=== PATIENT | female | born 1985 | race Caucasian/White ===

== ENCOUNTER 2017-02-11 13:43 | Inpatient (IN) | payer OTHER ==
[2017-02-11] MEDS ORDERED: SODIUM CHLORIDE 0.9% 1,000 ML IV STA (14:25)
[2017-02-11] MEDS ORDERED: ONDANSETRON 4 MG/2 ML VIAL IVP STA (14:25)
[2017-02-11] MEDS ORDERED: HYDROmorphone 1 MG/ML 1 ML SYRINGE IVP STA (14:25)
[2017-02-11] MEDS ORDERED: HYDROmorphone 1 MG/ML 1 ML SYRINGE IVP PRN (14:25)
[2017-02-11] MEDS ORDERED: PANTOPRAZOLE 40 MG/10 ML VIAL IVP STA (14:27)
--- NOTE | 2017-02-11 14:28 | ED ---
General Adult HPI - General Chief complaint: Nausea/Vomiting/Diarrhea Stated complaint: Sent by [facility] De[facility]/scope tomorrow Time Seen by Provider: 02/11/17 14:17 Source: patient, RN notes reviewed, old records reviewed Mode of arrival: ambulatory Limitations: no limitations - History of Present Illness Initial comments: This is a 31-year-old female here for evaluation of abdominal pain nausea vomiting. Patient has medical history of bipolar, no new medications. He states that she's having nausea vomiting and upper abdominal pain. She does have her gallbladder removed about 14 years ago. Unsure of doctor at the time. No fevers. No diarrhea no travel history no sick contacts. Patient was seen in Dr. Howard's office earlier today and sent to emergency room for further evaluation - Related Data Home Medications Medication Instructions Recorded Confirmed ALPRAZolam [Xanax] 1 mg PO Q8HR PRN 02/11/17 02/11/17 Mirtazapine [Remeron] 15 mg PO HS 02/11/17 02/11/17 lamoTRIgine [LaMICtal] 100 mg PO DAILY 02/11/17 02/11/17 Allergies Allergy/AdvReac Type Severity Reaction Status Date / Time ketorolac [From Toradol] Allergy Rash/Hives Verified 02/11/17 15:01 latex Allergy Rash/Hives Verified 02/11/17 15:01 morphine Allergy Rash/Hives Verified 02/11/17 15:01 Review of Systems ROS Statement: Those systems with pertinent positive or pertinent negative responses have been documented in the HPI. ROS Other: All systems not noted in ROS Statement are negative. Past Medical History Past Medical History: No Reported History History of Any Multi-Drug Resistant Organisms: None Reported Past Surgical History: Cholecystectomy Past Psychological History: Bipolar Smoking Status: Current every day smoker Past Alcohol Use History: None Reported Past Drug Use History: None Reported General Exam Limitations: no limitations General appearance: alert, in no apparent distress, anxious Head exam: Present: atraumatic, normocephalic, normal inspection Eye exam: Present: normal appearance, PERRL, EOMI. Absent: scleral icterus, conjunctival injection, periorbital swelling ENT exam: Present: normal exam, mucous membranes moist Neck exam: Present: normal inspection. Absent: tenderness, meningismus, lymphadenopathy Respiratory exam: Present: normal lung sounds bilaterally. Absent: respiratory distress, wheezes, rales, rhonchi, stridor Cardiovascular Exam: Present: regular rate, normal rhythm, normal heart sounds. Absent: systolic murmur, diastolic murmur, rubs, gallop, clicks GI/Abdominal exam: Present: soft, normal bowel sounds. Absent: distended, tenderness, guarding, rebound, rigid Extremities exam: Present: normal inspection, full ROM, normal capillary refill. Absent: tenderness, pedal edema, joint swelling, calf tenderness Back exam: Present: normal inspection Neurological exam: Present: alert, oriented X3, CN II-XII intact Psychiatric exam: Present: normal affect, normal mood Skin exam: Present: warm, dry, intact, normal color. Absent: rash Course Vital Signs 02/11/17 13:45 Temperature 97.5 F L Pulse Rate 95 Respiratory 18 Rate Blood Pressure 135/81 O2 Sat by Pulse 99 Oximetry - Reevaluation(s) Reevaluation #1: 02/11/17 14:[address] Mason regarding patient, patient sent to ER for evaluation, colonoscopy tomorrow Medical Decision Making - Medical Decision Making 31 female ER for evaluation of intractable nausea vomiting about pain. Patient be admitted for upper GI by Dr. Howard, patient be kept nothing by mouth - Lab Data Result diagrams: 02/11/17 14:40 02/11/17 14:40 Lab Results 02/11/17 02/11/17 02/11/17 Range/Units 14:40 14:40 14:40 WBC 13.7 H (3.8-10.6) k/uL RBC 4.88 (3.80-5.40) m/uL Hgb 14.8 (11.4-16.0) gm/dL Hct 41.9 (34.0-46.0) % MCV 85.9 (80.0-100.0) fL MCH 30.3 (25.0-35.0) pg MCHC 35.3 (31.0-37.0) g/dL RDW 13.9 (11.5-15.5) % Plt Count 289 (150-450) k/uL Neutrophils % 86 % Lymphocytes % 8 % Monocytes % 4 % Eosinophils % 1 % Basophils % 0 % Neutrophils # 11.8 H (1.3-7.7) k/uL Lymphocytes # 1.1 (1.0-4.8) k/uL Monocytes # 0.6 (0-1.0) k/uL Eosinophils # 0.1 (0-0.7) k/uL Basophils # 0.0 (0-0.2) k/uL PT 10.9 (9.0-12.0) sec INR 1.1 (<1.1) APTT 22.7 (22.0-30.0) sec Sodium 132 L (137-145) mmol/L Potassium 3.4 L (3.5-5.1) mmol/L Chloride 91 L (98-107) mmol/L Carbon Dioxide 24 (22-30) mmol/L Anion Gap 17 mmol/L BUN 11 (7-17) mg/dL Creatinine 0.73 (0.52-1.04) mg/dL Est GFR (MDRD) Af Amer >60 (>60 ml/min/1.73 sqM) Est GFR (MDRD) Non-Af >60 (>60 ml/min/1.73 sqM) Glucose 102 H (74-99) mg/dL Plasma Lactic Acid Alfredo (0.7-2.0) mmol/L Calcium 9.9 (8.4-10.2) mg/dL Phosphorus 2.5 (2.5-4.5) mg/dL Magnesium 1.9 (1.6-2.3) mg/dL Total Bilirubin 1.4 H (0.2-1.3) mg/dL AST 18 (14-36) U/L ALT 67 H (9-52) U/L Alkaline Phosphatase 58 (38-126) U/L Total Protein 8.1 (6.3-8.2) g/dL Albumin 4.8 (3.5-5.0) g/dL 02/11/17 Range/Units 14:40 WBC (3.8-10.6) k/uL RBC (3.80-5.40) m/uL Hgb (11.4-16.0) gm/dL Hct (34.0-46.0) % MCV (80.0-100.0) fL MCH (25.0-35.0) pg MCHC (31.0-37.0) g/dL RDW (11.5-15.5) % Plt Count (150-450) k/uL Neutrophils % % Lymphocytes % % Monocytes % % Eosinophils % % Basophils % % Neutrophils # (1.3-7.7) k/uL Lymphocytes # (1.0-4.8) k/uL Monocytes # (0-1.0) k/uL Eosinophils # (0-0.7) k/uL Basophils # (0-0.2) k/uL PT (9.0-12.0) sec INR (<1.1) APTT (22.0-30.0) sec Sodium (137-145) mmol/L Potassium (3.5-5.1) mmol/L Chloride (98-107) mmol/L Carbon Dioxide (22-30) mmol/L Anion Gap mmol/L BUN (7-17) mg/dL Creatinine (0.52-1.04) mg/dL Est GFR (MDRD) Af Amer (>60 ml/min/1.73 sqM) Est GFR (MDRD) Non-Af (>60 ml/min/1.73 sqM) Glucose (74-99) mg/dL Plasma Lactic Acid Alfredo 1.4 (0.7-2.0) mmol/L Calcium (8.4-10.2) mg/dL Phosphorus (2.5-4.5) mg/dL Magnesium (1.6-2.3) mg/dL Total Bilirubin (0.2-1.3) mg/dL AST (14-36) U/L ALT (9-52) U/L Alkaline Phosphatase (38-126) U/L Total Protein (6.3-8.2) g/dL Albumin (3.5-5.0) g/dL Disposition Clinical Impression: Dehydration, Nausea and vomiting Disposition: ADMITTED IP TO THIS [facility] Condition: Good
[2017-02-11 14:56] LABS: Basophils % (A) 0 %; CH 30.7; CHCM 35.9; Eosinophils # (A) 0.1 k/uL (0-0.7); Eosinophils % (A) 1 %; HCT 41.9 % (34.0-46.0); HDW 2.98; HGB 14.8 gm/dL (11.4-16.0); Luc # (Auto) 0.12; Luc % (Auto) 1; Lymphocytes # (A) 1.1 k/uL (1.0-4.8); Lymphocytes % (A) 8 %; MCH 30.3 pg (25.0-35.0); MCHC 35.3 g/dL (31.0-37.0); MCV 85.9 fL (80.0-100.0); Mean Platelet Volume 7.2; Monocytes # (A) 0.6 k/uL (0-1.0); Monocytes % (A) 4 %; Neutrophils # (A) 11.8 k/uL (1.3-7.7); Neutrophils % (A) 86 %; RBC 4.88 m/uL (3.80-5.40); RDW 13.9 % (11.5-15.5); WBC 13.7 k/uL (3.8-10.6); WBC (Perox) 13.77
[2017-02-11 15:04] LABS: INR 1.1 (<1.1); Partial Thromboplastin Time 22.7 sec (22.0-30.0); Prothrombin Time 10.9 sec (9.0-12.0)
[2017-02-11 15:10] LABS: ALT 67 U/L (9-52); AST 18 U/L (14-36); Alkaline Phosphatase 58 U/L (38-126); Anion Gap 17 mmol/L; Blood Urea Nitrogen 11 mg/dL (7-17); Calcium 9.9 mg/dL (8.4-10.2); Carbon Dioxide 24 mmol/L (22-30); Chloride 91 mmol/L (98-107); Glucose 102 mg/dL (74-99); Magnesium 1.9 mg/dL (1.6-2.3); Non-African American GFR(MDRD) >60 (>60 ml/min/1.73 sqM); Phosphorous 2.5 mg/dL (2.5-4.5); Potassium 3.4 mmol/L (3.5-5.1); Sodium 132 mmol/L (137-145); Total Bilirubin 1.4 mg/dL (0.2-1.3); Total Protein 8.1 g/dL (6.3-8.2)
[2017-02-11 15:49] LABS: Amorphous Sediment,Urine Rare /hpf; Appearance,Urine Turbid (Clear); Bacteria,Urine Rare /hpf; Bilirubin,Urine Negative (Negative); Glucose,Urine (UA) Negative (Negative); Ketones,Urine 4+ (Negative); Leukocyte Esterase,Urine Negative (Negative); Mucus,Urine Rare /hpf; Nitrite,Urine Negative (Negative); PH, Urine 8.5 (5.0-8.0); Particle Count 29543; Protein,Urine 1+ (Negative); RBC,Urine 7 /hpf (0-5); Specific Gravity,Urine 1.017 (1.001-1.035); Squamous Epithelial Cell,Urine 4 /hpf (0-4); UA Billing (MACRO vs. MICRO) MICRO; WBC,Urine 11 /hpf (0-5)
[2017-02-11] MEDS: HYDROmorphone 1 MG/ML 1 ML SYRINGE IVP PRN ×2 (18:33→21:41)
[2017-02-11] MEDS: SODIUM CHLORIDE 0.9% 1,000 ML IV STA (18:34)
[2017-02-11] MEDS: ONDANSETRON 4 MG/2 ML VIAL IVP PRN (20:55)
[2017-02-12] MEDS: HYDROmorphone 1 MG/ML 1 ML SYRINGE IVP PRN ×8 (01:04→22:55)
[2017-02-12] MEDS: SODIUM CHLORIDE 0.9% 1,000 ML IV STA (02:59)
[2017-02-12] MEDS: ONDANSETRON 4 MG/2 ML VIAL IVP PRN ×3 (04:20→17:25)
[2017-02-12] MEDS ORDERED: SODIUM CHLORIDE 0.9% 1,000 ML IV SCH (08:15)
[2017-02-12 09:14] LABS: Basophils % (A) 0 %; CH 30.3; CHCM 34.7; Eosinophils # (A) 0.1 k/uL (0-0.7); Eosinophils % (A) 1 %; HCT 35.6 % (34.0-46.0); HDW 3.02; HGB 12.1 gm/dL (11.4-16.0); Luc % (Auto) 1; Lymphocytes # (A) 0.9 k/uL (1.0-4.8); Lymphocytes % (A) 8 %; MCH 29.8 pg (25.0-35.0); MCV 87.5 fL (80.0-100.0); Mean Platelet Volume 7.3; Monocytes # (A) 0.6 k/uL (0-1.0); Monocytes % (A) 5 %; Neutrophils % (A) 85 %; RBC 4.07 m/uL (3.80-5.40); WBC 10.7 k/uL (3.8-10.6); WBC (Perox) 10.67
[2017-02-12 09:19] LABS: ALT 47 U/L (9-52); AST 11 U/L (14-36); Alkaline Phosphatase 39 U/L (38-126); Anion Gap 8 mmol/L; Blood Urea Nitrogen 9 mg/dL (7-17); Calcium 8.3 mg/dL (8.4-10.2); Carbon Dioxide 27 mmol/L (22-30); Chloride 100 mmol/L (98-107); Glucose 99 mg/dL (74-99); Magnesium 1.9 mg/dL (1.6-2.3); Non-African American GFR(MDRD) >60 (>60 ml/min/1.73 sqM); Potassium 3.5 mmol/L (3.5-5.1); Sodium 135 mmol/L (137-145); Total Bilirubin 0.7 mg/dL (0.2-1.3); Total Protein 5.8 g/dL (6.3-8.2)
[2017-02-12] MEDS: PANTOPRAZOLE 40 MG/10 ML VIAL IVP SCH (09:20)
--- NOTE | 2017-02-12 09:56 | P.GSHP ---
History of Present Illness H&P Date: 02/12/17 Chief Complaint: Abdominal pain Patient is a 31-year-old white female with medical history significant for C. diff with last positive culture in January admitted through the emergency department with complains of right upper quadrant abdominal pain associated with nausea and vomiting and inability to keep fluids down. Patient states that symptoms have been ongoing since December with no relieving or exacerbating factors. Apparently patient presented to [facility] emergency department on Friday with above complaints and was discharged home with instructions to follow-up with Dr. Howard in the outpatient setting. Yesterday, patient was evaluated by Dr. Howard in the outpatient setting and instructed to proceed to the emergency department for further evaluation. On admission patient presented with a picture of dehydration with leukocytosis and hyperbiliuremia. Patient was admitted for rehydration and pain management. Patient is scheduled to undergo EGD this morning. Upon examination, patient reports intermittent nausea last episode of vomiting at 6:30 this morning. Patient reports intermittent chills with low-grade fever. Denies shortness of breath or chest pain. Patient states she had a soft bowel movement yesterday morning. No history of diarrhea constipation. No history of melena, hematemesis, or hematochezia. T-max the last 24 hours 99.1 at 8 PM last night. Patient is urinating without difficulty. Denies urgency, hematuria, or dysuria. Past Medical History Past Medical History: Asthma, Pneumonia Additional Past Medical History / Comment(s): kidney stones, gallbladder removal 14 years ago, bipolar disorder History of Any Multi-Drug Resistant Organisms: C-DIFF Date of last positivie culture/infection: first week in january MDRO Source:: Bactrim Past Surgical History: Cholecystectomy Past Anesthesia/Blood Transfusion Reactions: No Reported Reaction Past Psychological History: Bipolar Smoking Status: Current every day smoker Past Alcohol Use History: None Reported Past Drug Use History: None Reported - Past Family History Father Additional Family Medical History / Comment(s): colon cancer Medications and Allergies Home Medications Medication Instructions Recorded Confirmed Type ALPRAZolam [Xanax] 1 mg PO Q8HR PRN 02/11/17 02/11/17 History Mirtazapine [Remeron] 15 mg PO HS 02/11/17 02/11/17 History lamoTRIgine [LaMICtal] 100 mg PO DAILY 02/11/17 02/11/17 History Allergies Allergy/AdvReac Type Severity Reaction Status Date / Time ketorolac [From Toradol] Allergy Rash/Hives Verified 02/11/17 15:01 latex Allergy Rash/Hives Verified 02/11/17 15:01 morphine Allergy Rash/Hives Verified 02/11/17 15:01 Surgical - Exam Vital Signs Temp Pulse Resp BP Pulse Ox 97.5 F L 95 18 135/81 99 02/11/17 13:45 02/11/17 13:45 02/11/17 13:45 02/11/17 13:45 02/11/17 13:45 GENERAL: Pt awake and alert, well-nourished, and in no acute distress. HEAD: Atraumatic, normocephalic. EYES: Pupils equal and round. Sclera anicteric, conjunctiva are normal. ENT: Moist mucous membranes. LUNGS: Breath sounds clear to auscultation bilaterally. No wheezes, rales, or rhonchi. HEART: Heart S1, S2, no S3 or S4. Regular rate and rhythm. No murmurs, rubs or gallops. ABDOMEN: Soft, obese, moderate right upper quadrant tenderness, nondistended, normoactive bowel sounds. No guarding, no rebound. No masses or organomegaly appreciated. EXTREMITIES: Palpable peripheral pulses. NEUROLOGICAL: Pt oriented x 3. No focal deficits. Strength and sensation grossly intact. PSYCH: Normal mood, normal affect. SKIN: Warm, dry, intact. Results - Labs 02/12/17 08:39 02/12/17 08:39 Abnormal Lab Results - Last 24 Hours (Table) 02/12/17 02/12/17 Range/Units 08:39 08:39 WBC 10.7 H (3.8-10.6) k/uL Neutrophils # 9.0 H (1.3-7.7) k/uL Lymphocytes # 0.9 L (1.0-4.8) k/uL Sodium 135 L (137-145) mmol/L Calcium 8.3 L (8.4-10.2) mg/dL AST 11 L (14-36) U/L Total Protein 5.8 L (6.3-8.2) g/dL Albumin 3.2 L (3.5-5.0) g/dL Microbiology - Last 24 Hours (Table) 02/11/17 15:55 Urine Culture - Preliminary Urine,Voided Diabetes panel 02/12/17 Range/Units 08:39 Sodium 135 L (137-145) mmol/L Potassium 3.5 (3.5-5.1) mmol/L Chloride 100 (98-107) mmol/L Carbon Dioxide 27 (22-30) mmol/L BUN 9 (7-17) mg/dL Creatinine 0.66 (0.52-1.04) mg/dL Glucose 99 (74-99) mg/dL Calcium 8.3 L (8.4-10.2) mg/dL AST 11 L (14-36) U/L ALT 47 (9-52) U/L Alkaline Phosphatase 39 (38-126) U/L Total Protein 5.8 L (6.3-8.2) g/dL Albumin 3.2 L (3.5-5.0) g/dL Calcium panel 02/12/17 Range/Units 08:39 Calcium 8.3 L (8.4-10.2) mg/dL Albumin 3.2 L (3.5-5.0) g/dL Pituitary panel 02/12/17 Range/Units 08:39 Sodium 135 L (137-145) mmol/L Potassium 3.5 (3.5-5.1) mmol/L Chloride 100 (98-107) mmol/L Carbon Dioxide 27 (22-30) mmol/L BUN 9 (7-17) mg/dL Creatinine 0.66 (0.52-1.04) mg/dL Glucose 99 (74-99) mg/dL Calcium 8.3 L (8.4-10.2) mg/dL Adrenal panel 02/12/17 Range/Units 08:39 Sodium 135 L (137-145) mmol/L Potassium 3.5 (3.5-5.1) mmol/L Chloride 100 (98-107) mmol/L Carbon Dioxide 27 (22-30) mmol/L BUN 9 (7-17) mg/dL Creatinine 0.66 (0.52-1.04) mg/dL Glucose 99 (74-99) mg/dL Calcium 8.3 L (8.4-10.2) mg/dL Total Bilirubin 0.7 (0.2-1.3) mg/dL AST 11 L (14-36) U/L ALT 47 (9-52) U/L Alkaline Phosphatase 39 (38-126) U/L Total Protein 5.8 L (6.3-8.2) g/dL Albumin 3.2 L (3.5-5.0) g/dL Assessment and Plan Plan: Impression: 1. Abdominal pain, present on admission, associated with nausea and vomiting. 2. Dehydration, present on admission, improved. 3. History of C. difficile last positive culture in January. 4. History of cholecystectomy. 5. Nicotine dependence. Plan: 1. Patient will undergo EGD. Check stool for C. diff. Continue PPI. Continue IV hydration. Continue supportive treatment and pain management. Consult Dr. Tamez for medical management. The above impression and plan have been discussed and directed by Dr. Howard. Jim GASPAR acting as scribe for Dr. Howard.
[2017-02-12] MEDS ORDERED: Magnesium Replacement Protocol 1 EACH MISC MISCELLANE PRN (09:57)
[2017-02-12] MEDS ORDERED: Potassium Replacement Protocol 1 EACH MISC MISCELLANE PRN (09:58)
[2017-02-12] MEDS ORDERED: [UNRECOGNIZED DRUG - REMARK] IV SCH ×3 (10:00)
[2017-02-12] MEDS: MAGNESIUM SULFATE-D5W PMX 1 GM in DEXTROSE/WATER 1 100ML.BAG IVPB SCH ×2 (11:01→12:17)
[2017-02-12] MEDS: POTASSIUM CHLORIDE 10 MEQ, LIDOCAINE 2% INJ 10 MG in SODIUM CHLORIDE 0.9% 100 ML IV SCH ×2 (11:01→12:17)
[2017-02-12] MEDS ORDERED: SODIUM CHLORIDE 0.9% 1,000 ML with MVI, ADULT NO.4 WITH VIT K 10 ML, THIAMINE 100 MG, F... IV ONE ×4 (12:00)
[2017-02-12] MEDS ORDERED: PROPOFOL 10 MG/ML 20 ML VIAL IV ONE (14:19)
[2017-02-12] MEDS ORDERED: GLYCOPYRROLATE 0.2 MG/ML 2 ML VIAL ONE (14:19)
[2017-02-12] MEDS ORDERED: fentaNYL (PF) 50 MCG/ML 2 ML AMP ONE (14:19)
[2017-02-12] MEDS ORDERED: LIDOCAINE 1% INJ 10MG/ML (20 ML MDV) ONE (14:19)
[2017-02-12] MEDS ORDERED: IV FLUID CONTINUATION 1,000 ML IV ONE (14:19)
--- NOTE | 2017-02-12 14:57 | P.OP ---
Date of Procedure: 02/12/17 Preoperative Diagnosis: Nausea, vomiting, epigastric pain Postoperative Diagnosis: Mild antral gastritis No evidence of hiatal hernia Procedure(s) Performed: EGD Anesthesia: MAC Surgeon: Alejandro Howard Pathology: other (Antrum, esophagus) Condition: stable Disposition: PACU Description of Procedure: The patient's placed on the endoscopy table in the lateral position. She received IV sedation. The gastroscope some placed oropharynx and passed into the esophagus and into the stomach. Scope was then placed through the pylorus. The first and second portion of the duodenum appeared normal. The scope was then brought back the antrum and this appeared mildly inflamed. A biopsies performed. The scope was then retroflexed and the remainder of the stomach appeared normal. There was no hiatal hernia. The GE junction was at 39 cm. The distal esophagus appeared mildly inflamed a biopsies performed. The proximal esophagus appeared normal. Scope was withdrawn for patient.
[2017-02-12] MEDS ORDERED: PEG 3350-NA SULF,BICARB,CL/KCL 4,000 ML BOTTLE PO ONE (15:01)
--- NOTE | 2017-02-12 22:09 | CONS ---
DATE OF CONSULTATION: CHIEF COMPLAINT: A 31-year-old white female who presents with acute abdominal pain, nausea, vomiting for medical management consultation. She was recently admitted to [facility] multiple times for atypical chest pain, for nausea and vomiting. She has right upper quadrant abdominal pain with nausea, vomiting, progressively worse over the past month; actually she became dehydrated, with leukocytosis, hyperbilirubinemia, and was admitted for rehydration and pain management. She is scheduled for an EGD today. She has a history of asthma, pneumonia, gallbladder removal 14 years ago, renal stones, bipolar disorder, history of C difficile. She has had cholecystectomy. She also has a history of bipolar. Current everyday smoker. No alcohol or illicit drugs. HOME MEDICATIONS: 1. Xanax 1 mg q.8 hours p.r.n. 2. Remeron 15 at bedtime. 3. Lamictal 100 daily. ALLERGIES: 1. TORADOL. 2. LATEX. 3. MORPHINE. PHYSICAL EXAMINATION: Temperature 97.5, respiratory rate 18 to 20, blood pressure 130s over 50s. Oxygen saturation 99% on room air. CARDIOVASCULAR: S1, S2. LUNGS: Transmitted upper airway sounds. HEMATOLOGIC: Negative Homans. PSYCHIATRIC: Fair mood and affect. NEUROLOGIC: Alert and oriented x3. OPHTHALMOLOGIC: Pupils equal, round and reactive to light and accommodation. NEUROLOGIC: Alert and oriented x3. VASCULAR: Normal dorsalis pedis, posterior tibial and radial pulses. SKIN: Warm, dry, intact. GI: ( ) BMI is over 40. White count 10.7. Sodium 135, potassium 3.5. ASSESSMENT: 1. Acute abdominal pain with nausea, vomiting, dehydration. 2. History of Clostridium difficile colitis. 3. Cholecystectomy. 4. Nicotine dependence. EGD is being planned. Continue with PPI treatment for C difficile if positive on stool culture. Please see further orders. Continue home medicines.
[2017-02-13] MEDS: HYDROmorphone 1 MG/ML 1 ML SYRINGE IVP PRN ×4 (04:52→13:33)
[2017-02-13] MEDS: ONDANSETRON 4 MG/2 ML VIAL IVP PRN ×2 (07:41→13:33)
[2017-02-13 08:59] LABS: Basophils % (A) 0 %; CH 30.4; CHCM 34.9; Eosinophils # (A) 0.1 k/uL (0-0.7); Eosinophils % (A) 1 %; HCT 36.2 % (34.0-46.0); HDW 3.03; HGB 12.4 gm/dL (11.4-16.0); Luc # (Auto) 0.15; Luc % (Auto) 2; Lymphocytes # (A) 1.8 k/uL (1.0-4.8); Lymphocytes % (A) 20 %; MCHC 34.3 g/dL (31.0-37.0); MCV 87.4 fL (80.0-100.0); Monocytes # (A) 0.5 k/uL (0-1.0); Monocytes % (A) 5 %; Neutrophils # (A) 6.8 k/uL (1.3-7.7); Neutrophils % (A) 73 %; RBC 4.14 m/uL (3.80-5.40); RDW 14.1 % (11.5-15.5); WBC 9.3 k/uL (3.8-10.6); WBC (Perox) 9.31
[2017-02-13 09:12] LABS: Anion Gap 11 mmol/L; Blood Urea Nitrogen 6 mg/dL (7-17); Calcium 8.3 mg/dL (8.4-10.2); Carbon Dioxide 25 mmol/L (22-30); Chloride 99 mmol/L (98-107); Glucose 78 mg/dL (74-99); Non-African American GFR(MDRD) >60 (>60 ml/min/1.73 sqM); Potassium 3.7 mmol/L (3.5-5.1); Sodium 135 mmol/L (137-145)
[2017-02-13] MEDS: PANTOPRAZOLE 40 MG/10 ML VIAL IVP SCH (09:22)
[2017-02-13] MEDS ORDERED: MIDAZOLAM 2 MG/2 ML VIAL ONE (10:07)
[2017-02-13] MEDS ORDERED: LIDOCAINE 1% INJ 10MG/ML (20 ML MDV) ONE (10:07)
[2017-02-13] MEDS ORDERED: PROPOFOL 10 MG/ML 20 ML VIAL IV ONE (10:07)
[2017-02-13] MEDS ORDERED: IV FLUID CONTINUATION 1,000 ML IV ONE (10:21)
--- NOTE | 2017-02-13 10:40 | P.OP ---
Date of Procedure: 02/13/17 Preoperative Diagnosis: Abdominal pain History of C. diff colitis Postoperative Diagnosis: Normal colonoscopy Anesthesia: DARRELL Surgeon: Alejandro Howard Pathology: other (Rectum) Condition: stable Disposition: PACU Description of Procedure: PROCEDURE: The patient was placed on the endoscopy table in the lateral position. Digital rectal examination was performed which revealed no abnormalities. . Flexible colonoscope was then placed in the patient's anus and passed throughout the entire colon. The ileocecal valve was visualized. The cecum, ascending, transverse, descending and sigmoid colon were normal. The rectum was normal as well. There were no masses, polyps or diverticula noted in the entire colon. A random rectal biopsies performed due to her history of C. diff colitis and abdominal pain. SUMMARY OF FINDINGS: Normal colonoscopy.
[2017-02-13] MEDS ORDERED: traMADol 50 MG TAB PO PRN (15:47)
[2017-02-13] MEDS ORDERED: ALPRAZolam 0.5 MG TAB PO PRN (15:53)
--- NOTE | 2017-02-13 16:03 | P.PN ---
Subjective 31-year-old female being seen on rounds this afternoon. Did review the findings from the endoscopy with the patient Patient had undergone an EGD and a colonoscopy. today The colonoscopy was normal no acute findings. EGD showed no evidence of a hiatal hernia. Mild antral gastritis. Patient states she still feels nauseated cannot identify any triggers. Additionally patient reports having generalized body achespatient has a history of a bipolar disorder history of C. diff cholecystectomy asthma. Patient appears in no acute distress. Patient states she's been having right upper abdominal pain with nausea vomiting has gotten progressively worse onset 1 month prior. Patient reportedly was dehydrated and was admitted for rehydration and pain management Objective - Vital Signs Vital signs: Vital Signs Temp 97.6 F 02/13/17 07:00 Pulse 77 02/13/17 08:00 Resp 16 02/13/17 08:00 BP 102/73 02/13/17 07:00 Pulse Ox 97 02/13/17 07:00 Intake & Output 02/12/17 02/13/17 02/13/17 18:59 06:59 18:59 Intake Total 600 2990 250 Output Total 50 Balance 550 2990 250 Weight 108.862 kg Intake: IV 100 Intake, IV Titration 800 Amount Sodium Chloride 0.9% 1, 800 000 ml @ 100 mls/hr IV . Q10H7M ONE with Mvi, Adult No.4 with Vit K 10 ml with Thiamine 100 mg with Folic Acid 1 mg Rx#: [id number] Oral 600 2190 150 Output: Urine 50 Other: Voiding Method Toilet # Voids 3 - Exam physical exam 31-year-old female obese to resting in bed does not appear toxic well nourished lungs essentially clear adequate air movement Heart S1-S2 audible regular Abdomen soft nontender not able to palpate any organomegaly active bowel tones urinating no difficulty no frequent stool reports a sensation of nausea no active emesis Extremities no edema - Labs CBC & Chem 7: 02/13/17 07:45 02/13/17 07:45 Labs: Abnormal Lab Results - Last 24 Hours (Table) 02/13/17 Range/Units 07:45 Sodium 135 L (137-145) mmol/L BUN 6 L (7-17) mg/dL Calcium 8.3 L (8.4-10.2) mg/dL Assessment and Plan Plan: impression Present on admission persistent nausea vomiting progressive onset 1 month prior Status post EGD and colonoscopy no acute findings no evidence of a hiatal hernia mild antral gastritis normal colonoscopy Bipolar disorder Current every day smoker obesity BMI 36 Plan Stop IV pain medication dilaudid Ultram for pain Resume home meds as appropriate DVT and GI prophylaxis IV fluid at 125 an hour Will add Reglan before meals and at bedtime monitor the response Further recommendations pending The above dictated assessment and findings were discussed with dr karol Tejeda and the plan of care have been dictated as directed. Jodie Lopes nurse practitioner acting as a scribe for dr roberson
[2017-02-13] MEDS: METOCLOPRAMIDE 5 MG TAB PO SCH ×2 (17:01→20:56)
[2017-02-13] MEDS: SODIUM CHLORIDE 0.9% 1,000 ML IV SCH (17:02)
[2017-02-13] MEDS: lamoTRIgine 100 MG TAB PO SCH (17:02)
[2017-02-13] MEDS: MIRTAZAPINE 15 MG TAB PO SCH (20:56)
[2017-02-14] MEDS: SODIUM CHLORIDE 0.9% 1,000 ML IV SCH ×3 (02:15→23:28)
[2017-02-14 07:21] LABS: ALT 34 U/L (9-52); AST 14 U/L (14-36); Alkaline Phosphatase 36 U/L (38-126); Anion Gap 9 mmol/L; Blood Urea Nitrogen 6 mg/dL (7-17); Calcium 8.4 mg/dL (8.4-10.2); Carbon Dioxide 26 mmol/L (22-30); Chloride 104 mmol/L (98-107); Glucose 117 mg/dL (74-99); Non-African American GFR(MDRD) >60 (>60 ml/min/1.73 sqM); Potassium 3.6 mmol/L (3.5-5.1); Sodium 139 mmol/L (137-145); Total Bilirubin 0.4 mg/dL (0.2-1.3); Total Protein 5.4 g/dL (6.3-8.2)
[2017-02-14 07:29] LABS: Basophils % (A) 1 %; CH 31.2; CHCM 35.5; Eosinophils # (A) 0.1 k/uL (0-0.7); Eosinophils % (A) 2 %; HDW 3.04; HGB 11.5 gm/dL (11.4-16.0); Luc # (Auto) 0.09; Luc % (Auto) 1; Lymphocytes # (A) 1.2 k/uL (1.0-4.8); Lymphocytes % (A) 19 %; MCH 29.8 pg (25.0-35.0); MCHC 33.8 g/dL (31.0-37.0); MCV 88.3 fL (80.0-100.0); Mean Platelet Volume 9.6; Monocytes # (A) 0.4 k/uL (0-1.0); Monocytes % (A) 6 %; Neutrophils # (A) 4.6 k/uL (1.3-7.7); Neutrophils % (A) 71 %; RBC 3.85 m/uL (3.80-5.40); RDW 14.4 % (11.5-15.5); WBC 6.5 k/uL (3.8-10.6); WBC (Perox) 6.73
[2017-02-14] MEDS: PANTOPRAZOLE 40 MG/10 ML VIAL IVP SCH (08:41)
[2017-02-14] MEDS: lamoTRIgine 100 MG TAB PO SCH (11:36)
[2017-02-14] MEDS: METOCLOPRAMIDE 5 MG TAB PO SCH ×4 (11:36→20:27)
--- NOTE | 2017-02-14 12:54 | P.CN ---
Psychiatric Consult - . Consult date: 02/14/17 Consult:: I reviewed the medical record and attempted to interview Mrs. Navarrete. She appeared anguished when I told her that I am from psychiatry. She told me she does not wish to speak with me. She is feeling too unwell. I am not on-call this weekend and I will try to interview her again if she is still in the hospital on 02/17/2017. 02/14/17 12:52
[2017-02-14] MEDS ORDERED: SCOPOLAMINE 1.5MG/72HR PATCH TRANSDERM STA (13:11)
--- NOTE | 2017-02-14 13:38 | P.PN ---
Subjective 31year-old being seen on rounds this morning. Nursing reports that the patient has taken 10 showers within the last 8 hours is asking hourly to take a shower when asking why she wants to take some a shower she is stating the only thing that makes her feel better. Nursing reports patient has had no witnessed emesis and no witnessed stooling. Upon entering the room the patient is sitting up in bed with a emesis basin approximately 100 mL of clear secretions in the basin patient states she continues to feel nauseated doesn't feeling better than when she came into the hospital. Did note the psychiatrist did attempt to see the patient is refusing states she's not feeling well enough to see a psychiatrist. Patient does have a history of a bipolar disorder home meds were resumed patient did undergo an EGD as well as a colonoscopy done on February 13 by surgical service in summary the EGD showed no evidence of a hiatal hernia mild atrial gastritis. Patient's IV pain medication has been stopped patient was placed on Ultram in which the patient refuses additionally the patient was started on Reglan and scopolamine patch. Nursing reports patient has been refusing to take her home medication. Patient continues on IV fluid at 100 and hour for hydration labs this morning reviewed that shows no acute abnormalities did note the platelet count is down to 126 was 243 the day before AST ALT and total bili are not elevated hemoglobin is stable at 11.5. Patient stated that she just started her mense Objective - Vital Signs Vital signs: Vital Signs Temp 98 F 02/14/17 07:00 Pulse 62 02/14/17 08:00 Resp 16 02/14/17 08:00 BP 107/67 02/14/17 07:00 Pulse Ox 97 02/14/17 07:00 Intake & Output 02/13/17 02/14/17 02/14/17 18:59 06:59 18:59 Intake Total 250 1979 Output Total 50 1250 Balance 200 1979 -1250 Weight 108.862 kg 108.862 kg Intake: IV 100 Intake, IV Titration 1500 Amount Sodium Chloride 0.9% 1, 1500 000 ml @ 100 mls/hr IV . Q10H MEG Rx#:[id number] Oral 150 480 Output: Urine 50 50 Emesis 1200 Other: Voiding Method Toilet Toilet # Voids 3 3 # Emeses 2 - Exam physical exam 31-year-old female obese sitting up in bed does not appear toxic well nourished continues to report feeling nausea sensation lungs essentially clear adequate air movement Heart S1-S2 audible regular Abdomen soft nontender not able to palpate any organomegaly active bowel tones urinating no difficulty no frequent stool reports a sensation of nausea no active emesis Extremities no edema - Labs CBC & Chem 7: 02/14/17 06:43 02/14/17 06:43 Labs: Abnormal Lab Results - Last 24 Hours (Table) 02/14/17 02/14/17 Range/Units 06:43 06:43 Plt Count 126 L (150-450) k/uL BUN 6 L (7-17) mg/dL Glucose 117 H (74-99) mg/dL Alkaline Phosphatase 36 L (38-126) U/L Total Protein 5.4 L (6.3-8.2) g/dL Albumin 2.9 L (3.5-5.0) g/dL Assessment and Plan Plan: impression Present on admission persistent nausea vomiting progressive onset 1 - 2 month prior Status post EGD and colonoscopy no acute findings no evidence of a hiatal hernia mild antral gastritis normal colonoscopy Bipolar disorder Current every day smoker obesity BMI 36 Plan Stop IV pain medication dilaudid Ultram for pain Resume home meds as appropriate DVT and GI prophylaxis IV fluid at 125 an hour Will add Reglan before meals and at bedtime monitor the response Scopolamine patch Psych eval The above dictated assessment and findings were discussed with dr karol Tejeda and the plan of care have been dictated as directed. Jodie Lopes nurse practitioner acting as a scribe for dr roberson
--- NOTE | 2017-02-14 13:49 | P.PN ---
Progress Note - Text The patient's has some complaints of nausea. Per the nursing staff the patient took 5 showers last night and for this morning. She is being evaluated by psychiatry. The patient is laying in bed complaining of nausea. On exam her vital signs appear stable. Her abdomen soft. The patient has undergone recent EGD and colonoscopy. There was no significant pathology seen. Nothing to explain her chronic nausea. I discussed her case with Jodie Ruiz. I recommended that she have a gastric emptying study performed. If this is normal I would recommend transfer to a tertiary care center.
[2017-02-14] MEDS ORDERED: HYDROcodone/APAP 7.5-325MG 1 EACH TAB PO PRN (14:51)
[2017-02-14 16:17] LABS: Hemoglobin A1C 5.3 % (4.2-6.1)
[2017-02-14] MEDS: MIRTAZAPINE 15 MG TAB PO SCH (20:28)
[2017-02-15 02:16] VITALS: RESP 16
[2017-02-15 07:51] LABS: Basophils % (A) 0 %; CH 30.6; CHCM 35.5; Eosinophils # (A) 0.1 k/uL (0-0.7); Eosinophils % (A) 1 %; HCT 39.3 % (34.0-46.0); HDW 3.11; HGB 13.2 gm/dL (11.4-16.0); Luc # (Auto) 0.14; Luc % (Auto) 1; Lymphocytes # (A) 1.6 k/uL (1.0-4.8); Lymphocytes % (A) 14 %; MCHC 33.5 g/dL (31.0-37.0); MCV 86.5 fL (80.0-100.0); Mean Platelet Volume 7.5; Monocytes # (A) 0.5 k/uL (0-1.0); Monocytes % (A) 4 %; Neutrophils # (A) 9.4 k/uL (1.3-7.7); Neutrophils % (A) 80 %; RBC 4.55 m/uL (3.80-5.40); RDW 14.3 % (11.5-15.5); WBC 11.8 k/uL (3.8-10.6); WBC (Perox) 11.82
[2017-02-15 08:39] LABS: ALT 39 U/L (9-52); AST 23 U/L (14-36); Alkaline Phosphatase 48 U/L (38-126); Anion Gap 14 mmol/L; Blood Urea Nitrogen 4 mg/dL (7-17); Calcium 9.2 mg/dL (8.4-10.2); Carbon Dioxide 23 mmol/L (22-30); Chloride 100 mmol/L (98-107); Glucose 93 mg/dL (74-99); Non-African American GFR(MDRD) >60 (>60 ml/min/1.73 sqM); Sodium 137 mmol/L (137-145); Total Bilirubin 0.7 mg/dL (0.2-1.3); Total Protein 6.6 g/dL (6.3-8.2)
[2017-02-15 08:44] LABS: Potassium 3.6 mmol/L (3.5-5.1)
[2017-02-15] MEDS: METOCLOPRAMIDE 5 MG TAB PO SCH ×2 (10:23→12:25)
[2017-02-15] MEDS: PANTOPRAZOLE 40 MG/10 ML VIAL IVP SCH (10:26)
--- NOTE | 2017-02-15 10:34 | NM ---
EXAMINATION TYPE: NM gastric emptying study DATE OF EXAM: 02/15/2017 10:18 AM COMPARISON: NONE HISTORY: Persistent nausea per order. Diffuse pain with heartburn and reflux as well as nausea and vo miting per patient. Following administration of 2.2 mCi Tc 99m Sulfur Colloid with 1 cup of oatmeal projection images of the abdomen were obtained 10 minutes post ingestion. When possible, both anterior and posterior proje ction images were obtained to allow the calculation of the geometric mean activity. Exam is continued for 90 minutes Clearance: 11 % Half-life: 312 min Gastroesophageal reflux: None IMPRESSION: Abnormal study with findings consistent with gastroparesis noted. Gastric emptying: Diminished from the normal range. Overall poor emptying. Gastroesophageal reflux: None observed on images saved. Gastric emptying normal percentage values: 90 minutes: <65% retention (> 35% emptying) is normal. Gastric emptying T-1/2: Solid: The normal range is 60-105 minutes Additional references: Gastric Emptying Scintigraphy [email or web address]
--- NOTE | 2017-02-15 11:51 | P.PN ---
Subjective The patient's gastric emptying study showed evidence of gastroparesis with only 11%. Objective - Vital Signs Vital signs: Vital Signs Temp 97.5 F L 02/15/17 07:00 Pulse 90 02/15/17 07:00 Resp 16 02/15/17 07:00 BP 135/88 02/15/17 07:00 Pulse Ox 96 02/15/17 07:39 Intake & Output 02/14/17 02/15/17 02/15/17 18:59 06:59 18:59 Intake Total 800 1100 Output Total 3750 Balance -2950 1100 Weight 108.862 kg Intake: Intake, IV Titration 800 Amount Sodium Chloride 0.9% 1, 800 000 ml @ 100 mls/hr IV . Q10H MEG Rx#:[id number] Oral 1100 Output: Urine 150 Emesis 3600 Other: Voiding Method Toilet Toilet Toilet # Voids 3 1 # Emeses 2 - Labs CBC & Chem 7: 02/15/17 07:15 02/15/17 07:15 Labs: Abnormal Lab Results - Last 24 Hours (Table) 02/15/17 02/15/17 Range/Units 07:15 07:15 WBC 11.8 H (3.8-10.6) k/uL Neutrophils # 9.4 H (1.3-7.7) k/uL BUN 4 L (7-17) mg/dL Assessment and Plan (1) Gastroparesis Status: Acute (2) Nausea and vomiting Status: Acute Plan: Recommend dietary evaluation. GI consultation. Currently nonsurgical. We will sign off at this point.
[2017-02-15] MEDS: lamoTRIgine 100 MG TAB PO SCH (12:25)
[2017-02-15 13:02] VITALS: BMI 36.5
--- NOTE | 2017-02-15 13:54 | PN ---
SUBJECTIVE: A 31-year-old white female with progressive nausea, vomiting. Waiting for GI recommendations. Surgery is unsure what is wrong. She had gastric emptying test this morning, which was an abnormal study with findings consistent with gastroparesis. Gastric emptying diminished from the normal range. Discussed with her treatment for gastroparesis including Reglan through the IV. Awaiting GI recommendations. She had refused psychiatric consultation the other day. Will put her on Reglan 5 mg a.c. at bedtime. Since that is not working good, we will increase it to 10 and possibly discharge her home if okay with GI recommendations. CARDIOVASCULAR: S1, S2. LUNGS: Clear. PSYCH: Poor mood and affect. GI: Decreased breath sounds, nontender. No guarding. Please see further orders on the chart.
[2017-02-15 14:38] VITALS: BP 149/92; PULSE 75; TEMP 98.5
[2017-02-15] MEDS ORDERED: METOCLOPRAMIDE 10 MG TAB PO SCH (17:30)
[2017-02-16] MEDS ORDERED: PANTOPRAZOLE 40 MG TABLET PO SCH (07:30)
--- NOTE | 2017-05-13 08:48 | DS ---
DATE OF ADMISSION: 02/12/2017 DATE OF DISCHARGE: 02/15/2017 DISCHARGE MEDICATIONS: 1. Lamictal 100 mg daily. 2. Remeron 15 mg a day. 3. Xanax 1 mg q.8 hours. CONDITION: Stable. PROGNOSIS: Guarded. HOSPITAL COURSE OF EVENTS: This is a white female who was admitted by Dr. Howard for which I had medical management consult. Patient was admitted with acute abdominal pain. Cleared by Surgery. She had colonoscopy with biopsy by Dr. Howard. ( ) study of only 11%. The patient was given gastric paresis medication. Stabilized in nonsurgical manner to go home as an outpatient. Continue with psychiatric monitoring and an outpatient GI work-up and surgical work-up.
== END 2017-02-15 17:52 | disposition home or self-care (01) | DRG 392 ==
LOC: EC 13:43 → 6PED 15:15 → OBSVTOIN 02-12 14:20 → 3SUR 02-12 18:54
PROVIDERS: ADMIT Family Medicine; ATTEND Internal Medicine Cardiovascular Disease
PROC: 0DB68ZX Excision of Stomach, Via Natural or Artificial Opening Endoscopic, Diagnostic (ICD-10-PCS; 2017-02-12)
PROC: 0DB38ZX Excision of Lower Esophagus, Via Natural or Artificial Opening Endoscopic, Diagnostic (ICD-10-PCS; principal; 2017-02-12 08:45)
PROC: 0DBP8ZX Excision of Rectum, Via Natural or Artificial Opening Endoscopic, Diagnostic (ICD-10-PCS; 2017-02-13)
DX: K31.84 Gastroparesis (principal); E86.0 Dehydration; F17.200 Nicotine dependence, unspecified, uncomplicated; J45.909 Unspecified asthma, uncomplicated; K29.60 Other gastritis without bleeding; E66.9 Obesity, unspecified; F31.9 Bipolar disorder, unspecified; Z68.36 Body mass index [BMI] 36.0-36.9, adult; Z86.19 Personal history of other infectious and parasitic diseases; Z90.49 Acquired absence of other specified parts of digestive tract; Z87.442 Personal history of urinary calculi; Z79.899 Other long term (current) drug therapy; Z80.0 Family history of malignant neoplasm of digestive organs
CPT/HCPCS: 36415; 43239; 45380; 78264; 80048; 80053; 81001; 81025; 83036; 83605; 83735; 84100; 85025; 85610; 85730; 87086; 88305; 88342; 93005; 94760; 96361; 96365; 96366; 96368; 96374; 96375; 96376; 99285

== ENCOUNTER 2017-02-24 18:38 | Emergency (ER) | payer OTHER ==
[2017-02-24] MEDS ORDERED: SODIUM CHLORIDE 0.9% 1,000 ML IV STA (20:26)
[2017-02-24] MEDS ORDERED: ONDANSETRON 4 MG/2 ML VIAL IVP STA ×2 (20:26→20:41)
[2017-02-24] MEDS ORDERED: HYDROmorphone 1 MG/ML 1 ML SYRINGE IVP STA ×2 (20:41→22:35)
--- NOTE | 2017-02-24 20:53 | ED ---
Nausea/Vomiting/Diarrhea HPI - General Chief complaint: Nausea/Vomiting/Diarrhea Stated complaint: abdominal pain, kidney Time Seen by Provider: 02/24/17 20:24 Source: patient, RN notes reviewed Mode of arrival: wheelchair Limitations: no limitations - History of Present Illness Initial comments: 31-year-old female presents emergency Department chief complaint left flank pain. Patient states it started today. Patient states nothing seems to make it feel better or worse. Patient states that she has a history kidney stone and states that this feels somewhat. Patient states she's been nauseated and has had some vomiting. Denies any diarrhea, constipation, dysuria, urinary frequency, chest pain, shortness of breath. Patient denies any chance . Patient states she has an ALLERGY to Toradol, morphine, latex. Patient states she gets a rash from all these medications. Patient denies fever , chills. - Related Data Home Medications Medication Instructions Recorded Confirmed ALPRAZolam [Xanax] 1 mg PO Q8HR PRN 02/11/17 02/24/17 Metoclopramide [Reglan] 10 mg PO TID 02/24/17 02/24/17 Previous Rx's Medication Instructions Recorded Hydrocodone/Acetaminophen [Datto 1 tab PO Q6HR PRN #20 tab 02/24/17 5-325] Ondansetron Odt [Zofran Odt] 4 mg PO Q8HR PRN #10 tab 02/24/17 Allergies Allergy/AdvReac Type Severity Reaction Status Date / Time ketorolac [From Toradol] Allergy Rash/Hives Verified 02/24/17 20:31 latex Allergy Rash/Hives Verified 02/24/17 20:31 morphine Allergy Rash/Hives Verified 02/24/17 20:31 Review of Systems ROS Statement: Those systems with pertinent positive or pertinent negative responses have been documented in the HPI. ROS Other: All systems not noted in ROS Statement are negative. Past Medical History Past Medical History: Asthma, Pneumonia Additional Past Medical History / Comment(s): kidney stones, gallbladder removal 14 years ago, bipolar disorder History of Any Multi-Drug Resistant Organisms: None Reported Date of last positivie culture/infection: None MDRO Source:: None Past Surgical History: Cholecystectomy Past Anesthesia/Blood Transfusion Reactions: No Reported Reaction Past Psychological History: Bipolar Smoking Status: Current every day smoker Past Alcohol Use History: None Reported Past Drug Use History: None Reported - Past Family History Father Additional Family Medical History / Comment(s): colon cancer General Exam Limitations: no limitations General appearance: alert, in no apparent distress Head exam: Present: atraumatic, normocephalic, normal inspection Respiratory exam: Present: normal lung sounds bilaterally. Absent: respiratory distress, wheezes, rales, rhonchi, stridor Cardiovascular Exam: Present: regular rate, normal rhythm, normal heart sounds. Absent: systolic murmur, diastolic murmur, rubs, gallop, clicks GI/Abdominal exam: Present: soft, tenderness (Mild left flank tenderness), normal bowel sounds. Absent: distended, guarding, rebound, rigid Back exam: Present: CVA tenderness (L). Absent: CVA tenderness (R) Neurological exam: Present: alert, oriented X3, CN II-XII intact Skin exam: Present: warm, dry, intact, normal color. Absent: rash Course Vital Signs 02/24/17 02/24/17 19:36 21:22 Temperature 98.3 F Pulse Rate 84 Respiratory 20 Rate Blood Pressure 148/91 156/106 O2 Sat by Pulse 100 97 Oximetry Medical Decision Making - Medical Decision Making 31-year-old female presented for abdominal pain. Patient CT does show stones in the left side. This may be causing her pain. Patient does have a large metal common bile duct though she has no right quadrant abdominal pain. Patient had a cholecystectomy several years ago unknown surgeon. Patient be discharged with pain medication, antinausea medication. She does feel improved after pain medication and fluids. - Lab Data Result diagrams: 02/24/17 21:43 02/24/17 21:43 Lab Results 02/24/17 02/24/17 02/24/17 Range/Units 21:10 21:10 21:43 WBC 9.9 (3.8-10.6) k/uL RBC 4.25 (3.80-5.40) m/uL Hgb 12.7 (11.4-16.0) gm/dL Hct 36.9 (34.0-46.0) % MCV 86.8 (80.0-100.0) fL MCH 29.8 (25.0-35.0) pg MCHC 34.3 (31.0-37.0) g/dL RDW 14.1 (11.5-15.5) % Plt Count 264 (150-450) k/uL Neutrophils % 85 % Lymphocytes % 9 % Monocytes % 5 % Eosinophils % 1 % Basophils % 0 % Neutrophils # 8.4 H (1.3-7.7) k/uL Lymphocytes # 0.9 L (1.0-4.8) k/uL Monocytes # 0.5 (0-1.0) k/uL Eosinophils # 0.1 (0-0.7) k/uL Basophils # 0.0 (0-0.2) k/uL Sodium (137-145) mmol/L Potassium (3.5-5.1) mmol/L Chloride (98-107) mmol/L Carbon Dioxide (22-30) mmol/L Anion Gap mmol/L BUN (7-17) mg/dL Creatinine (0.52-1.04) mg/dL Est GFR (MDRD) Af Amer (>60 ml/min/1.73 sqM) Est GFR (MDRD) Non-Af (>60 ml/min/1.73 sqM) Glucose (74-99) mg/dL Calcium (8.4-10.2) mg/dL Total Bilirubin (0.2-1.3) mg/dL AST (14-36) U/L ALT (9-52) U/L Alkaline Phosphatase (38-126) U/L Total Protein (6.3-8.2) g/dL Albumin (3.5-5.0) g/dL Amylase (30-110) U/L Lipase (23-300) U/L Urine Color Yellow Urine Appearance Cloudy H (Clear) Urine pH 7.5 (5.0-8.0) Ur Specific [place] 1.015 (1.001-1.035) Urine Protein Trace H (Negative) Urine Glucose (UA) Negative (Negative) Urine Ketones 4+ H (Negative) Urine Blood Negative (Negative) Urine Nitrite Negative (Negative) Urine Bilirubin Negative (Negative) Urine Urobilinogen 2.0 (<2.0) mg/dL Ur Leukocyte Esterase Negative (Negative) Urine RBC 2 (0-5) /hpf Ur Squamous Epith Cells 4 (0-4) /hpf Amorphous Sediment Few H (None) /hpf Urine Mucus Occasional H (None) /hpf Urine HCG, Qual Not Detected (Not Detectd) 02/24/17 Range/Units 21:43 WBC (3.8-10.6) k/uL RBC (3.80-5.40) m/uL Hgb (11.4-16.0) gm/dL Hct (34.0-46.0) % MCV (80.0-100.0) fL MCH (25.0-35.0) pg MCHC (31.0-37.0) g/dL RDW (11.5-15.5) % Plt Count (150-450) k/uL Neutrophils % % Lymphocytes % % Monocytes % % Eosinophils % % Basophils % % Neutrophils # (1.3-7.7) k/uL Lymphocytes # (1.0-4.8) k/uL Monocytes # (0-1.0) k/uL Eosinophils # (0-0.7) k/uL Basophils # (0-0.2) k/uL Sodium 133 L (137-145) mmol/L Potassium 3.7 (3.5-5.1) mmol/L Chloride 98 (98-107) mmol/L Carbon Dioxide 21 L (22-30) mmol/L Anion Gap 14 mmol/L BUN 10 (7-17) mg/dL Creatinine 0.63 (0.52-1.04) mg/dL Est GFR (MDRD) Af Amer >60 (>60 ml/min/1.73 sqM) Est GFR (MDRD) Non-Af >60 (>60 ml/min/1.73 sqM) Glucose 84 (74-99) mg/dL Calcium 8.8 (8.4-10.2) mg/dL Total Bilirubin 1.2 (0.2-1.3) mg/dL AST 46 H (14-36) U/L ALT 97 H (9-52) U/L Alkaline Phosphatase 57 (38-126) U/L Total Protein 6.6 (6.3-8.2) g/dL Albumin 3.9 (3.5-5.0) g/dL Amylase 47 (30-110) U/L Lipase 33 (23-300) U/L Urine Color Urine Appearance (Clear) Urine pH (5.0-8.0) Ur Specific [place] (1.001-1.035) Urine Protein (Negative) Urine Glucose (UA) (Negative) Urine Ketones (Negative) Urine Blood (Negative) Urine Nitrite (Negative) Urine Bilirubin (Negative) Urine Urobilinogen (<2.0) mg/dL Ur Leukocyte Esterase (Negative) Urine RBC (0-5) /hpf Ur Squamous Epith Cells (0-4) /hpf Amorphous Sediment (None) /hpf Urine Mucus (None) /hpf Urine HCG, Qual (Not Detectd) Disposition Clinical Impression: Left flank pain, Nausea and vomiting Disposition: HOME SELF-CARE Condition: Stable Instructions: Abdominal Pain (ED) Additional Instructions: Please return to the Emergency Department if symptoms worsen or any other concerns. Prescriptions: Hydrocodone/Acetaminophen [Datto 5-325] 1 tab PO Q6HR PRN #20 tab PRN Reason: Pain Ondansetron Odt [Zofran Odt] 4 mg PO Q8HR PRN #10 tab PRN Reason: Nausea Time of Disposition: 23:45
--- NOTE | 2017-02-24 21:42 | XR ---
EXAMINATION TYPE: XR KUB DATE OF EXAM: 02/24/2017 9:37 PM COMPARISON: NONE HISTORY: Nausea and vomiting TECHNIQUE: 2 views FINDINGS: Bowel gas pattern is normal. There is no sign of intestinal obstruction or pneumoperitoneum . Fecal pattern is normal. There is no sign of a mass. There are clips from cholecystectomy. There ar e no pathologic calcifications over the left kidney. There is a 5 mm calcification over the right kid pablo. IMPRESSION: Possible right renal calculus. Nonacute abdomen
[2017-02-24 21:50] LABS: Amorphous Sediment,Urine Few /hpf; Appearance,Urine Cloudy (Clear); Bilirubin,Urine Negative (Negative); Glucose,Urine (UA) Negative (Negative); Ketones,Urine 4+ (Negative); Leukocyte Esterase,Urine Negative (Negative); Mucus,Urine Occasional /hpf; Nitrite,Urine Negative (Negative); PH, Urine 7.5 (5.0-8.0); Particle Count 18852; Protein,Urine Trace (Negative); RBC,Urine 2 /hpf (0-5); Specific Gravity,Urine 1.015 (1.001-1.035); Squamous Epithelial Cell,Urine 4 /hpf (0-4); UA Billing (MACRO vs. MICRO) MICRO
[2017-02-24 22:15] LABS: Basophils % (A) 0 %; CH 30.2; Eosinophils # (A) 0.1 k/uL (0-0.7); Eosinophils % (A) 1 %; HCT 36.9 % (34.0-46.0); HDW 3.02; HGB 12.7 gm/dL (11.4-16.0); Luc # (Auto) 0.08; Luc % (Auto) 1; Lymphocytes # (A) 0.9 k/uL (1.0-4.8); Lymphocytes % (A) 9 %; MCH 29.8 pg (25.0-35.0); MCHC 34.3 g/dL (31.0-37.0); MCV 86.8 fL (80.0-100.0); Mean Platelet Volume 7.7; Monocytes # (A) 0.5 k/uL (0-1.0); Monocytes % (A) 5 %; Neutrophils # (A) 8.4 k/uL (1.3-7.7); Neutrophils % (A) 85 %; RBC 4.25 m/uL (3.80-5.40); RDW 14.1 % (11.5-15.5); WBC 9.9 k/uL (3.8-10.6); WBC (Perox) 10.75
[2017-02-24 22:23] LABS: ALT 97 U/L (9-52); AST 46 U/L (14-36); Alkaline Phosphatase 57 U/L (38-126); Amylase 47 U/L (30-110); Anion Gap 14 mmol/L; Blood Urea Nitrogen 10 mg/dL (7-17); Calcium 8.8 mg/dL (8.4-10.2); Carbon Dioxide 21 mmol/L (22-30); Chloride 98 mmol/L (98-107); Glucose 84 mg/dL (74-99); Non-African American GFR(MDRD) >60 (>60 ml/min/1.73 sqM); Potassium 3.7 mmol/L (3.5-5.1); Sodium 133 mmol/L (137-145); Total Bilirubin 1.2 mg/dL (0.2-1.3); Total Protein 6.6 g/dL (6.3-8.2)
[2017-02-24] MEDS ORDERED: RX INFO: IV CONTRAST WAS GIVEN 1 EACH MISC MISCELLANE PRN (22:35)
[2017-02-24] MEDS ORDERED: SODIUM CHLORIDE 0.9% 1,000 ML IV ONE (22:35)
--- NOTE | 2017-02-24 23:19 | CT ---
INDICATION: Abdominal pain TECHNIQUE: Volumetric CT acquisition is performed through the abdomen and pelvis following the administration of IV contrast. Images are acquired in early and delayed contrast phases. Sagittal and coronal reformatted images are available. DOSIMETRY: Normal enhanced CT of the abdomen and pelvis.This CT exam was performed using one or more of the following dose reduction techniques: automated exposure control, adjustment of the mA and/or kV according to patient size, and/or use of iterative reconstruction technique. CTDIvol 42.50 mGy; DLP 1652.60 mGy-cm. COMPARISON: None available. FINDINGS: The lung bases are clear. The gallbladder is surgically absent. There is mild intrahepatic biliary dilatation. The common bile duct is enlarged measuring 18 mm. No obstructing stone is visible by CT. The pancreas, adrenal glands, and spleen are within normal limits. Both kidneys are similar in size and enhancement with bilateral nonobstructing nephrolithiasis. In the right kidney, there is a 2 mm midpole stone and a 4 mm lower pole stone. In the left kidney, there is a 2 mm lower pole stone. There is no evidence of hydronephrosis or obstructing uropathy. Aorta and IVC are normal. There is no adenopathy. There is no evidence of small or large bowel obstruction. The visualized appendix is normal. There are left hemicolon diverticula without evidence of acute diverticulitis. Urinary bladder and uterus are unremarkable. There is no free fluid or free air in the abdomen or pelvis. There are no acute osseous findings. There is mild osteitis pubis. IMPRESSION: 1. Status post cholecystectomy. Enlarged common bile duct measuring 18 mm and mild intrahepatic biliary dilatation, possibly a consequence of post cholecystectomy state although choledocholithiasis is not excluded. Correlate clinically, and consider MRCP if the imaging exclusion of distal common bile duct stone is desired. 2. Bilateral nonobstructing nephrolithiasis
[2017-02-24] MEDS ORDERED: ONDANSETRON 4 MG ODT STARTER PACK 2 TAB BTL PO STA (23:45)
[2017-02-25 00:05] VITALS: BP 117/76; PULSE 91; RESP 16; TEMP 98.2
== END 2017-02-24 23:55 | disposition home or self-care (01) ==
LOC: EC 18:38
DX: R10.9 Unspecified abdominal pain (principal); R11.2 Nausea with vomiting, unspecified; F17.200 Nicotine dependence, unspecified, uncomplicated; Z79.899 Other long term (current) drug therapy; Z88.5 Allergy status to narcotic agent; Z91.040 Latex allergy status; Z88.6 Allergy status to analgesic agent; Z90.49 Acquired absence of other specified parts of digestive tract
CPT/HCPCS: 36415; 80053; 82150; 83690; 85025; 81001; 81025; 74000; 74177; 99284; 96374; 96375; 96376 ×2; 96361 ×3; J2405; J1170; Q9967; S0119

== ENCOUNTER 2017-02-25 11:15 | Emergency (ER) | payer OTHER ==
[2017-02-25] MEDS ORDERED: SODIUM CHLORIDE 0.9% 1,000 ML IV ONE (11:53)
[2017-02-25] MEDS ORDERED: ONDANSETRON 4 MG/2 ML VIAL IVP STA (11:53)
[2017-02-25] MEDS ORDERED: TAMSULOSIN 0.4 MG CAP.ER.24H PO STA (11:54)
[2017-02-25] MEDS ORDERED: HYDROmorphone 1 MG/ML 1 ML SYRINGE IVP STA ×2 (11:54→15:07)
--- NOTE | 2017-02-25 11:57 | ED ---
General Adult HPI - General Chief complaint: Abdominal Pain Stated complaint: Kidney/abd.pain Time Seen by Provider: 02/25/17 11:24 Source: patient, RN notes reviewed Mode of arrival: ambulatory Limitations: no limitations - History of Present Illness Initial comments: Patient's 31-year-old female presents to the emergency room for evaluation of left-sided flank pain. Patient states she was here yesterday for same issue. Patient states she was diagnosed kidney stones. Patient states she felt better after she was sent home. Patient states the pain began again. Patient states she is unable to keep any food down. Patient states unable to take her pain medications. Patient states having 10 out of 10 constant pain in her left flank area. Patient states it feels like someone is kicking her back. Patient denies any blood in her urine. Patient denies any burning while urinating. Patient denies abdominal pain. Patient states she is very nauseous. Patient has any fevers or chills. Patient denies chest pain shortness of breath. - Related Data Home Medications Medication Instructions Recorded Confirmed ALPRAZolam [Xanax] 1 mg PO Q8HR PRN 02/11/17 02/25/17 Metoclopramide [Reglan] 10 mg PO TID 02/24/17 02/25/17 Previous Rx's Medication Instructions Recorded Ondansetron Odt [Zofran Odt] 4 mg PO Q8HR PRN #10 tab 02/24/17 Allergies Allergy/AdvReac Type Severity Reaction Status Date / Time ketorolac [From Toradol] Allergy Rash/Hives Verified 02/25/17 11:27 latex Allergy Rash/Hives Verified 02/25/17 11:27 morphine Allergy Rash/Hives Verified 02/25/17 11:27 Review of Systems ROS Statement: Those systems with pertinent positive or pertinent negative responses have been documented in the HPI. ROS Other: All systems not noted in ROS Statement are negative. Past Medical History Past Medical History: Asthma, Pneumonia Additional Past Medical History / Comment(s): kidney stones, gallbladder removal 14 years ago, bipolar disorder History of Any Multi-Drug Resistant Organisms: None Reported Date of last positivie culture/infection: None MDRO Source:: None Past Surgical History: Cholecystectomy Past Anesthesia/Blood Transfusion Reactions: No Reported Reaction Past Psychological History: Bipolar Smoking Status: Current every day smoker Past Alcohol Use History: None Reported Past Drug Use History: None Reported - Past Family History Father Additional Family Medical History / Comment(s): colon cancer General Exam - General Exam Comments Initial Comments: Sitting in exam room, comfortable secondary to pain, no acute distress. Limitations: no limitations General appearance: alert, in no apparent distress Head exam: Present: atraumatic, normocephalic, normal inspection Eye exam: Present: normal appearance ENT exam: Present: normal exam Neck exam: Present: normal inspection Respiratory exam: Present: normal lung sounds bilaterally. Absent: respiratory distress Cardiovascular Exam: Present: regular rate, normal rhythm, normal heart sounds Extremities exam: Present: normal inspection Back exam: Present: normal inspection, CVA tenderness (L) Neurological exam: Present: alert, oriented X3, CN II-XII intact, normal gait Psychiatric exam: Present: normal affect, normal mood Skin exam: Present: warm, dry, intact, normal color. Absent: rash Course Vital Signs 02/25/17 02/25/17 02/25/17 11:18 14:51 17:33 Temperature 97.7 F 98.7 F 98.3 F Pulse Rate 109 H 75 67 Respiratory 20 20 18 Rate Blood Pressure 119/92 111/70 139/56 O2 Sat by Pulse 100 100 97 Oximetry Medical Decision Making - Medical Decision Making Patient is a 31-year-old female since emergency room for evaluation of left- sided flank pain. CT reviewed from yesterday. No obstructing stones noted. Patient given pain relief and advised to follow-up with her primary care provider. Labs reviewed, no acute findings. Results discussed with patient. Patient states she understands everything that was discussed with her. Return parameters discussed. Case discussed with Dr. Kate. - Lab Data Result diagrams: 02/25/17 13:00 02/25/17 13:00 Lab Results 02/25/17 02/25/17 02/25/17 Range/Units 13:00 13:00 14:01 WBC 10.6 (3.8-10.6) k/uL RBC 4.28 (3.80-5.40) m/uL Hgb 12.8 (11.4-16.0) gm/dL Hct 37.8 (34.0-46.0) % MCV 88.3 (80.0-100.0) fL MCH 29.8 (25.0-35.0) pg MCHC 33.8 (31.0-37.0) g/dL RDW 14.2 (11.5-15.5) % Plt Count 266 (150-450) k/uL Neutrophils % 83 % Lymphocytes % 9 % Monocytes % 6 % Eosinophils % 1 % Basophils % 1 % Neutrophils # 8.8 H (1.3-7.7) k/uL Lymphocytes # 1.0 (1.0-4.8) k/uL Monocytes # 0.6 (0-1.0) k/uL Eosinophils # 0.1 (0-0.7) k/uL Basophils # 0.1 (0-0.2) k/uL Sodium 133 L (137-145) mmol/L Potassium 4.3 (3.5-5.1) mmol/L Chloride 101 (98-107) mmol/L Carbon Dioxide 19 L (22-30) mmol/L Anion Gap 13 mmol/L BUN 10 (7-17) mg/dL Creatinine 0.63 (0.52-1.04) mg/dL Est GFR (MDRD) Af Amer >60 (>60 ml/min/1.73 sqM) Est GFR (MDRD) Non-Af >60 (>60 ml/min/1.73 sqM) Glucose 73 L (74-99) mg/dL Calcium 9.0 (8.4-10.2) mg/dL Total Bilirubin 1.1 (0.2-1.3) mg/dL AST 38 H (14-36) U/L ALT 90 H (9-52) U/L Alkaline Phosphatase 42 (38-126) U/L Total Protein 6.6 (6.3-8.2) g/dL Albumin 3.8 (3.5-5.0) g/dL Urine Color Yellow Urine Appearance Clear (Clear) Urine pH 6.0 (5.0-8.0) Ur Specific [place] 1.019 (1.001-1.035) Urine Protein Trace H (Negative) Urine Glucose (UA) Negative (Negative) Urine Ketones 4+ H (Negative) Urine Blood Trace H (Negative) Urine Nitrite Negative (Negative) Urine Bilirubin Negative (Negative) Urine Urobilinogen 3.0 (<2.0) mg/dL Ur Leukocyte Esterase Negative (Negative) Urine RBC 3 (0-5) /hpf Urine WBC 1 (0-5) /hpf Ur Squamous Epith Cells 4 (0-4) /hpf Urine Mucus Rare H (None) /hpf - Radiology Data Radiology results: report reviewed, image reviewed Disposition Clinical Impression: Left flank pain Disposition: HOME SELF-CARE Condition: Good Instructions: Flank Pain (ED) Additional Instructions: Continue taking medications prescribed yesterday as needed. Please up with primary care provider in 24-48 hours for reevaluation. If any new symptom arises or symptoms worsen, return to ER as soon as possible. Referrals: None,Stated [Primary Care Provider] - 1-2 days Time of Disposition: 15:08
[2017-02-25 13:15] LABS: Basophils # (A) 0.1 k/uL (0-0.2); Basophils % (A) 1 %; CH 30.3; CHCM 34.5; Eosinophils # (A) 0.1 k/uL (0-0.7); Eosinophils % (A) 1 %; HCT 37.8 % (34.0-46.0); HDW 3.03; HGB 12.8 gm/dL (11.4-16.0); Luc # (Auto) 0.13; Luc % (Auto) 1; Lymphocytes % (A) 9 %; MCH 29.8 pg (25.0-35.0); MCHC 33.8 g/dL (31.0-37.0); MCV 88.3 fL (80.0-100.0); Mean Platelet Volume 7.1; Monocytes # (A) 0.6 k/uL (0-1.0); Monocytes % (A) 6 %; Neutrophils # (A) 8.8 k/uL (1.3-7.7); Neutrophils % (A) 83 %; RBC 4.28 m/uL (3.80-5.40); RDW 14.2 % (11.5-15.5); WBC 10.6 k/uL (3.8-10.6); WBC (Perox) 11.25
[2017-02-25 13:33] LABS: ALT 90 U/L (9-52); AST 38 U/L (14-36); Alkaline Phosphatase 42 U/L (38-126); Anion Gap 13 mmol/L; Blood Urea Nitrogen 10 mg/dL (7-17); Carbon Dioxide 19 mmol/L (22-30); Chloride 101 mmol/L (98-107); Glucose 73 mg/dL (74-99); Non-African American GFR(MDRD) >60 (>60 ml/min/1.73 sqM); Potassium 4.3 mmol/L (3.5-5.1); Sodium 133 mmol/L (137-145); Total Bilirubin 1.1 mg/dL (0.2-1.3); Total Protein 6.6 g/dL (6.3-8.2)
[2017-02-25] MEDS ORDERED: DIAZEPAM 5 MG/ML 2 ML SYRINGE IVP STA (13:49)
[2017-02-25 14:39] LABS: Appearance,Urine Clear (Clear); Bilirubin,Urine Negative (Negative); Glucose,Urine (UA) Negative (Negative); Ketones,Urine 4+ (Negative); Leukocyte Esterase,Urine Negative (Negative); Mucus,Urine Rare /hpf; Nitrite,Urine Negative (Negative); Particle Count 5891; Protein,Urine Trace (Negative); RBC,Urine 3 /hpf (0-5); Specific Gravity,Urine 1.019 (1.001-1.035); Squamous Epithelial Cell,Urine 4 /hpf (0-4); UA Billing (MACRO vs. MICRO) MICRO; WBC,Urine 1 /hpf (0-5)
[2017-02-25] MEDS ORDERED: PROMETHAZINE INJ 12.5 MG in SODIUM CHLORIDE 0.9% 50 ML IVPB STA (15:07)
[2017-02-25 17:34] VITALS: BP 139/56; PULSE 67; RESP 18; TEMP 98.3
== END 2017-02-25 17:34 | disposition home or self-care (01) ==
LOC: EC 11:15
DX: R10.9 Unspecified abdominal pain (principal); R11.0 Nausea; F17.200 Nicotine dependence, unspecified, uncomplicated; Z90.49 Acquired absence of other specified parts of digestive tract; Z79.899 Other long term (current) drug therapy; Z88.5 Allergy status to narcotic agent; Z88.6 Allergy status to analgesic agent; Z91.040 Latex allergy status; Z87.442 Personal history of urinary calculi
CPT/HCPCS: 99284 ×2; 96365 ×2; 96375 ×4; 96376 ×2; 96361 ×4; 36415; 80053; 85025; 81001; J2550; J3360; J2405; J1170

== ENCOUNTER 2017-02-26 09:28 | Emergency (ER) | payer OTHER ==
[2017-02-26] MEDS ORDERED: SODIUM CHLORIDE 0.9% 1,000 ML IV STA (10:32)
[2017-02-26] MEDS ORDERED: ONDANSETRON 4 MG/2 ML VIAL IVP STA (10:32)
--- NOTE | 2017-02-26 10:47 | ED ---
General Adult HPI - General Chief complaint: Abdominal Pain Stated complaint: nausea, back pain Time Seen by Provider: 02/26/17 10:00 Source: patient, RN notes reviewed Mode of arrival: ambulatory Limitations: no limitations - History of Present Illness Initial comments: This is a 31-year-old female presents emergency department for the fourth time this month. Patient states she is having pain in her left back from CVA area down to her lower back. Patient also states she has left upper quadrant pain. This is the patient's fourth visit here this month for the same. Patient is demanding some pain medicine. Patient denies any diarrhea. Patient denies any fever chills. Patient states she can't stop vomiting however. Patient denies any chest pain palpitations difficulty breathing or shortness of breath. Patient denies any heavy lifting or straining. Patient denies any injury or trauma. Patient denies any chest pain or difficulty breathing. - Related Data Home Medications Medication Instructions Recorded Confirmed ALPRAZolam [Xanax] 1 mg PO DAILY PRN 02/11/17 02/26/17 Metoclopramide [Reglan] 10 mg PO TID 02/24/17 02/26/17 Previous Rx's Medication Instructions Recorded Ondansetron Odt [Zofran Odt] 4 mg PO Q8HR PRN #10 tab 02/24/17 Allergies Allergy/AdvReac Type Severity Reaction Status Date / Time ketorolac [From Toradol] Allergy Rash/Hives Verified 02/26/17 10:01 latex Allergy Rash/Hives Verified 02/26/17 10:01 morphine Allergy Rash/Hives Verified 02/26/17 10:01 Review of Systems ROS Statement: Those systems with pertinent positive or pertinent negative responses have been documented in the HPI. ROS Other: All systems not noted in ROS Statement are negative. Past Medical History Past Medical History: Asthma, Pneumonia Additional Past Medical History / Comment(s): kidney stones, gallbladder removal 14 years ago, bipolar disorder History of Any Multi-Drug Resistant Organisms: None Reported Date of last positivie culture/infection: None MDRO Source:: None Past Surgical History: Cholecystectomy Past Anesthesia/Blood Transfusion Reactions: No Reported Reaction Past Psychological History: Bipolar Smoking Status: Current every day smoker Past Alcohol Use History: None Reported Past Drug Use History: None Reported - Past Family History Father Additional Family Medical History / Comment(s): colon cancer General Exam - General Exam Comments Initial Comments: GENERAL: Patient is well-developed and well-nourished. Patient is nontoxic and well- hydrated and is in mild distress. ENT: Neck is soft and supple. No significant lymphadenopathy is noted. Oropharynx is clear. Moist mucous membranes. Neck has full range of motion without eliciting any pain. EYES: The sclera were anicteric and conjunctiva were pink and moist. Extraocular movements were intact and pupils were equal round and reactive to light. Eyelids were unremarkable. PULMONARY: Unlabored respirations. Good breath sounds bilaterally. No audible rales rhonchi or wheezing was noted. CARDIOVASCULAR: There is a regular rate and rhythm without any murmurs gallops or rubs. ABDOMEN: Mild left upper quadrant tenderness. No palpable organomegaly was noted. There is no palpable pulsatile mass. SKIN: Skin is clear with no lesions or rashes and otherwise unremarkable. NEUROLOGIC: Patient is alert and oriented x3. Cranial nerves II through XII are grossly intact. Motor and sensory are also intact. Normal speech, volume and content. Symmetrical smile. MUSCULOSKELETAL: Patient has tenderness to palpation on the left side of the back from the time of the thorax down to her lower back. Normal extremities with adequate strength and full range of motion. No lower extremity swelling or edema. No calf tenderness. LYMPHATICS: No significant lymphadenopathy is noted PSYCHIATRIC: Normal psychiatric evaluation. Limitations: no limitations Course Vital Signs 02/26/17 09:31 Temperature 98.5 F Pulse Rate 101 H Respiratory 20 Rate Blood Pressure 147/91 O2 Sat by Pulse 100 Oximetry Medical Decision Making - Medical Decision Making I spoke with Dr. Howard and he stated he has been seeing this patient since December and states he cannot do any is 4 he is worked her up and cannot find anything and he recommended that she follows up with a tertiary center for pain or vomiting continues. I walked back in the room to reevaluate the patient and she was sleeping I woke her up. I noticed in the emesis basin that there was fluid it looked almost like water with just a little bit of stomach contents. Next to that was a bottle of water that she had drank about three quarters of it. Patient appears to be drinking a lot of vomiting back up in the emesis basin. This soon as I woke the patient up she started moaning and groaning whereas just prior to that she was sleeping. - Lab Data Result diagrams: 02/26/17 10:49 02/26/17 10:49 Lab Results 02/26/17 02/26/17 02/26/17 Range/Units 10:49 10:49 10:49 WBC 11.7 H (3.8-10.6) k/uL RBC 4.41 (3.80-5.40) m/uL Hgb 13.1 (11.4-16.0) gm/dL Hct 38.4 (34.0-46.0) % MCV 87.1 (80.0-100.0) fL MCH 29.6 (25.0-35.0) pg MCHC 34.0 (31.0-37.0) g/dL RDW 14.1 (11.5-15.5) % Plt Count 275 (150-450) k/uL Neutrophils % 88 % Lymphocytes % 5 % Monocytes % 4 % Eosinophils % 1 % Basophils % 1 % Neutrophils # 10.4 H (1.3-7.7) k/uL Lymphocytes # 0.6 L (1.0-4.8) k/uL Monocytes # 0.5 (0-1.0) k/uL Eosinophils # 0.1 (0-0.7) k/uL Basophils # 0.1 (0-0.2) k/uL Sodium 135 L (137-145) mmol/L Potassium 3.9 (3.5-5.1) mmol/L Chloride 101 (98-107) mmol/L Carbon Dioxide 21 L (22-30) mmol/L Anion Gap 13 mmol/L BUN 7 (7-17) mg/dL Creatinine 0.70 (0.52-1.04) mg/dL Est GFR (MDRD) Af Amer >60 (>60 ml/min/1.73 sqM) Est GFR (MDRD) Non-Af >60 (>60 ml/min/1.73 sqM) Glucose 110 H (74-99) mg/dL Calcium 9.2 (8.4-10.2) mg/dL Total Bilirubin 0.8 (0.2-1.3) mg/dL AST 24 (14-36) U/L ALT 80 H (9-52) U/L Alkaline Phosphatase 53 (38-126) U/L Total Protein 6.8 (6.3-8.2) g/dL Albumin 4.0 (3.5-5.0) g/dL Amylase 42 (30-110) U/L Lipase 52 (23-300) U/L Urine Color Yellow Urine Appearance Cloudy H (Clear) Urine pH 7.5 (5.0-8.0) Ur Specific [place] 1.009 (1.001-1.035) Urine Protein Negative (Negative) Urine Glucose (UA) Negative (Negative) Urine Ketones 1+ H (Negative) Urine Blood Negative (Negative) Urine Nitrite Negative (Negative) Urine Bilirubin Negative (Negative) Urine Urobilinogen <2.0 (<2.0) mg/dL Ur Leukocyte Esterase Negative (Negative) Urine RBC 3 (0-5) /hpf Urine WBC 1 (0-5) /hpf Ur Squamous Epith Cells 6 H (0-4) /hpf Urine Mucus Rare H (None) /hpf Disposition Clinical Impression: Abdominal pain Disposition: HOME SELF-CARE Instructions: Abdominal Pain (ED) Additional Instructions: Patient should follow-up with a primary medical care doctor and at a tertiary care center she continues to have pain or vomiting. Referrals: None,Stated [Primary Care Provider] - 1-2 days Time of Disposition: 11:46
[2017-02-26 11:05] LABS: Basophils # (A) 0.1 k/uL (0-0.2); Basophils % (A) 1 %; CH 29.9; CHCM 34.5; Eosinophils # (A) 0.1 k/uL (0-0.7); Eosinophils % (A) 1 %; HCT 38.4 % (34.0-46.0); HDW 3.08; HGB 13.1 gm/dL (11.4-16.0); Luc # (Auto) 0.13; Luc % (Auto) 1; Lymphocytes # (A) 0.6 k/uL (1.0-4.8); Lymphocytes % (A) 5 %; MCH 29.6 pg (25.0-35.0); MCV 87.1 fL (80.0-100.0); Mean Platelet Volume 7.4; Monocytes # (A) 0.5 k/uL (0-1.0); Monocytes % (A) 4 %; Neutrophils # (A) 10.4 k/uL (1.3-7.7); Neutrophils % (A) 88 %; RBC 4.41 m/uL (3.80-5.40); RDW 14.1 % (11.5-15.5); WBC 11.7 k/uL (3.8-10.6); WBC (Perox) 12.04
[2017-02-26 11:09] LABS: Appearance,Urine Cloudy (Clear); Bilirubin,Urine Negative (Negative); Glucose,Urine (UA) Negative (Negative); Ketones,Urine 1+ (Negative); Leukocyte Esterase,Urine Negative (Negative); Mucus,Urine Rare /hpf; Nitrite,Urine Negative (Negative); PH, Urine 7.5 (5.0-8.0); Particle Count 2810; Protein,Urine Negative (Negative); RBC,Urine 3 /hpf (0-5); Specific Gravity,Urine 1.009 (1.001-1.035); Squamous Epithelial Cell,Urine 6 /hpf (0-4); UA Billing (MACRO vs. MICRO) MICRO; Urobilinogen,Urine <2.0 mg/dL (<2.0); WBC,Urine 1 /hpf (0-5)
[2017-02-26 11:22] LABS: ALT 80 U/L (9-52); AST 24 U/L (14-36); Alkaline Phosphatase 53 U/L (38-126); Amylase 42 U/L (30-110); Anion Gap 13 mmol/L; Blood Urea Nitrogen 7 mg/dL (7-17); Calcium 9.2 mg/dL (8.4-10.2); Carbon Dioxide 21 mmol/L (22-30); Chloride 101 mmol/L (98-107); Glucose 110 mg/dL (74-99); Non-African American GFR(MDRD) >60 (>60 ml/min/1.73 sqM); Potassium 3.9 mmol/L (3.5-5.1); Sodium 135 mmol/L (137-145); Total Bilirubin 0.8 mg/dL (0.2-1.3); Total Protein 6.8 g/dL (6.3-8.2)
--- NOTE | 2017-02-26 11:24 | XR ---
Abdomen HISTORY: Left sided kidney stone, pain Frontal view of the abdomen on 2 images correlated to prior abdomen CT dated 24 February 2017 The small kidney stones are seen, calcification superimposed over the lower pole of the right kidney measures approximately 5 mm, the calcification within the left kidney not seen definitively. No bowel obstruction or pneumoperitoneum. Lung bases are clear. Surgical clips in the right upper quadrant. IMPRESSION: Right-sided nephrolithiasis is confirmed. Left-sided renal stone is not seen with certain ty.
[2017-02-26] MEDS ORDERED: ONDANSETRON 4 MG ODT STARTER PACK 2 TAB BTL PO STA (11:46)
[2017-02-26 12:00] VITALS: BP 136/89; PULSE 69; RESP 16; TEMP 98.3
== END 2017-02-26 11:59 | disposition home or self-care (01) ==
LOC: EC 09:28
DX: R10.12 Left upper quadrant pain (principal); F17.200 Nicotine dependence, unspecified, uncomplicated; Z88.5 Allergy status to narcotic agent; Z91.040 Latex allergy status; Z88.8 Allergy status to other drugs, medicaments and biological substances
CPT/HCPCS: 99284; 96374; 96361; 36415; 80053; 82150; 83690; 85025; 81001; 74000; J2405; S0119

== ENCOUNTER 2019-06-17 00:36 | Inpatient (IN) | payer BC, OTHER ==
[2019-06-17] MEDS ORDERED: ONDANSETRON 4 MG/2 ML VIAL IVP STA ×3 (00:59→07:18)
[2019-06-17] MEDS ORDERED: HYDROmorphone 0.5 MG/0.5 ML SYRINGE IVP STA ×3 (00:59→04:32)
--- NOTE | 2019-06-17 01:42 | ED ---
General Adult HPI - General Chief complaint: Urogenital Stated complaint: Kidney pain,nausea,vomiting Time Seen by Provider: 06/17/19 00:48 Source: patient Mode of arrival: ambulatory - History of Present Illness Initial comments: This patient is a 34-year-old woman who presents with complaint of constant, sharp, severe left flank pain that has been going on since 4. Patient states she has also been having a number of episodes of vomiting. She is not able to tolerate any fluids at all. She has also been breaking into a sweat. Patient's does not believe she's had fevers. No chest pain, cough or shortness of breath. No change in bowel movements. -: hour(s) Location: back (Right flank) Radiation: non-radiation Quality: sharp Consistency: constant Improves with: none Worsens with: none Associated Symptoms: diaphoresis, nausea/vomiting Treatments Prior to Arrival: none - Related Data Home Medications Medication Instructions Recorded Confirmed No Known Home Medications 06/17/19 06/17/19 Allergies Allergy/AdvReac Type Severity Reaction Status Date / Time ketorolac [From Toradol] Allergy Rash/Hives Verified 06/17/19 07:40 latex Allergy Rash/Hives Verified 06/17/19 07:40 morphine Allergy Rash/Hives Verified 06/17/19 07:40 Review of Systems ROS Statement: Those systems with pertinent positive or pertinent negative responses have been documented in the HPI. ROS Other: All systems not noted in ROS Statement are negative. Constitutional: Denies: fever Respiratory: Denies: cough, dyspnea Cardiovascular: Denies: chest pain, palpitations, edema, syncope Gastrointestinal: Reports: as per HPI, abdominal pain, nausea, vomiting. Denies: diarrhea, constipation, hematemesis, melena, hematochezia Genitourinary: Denies: dysuria, hematuria, discharge Musculoskeletal: Reports: as per HPI, back pain Skin: Denies: rash Neurological: Denies: headache Past Medical History Past Medical History: Asthma, Pneumonia Additional Past Medical History / Comment(s): kidney stones, gallbladder removal 14 years ago, bipolar disorder History of Any Multi-Drug Resistant Organisms: None Reported Date of last positivie culture/infection: None MDRO Source:: None Past Surgical History: Cholecystectomy Past Anesthesia/Blood Transfusion Reactions: No Reported Reaction Past Psychological History: Bipolar Smoking Status: Current every day smoker Past Alcohol Use History: None Reported Past Drug Use History: None Reported - Past Family History Father Additional Family Medical History / Comment(s): colon cancer General Exam General appearance: alert, in no apparent distress Head exam: Present: atraumatic, normocephalic Eye exam: Present: normal appearance. Absent: scleral icterus, conjunctival injection Respiratory exam: Present: normal lung sounds bilaterally. Absent: respiratory distress, wheezes, rales, rhonchi, stridor Cardiovascular Exam: Present: regular rate, normal rhythm, normal heart sounds. Absent: systolic murmur, diastolic murmur, rubs, gallop GI/Abdominal exam: Present: soft, tenderness (Right-sided abdominal tenderness). Absent: distended, guarding, rebound, rigid, mass Extremities exam: Present: normal inspection, normal capillary refill. Absent: pedal edema, calf tenderness Back exam: Present: normal inspection, CVA tenderness (R). Absent: CVA tenderness (L), vertebral tenderness Neurological exam: Present: alert Skin exam: Present: warm, dry, intact, normal color. Absent: rash Course Vital Signs 06/17/19 06/17/19 06/17/19 00:38 04:45 06:20 Temperature 98.1 F Pulse Rate 110 H 81 100 Respiratory 20 16 Rate Blood Pressure 145/110 117/84 108/75 O2 Sat by Pulse 97 96 98 Oximetry 06/17/19 06/17/19 06:35 07:15 Temperature 98.8 F 98.8 F Pulse Rate 91 Respiratory 18 Rate Blood Pressure 110/78 O2 Sat by Pulse 99 Oximetry Medical Decision Making - Medical Decision Making Patient continues to have intractable vomiting and also severe flank pain despite multiple rounds of medication. CT does appear to show small ureteral stone though no hydronephrosis at this point it does not appear to be obstructi ng. Given the patient is not having any symptomatically relief, will admit patient to [facility] on-call with urology consultation. - Lab Data Result diagrams: 06/19/19 08:37 06/19/19 08:37 Lab Results 06/17/19 06/17/19 06/17/19 Range/Units 01:44 01:44 02:05 WBC 11.8 H (3.8-10.6) k/uL RBC 4.50 (3.80-5.40) m/uL Hgb 13.2 (11.4-16.0) gm/dL Hct 40.0 (34.0-46.0) % MCV 88.9 (80.0-100.0) fL MCH 29.3 (25.0-35.0) pg MCHC 33.0 (31.0-37.0) g/dL RDW 14.7 (11.5-15.5) % Plt Count 319 (150-450) k/uL Neutrophils % 86 % Lymphocytes % 9 % Monocytes % 3 % Eosinophils % 1 % Basophils % 0 % Neutrophils # 10.2 H (1.3-7.7) k/uL Lymphocytes # 1.1 (1.0-4.8) k/uL Monocytes # 0.3 (0-1.0) k/uL Eosinophils # 0.1 (0-0.7) k/uL Basophils # 0.1 (0-0.2) k/uL Sodium 139 (137-145) mmol/L Potassium 4.2 (3.5-5.1) mmol/L Chloride 105 (98-107) mmol/L Carbon Dioxide 25 (22-30) mmol/L Anion Gap 9 mmol/L BUN 12 (7-17) mg/dL Creatinine 0.68 (0.52-1.04) mg/dL Est GFR (CKD-EPI)AfAm >90 (>60 ml/min/1.73 sqM) Est GFR (CKD-EPI)NonAf >90 (>60 ml/min/1.73 sqM) Glucose 156 H (74-99) mg/dL Calcium 9.8 (8.4-10.2) mg/dL Total Bilirubin 0.6 (0.2-1.3) mg/dL AST 20 (14-36) U/L ALT 26 (9-52) U/L Alkaline Phosphatase 67 (38-126) U/L Total Protein 7.5 (6.3-8.2) g/dL Albumin 4.6 (3.5-5.0) g/dL Amylase 58 (30-110) U/L Lipase 46 (23-300) U/L Urine Color Urine Appearance (Clear) Urine pH (5.0-8.0) Ur Specific [place] (1.001-1.035) Urine Protein (Negative) Urine Glucose (UA) (Negative) Urine Ketones (Negative) Urine Blood (Negative) Urine Nitrite (Negative) Urine Bilirubin (Negative) Urine Urobilinogen (<2.0) mg/dL Ur Leukocyte Esterase (Negative) Urine RBC (0-5) /hpf Urine WBC (0-5) /hpf Ur Squamous Epith Cells (0-4) /hpf Urine Mucus (None) /hpf Urine HCG, Qual Not Detected (Not Detectd) 06/17/19 06/19/19 06/19/19 Range/Units 02:05 08:37 08:37 WBC 6.5 (3.8-10.6) k/uL RBC 3.70 L (3.80-5.40) m/uL Hgb 11.0 L (11.4-16.0) gm/dL Hct 34.0 (34.0-46.0) % MCV 91.8 (80.0-100.0) fL MCH 29.8 (25.0-35.0) pg MCHC 32.5 (31.0-37.0) g/dL RDW 14.1 (11.5-15.5) % Plt Count 237 (150-450) k/uL Neutrophils % 61 % Lymphocytes % 29 % Monocytes % 6 % Eosinophils % 2 % Basophils % 1 % Neutrophils # 4.0 (1.3-7.7) k/uL Lymphocytes # 1.9 (1.0-4.8) k/uL Monocytes # 0.4 (0-1.0) k/uL Eosinophils # 0.1 (0-0.7) k/uL Basophils # 0.1 (0-0.2) k/uL Sodium 137 (137-145) mmol/L Potassium 3.8 (3.5-5.1) mmol/L Chloride 106 (98-107) mmol/L Carbon Dioxide 26 (22-30) mmol/L Anion Gap 5 mmol/L BUN 14 (7-17) mg/dL Creatinine 0.74 (0.52-1.04) mg/dL Est GFR (CKD-EPI)AfAm >90 (>60 ml/min/1.73 sqM) Est GFR (CKD-EPI)NonAf >90 (>60 ml/min/1.73 sqM) Glucose 126 H (74-99) mg/dL Calcium 8.1 L (8.4-10.2) mg/dL Total Bilirubin (0.2-1.3) mg/dL AST (14-36) U/L ALT (9-52) U/L Alkaline Phosphatase (38-126) U/L Total Protein (6.3-8.2) g/dL Albumin (3.5-5.0) g/dL Amylase (30-110) U/L Lipase (23-300) U/L Urine Color Yellow Urine Appearance Cloudy H (Clear) Urine pH 7.0 (5.0-8.0) Ur Specific [place] 1.025 (1.001-1.035) Urine Protein 1+ H (Negative) Urine Glucose (UA) Negative (Negative) Urine Ketones 2+ H (Negative) Urine Blood Small H (Negative) Urine Nitrite Negative (Negative) Urine Bilirubin Negative (Negative) Urine Urobilinogen <2.0 (<2.0) mg/dL Ur Leukocyte Esterase Negative (Negative) Urine RBC 25 H (0-5) /hpf Urine WBC 3 (0-5) /hpf Ur Squamous Epith Cells 6 H (0-4) /hpf Urine Mucus Few H (None) /hpf Urine HCG, Qual (Not Detectd) Disposition Clinical Impression: Kidney calculi, Intractable abdominal pain Disposition: ADMITTED IP TO THIS [facility] Condition: Good Is patient prescribed a controlled substance at d/c from ED?: No
[2019-06-17 01:57] LABS: Basophils # (A) 0.1 k/uL (0-0.2); Basophils % (A) 0 %; Eosinophils # (A) 0.1 k/uL (0-0.7); Eosinophils % (A) 1 %; HGB 13.2 gm/dL (11.4-16.0); Lymphocytes # (A) 1.1 k/uL (1.0-4.8); Lymphocytes % (A) 9 %; MCH 29.3 pg (25.0-35.0); MCV 88.9 fL (80.0-100.0); Mean Platelet Volume 7.1; Monocytes # (A) 0.3 k/uL (0-1.0); Monocytes % (A) 3 %; Neutrophils # (A) 10.2 k/uL (1.3-7.7); Neutrophils % (A) 86 %; Platelet Count 319 k/uL (150-450); RDW 14.7 % (11.5-15.5); WBC 11.8 k/uL (3.8-10.6)
[2019-06-17 02:11] LABS: ALT 26 U/L (9-52); AST 20 U/L (14-36); African American GFR (CKD) >90 (>60 ml/min/1.73 sqM); Albumin 4.6 g/dL (3.5-5.0); Alkaline Phosphatase 67 U/L (38-126); Amylase 58 U/L (30-110); Anion Gap 9 mmol/L; Blood Urea Nitrogen 12 mg/dL (7-17); Calcium 9.8 mg/dL (8.4-10.2); Carbon Dioxide 25 mmol/L (22-30); Chloride 105 mmol/L (98-107); Glucose 156 mg/dL (74-99); Lipase 46 U/L (23-300); Potassium 4.2 mmol/L (3.5-5.1); Sodium 139 mmol/L (137-145); Total Bilirubin 0.6 mg/dL (0.2-1.3); Total Protein 7.5 g/dL (6.3-8.2)
[2019-06-17 02:12] LABS: Appearance,Urine Cloudy (Clear); Bilirubin,Urine Negative (Negative); Blood,Urine Small (Negative); Color,Urine Yellow; Glucose,Urine (UA) Negative (Negative); Ketones,Urine 2+ (Negative); Leukocyte Esterase,Urine Negative (Negative); Mucus,Urine Few /hpf; Nitrite,Urine Negative (Negative); Protein,Urine 1+ (Negative); RBC,Urine 25 /hpf (0-5); Specific Gravity,Urine 1.025 (1.001-1.035); Squamous Epithelial Cell,Urine 6 /hpf (0-4); Urobilinogen,Urine <2.0 mg/dL (<2.0); WBC,Urine 3 /hpf (0-5)
--- NOTE | 2019-06-17 03:07 | CT ---
EXAM: CT Abdomen and Pelvis Without Intravenous Contrast CLINICAL HISTORY: Right lower quadrant pain. Nausea and vomiting. TECHNIQUE: Axial computed tomography images of the abdomen and pelvis without intravenous contrast. CTDI is 17.3 mGy and DLP is 1052.4 mGy-cm. This CT exam was performed using one or more of the following dose reduction techniques: automated exposure control, adjustment of the mA and/or kV according to patient size, and/or use of iterative reconstruction technique. COMPARISON: 02/24/2017 FINDINGS: Lung bases: Unremarkable. No mass. No consolidation. ABDOMEN: Liver: The unenhanced liver is unremarkable. Gallbladder and bile ducts: Status post cholecystectomy. The common bile duct is dilated but is similar in appearance to the previous exam. Pancreas: The unenhanced pancreas demonstrates stable contours. No pancreatic ductal dilatation. Spleen: Unremarkable. No splenomegaly. Adrenals: Unremarkable. No mass. Kidneys and ureters: There is a 3 mm proximal left ureteral stone identified immediately distal to the left UPJ. Additional nonobstructive incidental subcentimeter nephrolithiasis noted bilaterally. Detailed evaluation of the calcifications in the inferior pole the right kidney are somewhat limited by respiratory artifact. Stomach and bowel: Scattered diverticulosis is seen involving the transverse and descending colon. No obstruction. No mucosal thickening. PELVIS: Appendix: A normal caliber appendix is noted in the right lower quadrant. Bladder: Evaluation of bladder is limited with decompression. No stones. Reproductive: Unremarkable as visualized. ABDOMEN and PELVIS: Intraperitoneal space: Unremarkable. No free air. No significant fluid collection. Bones/joints: No acute fracture. No dislocation. Soft tissues: Unremarkable. Vasculature: Unremarkable. No abdominal aortic aneurysm. Lymph nodes: Unremarkable. No enlarged lymph nodes. IMPRESSION: There is a 3 mm proximal left ureteral stone identified immediately distal to the left UPJ. No significant hydronephrosis. Additional incidental nonobstructive bilateral nephrolithiasis noted.
[2019-06-17] MEDS ORDERED: TAMSULOSIN 0.4 MG CAP.ER.24H PO STA ×2 (03:37→11:26)
[2019-06-17] MEDS ORDERED: HYDROmorphone 1 MG/ML 1 ML SYRINGE IVP STA ×2 (05:20→07:18)
[2019-06-17] MEDS ORDERED: PROMETHAZINE INJ 25 MG in SODIUM CHLORIDE 0.9% 50 ML IVPB STA (05:20)
[2019-06-17] MEDS ORDERED: NALOXONE 0.4 MG/ML 1 ML VIAL IV PRN (07:39)
[2019-06-17] MEDS: SODIUM CHLORIDE 0.9% 1,000 ML IV SCH ×2 (07:57→18:11)
[2019-06-17 09:03] VITALS: BMI 39.1
--- NOTE | 2019-06-17 11:10 | P.HPIM ---
Past Medical History Past Medical History: Asthma, GERD/Reflux, Pneumonia Additional Past Medical History / Comment(s): kidney stones, bipolar disorder, diverticulosis History of Any Multi-Drug Resistant Organisms: None Reported Date of last positivie culture/infection: None MDRO Source:: None Past Surgical History: Cholecystectomy Past Anesthesia/Blood Transfusion Reactions: No Reported Reaction Past Psychological History: Bipolar Smoking Status: Current every day smoker Past Alcohol Use History: None Reported Past Drug Use History: None Reported - Past Family History Father Additional Family Medical History / Comment(s): colon cancer Medications and Allergies Home Medications Medication Instructions Recorded Confirmed Type No Known Home Medications 06/17/19 06/17/19 History Allergies Allergy/AdvReac Type Severity Reaction Status Date / Time ketorolac [From Toradol] Allergy Rash/Hives Verified 06/17/19 07:40 latex Allergy Rash/Hives Verified 06/17/19 07:40 morphine Allergy Rash/Hives Verified 06/17/19 07:40 Physical Exam Vitals: Vital Signs Temp Pulse Pulse Resp BP BP Pulse Ox 06/17/19 09:15 98.0 F 68 16 98/64 94 L 06/17/19 07:15 98.8 F 91 18 110/78 99 06/17/19 06:35 98.8 F 06/17/19 06:20 100 16 108/75 98 06/17/19 04:45 81 117/84 96 06/17/19 00:38 98.1 F 110 H 20 145/110 97 Intake and Output 06/16/19 06/17/19 06/17/19 22:59 06:59 14:59 Other: Weight 113.398 kg Results CBC & Chem 7: 06/17/19 01:44 06/17/19 01:44 Labs: Abnormal Lab Results - Last 24 Hours (Table) 06/17/19 06/17/19 06/17/19 Range/Units 01:44 01:44 02:05 WBC 11.8 H (3.8-10.6) k/uL Neutrophils # 10.2 H (1.3-7.7) k/uL Glucose 156 H (74-99) mg/dL Urine Appearance Cloudy H (Clear) Urine Protein 1+ H (Negative) Urine Ketones 2+ H (Negative) Urine Blood Small H (Negative) Urine RBC 25 H (0-5) /hpf Ur Squamous Epith Cells 6 H (0-4) /hpf Urine Mucus Few H (None) /hpf Thrombosis Risk Factor Assmnt - Choose All That Apply Each Factor Represents 1 point: Obesity (BMI >25) Thrombosis Risk Factor Assessment Total Risk Factor Score: 1 Thrombosis Risk Factor Assessment Level: Low Risk
--- NOTE | 2019-06-17 11:23 | P.HPIM ---
History of Present Illness Chief Complaint: Flank pain This is a 34-year-old female with no significant past medical history comes in with above-mentioned complaints. The patient says that she was okay until in the evening yesterday when she suddenly started having pain in the bilateral flank more on the right than compared to the left and she said that she started having nausea and vomiting along with the flank pain has not been able to cuauhtemoc erate foods or any fluids. She was also sweating along with the pain that she does came into the ER for further admission and management. She did not complain of any fever or chills, she does not complain of any chest pain racing heart, no cough no shortness of breath, no abdominal pain anywhere else in the body, no diarrhea constipation, no tingling numbness of any of the 70s, no itch no rash. Next ER course-temperature 98.0 pulse 60 respirations 18 blood pressure 98/64 satting 94% on room air. Labwork was done which showed abuse 11.8 hemoglobin 13.2 platelets 319 sodium 139 potassium 4.2 bun 12 creatinine 0.6 GFR more than 90 LFTs were normal. Computed tomography scan of the abdomen pelvis was done which showed 3 mL proximal left ureteral stone immediately distal to the left UPJ no hydronephrosis. Patient was started on IV fluids, given Flomax once was given pain medications and medications for nausea and admitted to the hospitalist service for further evaluation and management Review of Systems All systems: negative Past Medical History Past Medical History: Asthma, GERD/Reflux, Pneumonia Additional Past Medical History / Comment(s): kidney stones, bipolar disorder, diverticulosis History of Any Multi-Drug Resistant Organisms: None Reported Date of last positivie culture/infection: None MDRO Source:: None Past Surgical History: Cholecystectomy Past Anesthesia/Blood Transfusion Reactions: No Reported Reaction Past Psychological History: Bipolar Smoking Status: Current every day smoker Past Alcohol Use History: None Reported Past Drug Use History: None Reported - Past Family History Father Additional Family Medical History / Comment(s): colon cancer Medications and Allergies Home Medications Medication Instructions Recorded Confirmed Type No Known Home Medications 06/17/19 06/17/19 History Allergies Allergy/AdvReac Type Severity Reaction Status Date / Time ketorolac [From Toradol] Allergy Rash/Hives Verified 06/17/19 07:40 latex Allergy Rash/Hives Verified 06/17/19 07:40 morphine Allergy Rash/Hives Verified 06/17/19 07:40 Physical Exam Vitals: Vital Signs Temp Pulse Pulse Resp BP BP Pulse Ox 06/17/19 09:15 98.0 F 68 16 98/64 94 L 06/17/19 07:15 98.8 F 91 18 110/78 99 06/17/19 06:35 98.8 F 06/17/19 06:20 100 16 108/75 98 06/17/19 04:45 81 117/84 96 06/17/19 00:38 98.1 F 110 H 20 145/110 97 Intake and Output 06/16/19 06/17/19 06/17/19 22:59 06:59 14:59 Other: Weight 113.398 kg On exam, alert and oriented x3. HEENT: Conjunctivae normal. eyes normal. NECK: No JVD. No thyroid enlargement. No LNs CARDIOVASCULAR: S1, S2 muffled. No murmur RESPIRATION: Breath sounds diminished in the bases. No rhonchi or crackles. No bronchial breathing. ABDOMEN: Soft, tenderness in the flank area more on the right side. No guarding. no masses palpable. No ascites, No hepatosplenomegaly.Bowel sounds hea rd. LEGS: No edema. no swelling NERVOUS SYSTEM: Cranial N 2-12 grossly normal. Moves all 4 limbs. No focal deficits. No sensory deficit. No signs of cerebellar dysfucntion. Skin: no ulcer no rash Joints: No active swelling. No inflammation. Lymphatic system. No LN neck axilla or groin. Results CBC & Chem 7: 06/17/19 01:44 06/17/19 01:44 Labs: Abnormal Lab Results - Last 24 Hours (Table) 06/17/19 06/17/19 06/17/19 Range/Units 01:44 01:44 02:05 WBC 11.8 H (3.8-10.6) k/uL Neutrophils # 10.2 H (1.3-7.7) k/uL Glucose 156 H (74-99) mg/dL Urine Appearance Cloudy H (Clear) Urine Protein 1+ H (Negative) Urine Ketones 2+ H (Negative) Urine Blood Small H (Negative) Urine RBC 25 H (0-5) /hpf Ur Squamous Epith Cells 6 H (0-4) /hpf Urine Mucus Few H (None) /hpf Thrombosis Risk Factor Assmnt - Choose All That Apply Each Factor Represents 1 point: Obesity (BMI >25) Thrombosis Risk Factor Assessment Total Risk Factor Score: 1 Thrombosis Risk Factor Assessment Level: Low Risk Assessment and Plan Assessment: - Bilateral flank pain more on the right - Kidney stone the left side near the UPJ junction - Obesity Plan - We'll admit the patient to [facility] with telemetry under observation - We'll continue IV fluids - We'll continue pain control and nausea control - Urology consulted await the expert recommendations - We'll continue Flomax - DVT and GI prophylaxis - We'll order for lab work in the morning - Patient is an observation - Patient is full code
[2019-06-17] MEDS: HYDROmorphone 1 MG/ML 1 ML SYRINGE IVP PRN ×4 (11:47→23:29)
--- NOTE | 2019-06-17 12:29 | P.GSCN ---
History of Present Illness Consult date: 06/17/19 Reason for Consult: Urolithiasis History of present illness: The patient is a 34-year-old female admitted through the emergency room early this morning for evaluation of nausea, vomiting and bilateral flank pain. The patient says that her pain began yesterday morning and was primarily in the right flank. It worsened through the day and became intolerable despite the use of ibuprofen. She has had no fever or chills and has not experienced gross hematuria. She was evaluated in the emergency room early this morning and her white blood count was 11,800. BUN/creatinine were 12/0.68. Urinalysis showed 25 red cells and 3 white cells. Noncontrast computed tomography scan of the abdomen and pelvis identified a 2.7 mm partially obstructive proximal left ureteral calculus. A 4 x 6 mm calculus was also noted in the lower pole calyx of the right kidney. There was no right hydronephrosis. The patient has a history of gross hematuria and was noted to have bilateral renal calculi measuring 2-3 mm in size on a computed tomography scan in 2017. She has never actually passed a stone. She thinks that her father may have had kidney stones. She has had urinary tract infections in the past but none of these have involved a high fever. Review of Systems - Constitutional Denies chills, Denies fever - Cardiovascular Denies shortness of breath - Respiratory Denies wheezing - Gastrointestinal Reports nausea, Reports vomiting Past Medical History Past Medical History: Asthma, GERD/Reflux, Pneumonia Additional Past Medical History / Comment(s): kidney stones, bipolar disorder, diverticulosis History of Any Multi-Drug Resistant Organisms: None Reported Year Discovered:: None MDRO Source:: None Past Surgical History: Cholecystectomy Additional Past Surgical History / Comment(s): Colonoscopy Past Anesthesia/Blood Transfusion Reactions: No Reported Reaction Past Psychological History: Bipolar Smoking Status: Current every day smoker Past Alcohol Use History: None Reported Past Drug Use History: None Reported - Past Family History Father Additional Family Medical History / Comment(s): colon cancer Medications and Allergies Home Medications Medication Instructions Recorded Confirmed Type No Known Home Medications 06/17/19 06/17/19 History Allergies Allergy/AdvReac Type Severity Reaction Status Date / Time ketorolac [From Toradol] Allergy Rash/Hives Verified 06/17/19 07:40 latex Allergy Rash/Hives Verified 06/17/19 07:40 morphine Allergy Rash/Hives Verified 06/17/19 07:40 Surgical - Exam Vital Signs Temp Pulse Resp BP Pulse Ox 98.1 F 110 H 20 145/110 97 06/17/19 00:38 06/17/19 00:38 06/17/19 00:38 06/17/19 00:38 06/17/19 00:38 - General well developed, well nourished, moderate distress, obese - ENT no hearing loss - Neck no masses, no lymphadectomy - Respiratory normal respiratory effort - Abdomen Abdomen: soft, non tender, no organomegaly Results - Labs 06/17/19 01:44 06/17/19 01:44 Abnormal Lab Results - Last 24 Hours (Table) 06/17/19 06/17/19 06/17/19 Range/Units 01:44 01:44 02:05 WBC 11.8 H (3.8-10.6) k/uL Neutrophils # 10.2 H (1.3-7.7) k/uL Glucose 156 H (74-99) mg/dL Urine Appearance Cloudy H (Clear) Urine Protein 1+ H (Negative) Urine Ketones 2+ H (Negative) Urine Blood Small H (Negative) Urine RBC 25 H (0-5) /hpf Ur Squamous Epith Cells 6 H (0-4) /hpf Urine Mucus Few H (None) /hpf Diabetes panel 06/17/19 Range/Units 01:44 Sodium 139 (137-145) mmol/L Potassium 4.2 (3.5-5.1) mmol/L Chloride 105 (98-107) mmol/L Carbon Dioxide 25 (22-30) mmol/L BUN 12 (7-17) mg/dL Creatinine 0.68 (0.52-1.04) mg/dL Glucose 156 H (74-99) mg/dL Calcium 9.8 (8.4-10.2) mg/dL AST 20 (14-36) U/L ALT 26 (9-52) U/L Alkaline Phosphatase 67 (38-126) U/L Total Protein 7.5 (6.3-8.2) g/dL Albumin 4.6 (3.5-5.0) g/dL Calcium panel 06/17/19 Range/Units 01:44 Calcium 9.8 (8.4-10.2) mg/dL Albumin 4.6 (3.5-5.0) g/dL Pituitary panel 06/17/19 Range/Units 01:44 Sodium 139 (137-145) mmol/L Potassium 4.2 (3.5-5.1) mmol/L Chloride 105 (98-107) mmol/L Carbon Dioxide 25 (22-30) mmol/L BUN 12 (7-17) mg/dL Creatinine 0.68 (0.52-1.04) mg/dL Glucose 156 H (74-99) mg/dL Calcium 9.8 (8.4-10.2) mg/dL Adrenal panel 06/17/19 Range/Units 01:44 Sodium 139 (137-145) mmol/L Potassium 4.2 (3.5-5.1) mmol/L Chloride 105 (98-107) mmol/L Carbon Dioxide 25 (22-30) mmol/L BUN 12 (7-17) mg/dL Creatinine 0.68 (0.52-1.04) mg/dL Glucose 156 H (74-99) mg/dL Calcium 9.8 (8.4-10.2) mg/dL Total Bilirubin 0.6 (0.2-1.3) mg/dL AST 20 (14-36) U/L ALT 26 (9-52) U/L Alkaline Phosphatase 67 (38-126) U/L Total Protein 7.5 (6.3-8.2) g/dL Albumin 4.6 (3.5-5.0) g/dL Assessment and Plan (1) Left ureteral calculus Narrative/Plan: I personally reviewed the patient's computed tomography scan of the abdomen and pelvis which was performed earlier today. She has a 2.7 mm calculus in the proximal left ureter with mild left hydronephrosis. This is the most likely source for her left flank pain. She does have a 4 x 6 mm calculus in the lower pole of the right kidney but it is unlikely to be the source of pain in the absence of obstruction. The patient does not have evidence of urinary tract infection. The likelihood of a less than 3 mm calculus passing spontaneously his over 80%. The patient has been started on tamsulosin and has been instructed to strain her urine as she may not feel it passed from her bladder. I will reevaluate the patient tomorrow if she continues to have pain. Current Visit: Yes Status: Acute Code(s): N20.1 - CALCULUS OF URETER SNOMED Code(s): 71299037
[2019-06-17] MEDS: ONDANSETRON 4 MG/2 ML VIAL IVP PRN ×2 (14:45→21:05)
[2019-06-17] MEDS: MAG HYDROX/AL HYDROX/SIMETH 30 ML CUP PO PRN ×2 (18:11→23:35)
[2019-06-18] MEDS: SODIUM CHLORIDE 0.9% 1,000 ML IV SCH ×4 (03:41→22:28)
[2019-06-18] MEDS: HYDROmorphone 1 MG/ML 1 ML SYRINGE IVP PRN ×6 (03:53→23:29)
[2019-06-18] MEDS: ONDANSETRON 4 MG/2 ML VIAL IVP PRN ×3 (08:54→22:16)
--- NOTE | 2019-06-18 16:06 | P.PN ---
Progress Note - Text Progress Note Date: 06/18/19 The patient continues to have intermittent abdominal pain which is primarily on the left side. This is less than yesterday but she still requires analgesics. She is tolerating liquids but has intermittent nausea. She has not vomited since last night. A KUB will be obtained this evening. If the stone is migrating then further observation will be reasonable. If she continues to have intermittent severe pain than left ureteroscopy with lithotripsy may be considered either tomorrow or Friday.
--- NOTE | 2019-06-18 16:27 | P.PN ---
Subjective This is a 34-year-old female with no significant past medical history comes in with above-mentioned complaints. The patient says that she was okay until in the evening yesterday when she suddenly started having pain in the bilateral flank more on the right than compared to the left and she said that she started having nausea and vomiting along with the flank pain has not been able to tolerate foods or any fluids. She was also sweating along with the pain that she does came into the ER for further admission and management. She did not complain of any fever or chills, she does not complain of any chest pain racing heart, no cough no shortness of breath, no abdominal pain anywhere else in the body, no diarrhea constipation, no tingling numbness of any of the 70s, no itch no rash. Next ER course-temperature 98.0 pulse 60 respirations 18 blood pressure 98/64 satting 94% on room air. Labwork was done which showed abuse 11.8 hemoglobin 13.2 platelets 319 sodium 139 potassium 4.2 bun 12 creatinine 0.6 GFR more than 90 LFTs were normal. Computed tomography scan of the abdomen pelvis was done which showed 3 mL proximal left ureteral stone immediately distal to the left UPJ no hydronephrosis. Patient was started on IV fluids, given Flomax once was given pain medications and medications for nausea and [facility] On 06/18/2019 Patient says that she still having pain and bilateral flank area She is having burning in the urine No fever no chills Objective - Vital Signs Vital signs: Vital Signs Temp 97.9 F 06/18/19 12:05 Pulse 75 06/18/19 12:05 Resp 16 06/18/19 12:05 BP 120/75 06/18/19 12:05 Pulse Ox 98 06/18/19 12:05 Intake & Output 06/17/19 06/18/19 06/18/19 18:59 06:59 18:59 Intake Total 1000 Balance 1000 Intake: Oral 1000 Other: Voiding Method Toilet Toilet Toilet # Voids 1 3 2 # Bowel Movements 0 0 0 - Exam On exam, alert and oriented x3. HEENT: Conjunctivae normal. eyes normal. NECK: No JVD. No thyroid enlargement. No LNs CARDIOVASCULAR: S1, S2 muffled. No murmur RESPIRATION: Breath sounds diminished in the bases. No rhonchi or crackles. No bronchial breathing. ABDOMEN: Soft, today she is having tenderness in bilateral flanks. No guarding. no masses palpable. No ascites, No hepatosplenomegaly.Bowel sounds heard. LEGS: No edema. no swelling NERVOUS SYSTEM: Cranial N 2-12 grossly normal. Moves all 4 limbs. No focal deficits. No sensory deficit. No signs of cerebellar dysfucntion. Skin: no ulcer no rash Joints: No active swelling. No inflammation. Lymphatic system. No LN neck axilla or groin. - Labs CBC & Chem 7: 06/17/19 01:44 06/17/19 01:44 Assessment and Plan Assessment: - Bilateral flank pain more on the right - Kidney stone the left side near the UPJ junction - Obesity Plan - We'll admit the patient to [facility] with telemetry under observation - We'll continue IV fluids - We'll continue pain control and nausea control - Urology consulted await the expert recommendations - We'll continue Flomax - DVT and GI prophylaxis - We'll order for lab work in the morning - Patient is an observation - Patient is full code 06/18/2019 - Continue pain control - Continue IV fluids - Urology following the patient. If the pain doesn't improve possible interventions tomorrow morning
[2019-06-18] MEDS: MAG HYDROX/AL HYDROX/SIMETH 30 ML CUP PO PRN (17:12)
--- NOTE | 2019-06-18 18:55 | XR ---
EXAMINATION TYPE: XR KUB DATE OF EXAM: 06/18/2019 COMPARISON: 02/26/2017 HISTORY: Left ureteral stone TECHNIQUE: 2 views supine FINDINGS: There is no sign of intestinal obstruction or pneumoperitoneum. There is 4 mm calculus lowe r pole right kidney. There are clips from cholecystectomy. There is no evidence of a mass. There is r ounded 4 mm calculus over the left pelvic basin that could be distal ureteral stone. IMPRESSION: Small right renal calculus unchanged. Possible new calculus in the distal left ureter com pared to last exam..
[2019-06-18] MEDS ORDERED: diphenhydrAMINE 25 MG CAP PO STA (22:38)
[2019-06-19] MEDS: MELATONIN 3 MG TABLET PO SCH (03:08)
[2019-06-19] MEDS: HYDROmorphone 1 MG/ML 1 ML SYRINGE IVP PRN ×6 (04:05→21:53)
[2019-06-19] MEDS: ONDANSETRON 4 MG/2 ML VIAL IVP PRN (04:05)
[2019-06-19] MEDS: SODIUM CHLORIDE 0.9% 1,000 ML IV SCH ×2 (07:34→16:09)
[2019-06-19] MEDS: MAG HYDROX/AL HYDROX/SIMETH 30 ML CUP PO PRN (07:38)
[2019-06-19 09:01] LABS: Basophils # (A) 0.1 k/uL (0-0.2); Basophils % (A) 1 %; Eosinophils # (A) 0.1 k/uL (0-0.7); Eosinophils % (A) 2 %; Lymphocytes # (A) 1.9 k/uL (1.0-4.8); Lymphocytes % (A) 29 %; MCH 29.8 pg (25.0-35.0); MCHC 32.5 g/dL (31.0-37.0); MCV 91.8 fL (80.0-100.0); Monocytes # (A) 0.4 k/uL (0-1.0); Monocytes % (A) 6 %; Neutrophils % (A) 61 %; Platelet Count 237 k/uL (150-450); RDW 14.1 % (11.5-15.5); WBC 6.5 k/uL (3.8-10.6)
--- NOTE | 2019-06-19 09:17 | P.PN ---
Progress Note - Text Progress Note Date: 06/19/19 The patient is afebrile. She still has some nausea but there has been no vomiting. She has some left flank pain and left lower quadrant pain and increasing urgency to void. A KUB was obtained yesterday afternoon and appears to show migration of the calculus from the proximal left ureter to the distal left ureter 2-3 cm from the bladder. In view of this I believe that further conservative management is reasonable and the patient is in agreement with this. She will remain on tamsulosin and will continue to strain her urine. If she passes her stone or is able to tolerate her pain on oral analgesics she can be discharged.
[2019-06-19 09:20] LABS: African American GFR (CKD) >90 (>60 ml/min/1.73 sqM); Anion Gap 5 mmol/L; Blood Urea Nitrogen 14 mg/dL (7-17); Calcium 8.1 mg/dL (8.4-10.2); Carbon Dioxide 26 mmol/L (22-30); Chloride 106 mmol/L (98-107); Glucose 126 mg/dL (74-99); Potassium 3.8 mmol/L (3.5-5.1); Sodium 137 mmol/L (137-145)
[2019-06-19] MEDS: PROMETHAZINE 25 MG TAB PO PRN (11:18)
--- NOTE | 2019-06-19 11:53 | P.PN ---
Subjective From the records This is a 34-year-old female with no significant past medical history comes in with above-mentioned complaints. The patient says that she was okay until in the evening yesterday when she suddenly started having pain in the bilateral flank more on the right than compared to the left and she said that she started having nausea and vomiting along with the flank pain has not been able to tolerate foods or any fluids. She was also sweating along with the pain that she does came into the ER for further admission and management. She did not complain of any fever or chills, she does not complain of any chest pain racing heart, no cough no shortness of breath, no abdominal pain anywhere else in the body, no diarrhea constipation, no tingling numbness of any of the 70s, no itch no rash. Next ER course-temperature 98.0 pulse 60 respirations 18 blood pressure 98/64 satting 94% on room air. Labwork was done which showed abuse 11.8 hemoglobin 13.2 platelets 319 sodium 139 potassium 4.2 bun 12 creatinine 0.6 GFR more than 90 LFTs were normal. Computed tomography scan of the abdomen pelvis was done which showed 3 mL proximal left ureteral stone immediately distal to the left UPJ no hydronephrosis. Patient was started on IV fluids, given Flomax once was given pain medications and medications for nausea and admitted to the hospitalist service for further evaluation and management On 06/18/2019 Patient says that she still having pain and bilateral flank area She is having burning in the urine No fever no chills Subjective: This is first time taking care of the patient 06/19/2019 This is a pleasant 54 years old female who presents with bilateral flank pain, secondary to bilateral ureteral stone. urology team have been following the patient. Patient is still complaining from pain in both flank areas as well as her dysuria. Is still complaining of from nausea but no vomiting. I offered to do a serum test, patient declined saying no wish can be . Risks benefits and alternatives are explained. Also patient was been complaining of from heartburn, Protonix is added. Urology evaluation is appreciated, continue with Flomax and IV fluid. Continue with causing relative management. Objective - Vital Signs Vital signs: Vital Signs Temp 98.2 F 06/19/19 05:53 Pulse 77 06/19/19 05:53 Resp 14 06/19/19 05:53 BP 102/67 06/19/19 05:53 Pulse Ox 95 06/19/19 05:53 Intake & Output 06/18/19 06/19/19 06/19/19 18:59 06:59 18:59 Other: Voiding Method Toilet Toilet Toilet # Voids 2 1 # Bowel Movements 0 - Exam GENERAL: The patient is alert and oriented x3, not in any acute distress. Obese HEENT: Pupils are round and equally reacting to light. EOMI. No scleral icterus. No conjunctival pallor. Normocephalic, atraumatic. No pharyngeal erythema. No thyromegaly. CARDIOVASCULAR: S1 and S2 present. No murmurs, rubs, or gallops. PULMONARY: Chest is clear to auscultation, no wheezing or crackles. -ABDOMEN: Soft, nontender, nondistended, normoactive bowel sounds. No palpable organomegaly. Bilateral CVA tenderness MUSCULOSKELETAL: No joint swelling or deformity. EXTREMITIES: No cyanosis, clubbing, or pedal edema. NEUROLOGICAL: Gross neurological examination did not reveal any focal deficits. SKIN: No rashes. - Labs CBC & Chem 7: 06/19/19 08:37 06/19/19 08:37 Labs: Abnormal Lab Results - Last 24 Hours (Table) 06/19/19 06/19/19 Range/Units 08:37 08:37 RBC 3.70 L (3.80-5.40) m/uL Hgb 11.0 L (11.4-16.0) gm/dL Glucose 126 H (74-99) mg/dL Calcium 8.1 L (8.4-10.2) mg/dL Assessment and Plan Assessment: Bilateral ureteral stone Bilateral flank pain and dysuria, secondary to above Heartburn Obesity Leukocytosis, improved. Plan: This is a pleasant 54 years old female who presents with bilateral ureteral stone. Urology team recommendation is appreciated and follow them. Continue with pain management and IV fluids as conservative management, if medical management fails patient might need ureteroscopy and lithotripsy.Labs and medication were reviewed.. Continue same treatment. Continue with symptomatic treatment. Resume home medication. Monitor lytes and vitals. DVT and GI prophylaxis. Further recommendations of the clinical course of the patient DVT prophylaxis: Subcutaneous heparin GI Prophylaxis: Protonix Prognosis is guarded
[2019-06-19] MEDS: PANTOPRAZOLE 40 MG/10 ML VIAL IVP SCH (12:15)
[2019-06-19] MEDS: HEPARIN SODIUM,PORCINE 5,000 UNIT/ML 1 ML VIAL SQ SCH ×2 (12:16→21:33)
[2019-06-19] MEDS ORDERED: TAMSULOSIN 0.4 MG CAP.ER.24H PO STA (15:41)
[2019-06-20] MEDS: PROMETHAZINE 25 MG TAB PO PRN ×2 (01:08→19:58)
[2019-06-20] MEDS: HYDROmorphone 1 MG/ML 1 ML SYRINGE IVP PRN ×6 (01:23→21:58)
[2019-06-20] MEDS: SODIUM CHLORIDE 0.9% 1,000 ML IV SCH ×3 (01:25→22:00)
[2019-06-20] MEDS: MELATONIN 3 MG TABLET PO SCH ×2 (01:35→21:59)
[2019-06-20] MEDS: PANTOPRAZOLE 40 MG/10 ML VIAL IVP SCH (07:07)
[2019-06-20] MEDS: TAMSULOSIN 0.4 MG CAP.ER.24H PO SCH (07:07)
[2019-06-20] MEDS: HEPARIN SODIUM,PORCINE 5,000 UNIT/ML 1 ML VIAL SQ SCH ×2 (07:07→19:58)
--- NOTE | 2019-06-20 08:47 | P.PN ---
Subjective From the records This is a 34-year-old female with no significant past medical history comes in with above-mentioned complaints. The patient says that she was okay until in the evening yesterday when she suddenly started having pain in the bilateral flank more on the right than compared to the left and she said that she started having nausea and vomiting along with the flank pain has not been able to tolerate foods or any fluids. She was also sweating along with the pain that she does came into the ER for further admission and management. She did not complain of any fever or chills, she does not complain of any chest pain racing heart, no cough no shortness of breath, no abdominal pain anywhere else in the body, no diarrhea constipation, no tingling numbness of any of the 70s, no itch no rash. Next ER course-temperature 98.0 pulse 60 respirations 18 blood pressure 98/64 satting 94% on room air. Labwork was done which showed abuse 11.8 hemoglobin 13.2 platelets 319 sodium 139 potassium 4.2 bun 12 creatinine 0.6 GFR more than 90 LFTs were normal. Computed tomography scan of the abdomen pelvis was done which showed 3 mL proximal left ureteral stone immediately distal to the left UPJ no hydronephrosis. Patient was started on IV fluids, given Flomax once was given pain medications and medications for nausea and admitted to the hospitalist service for further evaluation and management On 06/18/2019 Patient says that she still having pain and bilateral flank area She is having burning in the urine No fever no chills Subjective: This is first time taking care of the patient 06/19/2019 This is a pleasant 54 years old female who presents with bilateral flank pain, secondary to bilateral ureteral stone. urology team have been following the patient. Patient is still complaining from pain in both flank areas as well as her dysuria. Is still complaining of from nausea but no vomiting. I offered to do a serum test, patient declined saying no wish can be . Risks benefits and alternatives are explained. Also patient was been complaining of from heartburn, Protonix is added. Urology evaluation is appreciated, continue with Flomax and IV fluid. Continue with causing relative management. 06/20/2019 Patient still have symptoms although they are improving. Her flank pain is improving down to 5/10, her nausea is somewhat better. She has less dysuria. And her heartburn is improving with Protonix been added. She has mild suprapubic tenderness. She continued to be on IV fluids at 125 L/h. Vitas looks stable. Patient is afebrile. We'll continue with the medical management for her ureteral stone. Objective - Vital Signs Vital signs: Vital Signs Temp 97.9 F 06/20/19 05:29 Pulse 62 06/20/19 05:29 Resp 14 06/20/19 05:29 BP 97/64 06/20/19 05:29 Pulse Ox 96 06/20/19 05:29 Intake & Output 06/19/19 06/20/19 06/20/19 18:59 06:59 18:59 Intake Total 200 Balance 200 Intake: Oral 200 Other: Voiding Method Toilet Toilet Toilet # Voids 2 1 - Exam GENERAL: The patient is alert and oriented x3, not in any acute distress. Obese HEENT: Pupils are round and equally reacting to light. EOMI. No scleral icterus. No conjunctival pallor. Normocephalic, atraumatic. No pharyngeal erythema. No thyromegaly. CARDIOVASCULAR: S1 and S2 present. No murmurs, rubs, or gallops. PULMONARY: Chest is clear to auscultation, no wheezing or crackles. -ABDOMEN: Soft, nontender, nondistended, normoactive bowel sounds. No palpable organomegaly. Bilateral CVA tenderness MUSCULOSKELETAL: No joint swelling or deformity. EXTREMITIES: No cyanosis, clubbing, or pedal edema. NEUROLOGICAL: Gross neurological examination did not reveal any focal deficits. SKIN: No rashes. - Labs CBC & Chem 7: 06/19/19 08:37 06/19/19 08:37 Labs: Abnormal Lab Results - Last 24 Hours (Table) 06/19/19 06/19/19 Range/Units 08:37 08:37 RBC 3.70 L (3.80-5.40) m/uL Hgb 11.0 L (11.4-16.0) gm/dL Glucose 126 H (74-99) mg/dL Calcium 8.1 L (8.4-10.2) mg/dL Assessment and Plan Assessment: Bilateral ureteral stone Bilateral flank pain and dysuria, secondary to above Heartburn Obesity Leukocytosis, improved. Plan: This is a pleasant 54 years old female who presents with bilateral ureteral stone. Urology team recommendation is appreciated and follow them. Continue with pain management and IV fluids as conservative management, if medical management fails patient might need ureteroscopy and lithotripsy.Labs and medication were reviewed.. Continue same treatment. Continue with symptomatic treatment. Resume home medication. Monitor lytes and vitals. DVT and GI prophylaxis. Further recommendations of the clinical course of the patient DVT prophylaxis: Subcutaneous heparin GI Prophylaxis: Protonix Prognosis is guarded
--- NOTE | 2019-06-20 09:48 | P.PN ---
Progress Note - Text Progress Note Date: 06/20/19 The patient is afebrile. She says she has some nausea intermittently but has been tolerating most of her diet. She says that her left flank pain is less than it was a few days ago. She will be given a trial of Tylenol 3 to see if this is sufficient for control of her pain. If it is, then she can be discharged later today as it is still very likely that she may spontaneously pass her distal left ureteral calculus. If her pain remains intolerable and I will set up left ureteroscopy with lithotripsy tomorrow afternoon if she remains in the hospital or later in the week if she goes home later today.
[2019-06-20] MEDS: Acetaminophen-Codeine 300-30mg TAB PO PRN ×3 (12:13→20:33)
[2019-06-21] MEDS: HYDROmorphone 1 MG/ML 1 ML SYRINGE IVP PRN ×6 (01:56→22:30)
[2019-06-21] MEDS: Acetaminophen-Codeine 300-30mg TAB PO PRN ×3 (04:08→21:07)
[2019-06-21] MEDS: ONDANSETRON 4 MG/2 ML VIAL IVP PRN (04:12)
[2019-06-21] MEDS: SODIUM CHLORIDE 0.9% 1,000 ML IV SCH ×3 (05:45→20:20)
[2019-06-21] MEDS: PANTOPRAZOLE 40 MG/10 ML VIAL IVP SCH (07:28)
[2019-06-21] MEDS: HEPARIN SODIUM,PORCINE 5,000 UNIT/ML 1 ML VIAL SQ SCH ×2 (07:28→21:07)
[2019-06-21] MEDS: TAMSULOSIN 0.4 MG CAP.ER.24H PO SCH (07:29)
--- NOTE | 2019-06-21 08:22 | P.PN ---
Subjective From the records This is a 34-year-old female with no significant past medical history comes in with above-mentioned complaints. The patient says that she was okay until in the evening yesterday when she suddenly started having pain in the bilateral flank more on the right than compared to the left and she said that she started having nausea and vomiting along with the flank pain has not been able to tolerate foods or any fluids. She was also sweating along with the pain that she does came into the ER for further admission and management. She did not complain of any fever or chills, she does not complain of any chest pain racing heart, no cough no shortness of breath, no abdominal pain anywhere else in the body, no diarrhea constipation, no tingling numbness of any of the 70s, no itch no rash. Next ER course-temperature 98.0 pulse 60 respirations 18 blood pressure 98/64 satting 94% on room air. Labwork was done which showed abuse 11.8 hemoglobin 13.2 platelets 319 sodium 139 potassium 4.2 bun 12 creatinine 0.6 GFR more than 90 LFTs were normal. Computed tomography scan of the abdomen pelvis was done which showed 3 mL proximal left ureteral stone immediately distal to the left UPJ no hydronephrosis. Patient was started on IV fluids, given Flomax once was given pain medications and medications for nausea and admitted to the hospitalist service for further evaluation and management On 06/18/2019 Patient says that she still having pain and bilateral flank area She is having burning in the urine No fever no chills Subjective: This is first time taking care of the patient 06/19/2019 This is a pleasant 54 years old female who presents with bilateral flank pain, secondary to bilateral ureteral stone. urology team have been following the patient. Patient is still complaining from pain in both flank areas as well as her dysuria. Is still complaining of from nausea but no vomiting. I offered to do a serum test, patient declined saying no wish can be . Risks benefits and alternatives are explained. Also patient was been complaining of from heartburn, Protonix is added. Urology evaluation is appreciated, continue with Flomax and IV fluid. Continue with causing relative management. 06/20/2019 Patient still have symptoms although they are improving. Her flank pain is improving down to 5/10, her nausea is somewhat better. She has less dysuria. And her heartburn is improving with Protonix been added. She has mild suprapubic tenderness. She continued to be on IV fluids at 125 L/h. Vitas looks stable. Patient is afebrile. We'll continue with the medical management for her ureteral stone. 06/21/2019 Patient continued to have symptoms of bilateral flank pain and dysuria. Patient is afebrile. However because of her persistent symptoms patient might be going for lithotripsy today patient denies chest pain or dyspnea. No new complaint Objective - Vital Signs Vital signs: Vital Signs Temp 97.9 F 06/21/19 05:00 Pulse 59 L 06/21/19 05:00 Resp 18 06/21/19 05:00 BP 107/73 06/21/19 05:00 Pulse Ox 97 06/21/19 05:00 Intake & Output 06/20/19 06/21/19 06/21/19 18:59 06:59 18:59 Intake Total 200 500 Balance 200 500 Intake: Oral 200 500 Other: Voiding Method Toilet Toilet Toilet # Voids 3 2 - Exam GENERAL: The patient is alert and oriented x3, not in any acute distress. Obese HEENT: Pupils are round and equally reacting to light. EOMI. No scleral icterus. No conjunctival pallor. Normocephalic, atraumatic. No pharyngeal erythema. No thyromegaly. CARDIOVASCULAR: S1 and S2 present. No murmurs, rubs, or gallops. PULMONARY: Chest is clear to auscultation, no wheezing or crackles. -ABDOMEN: Soft, nontender, nondistended, normoactive bowel sounds. No palpable organomegaly. Bilateral CVA tenderness MUSCULOSKELETAL: No joint swelling or deformity. EXTREMITIES: No cyanosis, clubbing, or pedal edema. NEUROLOGICAL: Gross neurological examination did not reveal any focal deficits. SKIN: No rashes. - Labs CBC & Chem 7: 06/19/19 08:37 06/19/19 08:37 Assessment and Plan Assessment: Bilateral ureteral stone Bilateral flank pain and dysuria, secondary to above Heartburn Obesity Leukocytosis, improved. Plan: This is a pleasant 54 years old female who presents with bilateral ureteral stone. Urology team recommendation is appreciated and follow them. Continue with pain management and IV fluids as conservative management, if medical management fails patient might need ureteroscopy and lithotripsy (possibly today 06/21/2019).Labs and medication were reviewed.. Continue same treatment. Continue with symptomatic treatment. Resume home medication. Monitor lytes and vitals. DVT and GI prophylaxis. Further recommendations of the clinical course of the patient DVT prophylaxis: Subcutaneous heparin GI Prophylaxis: Protonix Prognosis is guarded
[2019-06-21] MEDS ORDERED: IV FLUID CONTINUATION 1,000 ML IV ONE (15:06)
[2019-06-21] MEDS ORDERED: PROPOFOL 10 MG/ML 20 ML VIAL IV ONE (15:31)
[2019-06-21] MEDS ORDERED: LIDOCAINE 1% INJ 10MG/ML (20 ML MDV) ONE (15:31)
[2019-06-21] MEDS ORDERED: fentaNYL (PF) 50 MCG/ML 2 ML AMP IVP ONE (15:31)
[2019-06-21] MEDS ORDERED: MIDAZOLAM 2 MG/2 ML VIAL ONE (15:31)
[2019-06-21] MEDS ORDERED: SODIUM CHLORIDE 0.9% 50 ML with ceFAZolin 1,000 MG IV ONE ×2 (15:37)
[2019-06-21] MEDS ORDERED: IOPAMIDOL-370 50ML BTL MISCELLANE ONE (16:04)
--- NOTE | 2019-06-21 16:23 | P.OP ---
Date of Procedure: 06/21/19 Preoperative Diagnosis: Distal left ureteral calculus Postoperative Diagnosis: Normal left ureter Procedure(s) Performed: Cystoscopy and left retrograde pyeloureterogram Anesthesia: GETA Surgeon: Bonifacio Vaughn Estimated Blood Loss (ml): 0 Pathology: none sent Condition: stable Disposition: PACU Indications for Procedure: The patient is a 34-year-old female who developed severe left flank pain 4 days ago secondary to a less than 3 mm calculus which at that time was in the pro ximal left ureter. There appeared to be migration of the calculus into the distal left ureter on a KUB that the patient has continued to have persistent left flank pain and nausea. She says that she has been straining her urine but has not recovered a calculus. Due to the persistent pain left ureteroscopy with lithotripsy was planned. Description of Procedure: The patient was taken to the operating suite where adequate general anesthesia via LMA was instituted. She was placed in the dorsal lithotomy position with her legs suspended from padded Greg stirrups. Pneumatic compression stockings were applied to the lower legs. The genitalia was prepped with Betadine solution and draped in a sterile fashion. The external genitalia and urethral meatus were unremarkable. The 17[place] cystoscope sheath with 30 lens was passed through the urethra and into the bladder. The bladder was examined. There was no evidence of tumor or calculus located within the bladder. Both ureteral orifice ease were normal location and configuration. A straight .035 Zipwire was passed through the left ureteral orifice and the left pelvis was examined using fluoroscopy but the Glidewire did not appear to pass by what appeared to be a calculus earlier. A left retrograde pyeloureterogram was then performed using the 21[place] sheath and an 8[place] cone-tipped catheter. There was no evidence of filling defect in the left ureter and the left intrarenal collecting system appeared normal. Contrast drained freely from the left ureter. The findings were consistent with previous passage of the calculus. The bladder was drained and the cystoscope was withdrawn. The patient tolerated procedure well and left the operative room awake and in satisfactory condition. No further evaluation is planned at this time. The patient does have a nonobstructive calculus in the lower pole of the right kidney which could be treated electively in the future.
--- NOTE | 2019-06-21 17:41 | FL ---
Fluoroscopy HISTORY: Left ureteral calculus 34 seconds fluoroscopy time supplied to the referring clinician. 5 intraoperative C-arm images docum ent the procedure. See dictated report from urology.
[2019-06-21] MEDS: PROMETHAZINE 25 MG TAB PO PRN (21:07)
[2019-06-21] MEDS: MELATONIN 3 MG TABLET PO SCH (21:07)
[2019-06-22] MEDS: HYDROmorphone 1 MG/ML 1 ML SYRINGE IVP PRN ×5 (01:59→15:41)
[2019-06-22] MEDS: SODIUM CHLORIDE 0.9% 1,000 ML IV SCH ×2 (04:24→13:28)
[2019-06-22] MEDS: PANTOPRAZOLE 40 MG/10 ML VIAL IVP SCH (07:59)
[2019-06-22] MEDS: HEPARIN SODIUM,PORCINE 5,000 UNIT/ML 1 ML VIAL SQ SCH ×2 (07:59→08:00)
[2019-06-22] MEDS: TAMSULOSIN 0.4 MG CAP.ER.24H PO SCH (07:59)
[2019-06-22] MEDS: Acetaminophen-Codeine 300-30mg TAB PO PRN (08:06)
[2019-06-22] MEDS ORDERED: HYDROcodone/APAP 5-325MG 1 EACH TAB PO PRN (14:38)
[2019-06-22 14:54] VITALS: BP 117/66; PULSE 89; RESP 20; TEMP 98.1
[2019-06-23] MEDS ORDERED: PANTOPRAZOLE 40 MG TABLET PO SCH (09:00)
== END 2019-06-22 16:16 | disposition home or self-care (01) | DRG 694 ==
LOC: EC 00:36 → 4MS4W 07:39 → OBSVTOIN 06-19 13:44
PROVIDERS: ADMIT Hospitalist; ATTEND Hospitalist
PROC: 0TJB8ZZ Inspection of Bladder, Via Natural or Artificial Opening Endoscopic (ICD-10-PCS; 2019-06-21)
PROC: BT1F1ZZ Fluoroscopy of Left Kidney, Ureter and Bladder using Low Osmolar Contrast (ICD-10-PCS; principal; 2019-06-21 15:45)
DX: N13.2 Hydronephrosis with renal and ureteral calculous obstruction (principal); E66.9 Obesity, unspecified; Z68.39 Body mass index [BMI] 39.0-39.9, adult; F17.210 Nicotine dependence, cigarettes, uncomplicated; D72.829 Elevated white blood cell count, unspecified; R12 Heartburn; F31.9 Bipolar disorder, unspecified; J45.909 Unspecified asthma, uncomplicated; K21.9 Gastro-esophageal reflux disease without esophagitis; Z80.0 Family history of malignant neoplasm of digestive organs; Z87.440 Personal history of urinary (tract) infections; Z87.442 Personal history of urinary calculi; Z87.01 Personal history of pneumonia (recurrent); Z88.5 Allergy status to narcotic agent; Z88.8 Allergy status to other drugs, medicaments and biological substances; Z91.040 Latex allergy status
CPT/HCPCS: 36415; 74018; 74176; 74420; 80048; 80053; 81001; 81025; 82150; 83690; 85025; 96374; 96375; 96376; 99285

== ENCOUNTER 2019-07-05 09:20 | Inpatient (IN) | payer BC ==
[2019-07-05] MEDS ORDERED: SODIUM CHLORIDE 0.9% 2,000 ML IV STA (09:54)
[2019-07-05] MEDS ORDERED: HYDROmorphone 1 MG/ML 1 ML SYRINGE IVP STA ×2 (10:29→11:28)
[2019-07-05] MEDS ORDERED: diphenhydrAMINE 50 MG/ML 1 ML VIAL IVP STA (10:29)
[2019-07-05] MEDS ORDERED: ONDANSETRON 4 MG/2 ML VIAL IVP STA ×2 (10:29→12:24)
[2019-07-05 10:36] LABS: Appearance,Urine Cloudy (Clear); Bacteria,Urine Few /hpf; Bilirubin,Urine Negative (Negative); Blood,Urine Large (Negative); Color,Urine Yellow; Glucose,Urine (UA) Negative (Negative); Ketones,Urine Negative (Negative); Leukocyte Esterase,Urine Moderate (Negative); Mucus,Urine Occasional /hpf; Nitrite,Urine Negative (Negative); PH, Urine 7.5 (5.0-8.0); Protein,Urine Trace (Negative); RBC,Urine 13 /hpf (0-5); Specific Gravity,Urine 1.019 (1.001-1.035); Squamous Epithelial Cell,Urine 26 /hpf (0-4); Urobilinogen,Urine <2.0 mg/dL (<2.0)
--- NOTE | 2019-07-05 11:02 | XR ---
EXAMINATION TYPE: XR KUB DATE OF EXAM: 07/05/2019 10:57 AM CLINICAL HISTORY: Bilateral kidney stones. TECHNIQUE: Two Upright KUB images of the abdomen are obtained. COMPARISON: CT abdomen and pelvis June 17, 2019. Abdominal x-ray June 18, 2019. FINDINGS: Some paucity of bowel gas. Scattered gas is seen in nondistended small and large bowel loop s. Stable 5 mm lower pole right renal calculus. Narrowing and sclerosis inferior pubic symphysis rede monstrated. No pneumoperitoneum. Previously visualized 5 mm mid pole left ureter calculus not clearly seen but felt obscured by 12th rib on the left. IMPRESSION: [place] stable bilateral nephrolithiasis. Overall nonspecific but strongly favor nonobstructive bowel gas pattern.
[2019-07-05] MEDS ORDERED: METOCLOPRAMIDE 5 MG/ML 2 ML VIAL IVP STA (11:28)
--- NOTE | 2019-07-05 11:28 | ED ---
Abdominal Pain HPI - General Source: patient, RN notes reviewed Mode of arrival: ambulatory Limitations: no limitations <Edilberto Toth - Last Filed: 07/05/19 16:46> <Navjot Nguyễn - Last Filed: 07/05/19 16:51> - General Chief Complaint: Abdominal Pain Stated Complaint: KIDNEY PAIN Time Seen by Provider: 07/05/19 09:54 - History of Present Illness Initial Comments: 34-year-old female presents emergency Department chief complaint of severe left flank pain. Patient states that she was in [facility] also with kidney stone. Patient had CT which showed a 4 mm stone. Patient does state that she was admitted here 2 weeks ago for similar problems and states that she had a scope. Patient admits to use them urinary frequency hesitancy and hematuria. No fevers or chills patient states pain is worse and last time. Patient does admit to persistent nausea vomiting. She was prescribed pain meds and antiemeti cs and she's been taking Flomax with no relief. (Edilberto Toth) - Related Data Previous Rx's Medication Instructions Recorded Pantoprazole [Protonix] 40 mg PO DAILY #30 tablet.dr 06/22/19 Promethazine [Phenergan] 12.5 mg PO Q4HR PRN #3 tab 06/22/19 Tamsulosin [Flomax] 0.4 mg PO PC-BRKFST #30 cap.er.24h 06/22/19 Allergies Allergy/AdvReac Type Severity Reaction Status Date / Time ketorolac [From Toradol] Allergy Rash/Hives Verified 07/05/19 09:33 latex Allergy Rash/Hives Verified 07/05/19 09:33 morphine Allergy Rash/Hives Verified 07/05/19 09:33 Review of Systems ROS Other: All systems not noted in ROS Statement are negative. <Edilberto Toth - Last Filed: 07/05/19 16:46> ROS Other: All systems not noted in ROS Statement are negative. <Navjot Nguyễn - Last Filed: 07/05/19 16:51> ROS Statement: Those systems with pertinent positive or pertinent negative responses have been documented in the HPI. Past Medical History Past Medical History: Asthma, Pneumonia Additional Past Medical History / Comment(s): kidney stones, gallbladder removal 14 years ago, bipolar disorder History of Any Multi-Drug Resistant Organisms: None Reported Date of last positivie culture/infection: None MDRO Source:: None Past Surgical History: Cholecystectomy Additional Past Surgical History / Comment(s): Colonoscopy Past Anesthesia/Blood Transfusion Reactions: No Reported Reaction Past Psychological History: Bipolar Smoking Status: Current every day smoker Past Alcohol Use History: None Reported Past Drug Use History: None Reported - Past Family History Father Additional Family Medical History / Comment(s): colon cancer <Edilberto Toth - Last Filed: 07/05/19 16:46> General Exam Limitations: no limitations General appearance: alert, in no apparent distress Head exam: Present: atraumatic, normocephalic, normal inspection Eye exam: Present: normal appearance, PERRL, EOMI. Absent: scleral icterus, conjunctival injection, periorbital swelling ENT exam: Present: normal exam, normal oropharynx, mucous membranes moist Neck exam: Present: normal inspection, full ROM. Absent: tenderness, meningismus, lymphadenopathy Respiratory exam: Present: normal lung sounds bilaterally. Absent: respiratory distress, wheezes, rales, rhonchi, stridor Cardiovascular Exam: Present: regular rate, normal rhythm, normal heart sounds. Absent: systolic murmur, diastolic murmur, rubs, gallop, clicks GI/Abdominal exam: Present: soft, tenderness (Minimal left-sided tenderness over reported area pain), normal bowel sounds. Absent: distended, guarding, rebound, rigid Back exam: Absent: CVA tenderness (R), CVA tenderness (L) Neurological exam: Present: alert, oriented X3, CN II-XII intact Skin exam: Present: warm, dry, intact, normal color. Absent: rash <Edilberto Toth - Last Filed: 07/05/19 16:46> Course <Navjot Nguyễn - Last Filed: 07/05/19 16:51> Vital Signs 07/05/19 09:24 Temperature 98.5 F Pulse Rate 104 H Respiratory 18 Rate Blood Pressure 154/94 O2 Sat by Pulse 99 Oximetry - Reevaluation(s) Reevaluation #1: 07/05/19 15:09 Blood patient reevaluated by myself, Dr. Nguyễn. Patient resting in bed. Patient complains of still significant discomfort 7 or 8/10. Patient does have mild to moderate tenderness left flank and left CVA region. Results reviewed. Patient does have CT report from 2 days ago at outside facility. There is mention of calculus, 4 mm near the left UVJ. Patient updated on results. Case was discussed with Dr. Krishnamurthy who does request renal ultrasound. 07/05/19 16:43 Ultrasound report reviewed. Case again discussed with Dr. Krishnamurthy who does recommend admission for observation to medicine and he will consult. 07/05/19 16:50 Case was discussed with Dr. hassan, covering for Dr. Ball, who will admit. (Navjot Nguyễn) Medical Decision Making - Lab Data Result diagrams: 07/05/19 11:25 07/05/19 11:25 <Edilberto Toth - Last Filed: 07/05/19 16:46> - Lab Data Result diagrams: 07/05/19 11:25 07/05/19 11:25 <Navjot Nguyễn - Last Filed: 07/05/19 16:51> - Lab Data Lab Results 07/05/19 07/05/19 07/05/19 Range/Units 10:25 10:25 11:25 WBC 8.8 (3.8-10.6) k/uL RBC 3.72 L (3.80-5.40) m/uL Hgb 11.2 L (11.4-16.0) gm/dL Hct 33.4 L (34.0-46.0) % MCV 89.7 (80.0-100.0) fL MCH 30.0 (25.0-35.0) pg MCHC 33.4 (31.0-37.0) g/dL RDW 14.3 (11.5-15.5) % Plt Count 273 (150-450) k/uL Neutrophils % 81 % Lymphocytes % 11 % Monocytes % 5 % Eosinophils % 2 % Basophils % 0 % Neutrophils # 7.2 (1.3-7.7) k/uL Lymphocytes # 1.0 (1.0-4.8) k/uL Monocytes # 0.4 (0-1.0) k/uL Eosinophils # 0.1 (0-0.7) k/uL Basophils # 0.0 (0-0.2) k/uL Manual Slide Review Performed RBC Morphology Normal Sodium (137-145) mmol/L Potassium (3.5-5.1) mmol/L Chloride (98-107) mmol/L Carbon Dioxide (22-30) mmol/L Anion Gap mmol/L BUN (7-17) mg/dL Creatinine (0.52-1.04) mg/dL Est GFR (CKD-EPI)AfAm (>60 ml/min/1.73 sqM) Est GFR (CKD-EPI)NonAf (>60 ml/min/1.73 sqM) Glucose (74-99) mg/dL Calcium (8.4-10.2) mg/dL Total Bilirubin (0.2-1.3) mg/dL AST (14-36) U/L ALT (9-52) U/L Alkaline Phosphatase (38-126) U/L Total Protein (6.3-8.2) g/dL Albumin (3.5-5.0) g/dL Lipase (23-300) U/L Urine Color Yellow Urine Appearance Cloudy H (Clear) Urine pH 7.5 (5.0-8.0) Ur Specific [place] 1.019 (1.001-1.035) Urine Protein Trace H (Negative) Urine Glucose (UA) Negative (Negative) Urine Ketones Negative (Negative) Urine Blood Large H (Negative) Urine Nitrite Negative (Negative) Urine Bilirubin Negative (Negative) Urine Urobilinogen <2.0 (<2.0) mg/dL Ur Leukocyte Esterase Moderate H (Negative) Urine RBC 13 H (0-5) /hpf Urine WBC 20 H (0-5) /hpf Ur Squamous Epith Cells 26 H (0-4) /hpf Urine Bacteria Few H (None) /hpf Urine Mucus Occasional H (None) /hpf Urine HCG, Qual Not Detected (Not Detectd) 07/05/19 Range/Units 11:25 WBC (3.8-10.6) k/uL RBC (3.80-5.40) m/uL Hgb (11.4-16.0) gm/dL Hct (34.0-46.0) % MCV (80.0-100.0) fL MCH (25.0-35.0) pg MCHC (31.0-37.0) g/dL RDW (11.5-15.5) % Plt Count (150-450) k/uL Neutrophils % % Lymphocytes % % Monocytes % % Eosinophils % % Basophils % % Neutrophils # (1.3-7.7) k/uL Lymphocytes # (1.0-4.8) k/uL Monocytes # (0-1.0) k/uL Eosinophils # (0-0.7) k/uL Basophils # (0-0.2) k/uL Manual Slide Review RBC Morphology Sodium 140 (137-145) mmol/L Potassium 4.2 (3.5-5.1) mmol/L Chloride 110 H (98-107) mmol/L Carbon Dioxide 23 (22-30) mmol/L Anion Gap 7 mmol/L BUN 12 (7-17) mg/dL Creatinine 0.63 (0.52-1.04) mg/dL Est GFR (CKD-EPI)AfAm >90 (>60 ml/min/1.73 sqM) Est GFR (CKD-EPI)NonAf >90 (>60 ml/min/1.73 sqM) Glucose 105 H (74-99) mg/dL Calcium 8.3 L (8.4-10.2) mg/dL Total Bilirubin 0.4 (0.2-1.3) mg/dL AST 24 (14-36) U/L ALT 31 (9-52) U/L Alkaline Phosphatase 42 (38-126) U/L Total Protein 5.9 L (6.3-8.2) g/dL Albumin 3.2 L (3.5-5.0) g/dL Lipase 70 (23-300) U/L Urine Color Urine Appearance (Clear) Urine pH (5.0-8.0) Ur Specific [place] (1.001-1.035) Urine Protein (Negative) Urine Glucose (UA) (Negative) Urine Ketones (Negative) Urine Blood (Negative) Urine Nitrite (Negative) Urine Bilirubin (Negative) Urine Urobilinogen (<2.0) mg/dL Ur Leukocyte Esterase (Negative) Urine RBC (0-5) /hpf Urine WBC (0-5) /hpf Ur Squamous Epith Cells (0-4) /hpf Urine Bacteria (None) /hpf Urine Mucus (None) /hpf Urine HCG, Qual (Not Detectd) Disposition <Edilberto Toth - Last Filed: 07/05/19 16:46> <Navjot Nguyễn - Last Filed: 07/05/19 16:51> Clinical Impression: Nausea and vomiting, Intractable abdominal pain, Left ureteral calculus Disposition: ADMITTED IP TO THIS HOSP Condition: Stable Referrals: Christian Ball MD [Primary Care Provider] - 1-2 days
[2019-07-05 11:53] LABS: Basophils % (A) 0 %; Eosinophils # (A) 0.1 k/uL (0-0.7); Eosinophils % (A) 2 %; HCT 33.4 % (34.0-46.0); HGB 11.2 gm/dL (11.4-16.0); Lymphocytes % (A) 11 %; MCHC 33.4 g/dL (31.0-37.0); MCV 89.7 fL (80.0-100.0); Mean Platelet Volume 7.7; Monocytes # (A) 0.4 k/uL (0-1.0); Monocytes % (A) 5 %; Neutrophils # (A) 7.2 k/uL (1.3-7.7); Neutrophils % (A) 81 %; Platelet Count 273 k/uL (150-450); RBC 3.72 m/uL (3.80-5.40); RDW 14.3 % (11.5-15.5); WBC 8.8 k/uL (3.8-10.6)
[2019-07-05 11:56] LABS: ALT 31 U/L (9-52); AST 24 U/L (14-36); African American GFR (CKD) >90 (>60 ml/min/1.73 sqM); Albumin 3.2 g/dL (3.5-5.0); Alkaline Phosphatase 42 U/L (38-126); Anion Gap 7 mmol/L; Blood Urea Nitrogen 12 mg/dL (7-17); Calcium 8.3 mg/dL (8.4-10.2); Carbon Dioxide 23 mmol/L (22-30); Chloride 110 mmol/L (98-107); Glucose 105 mg/dL (74-99); Potassium 4.2 mmol/L (3.5-5.1); Sodium 140 mmol/L (137-145); Total Bilirubin 0.4 mg/dL (0.2-1.3); Total Protein 5.9 g/dL (6.3-8.2)
[2019-07-05] MEDS ORDERED: HYDROmorphone 0.5 MG/0.5 ML SYRINGE IVP STA ×2 (12:24→14:12)
[2019-07-05] MEDS ORDERED: PROMETHAZINE INJ 25 MG in SODIUM CHLORIDE 0.9% 50 ML IVPB STA (14:38)
--- NOTE | 2019-07-05 16:10 | US ---
EXAMINATION TYPE: US kidneys/renal and bladder DATE OF EXAM: 07/05/2019 COMPARISON: Outside CT 2 days ago. CLINICAL HISTORY: Pain. Patient states having hx of renal stones. Bilateral pain. N/V. EXAM MEASUREMENTS: Right Kidney: 9.8 x 5.0 x 4.3 cm Left Kidney: 10.6 x 5.3 x 6.1 cm Limited visualization due to patient body habitus Right Kidney: No hydronephrosis or masses seen, lower pole nonshadowing echogenic focus seen= 0.6 x 0 .6 cm Left Kidney: No hydronephrosis or masses seen, medial mid echogenic focus seen - 0.8 x 0.5 cm Bladder: distended. Echogenic focus seen inferiorly= 0.7 x 0.4 cm, unable to see it move when patien t turned RLD. Limited visualization of lower pole. Bilateral Jets not seen Limited due to large body habitus. No gross hydronephrosis. Bilateral nephrolithiasis seen better on recent outside CT IMPRESSION: Suboptimal study without obvious hydronephrosis.
[2019-07-05] MEDS ORDERED: NALOXONE 0.4 MG/ML 1 ML VIAL IV PRN (16:46)
[2019-07-05] MEDS ORDERED: HYDROmorphone 0.5 MG/0.5 ML SYRINGE IVP PRN (16:46)
[2019-07-05] MEDS: HYDROmorphone 1 MG/ML 1 ML SYRINGE IVP PRN ×3 (17:28→22:57)
--- NOTE | 2019-07-05 18:35 | P.HPIM ---
History of Present Illness H&P Date: 07/05/19 Patient is a 34-year-old female with a PMH of recurrent kidney stones presented to the ED with complaints of left-sided flank pain ongoing for the past 2 days. The patient reported that she was in her usual state of health until 3 days ago when she woke up with sudden onset of sharp left-sided flank pain with radiation to the left lower quadrant. The patient was a campsite near [place], [place] and verónica wells went to [facility] yesterday where she was evaluated and underwent a CT abdomen which revealed bilateral intrarenal 4 x 2 mm calcifications adjacent to the left ureterovesical junction without hydronephrosis. The patient stated that she would not be able to return to home and subsequently left the hospital, and presented at [facility]. At time of interview, the patient notes that her pain is a 8/10, with radiation to the left lower quadrant. Patient also notes that she has been having bloody urine during this time, without gross blood. She also endorsed nausea with 1 episode of vomiting earlier today. She denied fever, chills, chest pain, shortness of breath. The patient notes that she had multiple episodes of kidney stones and was advised to follow up with urology but never got around to it. The patient underwent an extensive evaluation in the ED with KUB x-ray showing stable bilateral nephrolithiasis and an abdominal ultrasound which did not show hydronephrosis. Laboratory evaluation revealed a WBC count of 8.8, he will: 1111.2, platelets 273, sodium 140, potassium 4.2, BUN 12, creatinine 0.63, with UA showing moderate leukocyte esterase, 13 RBCs, and 26 squamous epithelial cells and large blood. The case was discussed with urology who recommended a medicine admission with urology consult along with IV fluids. Review of Systems Pertinent positives and negatives as discussed in HPI, a complete review of systems was performed and all other systems are negative. Past Medical History Past Medical History: Asthma, Pneumonia Additional Past Medical History / Comment(s): kidney stones, gallbladder removal 14 years ago, bipolar disorder History of Any Multi-Drug Resistant Organisms: None Reported Date of last positivie culture/infection: None MDRO Source:: None Past Surgical History: Cholecystectomy Additional Past Surgical History / Comment(s): Colonoscopy Past Anesthesia/Blood Transfusion Reactions: No Reported Reaction Past Psychological History: Bipolar Smoking Status: Current every day smoker Past Alcohol Use History: None Reported Past Drug Use History: None Reported - Past Family History Father Additional Family Medical History / Comment(s): colon cancer Medications and Allergies Home Medications Medication Instructions Recorded Confirmed Type Pantoprazole [Protonix] 40 mg PO DAILY #30 tablet. 06/22/19 07/05/19 Rx Promethazine [Phenergan] 12.5 mg PO Q4HR PRN #3 tab 06/22/19 07/05/19 Rx Tamsulosin [Flomax] 0.4 mg PO PC-BRKFST #30 cap.er.24h 06/22/19 07/05/19 Rx Allergies Allergy/AdvReac Type Severity Reaction Status Date / Time ketorolac [From Toradol] Allergy Rash/Hives Verified 07/05/19 09:33 latex Allergy Rash/Hives Verified 07/05/19 09:33 morphine Allergy Rash/Hives Verified 07/05/19 09:33 Physical Exam Vitals: Vital Signs Temp Pulse Resp BP Pulse Ox 07/05/19 17:04 97.7 F 78 17 112/67 99 07/05/19 09:24 98.5 F 104 H 18 154/94 99 Intake and Output 07/05/19 07/05/19 07/05/19 06:59 14:59 22:59 Intake Total 2500 Balance 2500 Intake: Amount of Fluid Infused ( 2500 ml) Other: Weight 113.398 kg General: non toxic, in moderate distress from pain, appears at stated age, morbidly obese Derm: no unusual rashes/lesions no unusual ecchymoses, warm, dry Head: atraumatic, normocephalic, symmetric Eyes: EOMI, no lid lag, anicteric sclera, pupils equal round reactive to light ENT: Nose and ears atraumatic, no thrush, no pharyngeal erythema Neck: No thyromegaly, no cervical lymphadenopathy, trachea midline, supple Mouth: no lip lesion, mucus membranes moist Cardiovascular: S1S2 reg, no murmur, positive posterior tibial pulse bilateral, no edema, capillary refill less than 2 seconds Lungs: CTA bilateral, no rhonchi, no rales , no accessory muscle use Abdominal: soft, nontender to palpation, no guarding, no appreciable organomegaly, normal bowel sounds Ext: no gross muscle atrophy, muscle strength 5 out of 5 in all 4 extremities grossly, no contractures, Neuro: CN II-XI grossly intact, light touch intact all 4 extremities, finger to nose within normal limits, Psych: Alert, oriented, appropriate affect Results CBC & Chem 7: 07/05/19 11:25 07/05/19 11:25 Labs: Abnormal Lab Results - Last 24 Hours (Table) 07/05/19 07/05/19 07/05/19 Range/Units 10:25 11:25 11:25 RBC 3.72 L (3.80-5.40) m/uL Hgb 11.2 L (11.4-16.0) gm/dL Hct 33.4 L (34.0-46.0) % Chloride 110 H (98-107) mmol/L Glucose 105 H (74-99) mg/dL Calcium 8.3 L (8.4-10.2) mg/dL Total Protein 5.9 L (6.3-8.2) g/dL Albumin 3.2 L (3.5-5.0) g/dL Urine Appearance Cloudy H (Clear) Urine Protein Trace H (Negative) Urine Blood Large H (Negative) Ur Leukocyte Esterase Moderate H (Negative) Urine RBC 13 H (0-5) /hpf Urine WBC 20 H (0-5) /hpf Ur Squamous Epith Cells 26 H (0-4) /hpf Urine Bacteria Few H (None) /hpf Urine Mucus Occasional H (None) /hpf Microbiology - Last 24 Hours (Table) 07/05/19 10:25 Urine Culture - Preliminary Urine,Voided Assessment and Plan Plan: Bilateral nephrolithiasis -Continue with IV fluids -Pain control -Urology consult -Urine culture Normocytic anemia -Monitor for now DVT prophylaxis -Heparin The patient is admitted with an anticipated less than 2 midnight stay for evaluation of nephrolithiasis CODE STATUS:Full Code Discussed with: Patient Anticipated discharge date: 1-[address]: Home A total of 35 minutes was spent on the care of this complex patient more than 50% of the time was spent in counseling and care coordination.
[2019-07-05] MEDS: ONDANSETRON 4 MG/2 ML VIAL IVP PRN (20:10)
--- NOTE | 2019-07-05 21:13 | P.GSCN ---
History of Present Illness Consult date: 07/05/19 Reason for Consult: Renal colic Requesting physician: Brian Magdaleno History of present illness: The patient is a 34-year-old female hospitalized last month for evaluation of nausea, vomiting and bilateral flank pain. Non-contrast CT scan of the abdomen and pelvis identified a 3 mm partially obstructive proximal left ureteral calculus, along with a 4-5 mm left upper pole renal calculus and a 6 mm right lower pole renal calculus. No right hydronephrosis was noted. On 06/21/2019, Dr. Vaughn performed cystoscopy and left retrograde pyelogram. A calculus was not identified, and he presumed past. However, she has experienced persistent low back pain, as well as urgency for the past several days. A repeat CT scan on July 03 revealed an apparent 3 mm left distal ureteral calculus. [facility] for care. Review of Systems - Constitutional Reports sweats, Denies chills, Denies fever - Gastrointestinal Reports nausea - Genitourinary Genitourinary: Reports dysuria, Reports flank pain, Reports kidney stones, Reports urgency Past Medical History Past Medical History: Asthma, Pneumonia Additional Past Medical History / Comment(s): kidney stones, gallbladder removal 14 years ago, bipolar disorder History of Any Multi-Drug Resistant Organisms: None Reported Year Discovered:: None MDRO Source:: None Past Surgical History: Cholecystectomy Additional Past Surgical History / Comment(s): Colonoscopy Past Anesthesia/Blood Transfusion Reactions: No Reported Reaction Past Psychological History: Bipolar Smoking Status: Current every day smoker Past Alcohol Use History: None Reported Past Drug Use History: None Reported - Past Family History Father Additional Family Medical History / Comment(s): colon cancer Medications and Allergies Home Medications Medication Instructions Recorded Confirmed Type Pantoprazole [Protonix] 40 mg PO DAILY #30 tablet. 06/22/19 07/05/19 Rx Promethazine [Phenergan] 12.5 mg PO Q4HR PRN #3 tab 06/22/19 07/05/19 Rx Tamsulosin [Flomax] 0.4 mg PO PC-BRKFST #30 cap.er.24h 06/22/19 07/05/19 Rx Allergies Allergy/AdvReac Type Severity Reaction Status Date / Time ketorolac [From Toradol] Allergy Rash/Hives Verified 07/05/19 09:33 latex Allergy Rash/Hives Verified 07/05/19 09:33 morphine Allergy Rash/Hives Verified 07/05/19 09:33 Surgical - Exam Vital Signs Temp Pulse Resp BP Pulse Ox 98.5 F 104 H 18 154/94 99 07/05/19 09:24 07/05/19 09:24 07/05/19 09:24 07/05/19 09:24 07/05/19 09:24 - General well developed, well nourished, no distress - Respiratory normal respiratory effort - Abdomen Abdomen: soft, tender (Diffuse tenderness (predominantly left-sided)), no guarding, no rigid, no rebound, no distended - Psychiatric oriented to time, oriented to person, oriented to place, speech is normal, memory intact Results - Labs 07/05/19 11:25 07/05/19 11:25 Abnormal Lab Results - Last 24 Hours (Table) 07/05/19 07/05/19 07/05/19 Range/Units 10:25 11:25 11:25 RBC 3.72 L (3.80-5.40) m/uL Hgb 11.2 L (11.4-16.0) gm/dL Hct 33.4 L (34.0-46.0) % Chloride 110 H (98-107) mmol/L Glucose 105 H (74-99) mg/dL Calcium 8.3 L (8.4-10.2) mg/dL Total Protein 5.9 L (6.3-8.2) g/dL Albumin 3.2 L (3.5-5.0) g/dL Urine Appearance Cloudy H (Clear) Urine Protein Trace H (Negative) Urine Blood Large H (Negative) Ur Leukocyte Esterase Moderate H (Negative) Urine RBC 13 H (0-5) /hpf Urine WBC 20 H (0-5) /hpf Ur Squamous Epith Cells 26 H (0-4) /hpf Urine Bacteria Few H (None) /hpf Urine Mucus Occasional H (None) /hpf Microbiology - Last 24 Hours (Table) 07/05/19 10:25 Urine Culture - Preliminary Urine,Voided Diabetes panel 07/05/19 Range/Units 11:25 Sodium 140 (137-145) mmol/L Potassium 4.2 (3.5-5.1) mmol/L Chloride 110 H (98-107) mmol/L Carbon Dioxide 23 (22-30) mmol/L BUN 12 (7-17) mg/dL Creatinine 0.63 (0.52-1.04) mg/dL Glucose 105 H (74-99) mg/dL Calcium 8.3 L (8.4-10.2) mg/dL AST 24 (14-36) U/L ALT 31 (9-52) U/L Alkaline Phosphatase 42 (38-126) U/L Total Protein 5.9 L (6.3-8.2) g/dL Albumin 3.2 L (3.5-5.0) g/dL Calcium panel 07/05/19 Range/Units 11:25 Calcium 8.3 L (8.4-10.2) mg/dL Albumin 3.2 L (3.5-5.0) g/dL Pituitary panel 07/05/19 Range/Units 11:25 Sodium 140 (137-145) mmol/L Potassium 4.2 (3.5-5.1) mmol/L Chloride 110 H (98-107) mmol/L Carbon Dioxide 23 (22-30) mmol/L BUN 12 (7-17) mg/dL Creatinine 0.63 (0.52-1.04) mg/dL Glucose 105 H (74-99) mg/dL Calcium 8.3 L (8.4-10.2) mg/dL Adrenal panel 07/05/19 Range/Units 11:25 Sodium 140 (137-145) mmol/L Potassium 4.2 (3.5-5.1) mmol/L Chloride 110 H (98-107) mmol/L Carbon Dioxide 23 (22-30) mmol/L BUN 12 (7-17) mg/dL Creatinine 0.63 (0.52-1.04) mg/dL Glucose 105 H (74-99) mg/dL Calcium 8.3 L (8.4-10.2) mg/dL Total Bilirubin 0.4 (0.2-1.3) mg/dL AST 24 (14-36) U/L ALT 31 (9-52) U/L Alkaline Phosphatase 42 (38-126) U/L Total Protein 5.9 L (6.3-8.2) g/dL Albumin 3.2 L (3.5-5.0) g/dL - Imaging CT scan - abdomen: report reviewed, image reviewed Assessment and Plan (1) Left ureteral calculus Current Visit: Yes Status: Acute Code(s): N20.1 - CALCULUS OF URETER SNOMED Code(s): 52749479 Plan: The patient is currently receiving tamsulosin, and her urine will be strained. She wishes to undergo cystoscopy, left retrograde pyelogram, left ureteroscopy, and possible left ureteral stent insertion tomorrow. The rationale for the procedure has been discussed, along with potential risks which include anes thesia, bleeding, infection, and ureteral injury. The surgery will of course the cancel that she passes the calculus overnight. Time with Patient: Greater than 30
[2019-07-05] MEDS: SODIUM CHLORIDE 0.9% 1,000 ML IV SCH (22:55)
[2019-07-05] MEDS: PROMETHAZINE 25 MG TAB PO PRN (23:17)
[2019-07-06] MEDS: HYDROmorphone 1 MG/ML 1 ML SYRINGE IVP PRN ×6 (02:16→22:53)
[2019-07-06] MEDS: SODIUM CHLORIDE 0.9% 1,000 ML IV SCH ×3 (03:44→22:09)
[2019-07-06] MEDS: ONDANSETRON 4 MG/2 ML VIAL IVP PRN ×2 (05:19→16:33)
[2019-07-06] MEDS: PANTOPRAZOLE 40 MG TABLET PO SCH (07:35)
[2019-07-06] MEDS: TAMSULOSIN 0.4 MG CAP.ER.24H PO SCH (07:35)
--- NOTE | 2019-07-06 16:01 | P.PN ---
Subjective Progress Note Date: 07/06/19 Principal diagnosis: Left flank pain Patient was seen and examined. No acute events overnight. Patient reports left flank pain, 8 out of 10 in severity. States that Dilaudid ACS edge of the pain from an 8 to a 5 out of 10 in severity. She denies any cough, chest pain, shortness of breath or palpitations. No nausea or vomiting. No fever or chills. Objective - Vital Signs Vital signs: Vital Signs Temp 97.9 F 07/06/19 12:27 Pulse 73 07/06/19 12:27 Resp 18 07/06/19 12:27 BP 118/71 07/06/19 12:27 Pulse Ox 98 07/06/19 12:27 Intake & Output 07/05/19 07/06/19 07/06/19 18:59 06:59 18:59 Intake Total 2500 240 Output Total 600 Balance 2500 -360 Weight 113.398 kg Intake: Amount of Fluid Infused ( 2500 ml) Oral 240 Output: Urine 600 Other: Voiding Method Toilet Toilet # Voids 3 # Bowel Movements 0 - Exam General: [non toxic], [no distress], [appears at stated age] Derm: [warm], [dry] Head: [atraumatic], [normocephalic], [symmetric] Eyes: [EOMI], [no lid lag], [anicteric sclera] Mouth: [no lip lesion], [mucus membranes moist] Cardiovascular: [S1S2 reg], [no murmur], [positive DP pulse bilateral] Lungs: [CTA bilateral], [no rhonchi, no rales] , [no accessory muscle use] Abdominal: [soft], [ nontender to palpation], [left CVA tenderness], [no antonio reciable organomegaly] Ext: [no gross muscle atrophy], [no edema], [no contractures] Neuro: [no focal neuro deficits] Psych: [Alert], [oriented], [appropriate affect] - Labs CBC & Chem 7: 07/05/19 11:25 07/05/19 11:25 Labs: Microbiology - Last 24 Hours (Table) 07/05/19 10:25 Urine Culture - Preliminary Urine,Voided Gram Neg Bacilli Assessment and Plan Assessment: Bilateral nephrolithiasis UTI Normocytic anemia Pain management with Dilaudid. Zofran as needed for nausea or vomiting. Urology plans for ureteroscopy, cystoscopy, left retrograde pyelogram and possible stent and lithotripsy. Urine culture gram-negative bacilli. Start ceftriaxone. Hemoglobin 11.2. Stable. Continue to monitor. Likely DC in 1-2 days with adequate pain control.
[2019-07-06] MEDS ORDERED: IV FLUID CONTINUATION 1,000 ML IV ONE (17:37)
[2019-07-06] MEDS ORDERED: MIDAZOLAM 2 MG/2 ML VIAL ONE (18:39)
[2019-07-06] MEDS ORDERED: fentaNYL (PF) 50 MCG/ML 2 ML AMP ONE (18:39)
[2019-07-06] MEDS ORDERED: PROPOFOL 10 MG/ML 20 ML VIAL IV ONE (18:39)
[2019-07-06] MEDS ORDERED: SUCCINYLCHOLINE CHLORIDE 100 MG/5 ML SYR IV ONE (18:39)
[2019-07-06] MEDS ORDERED: LIDOCAINE 1% INJ 10MG/ML (20 ML MDV) ONE (18:39)
[2019-07-06] MEDS ORDERED: LACTATED RINGERS 1,000 ML IV ONE (19:13)
--- NOTE | 2019-07-06 19:28 | P.OP ---
Date of Procedure: 07/06/19 Preoperative Diagnosis: Left ureteral calculus Postoperative Diagnosis: Same Procedure(s) Performed: Cystoscopy, left ureteroscopy with Holmium laser lithotripsy Anesthesia: DARRELL Surgeon: Juan Angel Estimated Blood Loss (ml): 0 IV fluids (ml): 100 Pathology: other (Calculus fragmented, sent for chemical analysis) Condition: stable Disposition: PACU Indications for Procedure: The patient is a 34-year-old female hospitalized last month for evaluation of nausea, vomiting and bilateral flank pain. Non-contrast CT scan of the abdomen and pelvis identified a 3 mm partially obstructive proximal left ureteral calculus, along with a 4-5 mm left upper pole renal calculus and a 6 mm right lower pole renal calculus. No right hydronephrosis was noted. On 06/21/2019, Dr. Vaughn performed cystoscopy and left retrograde pyelogram. A calculus was not identified, and he presumed past. However, she has experienced persistent low back pain, as well as urgency for the past several days. A repeat CT scan on July 03 revealed an apparent 3 mm left distal ureteral calculus. She has elected to undergo ureteroscopic removal of the calculus. Operative Findings: 3-4 mm calculus at left ureterovesical junction, fragmented and removed in its entirety. Description of Procedure: The patient was taken to the operating room and placed in the dorsolithotomy position, with legs supported in Greg stirrups. The external genitalia was prepped and draped sterilely. The 30 lens was used to introduce the 19-[place] Stortz cystoscopic sheath through the urethra and into the bladder under direct vision. The bladder was examined in its entirety. Both ureteral orifices were normal anatomic location and configuration. A calculus was seen at the left ureteral orifice. No tumors or foreign bodies were seen. The [facility] semirigid ureteroscope was advanced into the bladder, and the left ureteral orifice was cannulated. The 200 micron Holmium laser probe was passed through the ureteroscope, and lithotripsy was performed. A portion of the calculus refluxed proximally, and the ureteroscope was advanced to complete fragmentation of the calculus. All calculus fragments migrated distally into the bladder, and there was no evidence of ureteral trauma. The ureteroscope was removed, and the cystoscope was replaced into the bladder. The calculus fragments were removed from the bladder. Only the largest was suitable for stone analysis, and this was sent. The bladder was emptied and the cystoscope removed. The patient tolerated the procedure well and was taken to the recovery room in stable condi tion. JUANITA ROCKS Report: Procedure Acuity: Urgent Stone Size and Location: 3-4 mm, left distal ureter Ureteral Dilation: No Ureteral Access Sheath Used: No Stone Sent for Analysis: Yes All Stones/Fragments Were Removed with a Basket: No Complications: No Preoperative Antibiotics Given: Yes Stent Placed: No If Stent Placed, Was String Left Attached: N/A
[2019-07-06] MEDS ORDERED: HYDROmorphone 1 MG/ML 1 ML SYRINGE IVP ONE (19:55)
[2019-07-06] MEDS: PROMETHAZINE 25 MG TAB PO PRN (21:14)
[2019-07-06] MEDS: MELATONIN 3 MG TABLET PO SCH (22:53)
[2019-07-07] MEDS: HYDROmorphone 1 MG/ML 1 ML SYRINGE IVP PRN ×2 (03:07→05:51)
--- NOTE | 2019-07-07 08:02 | P.PN ---
Progress Note - Text Progress Note Date: 07/07/19 Ms. Navarrete is feeling somewhat better this morning. She continues to report lower back discomfort and pressure to void. She is afebrile with stable vital signs. I reassured her that the distal ureteral calculus was removed in its entirety, and that her symptoms should gradually resolve. She is urologically stable for discharge, and will follow-up with me as an outpatient in approximately 2 weeks.
[2019-07-07] MEDS: PANTOPRAZOLE 40 MG TABLET PO SCH (08:34)
[2019-07-07] MEDS: TAMSULOSIN 0.4 MG CAP.ER.24H PO SCH (08:34)
[2019-07-07] MEDS: SODIUM CHLORIDE 0.9% 1,000 ML IV SCH ×2 (08:35→17:57)
[2019-07-07] MEDS: HYDROcodone/APAP 10-325MG 1 EACH TAB PO PRN ×3 (08:38→21:25)
--- NOTE | 2019-07-07 16:50 | P.PN ---
Subjective Progress Note Date: 07/07/19 Principal diagnosis: nephrolithiasis Patient was seen and examined. No acute events overnight. Patient reports excruciating left-sided flank pain. Pain is 10 out of 10 in severity. Patient denies any chest pain, shortness breath or palpitation. No nausea or vomiting. No fever or chills. Patient reports the pain to be pressure-like. Underwent cystoscopy, left ureteroscopy with lithotripsy. Objective - Vital Signs Vital signs: Vital Signs Temp 98.5 F 07/07/19 12:59 Pulse 55 L 07/07/19 14:52 Resp 16 07/07/19 14:52 BP 111/73 07/07/19 12:59 Pulse Ox 96 07/07/19 12:59 Intake & Output 07/06/19 07/07/19 07/07/19 18:59 06:59 18:59 Intake Total 1240 900 200 Output Total 800 800 Balance 1240 100 -600 Intake: IV 1000 300 Oral 240 600 200 Output: Urine 800 800 Estimated Blood Loss 0 Other: Voiding Method Toilet Toilet Toilet # Voids 3 2 2 - Exam General: [non toxic], [no distress], [appears at stated age] Derm: [warm], [dry] Head: [atraumatic], [normocephalic], [symmetric] Eyes: [EOMI], [no lid lag], [anicteric sclera] Mouth: [no lip lesion], [mucus membranes moist] Cardiovascular: [S1S2 reg], [no murmur], [positive DP pulse bilateral] Lungs: [CTA bilateral], [no rhonchi, no rales] , [no accessory muscle use] Abdominal: [soft], [ nontender to palpation], [left CVA tenderness], [no appreciable organomegaly] Ext: [no gross muscle atrophy], [no edema], [no contractures] Neuro: [no focal neuro deficits] Psych: [Alert], [oriented], [appropriate affect] - Labs CBC & Chem 7: 07/05/19 11:25 07/05/19 11:25 Labs: Microbiology - Last 24 Hours (Table) 07/05/19 10:25 Urine Culture - Final Urine,Voided Escherichia coli Assessment and Plan Assessment: Bilateral nephrolithiasis UTI Normocytic anemia Pain management with Dilaudid, [place]. Zofran as needed for nausea or vomiting. Status post ureteroscopy, cystoscopy, left retrograde pyelogram and lithotripsy 07/07/2019. Cleared by urology. Urine culture gram-negative bacilli. Continue ceftriaxone. Hemoglobin 11.2. Stable. Continue to monitor. Likely DC tomorrow with adequate pain control.
[2019-07-07] MEDS ORDERED: BENZOCAINE/MENTHOL LOZENG 1 EACH LOZENGE MUCOUS MEM PRN (16:54)
[2019-07-07] MEDS: MELATONIN 3 MG TABLET PO SCH (21:26)
[2019-07-07 22:14] VITALS: TEMP 98.1
[2019-07-08] MEDS: ONDANSETRON 4 MG/2 ML VIAL IVP PRN (05:32)
[2019-07-08] MEDS: HYDROcodone/APAP 10-325MG 1 EACH TAB PO PRN (05:32)
[2019-07-08] MEDS: SODIUM CHLORIDE 0.9% 1,000 ML IV SCH (05:37)
[2019-07-08 05:59] VITALS: BP 119/80; PULSE 61; RESP 18
[2019-07-08] MEDS: PANTOPRAZOLE 40 MG TABLET PO SCH (07:33)
[2019-07-08] MEDS: TAMSULOSIN 0.4 MG CAP.ER.24H PO SCH (07:34)
--- NOTE | 2019-07-08 07:46 | P.PN ---
Progress Note - Text Progress Note Date: 07/08/19 Ms. Navarrete continues to feel better. She is still experiencing lower back discomfort but states that this is improved. She is afebrile with stable vital signs. The urine culture showed an E. coli UTI, sensitive to most antibiotics. Her pain is now controlled with oral analgesics, and it would be my recommendation that she be discharged home with prescriptions for oral antibiotics and analgesics. She will follow-up with me as an outpatient in approximately 2 weeks.
--- NOTE | 2019-07-08 10:25 | P.DS ---
Providers Date of admission: 07/05/19 16:43 Expected date of discharge: 07/08/19 Attending physician: Brian Magdaleno MD Consults: 07/05/19 16:43 Consult Physician Urgent Consulting Provider: Juan Angel Consult Reason/Comments: Ureterolithiasis Do you want consulting provider notified?: Already Contacted Primary care physician: Christian Ball [facility] Course: Patient is a 34-year-old female with a PMH of recurrent kidney stones presented to the ED with complaints of left-sided flank pain ongoing for the past 2 days. The patient reported that she was in her usual state of health until 3 days ago when she woke up with sudden onset of sharp left-sided flank pain with radiation to the left lower quadrant. The patient was a campsite near [place], [place] and then went to [facility] yesterday where she was evaluated and underwent a CT abdomen which revealed bilateral intrarenal 4 x 2 mm calcifications adjacent to the left ureterovesical junction without hydronephrosis. The patient stated that she would not be able to return to home and subsequently left the hospital, and presented at [facility]. At time of interview, the patient notes that her pain is a 8/10, with radiation to the left lower quadrant. Patient also notes that she has been having bloody urine during this time, without gross blood. She also endorsed nausea with 1 episode of vomiting earlier today. She denied fever, chills, chest pain, shortness of breath. The patient notes that she had multiple episodes of kidney stones and was advised to follow up with urology but never got around to it. The patient underwent an extensive evaluation in the ED with KUB x-ray showing stable bilateral nephrolithiasis and an abdominal ultrasound which did not show hydronephrosis. Laboratory evaluation revealed a WBC count of 8.8, platelets 273, sodium 140, potassium 4.2, BUN 12, creatinine 0.63, with UA showing moderate leukocyte esterase, 13 RBCs, and 26 squamous epithelial cells and large blood. The case was discussed with urology who recommended a medicine admission with urology consult along with IV fluids. Patient was evaluated by urology and underwent cystoscopy, left ureteroscopy with laser lithotripsy. Her urine culture came back positive for E. coli pansensitive, she was started on ceftriaxone. Pain was initially controlled with Dilaudid and transitioned to Kistler for discharge. Urology evaluated the patient postprocedure and cleared the patient for discharge. Patient was seen and examined. No acute events overnight. Patient reports mild improvement in her left flank pain. She denies any chest pain, shortness of breath or palpitations. No nausea or vomiting. No fever or chills. General: [non toxic], [no distress], [appears at stated age] Derm: [warm], [dry] Head: [atraumatic], [normocephalic], [symmetric] Eyes: [EOMI], [no lid lag], [anicteric sclera] Mouth: [no lip lesion], [mucus membranes moist] Cardiovascular: [S1S2 reg], [no murmur], [positive DP pulse bilateral] Lungs: [CTA bilateral], [no rhonchi, no rales] , [no accessory muscle use] Abdominal: [soft], [ nontender to palpation], [left CVA tenderness], [no appreciable organomegaly] Ext: [no gross muscle atrophy], [no edema], [no contractures] Psych: [Alert], [oriented], [appropriate affect] Bilateral nephrolithiasis UTI Normocytic anemia Pain management with Dilaudid, Kistler. Zofran as needed for nausea or vomiting. Status post ureteroscopy, cystoscopy, left retrograde pyelogram and lithotripsy 07/07/2019. Cleared by urology. Urine culture gram-negative bacilli. Received 3 days of ceftriaxone. 4 days of Bactrim on discharge. Hemoglobin 11.2. Stable. Continue to monitor. DC today. Pertinent Studies: KUB, abdominal bladder ultrasound Procedures: Cystoscopy, ureteroscopy with lithotripsy Patient Condition at Discharge: Stable Plan - Discharge Summary New Discharge Prescriptions: New Sulfamethox-Tmp 800-160Mg [Bactrim DS 800-160 mg] 1 tab PO Q12HR #6 tab HYDROcodone/APAP 10-325MG [Kistler 10-325] 1 each PO Q6H PRN #12 tab PRN Reason: Pain Continue Tamsulosin [Flomax] 0.4 mg PO PC-BRKFST #30 cap.er.24h Promethazine [Phenergan] 12.5 mg PO Q4HR PRN #3 tab PRN Reason: Nausea Pantoprazole [Protonix] 40 mg PO DAILY #30 tablet.dr Discharge Medication List Pantoprazole [Protonix] 40 mg PO DAILY #30 tablet. 06/22/19 [Rx] Promethazine [Phenergan] 12.5 mg PO Q4HR PRN #3 tab 06/22/19 [Rx] Tamsulosin [Flomax] 0.4 mg PO PC-BRKFST #30 cap.er.24h 06/22/19 [Rx] HYDROcodone/APAP 10-325MG [[place]ler 10-325] 1 each PO Q6H PRN #12 tab 07/08/19 [Rx] Sulfamethox-Tmp 800-160Mg [Bactrim DS 800-160 mg] 1 tab PO Q12HR #6 tab 07/08/19 [Rx] Follow up Appointment(s)/Referral(s): Christian Ball MD [Primary Care Provider] - 1-2 days Juan Angel MD [STAFF PHYSICIAN] - 2 Weeks (office to call with appt. time and date.) Activity/Diet/Wound Care/Special Instructions: Diet: Regular Follow-up PCP within 1-2 days of discharge. Follow-up urology within 1 week of discharge. Take all medications as advised. Discharge Disposition: HOME SELF-CARE
== END 2019-07-08 11:13 | disposition home or self-care (01) | DRG 669 ==
LOC: EC 09:20 → 4MS4W 16:43 → OBSVTOIN 16:43 → 4MS4W 17:56 → UNDODISOB 07-08 11:13
PROVIDERS: ADMIT Internal Medicine; ATTEND Internal Medicine
PROC: 0TC78ZZ Extirpation of Matter from Left Ureter, Via Natural or Artificial Opening Endoscopic (ICD-10-PCS; principal; 2019-07-06 10:05)
PROC: 0TJB8ZZ Inspection of Bladder, Via Natural or Artificial Opening Endoscopic (ICD-10-PCS; 2019-07-06 10:05)
DX: N20.2 Calculus of kidney with calculus of ureter (principal); N39.0 Urinary tract infection, site not specified; F31.9 Bipolar disorder, unspecified; D64.9 Anemia, unspecified; B96.20 Unspecified Escherichia coli [E. coli] as the cause of diseases classified elsewhere; J45.909 Unspecified asthma, uncomplicated; F17.210 Nicotine dependence, cigarettes, uncomplicated; Z79.899 Other long term (current) drug therapy; Z87.01 Personal history of pneumonia (recurrent); Z87.442 Personal history of urinary calculi; Z90.49 Acquired absence of other specified parts of digestive tract; Z88.5 Allergy status to narcotic agent; Z88.8 Allergy status to other drugs, medicaments and biological substances; Z91.040 Latex allergy status; Z80.0 Family history of malignant neoplasm of digestive organs
CPT/HCPCS: 36415; 74018; 76770; 80053; 81001; 81025; 82365; 83690; 85025; 87077; 87086; 87186; 96361; 96365; 96366; 96375; 96376; 99285

== ENCOUNTER 2019-07-22 23:23 | Observation (INO) | payer BC ==
[2019-07-22] MEDS ORDERED: SODIUM CHLORIDE 0.9% 1,000 ML IV STA (23:59)
--- NOTE | 2019-07-22 23:59 | ED ---
Female Urogenital HPI - General Chief complaint: Urogenital Stated complaint: kidney stones Time Seen by Provider: 07/22/19 23:30 Source: patient Mode of arrival: ambulatory Limitations: no limitations - History of Present Illness Initial comments: Call is a 34-year-old female with known history of kidney stones who presents to the emergency department today for evaluation of 2 days of right-sided flank pain. Patient was previously admitted to this hospital for intractable flank pain and found to have ureteral stones for which she underwent lithotripsy. Patient was discharged home on oral Brick and reports she had a few days of being pain-free however the past 2-3 days she's had intractable right-sided flank pain, nausea, vomiting inability tolerate by mouth intake. Patient reports that he was seen and evaluated at [facility] yesterday, had a computed tomography scan and was told that she did not have any stones that would account for her pain. She subsequently discharged home. - Related Data Previous Rx's Medication Instructions Recorded Pantoprazole [Protonix] 40 mg PO DAILY #30 tablet.dr 06/22/19 Promethazine [Phenergan] 12.5 mg PO Q4HR PRN #3 tab 06/22/19 Tamsulosin [Flomax] 0.4 mg PO PC-BRKFST #30 cap.er.24h 06/22/19 HYDROcodone/APAP 10-325MG [Brick 1 each PO Q6H PRN #12 tab 07/08/19 10-325] Sulfamethox-Tmp 800-160Mg [Bactrim 1 tab PO Q12HR #6 tab 07/08/19 DS 800-160 mg] Allergies Allergy/AdvReac Type Severity Reaction Status Date / Time ketorolac [From Toradol] Allergy Rash/Hives Verified 07/06/19 17:32 latex Allergy Rash/Hives Verified 07/06/19 17:32 morphine Allergy Rash/Hives Verified 07/06/19 17:32 Review of Systems ROS Statement: Those systems with pertinent positive or pertinent negative responses have been documented in the HPI. ROS Other: All systems not noted in ROS Statement are negative. Past Medical History Past Medical History: Asthma, Pneumonia Additional Past Medical History / Comment(s): kidney stones, gallbladder removal 14 years ago, bipolar disorder History of Any Multi-Drug Resistant Organisms: None Reported Date of last positivie culture/infection: None MDRO Source:: None Past Surgical History: Cholecystectomy Additional Past Surgical History / Comment(s): Colonoscopy Past Anesthesia/Blood Transfusion Reactions: No Reported Reaction Past Psychological History: Bipolar Smoking Status: Current every day smoker Past Alcohol Use History: None Reported Past Drug Use History: None Reported - Past Family History Father Additional Family Medical History / Comment(s): colon cancer General Exam - General Exam Comments Initial Comments: Physical Exam GENERAL: Patient sitting up rocking in bed, unwilling to answer questions HENT: Normocephalic, Atraumatic. EYES: PERRL, EOMI PULMONARY: Unlabored respirations. No audible rales rhonchi or wheezing was noted. CARDIOVASCULAR: There is a regular rate and rhythm without any murmurs gallops or rubs. ABDOMEN: Soft and nontender with normal bowel sounds. SKIN: Skin is clear with no lesions or rashes and otherwise unremarkable. : Deferred NEUROLOGIC: Patient is alert and oriented x3. Moving all extremities spontaneously MUSCULOSKELETAL: Normal extremities with adequate strength and full range of motion. No lower extremity swelling or edema. No calf tenderness. PSYCHIATRIC: Normal psychiatric evaluation. Limitations: no limitations Course Vital Signs 07/22/19 23:25 Temperature 98.5 F Pulse Rate 100 Respiratory 16 Rate Blood Pressure 118/82 O2 Sat by Pulse 96 Oximetry Medical Decision Making - Medical Decision Making She was seen and evaluated history was obtained patient review of medical record This 34-year-old female with a known history of kidney stones chronic pain with difficulty to trial pain who is required admission in the past for pain management Patient presents to the emergency Department today with 2 days of right-sided flank pain from previous kidney stones, patient was seen and evaluated at outside hospital yesterday head CT imaging and was advised that there is no signs of stones causing her symptoms she was subsequently discharged home Repeat labs and imaging were ordered Labs with mild elevation of bilirubin and transaminases this is likely secondary to patient's vomiting for 2 days as the patient has had a previous cholecystectomy and is not having any right upper quadrant abdominal pain Ultrasound unchanged from previous no signs of hydronephrosis Patient required 2 doses of IV narcotics in the emergency department, she somewhat more comfortable still feeling somewhat nauseated at this time due to the patient will require observation for pain management and possible evaluation by urology. Patient is agreeable to this. Admission orders were placed. - Lab Data Result diagrams: 07/23/19 01:26 07/23/19 00:20 Lab Results 07/23/19 07/23/19 07/23/19 Range/Units 00:20 01:25 01:25 WBC (3.8-10.6) k/uL RBC (3.80-5.40) m/uL Hgb (11.4-16.0) gm/dL Hct (34.0-46.0) % MCV (80.0-100.0) fL MCH (25.0-35.0) pg MCHC (31.0-37.0) g/dL RDW (11.5-15.5) % Plt Count (150-450) k/uL Neutrophils % % Lymphocytes % % Monocytes % % Eosinophils % % Basophils % % Neutrophils # (1.3-7.7) k/uL Lymphocytes # (1.0-4.8) k/uL Monocytes # (0-1.0) k/uL Eosinophils # (0-0.7) k/uL Basophils # (0-0.2) k/uL Sodium 134 L (137-145) mmol/L Potassium 4.0 (3.5-5.1) mmol/L Chloride 93 L (98-107) mmol/L Carbon Dioxide 24 (22-30) mmol/L Anion Gap 17 mmol/L BUN 19 H (7-17) mg/dL Creatinine 0.68 (0.52-1.04) mg/dL Est GFR (CKD-EPI)AfAm >90 (>60 ml/min/1.73 sqM) Est GFR (CKD-EPI)NonAf >90 (>60 ml/min/1.73 sqM) Glucose 107 H (74-99) mg/dL Calcium 9.6 (8.4-10.2) mg/dL Total Bilirubin 1.7 H (0.2-1.3) mg/dL AST 90 H (14-36) U/L ALT 135 H (9-52) U/L Alkaline Phosphatase 62 (38-126) U/L Total Protein 8.2 (6.3-8.2) g/dL Albumin 4.7 (3.5-5.0) g/dL Urine Color Dark Brown Urine Appearance Cloudy H (Clear) Urine pH 6.5 (5.0-8.0) Ur Specific [place] 1.035 (1.001-1.035) Urine Protein 1+ H (Negative) Urine Glucose (UA) Negative (Negative) Urine Ketones 4+ H (Negative) Urine Blood Large H (Negative) Urine Nitrite Negative (Negative) Urine Bilirubin 1+ H (Negative) Urine Urobilinogen 8.0 (<2.0) mg/dL Ur Leukocyte Esterase Large H (Negative) Urine RBC >182 H (0-5) /hpf Urine WBC 25 H (0-5) /hpf Ur Squamous Epith Cells 5 H (0-4) /hpf Urine Bacteria Occasional H (None) /hpf Urine Mucus Many H (None) /hpf Urine HCG, Qual Not Detected (Not Detectd) 07/23/19 Range/Units 01:26 WBC 13.9 H (3.8-10.6) k/uL RBC 4.63 (3.80-5.40) m/uL Hgb 13.9 (11.4-16.0) gm/dL Hct 41.1 (34.0-46.0) % MCV 88.8 (80.0-100.0) fL MCH 30.0 (25.0-35.0) pg MCHC 33.8 (31.0-37.0) g/dL RDW 13.4 (11.5-15.5) % Plt Count 328 (150-450) k/uL Neutrophils % 81 % Lymphocytes % 11 % Monocytes % 5 % Eosinophils % 2 % Basophils % 0 % Neutrophils # 11.3 H (1.3-7.7) k/uL Lymphocytes # 1.6 (1.0-4.8) k/uL Monocytes # 0.7 (0-1.0) k/uL Eosinophils # 0.2 (0-0.7) k/uL Basophils # 0.0 (0-0.2) k/uL Sodium (137-145) mmol/L Potassium (3.5-5.1) mmol/L Chloride (98-107) mmol/L Carbon Dioxide (22-30) mmol/L Anion Gap mmol/L BUN (7-17) mg/dL Creatinine (0.52-1.04) mg/dL Est GFR (CKD-EPI)AfAm (>60 ml/min/1.73 sqM) Est GFR (CKD-EPI)NonAf (>60 ml/min/1.73 sqM) Glucose (74-99) mg/dL Calcium (8.4-10.2) mg/dL Total Bilirubin (0.2-1.3) mg/dL AST (14-36) U/L ALT (9-52) U/L Alkaline Phosphatase (38-126) U/L Total Protein (6.3-8.2) g/dL Albumin (3.5-5.0) g/dL Urine Color Urine Appearance (Clear) Urine pH (5.0-8.0) Ur Specific [place] (1.001-1.035) Urine Protein (Negative) Urine Glucose (UA) (Negative) Urine Ketones (Negative) Urine Blood (Negative) Urine Nitrite (Negative) Urine Bilirubin (Negative) Urine Urobilinogen (<2.0) mg/dL Ur Leukocyte Esterase (Negative) Urine RBC (0-5) /hpf Urine WBC (0-5) /hpf Ur Squamous Epith Cells (0-4) /hpf Urine Bacteria (None) /hpf Urine Mucus (None) /hpf Urine HCG, Qual (Not Detectd) Disposition Clinical Impression: Nausea and vomiting, Intractable abdominal pain Disposition: ADMITTED IP TO THIS [facility] Condition: Stable Referrals: Nonstaff,Physician [Primary Care Provider] - 1-2 days
[2019-07-23] MEDS ORDERED: HYDROmorphone 1 MG/ML 1 ML SYRINGE IVP STA ×2 (00:42→02:26)
[2019-07-23] MEDS ORDERED: ONDANSETRON 4 MG/2 ML VIAL IVP STA (00:42)
[2019-07-23 00:43] LABS: ALT 135 U/L (9-52); AST 90 U/L (14-36); African American GFR (CKD) >90 (>60 ml/min/1.73 sqM); Albumin 4.7 g/dL (3.5-5.0); Alkaline Phosphatase 62 U/L (38-126); Anion Gap 17 mmol/L; Blood Urea Nitrogen 19 mg/dL (7-17); Calcium 9.6 mg/dL (8.4-10.2); Carbon Dioxide 24 mmol/L (22-30); Chloride 93 mmol/L (98-107); Glucose 107 mg/dL (74-99); Sodium 134 mmol/L (137-145); Total Bilirubin 1.7 mg/dL (0.2-1.3); Total Protein 8.2 g/dL (6.3-8.2)
[2019-07-23 01:47] LABS: Basophils % (A) 0 %; Eosinophils # (A) 0.2 k/uL (0-0.7); Eosinophils % (A) 2 %; HCT 41.1 % (34.0-46.0); HGB 13.9 gm/dL (11.4-16.0); Lymphocytes # (A) 1.6 k/uL (1.0-4.8); Lymphocytes % (A) 11 %; MCHC 33.8 g/dL (31.0-37.0); MCV 88.8 fL (80.0-100.0); Mean Platelet Volume 7.1; Monocytes # (A) 0.7 k/uL (0-1.0); Monocytes % (A) 5 %; Neutrophils # (A) 11.3 k/uL (1.3-7.7); Neutrophils % (A) 81 %; Platelet Count 328 k/uL (150-450); RBC 4.63 m/uL (3.80-5.40); RDW 13.4 % (11.5-15.5); WBC 13.9 k/uL (3.8-10.6)
[2019-07-23 01:56] LABS: Appearance,Urine Cloudy (Clear); Bacteria,Urine Occasional /hpf; Bilirubin,Urine 1+ (Negative); Blood,Urine Large (Negative); Color,Urine Dark Brown; Glucose,Urine (UA) Negative (Negative); Ketones,Urine 4+ (Negative); Leukocyte Esterase,Urine Large (Negative); Mucus,Urine Many /hpf; Nitrite,Urine Negative (Negative); PH, Urine 6.5 (5.0-8.0); Protein,Urine 1+ (Negative); RBC,Urine >182 /hpf (0-5); Specific Gravity,Urine 1.035 (1.001-1.035); Squamous Epithelial Cell,Urine 5 /hpf (0-4); WBC,Urine 25 /hpf (0-5)
--- NOTE | 2019-07-23 02:17 | US ---
EXAM: US Retroperitoneal Limited, Renal CLINICAL HISTORY: known kidney stone, flank pian TECHNIQUE: Real-time ultrasound of the retroperitoneum (limited) with image documentation. COMPARISON: CT 06/17/19 FINDINGS: Right kidney 9.1 x 4.9 x 5.5 cm. Echogenic foci non-sat imaging measuring 6 mm possibility of nonobstructing stone not excluded. No solid mass. No hydronephrosis. Ureteral jets not demonstrated Left kidney: 10.9 x 4.7 x 5.3 cm Unremarkable. 7 mm echogenic foci left kidney most likely representing nonobstructing calyceal stone. 5 mm echogenic foci could represent an additional stone.. No solid mass. No hydronephrosis. Ureteral jets not demonstrated IMPRESSION: No hydronephrosis. Bilateral echogenic foci suspicious for previously identified renal calculi. Bladder is not distended. Ureteral jets are not demonstrated.
[2019-07-23] MEDS ORDERED: NALOXONE 0.4 MG/ML 1 ML VIAL IV PRN (03:34)
[2019-07-23] MEDS: ONDANSETRON 4 MG/2 ML VIAL IVP PRN ×2 (04:01→09:38)
[2019-07-23] MEDS: HYDROmorphone 0.5 MG/0.5 ML SYRINGE IVP PRN ×7 (04:02→21:43)
[2019-07-23] MEDS: SODIUM CHLORIDE 0.9% 1,000 ML IV SCH ×3 (04:04→19:02)
[2019-07-23 05:05] VITALS: BMI 35.8
[2019-07-23] MEDS ORDERED: PROCHLORPERAZINE 5 MG TAB PO PRN (08:00)
[2019-07-23] MEDS: PANTOPRAZOLE 40 MG/10 ML VIAL IV SCH (09:37)
[2019-07-23] MEDS ORDERED: diphenhydrAMINE 50 MG/ML 1 ML VIAL IVP STA (11:56)
[2019-07-23] MEDS: METOCLOPRAMIDE 5 MG/ML 2 ML VIAL IVP PRN ×2 (12:21→18:48)
[2019-07-23] MEDS: HEPARIN SODIUM,PORCINE 5,000 UNIT/ML 1 ML VIAL SQ SCH (15:41)
--- NOTE | 2019-07-23 16:51 | P.HPIM ---
History of Present Illness H&P Date: 07/23/19 Chief Complaint: Right flank pain Patient is a 34-year-old female with a known history of renal stones status post cystoscopy and lithotripsy in July 2019, bipolar disorder and history of cholecystectomy came to ER with complaints of right-sided flank pain started 2 days prior to admission. Patient was previously admitted to this hospital for intractable flank pain and found to have ureteral stones for which she underwent lithotripsy. Patient was discharged on 07/08/2019. Urine culture was growing E. coli at that time and was treated with ceftriaxone and transitioned to Bactrim DS. Patient was discharged home on oral [place] and reports she had a few days of being pain-free however the past 2-3 days she's had intractable right-sided flank pain, nausea, vomiting inability tolerate by mouth intake. Patient reports that he was seen and evaluated at [facility] yesterday, had a computed tomography scan and was told that she did not have any stones that would account for her pain. She subsequently discharged home. Patient is still complaining of right flank pain and nausea and vomiting. Ultrasound renal showed no hydronephrosis. Bilateral echogenic foci suspicious for previously identified renal calculi. Bladder is not distended. Ureteral jets are not demonstrated. WBC 13.9 sodium 134 and potassium 4.0. AST 90, ALT 135 urinalysis showed cloudy with large leukocyte esterase, nitrate negative and RBC greater than 135 and WBC 25 Review of Systems Constitutional: Patient denies any fever or chills . No generalized weakness or weight loss. Abdomen: Nausea vomiting and right flank pain Cardiovascular: Patient denies any chest pain or short of breath no palpitations. Respiratory: patient denied any cough is from production. No shortness of breath Neurologic: Patient denied any numbness or tingling headache. Musculoskeletal: Patient denies any complaints of joint swelling or deformity. Skin: Negative Psychiatric: Negative Endocrine: No heat or cold intolerance. No recent weight gain. Genitourinary: No dysuria or hematuria. All other 14 point ROS negative except the above Past Medical History Past Medical History: Asthma, Pneumonia Additional Past Medical History / Comment(s): kidney stones, gallbladder removal 14 years ago, bipolar disorder History of Any Multi-Drug Resistant Organisms: None Reported Date of last positivie culture/infection: None MDRO Source:: None Past Surgical History: Cholecystectomy Additional Past Surgical History / Comment(s): Colonoscopy Past Anesthesia/Blood Transfusion Reactions: No Reported Reaction Past Psychological History: Bipolar Smoking Status: Current every day smoker Past Alcohol Use History: None Reported Past Drug Use History: None Reported - Past Family History Father Additional Family Medical History / Comment(s): colon cancer Mother Family Medical History: Hypertension Medications and Allergies Home Medications Medication Instructions Recorded Confirmed Type Pantoprazole [Protonix] 40 mg PO DAILY #30 tablet. 06/22/19 07/23/19 Rx Promethazine [Phenergan] 12.5 mg PO Q4HR PRN #3 tab 06/22/19 07/23/19 Rx Tamsulosin [Flomax] 0.4 mg PO PC-BRKFST #30 cap.er.24h 06/22/19 07/23/19 Rx HYDROcodone/APAP 10-325MG [[place] 1 tab PO Q6H PRN 07/23/19 07/23/19 History 10-325] Allergies Allergy/AdvReac Type Severity Reaction Status Date / Time ketorolac [From Toradol] Allergy Rash/Hives Verified 07/23/19 05:05 latex Allergy Rash/Hives Verified 07/23/19 05:05 morphine Allergy Rash/Hives Verified 07/23/19 05:05 ondansetron [From Zofran] Allergy Rash/Hives Verified 07/23/19 09:53 Physical Exam Vitals: Vital Signs Temp Pulse Pulse Resp BP BP Pulse Ox 07/23/19 08:45 98.2 F 87 16 143/96 99 07/23/19 05:10 83 18 07/23/19 04:45 98.2 F 83 18 142/82 97 07/23/19 04:07 97.8 F 94 17 132/94 97 07/22/19 23:25 98.5 F 100 16 118/82 96 Intake and Output 07/22/19 07/23/19 07/23/19 22:59 06:59 14:59 Output Total 100 220 Balance -100 -220 Output: Urine 100 220 Other: Voiding Method Toilet Toilet # Voids 1 Weight 111.13 kg PHYSICAL EXAMINATION: Patient is lying in the bed comfortably, mild distress, awake alert and oriented.. HEENT: Normocephalic. Neck is supple. Pupils reactive. Nostrils clear. Oral cavity is moist. Ears reveal no drainage. Neck reveals no JVD, carotid bruits, or thyromegaly. CHEST EXAMINATION: Trachea is central. Symmetrical expansion. Lung sanchez clear to auscultation and percussion. CARDIAC: Normal S1, S2 with no gallops. No murmurs ABDOMEN: Soft. Bilateral flank tenderness. No abdominal tenderness. No g uarding no rigidity. Bowel sounds normal. No organomegaly. No abdominal bruits. Extremities: reveal no edema. No clubbing or cyanosis Neurologically awake, alert, oriented x3 with well-coordinated movements. No focal deficits noted Skin: No rash or skin lesions. Psychiatric: Coperative. Nonsuicidal Musculoskeletal: No joint swelling or deformity. Normal range of motion. Results CBC & Chem 7: 07/23/19 01:26 07/23/19 00:20 Labs: Abnormal Lab Results - Last 24 Hours (Table) 07/23/19 07/23/19 07/23/19 Range/Units 00:20 01:25 01:26 WBC 13.9 H (3.8-10.6) k/uL Neutrophils # 11.3 H (1.3-7.7) k/uL Sodium 134 L (137-145) mmol/L Chloride 93 L (98-107) mmol/L BUN 19 H (7-17) mg/dL Glucose 107 H (74-99) mg/dL Total Bilirubin 1.7 H (0.2-1.3) mg/dL AST 90 H (14-36) U/L ALT 135 H (9-52) U/L Urine Appearance Cloudy H (Clear) Urine Protein 1+ H (Negative) Urine Ketones 4+ H (Negative) Urine Blood Large H (Negative) Urine Bilirubin 1+ H (Negative) Ur Leukocyte Esterase Large H (Negative) Urine RBC >182 H (0-5) /hpf Urine WBC 25 H (0-5) /hpf Ur Squamous Epith Cells 5 H (0-4) /hpf Urine Bacteria Occasional H (None) /hpf Urine Mucus Many H (None) /hpf Microbiology - Last 24 Hours (Table) 07/23/19 01:25 Urine Culture - Preliminary Urine,Voided Thrombosis Risk Factor Assmnt - Choose All That Apply Any of the Below Risk Factors Present?: Yes Each Factor Represents 1 point: Obesity (BMI >25), Swollen legs (current) Other Risk Factors: No Other congenital or acquired thrombophilia - If yes, enter type in comment: No Thrombosis Risk Factor Assessment Total Risk Factor Score: 2 Thrombosis Risk Factor Assessment Level: Low Risk Assessment and Plan Assessment: Right flank pain. Possible acute pyelonephritis. Intractable nausea and vomiting Cystoscopy, left ureteroscopy with laser lithotripsy on 07/07/2019 Recent E. coli urinary tract infection Asthma stable Bipolar disorder Nicotine addiction currently every day smoker History of cholecystectomy DVT prophylaxis with heparin subcu Plan: Patient will be continued on IV hydration. Started on antibiotics in the form of ceftriaxone. Follow-up urine culture reports. Continue the pain management with Dilaudid. Patient says that she is ALLERGIC to morphine. Continue with symptomatic management for nausea and vomiting. Continue with PPI. Further recommendations based on the clinical course. Smoking cessation has been counseled extensively. We will continue to follow closely. Time with Patient: Greater than 30
[2019-07-24] MEDS: HEPARIN SODIUM,PORCINE 5,000 UNIT/ML 1 ML VIAL SQ SCH ×4 (00:23→23:27)
[2019-07-24] MEDS: METOCLOPRAMIDE 5 MG/ML 2 ML VIAL IVP PRN ×3 (00:26→12:36)
[2019-07-24] MEDS: HYDROmorphone 0.5 MG/0.5 ML SYRINGE IVP PRN ×6 (00:30→15:33)
[2019-07-24] MEDS: SODIUM CHLORIDE 0.9% 1,000 ML IV SCH ×2 (03:43→09:10)
[2019-07-24] MEDS: PANTOPRAZOLE 40 MG/10 ML VIAL IV SCH (09:19)
[2019-07-24 10:49] LABS: ALT 110 U/L (9-52); AST 43 U/L (14-36); African American GFR (CKD) >90 (>60 ml/min/1.73 sqM); Albumin 3.1 g/dL (3.5-5.0); Alkaline Phosphatase 45 U/L (38-126); Anion Gap 10 mmol/L; Blood Urea Nitrogen 12 mg/dL (7-17); Calcium 7.7 mg/dL (8.4-10.2); Carbon Dioxide 25 mmol/L (22-30); Chloride 101 mmol/L (98-107); Glucose 71 mg/dL (74-99); Potassium 3.6 mmol/L (3.5-5.1); Sodium 136 mmol/L (137-145); Total Bilirubin 0.8 mg/dL (0.2-1.3); Total Protein 5.6 g/dL (6.3-8.2)
[2019-07-24 10:52] LABS: Basophils % (A) 0 %; Eosinophils # (A) 0.1 k/uL (0-0.7); Eosinophils % (A) 1 %; HCT 35.3 % (34.0-46.0); HGB 11.9 gm/dL (11.4-16.0); Lymphocytes # (A) 1.5 k/uL (1.0-4.8); Lymphocytes % (A) 16 %; MCH 29.6 pg (25.0-35.0); MCHC 33.6 g/dL (31.0-37.0); MCV 88.1 fL (80.0-100.0); Mean Platelet Volume 9.3; Monocytes # (A) 0.7 k/uL (0-1.0); Monocytes % (A) 8 %; Neutrophils # (A) 6.6 k/uL (1.3-7.7); Neutrophils % (A) 74 %; RBC 4.01 m/uL (3.80-5.40); RDW 14.6 % (11.5-15.5)
[2019-07-24 10:53] LABS: Platelet Count 156 k/uL (150-450)
[2019-07-24] MEDS: diphenhydrAMINE 25 MG CAP PO PRN ×2 (17:14→23:27)
[2019-07-24] MEDS ORDERED: ALPRAZolam 0.25 MG TAB PO PRN (17:40)
--- NOTE | 2019-07-24 18:50 | XR ---
EXAMINATION TYPE: XR KUB DATE OF EXAM: 07/24/2019 COMPARISON: 07/05/2019 HISTORY: Renal calculi TECHNIQUE: 2 views supine FINDINGS: There is no sign of intestinal obstruction or pneumoperitoneum. Fecal pattern is normal. Th ere is 4 mm calcification over the right kidney. IMPRESSION: Nonacute abdomen. Right renal calculus unchanged.
[2019-07-24] MEDS: HYDROmorphone 2 MG TAB PO PRN ×2 (18:55→23:27)
[2019-07-24 20:52] VITALS: RESP 16
[2019-07-25] MEDS: HYDROmorphone 2 MG TAB PO PRN ×2 (03:24→09:49)
--- NOTE | 2019-07-25 06:24 | P.GSCN ---
History of Present Illness Consult date: 07/25/19 Reason for Consult: Kidney stones Requesting physician: Dean Elder History of present illness: The patient is a 34-year-old white female with a known history of renal stones. She underwent left ureteroscopy with laser lithotripsy on 07/06/2019 for removal of a small left distal ureteral calculus. The calculus was composed predominately of calcium oxalate. She had an E. coli UTI at that time, and was discharged home on Bactrim DS. She is now admitted with a 2-3 day history of intractable right flank pain associated with nausea and vomiting. She was evaluated at [facility] on July 23 and underwent a computed tomography scan. She was told that there were no findings to account for her pain. Review of Systems - Constitutional Denies chills, Denies fever - Gastrointestinal Reports nausea, Reports vomiting - Genitourinary Genitourinary: Reports flank pain, Reports hematuria, Reports kidney stones Past Medical History Past Medical History: Asthma, Pneumonia Additional Past Medical History / Comment(s): kidney stones, gallbladder removal 14 years ago, bipolar disorder History of Any Multi-Drug Resistant Organisms: None Reported Year Discovered:: None MDRO Source:: None Past Surgical History: Cholecystectomy Additional Past Surgical History / Comment(s): Colonoscopy Past Anesthesia/Blood Transfusion Reactions: No Reported Reaction Past Psychological History: Bipolar Smoking Status: Current every day smoker Past Alcohol Use History: None Reported Past Drug Use History: None Reported - Past Family History Father Additional Family Medical History / Comment(s): colon cancer Mother Family Medical History: Hypertension Medications and Allergies Home Medications Medication Instructions Recorded Confirmed Type Pantoprazole [Protonix] 40 mg PO DAILY #30 tablet. 06/22/19 07/23/19 Rx Promethazine [Phenergan] 12.5 mg PO Q4HR PRN #3 tab 06/22/19 07/23/19 Rx Tamsulosin [Flomax] 0.4 mg PO PC-BRKFST #30 cap.er.24h 06/22/19 07/23/19 Rx HYDROcodone/APAP 10-325MG [[place] 1 tab PO Q6H PRN 07/23/19 07/23/19 History 10-325] Allergies Allergy/AdvReac Type Severity Reaction Status Date / Time ketorolac [From Toradol] Allergy Rash/Hives Verified 07/23/19 05:05 latex Allergy Rash/Hives Verified 07/23/19 05:05 morphine Allergy Rash/Hives Verified 07/23/19 05:05 ondansetron [From Zofran] Allergy Rash/Hives Verified 07/23/19 09:53 Surgical - Exam Vital Signs Temp Pulse Resp BP Pulse Ox 98.5 F 100 16 118/82 96 07/22/19 23:25 07/22/19 23:25 07/22/19 23:25 07/22/19 23:25 07/22/19 23:25 - General well developed, well nourished, no distress - Respiratory normal respiratory effort - Abdomen Abdomen: soft, tender (Mild right-sided tenderness to palpation), no guarding, no rigid, no rebound, no distended - Psychiatric oriented to time, oriented to person, oriented to place, speech is normal, memory intact Results - Labs 07/24/19 08:24 07/24/19 08:24 Abnormal Lab Results - Last 24 Hours (Table) 07/24/19 Range/Units 08:24 Sodium 136 L (137-145) mmol/L Glucose 71 L (74-99) mg/dL Calcium 7.7 L (8.4-10.2) mg/dL AST 43 H (14-36) U/L ALT 110 H (9-52) U/L Total Protein 5.6 L (6.3-8.2) g/dL Albumin 3.1 L (3.5-5.0) g/dL Microbiology - Last 24 Hours (Table) 07/23/19 01:25 Urine Culture - Final Urine,Voided Diabetes panel 07/24/19 Range/Units 08:24 Sodium 136 L (137-145) mmol/L Potassium 3.6 (3.5-5.1) mmol/L Chloride 101 (98-107) mmol/L Carbon Dioxide 25 (22-30) mmol/L BUN 12 (7-17) mg/dL Creatinine 0.61 (0.52-1.04) mg/dL Glucose 71 L (74-99) mg/dL Calcium 7.7 L (8.4-10.2) mg/dL AST 43 H (14-36) U/L ALT 110 H (9-52) U/L Alkaline Phosphatase 45 (38-126) U/L Total Protein 5.6 L (6.3-8.2) g/dL Albumin 3.1 L (3.5-5.0) g/dL Calcium panel 07/24/19 Range/Units 08:24 Calcium 7.7 L (8.4-10.2) mg/dL Albumin 3.1 L (3.5-5.0) g/dL Pituitary panel 07/24/19 Range/Units 08:24 Sodium 136 L (137-145) mmol/L Potassium 3.6 (3.5-5.1) mmol/L Chloride 101 (98-107) mmol/L Carbon Dioxide 25 (22-30) mmol/L BUN 12 (7-17) mg/dL Creatinine 0.61 (0.52-1.04) mg/dL Glucose 71 L (74-99) mg/dL Calcium 7.7 L (8.4-10.2) mg/dL Adrenal panel 07/24/19 Range/Units 08:24 Sodium 136 L (137-145) mmol/L Potassium 3.6 (3.5-5.1) mmol/L Chloride 101 (98-107) mmol/L Carbon Dioxide 25 (22-30) mmol/L BUN 12 (7-17) mg/dL Creatinine 0.61 (0.52-1.04) mg/dL Glucose 71 L (74-99) mg/dL Calcium 7.7 L (8.4-10.2) mg/dL Total Bilirubin 0.8 (0.2-1.3) mg/dL AST 43 H (14-36) U/L ALT 110 H (9-52) U/L Alkaline Phosphatase 45 (38-126) U/L Total Protein 5.6 L (6.3-8.2) g/dL Albumin 3.1 L (3.5-5.0) g/dL - Imaging US - kidney/bladder: report reviewed Assessment and Plan (1) Kidney calculi Current Visit: No Status: Acute Code(s): N20.0 - CALCULUS OF KIDNEY SNOMED Code(s): 50772114 Plan: I reviewed the patient's KUB x-ray, and compared it to the computed tomography scan performed in May 2019. The computed tomography scan showed a right renal calculus, which was seen on the KUB x-ray yesterday. The patient's known left renal calculus, which was located in the upper pole and measured several millimeters in diameter, was not seen on the KUB x-ray. The KUB x-ray did not show any ureteral calculi, and a renal ultrasound showed no evidence of hydronephrosis. With these findings, one would not expect acute or severe symptoms. I made the patient aware of this, and she states that she may be feeling well enough to be discharged home. We discussed her renal calculi, and she wishes to undergo ureteroscopic removal of these calculi. Observation and ESWL were discussed as alternative management options. She was made aware of the fact that she will require ureteral stents postoperatively. Arrangements will be made for this to be performed as an outpatient in the next 1-2 weeks. Subsequently, a metabolic evaluation will be obtained to determine the cause of her recurrent urolithiasis. Please notify me if I can be of any further assistance. Time with Patient: Greater than 30
[2019-07-25] MEDS ORDERED: PANTOPRAZOLE 40 MG TABLET PO SCH (07:30)
[2019-07-25] MEDS: HEPARIN SODIUM,PORCINE 5,000 UNIT/ML 1 ML VIAL SQ SCH (08:30)
[2019-07-25] MEDS ORDERED: TAMSULOSIN 0.4 MG CAP.ER.24H PO SCH (08:30)
[2019-07-25 09:38] VITALS: BP 104/73; PULSE 77; TEMP 98.2
--- NOTE | 2019-07-25 11:01 | P.PN ---
Subjective Progress Note Date: 07/24/19 Principal diagnosis: Renal calculi Acute urinary tract infection and possible pyelonephritis Patient is a 34-year-old female with a known history of renal stones status post cystoscopy and lithotripsy in July 2019, bipolar disorder and history of cholecystectomy came to ER with complaints of right-sided flank pain started 2 days prior to admission. Patient was previously admitted to this hospital for intractable flank pain and found to have ureteral stones for which she underwent lithotripsy. Patient was discharged on 07/08/2019. Urine culture was growing E. coli at that time and was treated with ceftriaxone and transitioned to Bactrim DS. Patient was discharged home on oral [place] and reports she had a few days of being pain-free however the past 2-3 days she's had intractable right-sided flank pain, nausea, vomiting inability tolerate by mouth intake. Patient reports that he was seen and evaluated at [facility] yesterday, had a computed tomography scan and was told that she did not have any stones that would account for her pain. She subsequently discharged home. Patient is still complaining of right flank pain and nausea and vomiting. Ultrasound renal showed no hydronephrosis. Bilateral echogenic foci suspicious for previously identified renal calculi. Bladder is not distended. Ureteral jets are not demonstrated. WBC 13.9 sodium 134 and potassium 4.0. AST 90, ALT 135 urinalysis showed cloudy with large leukocyte esterase, nitrate negative and RBC greater than 135 and WBC 25 07/24/19 Patient says that she felt better with improved nausea and pain this morning. Patient tried to drink soup this afternoon and started having abdominal pain and nausea again. No fever no chills. Leukocytosis improved. Urine culture showed no growth. Liver enzymes are trending down. No complaints of chest pain or shortness of breath. No headache or dizziness lightheadedness. Pain is out of proportion to her laboratory and imaging findings. Current medications reviewed. Objective - Vital Signs Vital signs: Vital Signs Temp 97.4 F L 07/24/19 20:51 Pulse 90 07/24/19 20:51 Resp 16 07/24/19 20:51 BP 104/71 07/24/19 20:51 Pulse Ox 96 07/24/19 20:51 Intake & Output 07/24/19 07/24/19 07/25/19 06:59 18:59 06:59 Intake Total 750 Output Total 600 250 Balance -600 -250 750 Intake: Oral 750 Output: Urine 600 250 Other: Voiding Method Toilet Toilet # Voids 1 # Bowel Movements 0 - Exam PHYSICAL EXAMINATION: Patient is lying in the bed comfortably, mild distress, awake alert and oriented.. HEENT: Normocephalic. Neck is supple. Pupils reactive. Nostrils clear. Oral cavity is moist. Ears reveal no drainage. Neck reveals no JVD, carotid bruits, or thyromegaly. CHEST EXAMINATION: Trachea is central. Symmetrical expansion. Lung sanchez clear to auscultation and percussion. CARDIAC: Normal S1, S2 with no gallops. No murmurs ABDOMEN: Soft. Bilateral flank tenderness. No abdominal tenderness. No guarding no rigidity. Bowel sounds normal. No organomegaly. No abdominal bruits. Extremities: reveal no edema. No clubbing or cyanosis Neurologically awake, alert, oriented x3 with well-coordinated movements. No focal deficits noted Skin: No rash or skin lesions. Psychiatric: Coperative. Nonsuicidal Musculoskeletal: No joint swelling or deformity. Normal range of motion. - Labs CBC & Chem 7: 07/24/19 08:24 07/24/19 08:24 Labs: Abnormal Lab Results - Last 24 Hours (Table) 07/24/19 Range/Units 08:24 Sodium 136 L (137-145) mmol/L Glucose 71 L (74-99) mg/dL Calcium 7.7 L (8.4-10.2) mg/dL AST 43 H (14-36) U/L ALT 110 H (9-52) U/L Total Protein 5.6 L (6.3-8.2) g/dL Albumin 3.1 L (3.5-5.0) g/dL Microbiology - Last 24 Hours (Table) 07/23/19 01:25 Urine Culture - Final Urine,Voided Assessment and Plan Assessment: Right flank pain. Possible acute pyelonephritis. Intractable nausea and vomiting Cystoscopy, left ureteroscopy with laser lithotripsy on 07/07/2019 Recent E. coli urinary tract infection Asthma stable Bipolar disorder Nicotine addiction currently every day smoker History of cholecystectomy DVT prophylaxis with heparin subcu Plan: Patient will be continued on IV hydration. Started on antibiotics in the form of ceftriaxone. Urine cultures show no growth.. Continue the pain management with Dilaudid. Patient says that she is ALLERGIC to morphine. Continue with symptomatic management for nausea and vomiting. Continue with PPI. Further recommendations based on the clinical course. Smoking cessation has been counseled extensively. We will continue to follow closely. Time with Patient: Greater than 30
--- NOTE | 2019-07-25 11:05 | P.DS ---
Providers Date of admission: 07/23/19 03:48 Expected date of discharge: 07/25/19 Attending physician: Truong Brewer MD Consults: 07/24/19 16:49 Consult Physician Routine Consulting Provider: Juan Angel Consult Reason/Comments: post lithotripsy pain Do you want consulting provider notified?: Yes Primary care physician: Physician Nonstaff Hospital Course: Discharge diagnosis Right flank pain. Possible acute pyelonephritis. Urine culture showed no growth. Intractable nausea and vomiting Cystoscopy, left ureteroscopy with laser lithotripsy on 07/07/2019 Recent E. coli urinary tract infection Asthma stable Bipolar disorder Nicotine addiction currently every day smoker History of cholecystectomy DVT prophylaxis with heparin subcu Hospital course. Patient is a 34-year-old female with a known history of renal stones status post cystoscopy and lithotripsy in July 2019, bipolar disorder and history of cholecystectomy came to ER with complaints of right-sided flank pain started 2 days prior to admission. Patient was previously admitted to this hospital for intractable flank pain and found to have ureteral stones for which she underwent lithotripsy. Patient was discharged on 07/08/2019. Urine culture was growing E. coli at that time and was treated with ceftriaxone and transitioned to Bactrim DS. Patient was discharged home on oral [place] and reports she had a few days of being pain-free however the past 2-3 days she's had intractable right-sided flank pain, nausea, vomiting inability tolerate by mouth intake. Patient reports that he was seen and evaluated at [facility] yesterday, had a computed tomography scan and was told that she did not have any stones that would account for her pain. She subsequently discharged home. Patient is still complaining of right flank pain and nausea and vomiting. Ultrasound renal showed no hydronephrosis. Bilateral echogenic foci suspicious for previously identified renal calculi. Bladder is not distended. Ureteral jets are not demonstrated. WBC 13.9 sodium 134 and potassium 4.0. AST 90, ALT 135 urinalysis showed cloudy with large leukocyte esterase, nitrate negative and RBC greater than 135 and WBC 25 07/24/19 Patient says that she felt better with improved nausea and pain this morning. Patient tried to drink soup this afternoon and started having abdominal pain and nausea again. No fever no chills. Leukocytosis improved. Urine culture showed no growth. Liver enzymes are trending down. No complaints of chest pain or shortness of breath. No headache or dizziness lightheadedness. Pain is out of proportion to her laboratory and imaging findings. 07/25/2090 Patient feels better today. Able to tolerate diet slowly. No fever no chills. Patient was seen by urology and recommended no intervention at this time. Urine culture showed no growth. Patient received antibiotics for 3 days while in hospital. Patient be continued on pain management with [place] and response to follow with urology as an outpatient. Otherwise patient is stable to be discharged home today. PHYSICAL EXAMINATION: Patient is lying in the bed comfortably, no acute distress, awake alert and oriented.. HEENT: Normocephalic. Neck is supple. Pupils reactive. Nostrils clear. Oral cavity is moist. Ears reveal no drainage. Neck reveals no JVD, carotid bruits, or thyromegaly. CHEST EXAMINATION: Trachea is central. Symmetrical expansion. Lung sanchez clear to auscultation and percussion. CARDIAC: Normal S1, S2 with no gallops. No murmurs ABDOMEN: Soft. Bowel sounds normal. No organomegaly. No abdominal bruits. Mild right flank tenderness. Extremities: reveal no edema. No clubbing or cyanosis Neurologically awake, alert, oriented x3 with well-coordinated movements. No focal deficits noted Skin: No rash or skin lesions. Psychiatric: Coperative. Nonsuicidal Musculoskeletal: No joint swelling or deformity. Normal range of motion. Vital Signs 07/25/19 07/25/19 03:23 08:37 Temperature 98.7 F 98.2 F Pulse Rate [ 90 77 Pulse Oximetery ] Respiratory 16 16 Rate Blood Pressure 107/67 104/73 [Right Arm] O2 Sat by Pulse 100 95 Oximetry Patient Condition at Discharge: Stable Plan - Discharge Summary Discharge Rx Participant: Yes New Discharge Prescriptions: New HYDROcodone/APAP 5-325MG [[place] 5-325] 1 tab PO Q6HR PRN 3 Days #12 tab PRN Reason: Pain Continue Tamsulosin [Flomax] 0.4 mg PO PC-BRKFST #30 cap.er.24h Promethazine [Phenergan] 12.5 mg PO Q4HR PRN #3 tab PRN Reason: Nausea Pantoprazole [Protonix] 40 mg PO DAILY #30 tablet.dr Discontinued HYDROcodone/APAP 10-325MG [[place] 10-325] 1 tab PO Q6H PRN PRN Reason: Pain Discharge Medication List Pantoprazole [Protonix] 40 mg PO DAILY #30 tablet.dr 06/22/19 [Rx] Promethazine [Phenergan] 12.5 mg PO Q4HR PRN #3 tab 06/22/19 [Rx] Tamsulosin [Flomax] 0.4 mg PO PC-BRKFST #30 cap.er.24h 06/22/19 [Rx] HYDROcodone/APAP 5-325MG [[place] 5-325] 1 tab PO Q6HR PRN 3 Days #12 tab 07/25/19 [Rx] Follow up Appointment(s)/Referral(s): Nonstaff,Physician [Primary Care Provider] - 1-2 days Discharge Disposition: HOME SELF-CARE
== END 2019-07-25 13:37 | disposition home or self-care (01) ==
LOC: EC 23:23 → 6PED 07-23 03:48
PROVIDERS: ADMIT Internal Medicine; ATTEND Internal Medicine
DX: R10.9 Unspecified abdominal pain (principal); R11.2 Nausea with vomiting, unspecified; N20.0 Calculus of kidney; G89.29 Other chronic pain; J45.909 Unspecified asthma, uncomplicated; F31.9 Bipolar disorder, unspecified; F17.200 Nicotine dependence, unspecified, uncomplicated; E80.7 Disorder of bilirubin metabolism, unspecified; R74.0 Nonspecific elevation of levels of transaminase and lactic acid dehydrogenase [LDH]; E66.9 Obesity, unspecified; Z68.37 Body mass index [BMI] 37.0-37.9, adult; R22.43 Localized swelling, mass and lump, lower limb, bilateral; D72.829 Elevated white blood cell count, unspecified; Z79.899 Other long term (current) drug therapy; Z88.5 Allergy status to narcotic agent; Z91.040 Latex allergy status; Z88.8 Allergy status to other drugs, medicaments and biological substances; Z87.01 Personal history of pneumonia (recurrent); Z87.442 Personal history of urinary calculi; Z90.49 Acquired absence of other specified parts of digestive tract; Z80.0 Family history of malignant neoplasm of digestive organs; Z87.440 Personal history of urinary (tract) infections; Z82.49 Family history of ischemic heart disease and other diseases of the circulatory system
CPT/HCPCS: 96361 ×3; 96365; 96375 ×2; 96376 ×3; 99285; 36415; 80053 ×2; 83690; 85025 ×2; 81001; 81025; 87086; 74018; 76770; G0378 ×3; J1200; J2765 ×2; J2405; J0696 ×2; J1170 ×3; C9113 ×2

== ENCOUNTER 2019-07-30 11:19 | Observation (INO) | payer BC ==
[2019-07-30] MEDS ORDERED: SODIUM CHLORIDE 0.9% 500 ML 500 ML IV STA (12:03)
[2019-07-30] MEDS ORDERED: ONDANSETRON 4 MG/2 ML VIAL IVP STA (12:03)
[2019-07-30] MEDS ORDERED: SODIUM CHLORIDE 0.9% 1,000 ML IV STA ×2 (12:03)
[2019-07-30] MEDS ORDERED: HYDROmorphone 1 MG/ML 1 ML SYRINGE IVP STA (12:03)
[2019-07-30] MEDS ORDERED: PANTOPRAZOLE 40 MG/10 ML VIAL IVP STA (12:03)
[2019-07-30] MEDS ORDERED: LORazepam 2 MG/ML INJ IV STA (12:04)
[2019-07-30] MEDS ORDERED: METOCLOPRAMIDE 5 MG/ML 2 ML VIAL IVP STA (12:31)
[2019-07-30] MEDS ORDERED: diphenhydrAMINE 50 MG/ML 1 ML VIAL IVP STA (12:31)
--- NOTE | 2019-07-30 12:52 | ED ---
Abdominal Pain HPI - General Chief Complaint: Abdominal Pain Stated Complaint: Kidney pain, poss cdiff Time Seen by Provider: 07/30/19 11:39 Source: patient, RN notes reviewed, old records reviewed Mode of arrival: ambulatory Limitations: no limitations - History of Present Illness Initial Comments: This is a 34-year-old female the ER for evaluation. Patient is in severe distress secondary to pain poor strain secondary to moaning, for questioning ans wering secondary to pain. Patient has left-sided flank pain rating to left groin. Significant nausea vomiting foul-smelling diarrhea. Patient was on recent antibiotics for kidney infection. Significant history of kidney stones and multiple admissions for intractable pain. Patient denies fevers. Pain is typical to her normal pain MD Complaint: abdominal pain, flank pain (Left) -: days(s) Location: suprapubic, L flank Radiation: suprapubic, L flank, back Migration to: suprapubic Severity: severe Severity scale (1-10): 10 Quality: cramping, stabbing, aching Consistency: constant Improves With: nothing Worsens With: nothing Context: recent surgery/procedure (Lithotripsy) Associated Symptoms: nausea, vomiting, diarrhea Treatments Prior to Arrival: prescription analgesics - Related Data Home Medications Medication Instructions Recorded Confirmed No Known Home Medications 07/30/19 07/30/19 Allergies Allergy/AdvReac Type Severity Reaction Status Date / Time ketorolac [From Toradol] Allergy Rash/Hives Verified 07/30/19 11:58 latex Allergy Rash/Hives Verified 07/30/19 11:58 morphine Allergy Rash/Hives Verified 07/30/19 11:58 ondansetron [From Zofran] Allergy Rash/Hives Verified 07/30/19 11:58 Review of Systems ROS Statement: Those systems with pertinent positive or pertinent negative responses have been documented in the HPI. ROS Other: All systems not noted in ROS Statement are negative. Past Medical History Past Medical History: Asthma, Pneumonia Additional Past Medical History / Comment(s): kidney stones, gallbladder removal 14 years ago, bipolar disorder History of Any Multi-Drug Resistant Organisms: None Reported, C-DIFF Date of last positivie culture/infection: stool MDRO Source:: 2016 Past Surgical History: Cholecystectomy Additional Past Surgical History / Comment(s): Colonoscopy Past Anesthesia/Blood Transfusion Reactions: No Reported Reaction Past Psychological History: Bipolar Smoking Status: Current every day smoker Past Alcohol Use History: None Reported Past Drug Use History: None Reported - Past Family History Father Additional Family Medical History / Comment(s): colon cancer Mother Family Medical History: Hypertension General Exam Limitations: no limitations General appearance: alert, in distress, obese Head exam: Present: atraumatic, normocephalic, normal inspection Eye exam: Present: normal appearance, PERRL, EOMI. Absent: scleral icterus, conjunctival injection, periorbital swelling ENT exam: Present: normal exam, mucous membranes moist Neck exam: Present: normal inspection. Absent: tenderness, meningismus, lymphadenopathy Respiratory exam: Present: normal lung sounds bilaterally. Absent: respiratory distress, wheezes, rales, rhonchi, stridor Cardiovascular Exam: Present: regular rate, normal rhythm, normal heart sounds. Absent: systolic murmur, diastolic murmur, rubs, gallop, clicks GI/Abdominal exam: Present: soft, normal bowel sounds. Absent: distended, tenderness, guarding, rebound, rigid Extremities exam: Present: normal inspection, full ROM, normal capillary refill. Absent: tenderness, pedal edema, joint swelling, calf tenderness Back exam: Present: normal inspection Neurological exam: Present: alert, oriented X3, CN II-XII intact Psychiatric exam: Present: normal affect, normal mood Skin exam: Present: warm, dry, intact, normal color. Absent: rash Course Vital Signs 07/30/19 11:34 Temperature 98.9 F Pulse Rate 96 Respiratory 18 Rate Blood Pressure 142/94 O2 Sat by Pulse 97 Oximetry - Reevaluation(s) Reevaluation #1: 07/30/19 12:51 Medical records reviewed including recent hospital admissions and ER visit Reevaluation #2: 07/30/19 12:52 is actively nausea vomiting Reevaluation #3: 07/30/19 14:51 Patient not feeling better better despite significant pain control medication Medical Decision Making - Medical Decision Making 44 female the ER for acute on chronic pain control, acute on chronic disease of kidney stones and kidney pain. Patient given pain control here in the ER and can be discharged home - Lab Data Result diagrams: 07/30/19 13:25 07/30/19 13:25 Lab Results 07/30/19 07/30/19 07/30/19 Range/Units 13:25 13:25 13:25 WBC 10.0 (3.8-10.6) k/uL RBC 4.45 (3.80-5.40) m/uL Hgb 13.3 (11.4-16.0) gm/dL Hct 40.7 (34.0-46.0) % MCV 91.4 (80.0-100.0) fL MCH 30.0 (25.0-35.0) pg MCHC 32.8 (31.0-37.0) g/dL RDW 14.4 (11.5-15.5) % Plt Count 282 (150-450) k/uL Neutrophils % 83 % Lymphocytes % 10 % Monocytes % 5 % Eosinophils % 1 % Basophils % 1 % Neutrophils # 8.3 H (1.3-7.7) k/uL Lymphocytes # 1.0 (1.0-4.8) k/uL Monocytes # 0.5 (0-1.0) k/uL Eosinophils # 0.1 (0-0.7) k/uL Basophils # 0.1 (0-0.2) k/uL Sodium 136 L (137-145) mmol/L Potassium 3.4 L (3.5-5.1) mmol/L Chloride 98 (98-107) mmol/L Carbon Dioxide 25 (22-30) mmol/L Anion Gap 13 mmol/L BUN 11 (7-17) mg/dL Creatinine 0.65 (0.52-1.04) mg/dL Est GFR (CKD-EPI)AfAm >90 (>60 ml/min/1.73 sqM) Est GFR (CKD-EPI)NonAf >90 (>60 ml/min/1.73 sqM) Glucose 106 H (74-99) mg/dL Plasma Lactic Acid Alfredo 0.9 (0.7-2.0) mmol/L Calcium 9.1 (8.4-10.2) mg/dL Phosphorus 2.5 (2.5-4.5) mg/dL Magnesium 2.0 (1.6-2.3) mg/dL Total Bilirubin 0.7 (0.2-1.3) mg/dL AST 43 H (14-36) U/L ALT 75 H (9-52) U/L Alkaline Phosphatase 63 (38-126) U/L Creatine Kinase 57 (30-135) U/L Total Protein 6.9 (6.3-8.2) g/dL Albumin 4.0 (3.5-5.0) g/dL Amylase 52 (30-110) U/L Lipase 74 (23-300) U/L - Radiology Data Radiology results: report reviewed (Ultrasound and KUB of kidneys showed chronic kidney stones no change from prior), image reviewed Disposition Clinical Impression: Intractable abdominal pain, Nausea and vomiting, Kidney calculi Disposition: [facility] Condition: Fair Is patient prescribed a controlled substance at d/c from ED?: No Referrals: Nonstaff,Physician [Primary Care Provider] - 1-2 days
--- NOTE | 2019-07-30 13:40 | XR ---
EXAMINATION TYPE: XR KUB DATE OF EXAM: 07/30/2019 COMPARISON: 07/24/2019 INDICATION: Abdomen pain and vomiting TECHNIQUE: Single view abdomen upright view FINDINGS: There is a normal bowel gas pattern. Psoas margins are normal. No organomegaly is present. A 0.5 similar calcification is at the inferior pole right kidney. A tiny peripheral 0.3 cm calcificat ion at the mid left kidney may be present. IMPRESSION: 1. Suspected bilateral renal stones.
[2019-07-30 14:04] LABS: Basophils # (A) 0.1 k/uL (0-0.2); Basophils % (A) 1 %; Eosinophils # (A) 0.1 k/uL (0-0.7); Eosinophils % (A) 1 %; HCT 40.7 % (34.0-46.0); HGB 13.3 gm/dL (11.4-16.0); Lymphocytes % (A) 10 %; MCHC 32.8 g/dL (31.0-37.0); MCV 91.4 fL (80.0-100.0); Mean Platelet Volume 7.4; Monocytes # (A) 0.5 k/uL (0-1.0); Monocytes % (A) 5 %; Neutrophils # (A) 8.3 k/uL (1.3-7.7); Neutrophils % (A) 83 %; Platelet Count 282 k/uL (150-450); RBC 4.45 m/uL (3.80-5.40); RDW 14.4 % (11.5-15.5)
[2019-07-30 14:08] LABS: ALT 75 U/L (9-52); AST 43 U/L (14-36); African American GFR (CKD) >90 (>60 ml/min/1.73 sqM); Alkaline Phosphatase 63 U/L (38-126); Amylase 52 U/L (30-110); Anion Gap 13 mmol/L; Blood Urea Nitrogen 11 mg/dL (7-17); Calcium 9.1 mg/dL (8.4-10.2); Carbon Dioxide 25 mmol/L (22-30); Chloride 98 mmol/L (98-107); Creatine Kinase 57 U/L (30-135); Glucose 106 mg/dL (74-99); Phosphorus 2.5 mg/dL (2.5-4.5); Potassium 3.4 mmol/L (3.5-5.1); Sodium 136 mmol/L (137-145); Total Bilirubin 0.7 mg/dL (0.2-1.3); Total Protein 6.9 g/dL (6.3-8.2)
--- NOTE | 2019-07-30 14:40 | US ---
EXAMINATION TYPE: US renals and bladder DATE OF EXAM: 07/30/2019 COMPARISON: NONE CLINICAL HISTORY: 34-year-old female Pain. TECHNIQUE: Multiple sonographic images of the kidneys and bladder are obtained. FINDINGS: EXAM MEASUREMENTS: Right Kidney: 10.5 x 4.4 x 4.8 cm Left Kidney: 10.3 x 5.3 x 5.2 cm Right Kidney: No hydronephrosis. Echogenic 5 mm focus at the lower pole, possible nonobstructive calc ulus. Left Kidney: No hydronephrosis. 5 mm echogenic focus in the midpole, possible nonobstructive calculus . There is mild pelvocaliectasis. Bladder: wnl IMPRESSION: 1. Mild left-sided pelvicaliectasis which may be transient or could represent developing hydronephros is. Correlate with patient's symptoms and consider short interval follow-up. 2. Suggestion of a 5 mm nonobstructive calculus in either kidney.
[2019-07-30] MEDS ORDERED: HYDROmorphone 0.5 MG/0.5 ML SYRINGE IVP STA (14:53)
[2019-07-30] MEDS ORDERED: LORazepam 2 MG/ML INJ IV PRN (14:53)
[2019-07-30] MEDS ORDERED: diphenhydrAMINE 50 MG/ML 1 ML VIAL IVP PRN (14:53)
[2019-07-30 15:43] VITALS: BMI 38.0
[2019-07-30] MEDS: METOCLOPRAMIDE 5 MG/ML 2 ML VIAL IVP PRN (18:39)
[2019-07-30] MEDS ORDERED: traMADol 50 MG TAB PO PRN (18:42)
[2019-07-30] MEDS: HYDROmorphone 1 MG/ML 1 ML SYRINGE IVP PRN ×2 (18:44→22:38)
[2019-07-30 21:50] LABS: Appearance,Urine Clear (Clear); Bilirubin,Urine Negative (Negative); Blood,Urine Trace (Negative); Color,Urine Yellow; Glucose,Urine (UA) Negative (Negative); Ketones,Urine Negative (Negative); Leukocyte Esterase,Urine Negative (Negative); Mucus,Urine Few /hpf; Nitrite,Urine Negative (Negative); Protein,Urine Trace (Negative); RBC,Urine 5 /hpf (0-5); Specific Gravity,Urine 1.025 (1.001-1.035); Squamous Epithelial Cell,Urine 6 /hpf (0-4); Urobilinogen,Urine <2.0 mg/dL (<2.0); WBC,Urine 5 /hpf (0-5)
[2019-07-30] MEDS: SODIUM CHLORIDE 0.9% 1,000 ML IV SCH (23:18)
--- NOTE | 2019-07-31 00:34 | P.HPIM ---
History of Present Illness H&P Date: 07/30/19 Chief Complaint: Intractable nausea and vomiting Patient is a 34-year-old female with a known history of renal stones status post cystoscopy and lithotripsy in July 2019, bipolar disorder and history of cholecystectomy came to ER with complaints of left-sided flank pain and intractable nausea and vomiting. Patient is also complaining of foul-smelling diarrhea.. Patient is currently moaning in pain and it appears to be in severe distress. Patient is currently on IV Dilaudid for pain management. Patient was recently discharged from hospital on 07/25/2019, was admitted for acute urinary tract infection and right flank pain at that time. Urine culture was negative. Patient otherwise denied any fever or chills. Patient does have a history of multiple admissions due to flank pain and also history of renal stones. No complaints of chest pain or shortness of breath. No cough or sputum production. KUB x-ray showed bilateral renal stones Ultrasound renal showed mild left-sided pelvicalectasis which revealed transient or cold represent developing hydronephrosis. Suggest of 5 mm nonobstructing calculus in his kidney. Urinalysis showed no evidence of infection. nonLeukocytosis. AST and ALT 43 and 75. Improved compared to previous admission. Review of Systems Constitutional: Patient denies any fever or chills . No generalized weakness or weight loss. Abdomen: Intractable nausea vomiting and abdominal pain. Also has foul-smelling loose bowels. Cardiovascular: Patient denies any chest pain or short of breath no palpitations. Respiratory: patient denied any cough is from production. No shortness of breath Neurologic: Patient denied any numbness or tingling headache. Musculoskeletal: Patient denies any complaints of joint swelling or deformity. Skin: Negative Psychiatric: Negative Endocrine: No heat or cold intolerance. No recent weight gain. Genitourinary: No dysuria or hematuria. Left flank pain and groin pain. All other 14 point ROS negative except the above Past Medical History Past Medical History: Asthma, Pneumonia, Renal Disease Additional Past Medical History / Comment(s): Pt recently admitted to [facility] on 07/23/19 with r flank pain/possible acute pyelonephritis, intractable nausea/vomiting. Other Hx: Previous kidney stones, UTIs History of Any Multi-Drug Resistant Organisms: None Reported, C-DIFF Date of last positivie culture/infection: stool MDRO Source:: 2017 Past Surgical History: Cholecystectomy Additional Past Surgical History / Comment(s): Cystoscopies, L ureteroscopy with laser litho, colonoscopy Past Anesthesia/Blood Transfusion Reactions: No Reported Reaction Smoking Status: Current every day smoker - Past Family History Father Family Medical History: Cancer Additional Family Medical History / Comment(s): colon cancer Mother Family Medical History: Hypertension Medications and Allergies Home Medications Medication Instructions Recorded Confirmed Type Tamsulosin [Flomax] 0.4 mg PO DAILY 07/30/19 07/30/19 History Allergies Allergy/AdvReac Type Severity Reaction Status Date / Time ketorolac [From Toradol] Allergy Rash/Hives Verified 07/30/19 11:58 latex Allergy Rash/Hives Verified 07/30/19 11:58 morphine Allergy Rash/Hives Verified 07/30/19 11:58 ondansetron [From Zofran] Allergy Rash/Hives Verified 07/30/19 11:58 Physical Exam Vitals: Vital Signs Temp Pulse Pulse Resp BP BP Pulse Ox 07/30/19 20:04 98.0 F 66 17 103/70 99 07/30/19 16:38 98.1 F 96 16 115/65 95 07/30/19 16:22 97.9 F 83 17 138/71 99 07/30/19 11:34 98.9 F 96 18 142/94 97 Intake and Output 07/30/19 07/30/19 07/30/19 06:59 14:59 22:59 Other: Weight 113.398 kg PHYSICAL EXAMINATION: Patient is lying in the bed . appears to be in acute distress, awake alert and oriented. Morbidly obese.. HEENT: Normocephalic. Neck is supple. Pupils reactive. Nostrils clear. Oral cavity is moist. Ears reveal no drainage. Neck reveals no JVD, carotid bruits, or thyromegaly. CHEST EXAMINATION: Trachea is central. Symmetrical expansion. Bibasilar diminished air entry. Lung sanchez clear to auscultation and percussion. CARDIAC: Normal S1, S2 with no gallops. No murmurs ABDOMEN: Soft. Left flank tenderness. No guarding no rigidity. No abdominal tenderness. Bowel sounds normal. No organomegaly. No abdominal bruits. Extremities: reveal no edema. No clubbing or cyanosis Neurologically awake, alert, oriented x3 with well-coordinated movements. No focal deficits noted Skin: No rash or skin lesions. Psychiatric: Coperative. Nonsuicidal. Anxious and in distress. Musculoskeletal: No joint swelling or deformity. Normal range of motion. Results CBC & Chem 7: 07/30/19 13:25 07/30/19 13:25 Labs: Abnormal Lab Results - Last 24 Hours (Table) 07/30/19 07/30/19 Range/Units 13:25 13:25 Neutrophils # 8.3 H (1.3-7.7) k/uL Sodium 136 L (137-145) mmol/L Potassium 3.4 L (3.5-5.1) mmol/L Glucose 106 H (74-99) mg/dL AST 43 H (14-36) U/L ALT 75 H (9-52) U/L Thrombosis Risk Factor Assmnt - DVT/VTE Prophylaxis DVT/VTE Prophylaxis: Pharmacologic Prophylaxis ordered - Choose All That Apply Any of the Below Risk Factors Present?: Yes Each Factor Represents 1 point: Obesity (BMI >25) Other Risk Factors: No Other congenital or acquired thrombophilia - If yes, enter type in comment: No Thrombosis Risk Factor Assessment Total Risk Factor Score: 1 Thrombosis Risk Factor Assessment Level: Low Risk Assessment and Plan Assessment: Intractable nausea vomiting and abdominal pain. Left flank pain with history of renal stones and developing hydronephrosis as per ultrasound of the renal area Bilateral nephrolithiasis Cystoscopy, left ureteroscopy with laser lithotripsy on 07/07/2019 Recent E. coli urinary tract infection. 07/05/2019 Asthma stable Bipolar disorder Nicotine addiction currently every day smoker History of cholecystectomy DVT prophylaxis with heparin subcu Plan: Patient be continued on IV hydration and symptomatic management for nausea vomiting and abdominal pain. Continue with IV PPI. Continue the supportive care and consider urology consult for developing left hydronephrosis. Further recommendations based on the clinical course. Time with Patient: Greater than 30
[2019-07-31] MEDS: HYDROmorphone 1 MG/ML 1 ML SYRINGE IVP PRN ×2 (03:07→07:04)
[2019-07-31] MEDS: SODIUM CHLORIDE 0.9% 1,000 ML IV SCH (03:28)
[2019-07-31 03:33] VITALS: RESP 18; TEMP 97.8
[2019-07-31] MEDS: METOCLOPRAMIDE 5 MG/ML 2 ML VIAL IVP PRN (07:11)
[2019-07-31 07:13] LABS: Basophils # (A) 0.1 k/uL (0-0.2); Basophils % (A) 1 %; Eosinophils # (A) 0.1 k/uL (0-0.7); Eosinophils % (A) 2 %; HCT 36.3 % (34.0-46.0); Lymphocytes # (A) 2.1 k/uL (1.0-4.8); Lymphocytes % (A) 26 %; MCH 30.5 pg (25.0-35.0); MCHC 33.1 g/dL (31.0-37.0); MCV 92.1 fL (80.0-100.0); Mean Platelet Volume 6.9; Monocytes # (A) 0.6 k/uL (0-1.0); Monocytes % (A) 7 %; Neutrophils % (A) 63 %; Platelet Count 241 k/uL (150-450); RBC 3.95 m/uL (3.80-5.40); RDW 15.2 % (11.5-15.5)
[2019-07-31 07:15] VITALS: BP 102/69; PULSE 80
[2019-07-31 07:23] LABS: African American GFR (CKD) >90 (>60 ml/min/1.73 sqM); Anion Gap 9 mmol/L; Blood Urea Nitrogen 11 mg/dL (7-17); Calcium 8.3 mg/dL (8.4-10.2); Carbon Dioxide 24 mmol/L (22-30); Chloride 102 mmol/L (98-107); Glucose 108 mg/dL (74-99); Potassium 3.3 mmol/L (3.5-5.1); Sodium 135 mmol/L (137-145)
[2019-07-31] MEDS ORDERED: HEPARIN SODIUM,PORCINE 5,000 UNIT/ML 1 ML VIAL SQ SCH (08:00)
[2019-07-31] MEDS ORDERED: TAMSULOSIN 0.4 MG CAP.ER.24H PO SCH (09:00)
[2019-07-31] MEDS ORDERED: PANTOPRAZOLE 40 MG/10 ML VIAL IVP SCH (09:00)
== END 2019-07-31 08:57 | disposition left against medical advice (07) ==
LOC: EC 11:19 → 4SSUR 14:53
PROVIDERS: ADMIT Internal Medicine; ATTEND Internal Medicine
DX: N13.2 Hydronephrosis with renal and ureteral calculous obstruction (principal); N18.9 Chronic kidney disease, unspecified; R19.7 Diarrhea, unspecified; J45.909 Unspecified asthma, uncomplicated; G89.29 Other chronic pain; F31.9 Bipolar disorder, unspecified; F17.200 Nicotine dependence, unspecified, uncomplicated; E66.01 Morbid (severe) obesity due to excess calories; Z68.38 Body mass index [BMI] 38.0-38.9, adult; Z87.01 Personal history of pneumonia (recurrent); Z87.442 Personal history of urinary calculi; Z87.440 Personal history of urinary (tract) infections; Z90.49 Acquired absence of other specified parts of digestive tract; Z88.5 Allergy status to narcotic agent; Z88.8 Allergy status to other drugs, medicaments and biological substances; Z91.040 Latex allergy status; Z79.899 Other long term (current) drug therapy; Z80.0 Family history of malignant neoplasm of digestive organs; Z82.49 Family history of ischemic heart disease and other diseases of the circulatory system
CPT/HCPCS: 96376 ×3; 96375 ×2; 96361; 96374; 99285; 36415; 80053; 80048; 82150; 82550; 83605; 83690; 83735; 84100; 85025 ×2; 81001; 87324; 87086; 87077; 87186; 74018; 76770; G0378 ×2; J2060; J1200; J2765 ×2; J1170 ×3; C9113

== ENCOUNTER 2019-08-10 16:07 | Inpatient (IN) | payer BC ==
[2019-08-10] MEDS ORDERED: SODIUM CHLORIDE 0.9% 1,000 ML IV STA ×2 (16:43)
[2019-08-10] MEDS ORDERED: HYDROmorphone 1 MG/ML 1 ML SYRINGE IVP STA ×2 (16:43→19:06)
[2019-08-10] MEDS ORDERED: METOCLOPRAMIDE 5 MG/ML 2 ML VIAL IVP STA ×2 (16:46→20:09)
[2019-08-10] MEDS ORDERED: diphenhydrAMINE 50 MG/ML 1 ML VIAL IVP STA (16:46)
--- NOTE | 2019-08-10 16:49 | ED ---
Abdominal Pain HPI - General Source: patient, RN notes reviewed, old records reviewed Mode of arrival: ambulatory Limitations: no limitations <Ilene Villalobos - Last Filed: 08/10/19 20:09> <Lucy Toribio - Last Filed: 08/20/19 16:11> - General Chief Complaint: Abdominal Pain Stated Complaint: Kidney pain Time Seen by Provider: 08/10/19 16:21 - History of Present Illness Initial Comments: Patient is a 34-year-old female who presents emergency department today for complaints of right-sided flank pain. Patient reports that she had her ureteral stents placed by Dr. Angel and have them removed today at his office. Patient reports she developed significant pain over the right flank once they're removed. She did state she had the patent stents placed bilaterally however the left flank is not hurting is much as her right. She complains of nausea and vomiting. Patient states that she has been admitted multiple times for flank pain over the past month. Patient reports that she's had chills, subjective fe samia. (Ilene Villalobos) - Related Data Home Medications Medication Instructions Recorded Confirmed Tamsulosin [Flomax] 0.4 mg PO HS 07/30/19 08/17/19 HYDROcodone/APAP 5-325MG [[place] 1 tab PO Q4HR PRN 08/10/19 08/17/19 5-325] Oxybutynin Chloride [Ditropan XL] 10 mg PO DAILY 08/10/19 08/17/19 Previous Rx's Medication Instructions Recorded Metoclopramide HCl [Reglan] 10 mg PO Q6HR PRN #10 tablet 08/12/19 Allergies Allergy/AdvReac Type Severity Reaction Status Date / Time ketorolac [From Toradol] Allergy Rash/Hives Verified 08/17/19 11:06 latex Allergy Rash/Hives Verified 08/17/19 11:06 morphine Allergy Rash/Hives Verified 08/17/19 11:06 ondansetron [From Zofran] Allergy Rash/Hives Verified 08/17/19 11:06 Review of Systems ROS Other: All systems not noted in ROS Statement are negative. <Ilene Villalobos - Last Filed: 08/10/19 20:09> ROS Other: All systems not noted in ROS Statement are negative. <Damer,Lucy A - Last Filed: 08/20/19 16:11> ROS Statement: Those systems with pertinent positive or pertinent negative responses have been documented in the HPI. Past Medical History Past Medical History: Asthma, Pneumonia, Renal Disease Additional Past Medical History / Comment(s): Pt recently admitted to [facility] on 07/23/19 with r flank pain/possible acute pyelonephritis, intractable nausea/vomiting. Other Hx: Previous kidney stones, UTIs History of Any Multi-Drug Resistant Organisms: None Reported, C-DIFF Date of last positivie culture/infection: stool MDRO Source:: 2017 Past Surgical History: Cholecystectomy Additional Past Surgical History / Comment(s): Cystoscopies, L ureteroscopy with laser litho, colonoscopy Past Anesthesia/Blood Transfusion Reactions: No Reported Reaction Past Psychological History: Bipolar Smoking Status: Current every day smoker Past Alcohol Use History: None Reported - Past Family History Father Family Medical History: Cancer Additional Family Medical History / Comment(s): colon cancer Mother Family Medical History: Hypertension <Ilene Villalobos - Last Filed: 08/10/19 20:09> General Exam Limitations: no limitations General appearance: alert, in no apparent distress Head exam: Present: atraumatic, normocephalic, normal inspection Eye exam: Present: normal appearance, PERRL, EOMI. Absent: scleral icterus, conjunctival injection, periorbital swelling ENT exam: Present: normal exam, mucous membranes moist Neck exam: Present: normal inspection. Absent: tenderness, meningismus, lymphadenopathy Respiratory exam: Present: normal lung sounds bilaterally. Absent: respiratory distress, wheezes, rales, rhonchi, stridor Cardiovascular Exam: Present: regular rate, normal rhythm, normal heart sounds. Absent: systolic murmur, diastolic murmur, rubs, gallop, clicks GI/Abdominal exam: Present: soft, normal bowel sounds. Absent: distended, tenderness, guarding, rebound, rigid Extremities exam: Present: normal inspection, full ROM, normal capillary refill. Absent: tenderness, pedal edema, joint swelling, calf tenderness Back exam: Present: normal inspection, CVA tenderness (R) Neurological exam: Present: alert, oriented X3, CN II-XII intact Psychiatric exam: Present: normal affect, normal mood Skin exam: Present: warm, dry, intact, normal color. Absent: rash <Ilene Villalobos - Last Filed: 08/10/19 20:09> - General Exam Comments Initial Comments: 34-year-old female. Alert and oriented 3. Patient appears in significant distress. (Catherine Villalobosily) Course Vital Signs 08/10/19 08/10/19 08/10/19 16:17 18:42 21:00 Temperature 98.1 F 98 F 99.1 F Pulse Rate 122 H 86 Pulse Rate [ 72 Supine Pulse Oximetery] Respiratory 20 18 18 Rate Blood Pressure 131/92 122/80 Blood Pressure 102/67 [Right Arm Supine] O2 Sat by Pulse 99 98 97 Oximetry Medical Decision Making - Lab Data Result diagrams: 08/10/19 16:41 08/10/19 16:41 - Radiology Data Radiology results: report reviewed <Ilene Villalobos - Last Filed: 08/10/19 20:09> - Lab Data Result diagrams: 08/10/19 16:41 08/10/19 16:41 <Lucy Toribio - Last Filed: 08/20/19 16:11> - Medical Decision Making 34-year-old female presents emergency department today with significant right flank pain requiring multiple mild rounds of IV pain medication and nausea medicine for vomiting. Patient had a right ureteral stent removed. This was done today by Dr. Krishnamurthy. Computed tomography scan of follows was completed due to significant pain. She does have evidence of hydroureter and hydronephrosis related to a 3 mm right UVJ stone. Patient was informed of this. She is quite upset she's been dealing with these kidney stone pains for the past few months. Patient urinalysis is positive for white blood cells concern for infection. She had previous infection of E. coli within her urine. With the recent stent removal concern for infection and uncontrolled pain Patient will be admitted. Discussed the case with Dr. Toribio will discuss the case with Dr. [place] who agrees to accept the admission. (Ilene Villalobos) I was available for consultation in the emergency department. The history and physical exam were done by the midlevel provider. I was consulted for the patient's care. I reviewed the case with the midlevel provider and based on their presentation of the patient, I agree with the assessment, medical decision making and plan of care as documented. I discussed the case with Dr. Ibrahim who accepted admission of the patient. (Lucy Toribio) - Lab Data Lab Results 08/10/19 08/10/19 08/10/19 Range/Units 16:41 16:41 16:41 WBC 11.0 H (3.8-10.6) k/uL RBC 4.53 (3.80-5.40) m/uL Hgb 13.6 (11.4-16.0) gm/dL Hct 40.9 (34.0-46.0) % MCV 90.5 (80.0-100.0) fL MCH 30.0 (25.0-35.0) pg MCHC 33.2 (31.0-37.0) g/dL RDW 15.4 (11.5-15.5) % Plt Count 328 (150-450) k/uL Neutrophils % 77 % Lymphocytes % 14 % Monocytes % 5 % Eosinophils % 2 % Basophils % 1 % Neutrophils # 8.5 H (1.3-7.7) k/uL Lymphocytes # 1.5 (1.0-4.8) k/uL Monocytes # 0.6 (0-1.0) k/uL Eosinophils # 0.2 (0-0.7) k/uL Basophils # 0.1 (0-0.2) k/uL PT 9.4 (9.0-12.0) sec INR 0.9 (<1.2) APTT 22.4 (22.0-30.0) sec Sodium 137 (137-145) mmol/L Potassium 4.2 (3.5-5.1) mmol/L Chloride 104 (98-107) mmol/L Carbon Dioxide 20 L (22-30) mmol/L Anion Gap 13 mmol/L BUN 7 (7-17) mg/dL Creatinine 0.67 (0.52-1.04) mg/dL Est GFR (CKD-EPI)AfAm >90 (>60 ml/min/1.73 sqM) Est GFR (CKD-EPI)NonAf >90 (>60 ml/min/1.73 sqM) Glucose 115 H (74-99) mg/dL Calcium 9.6 (8.4-10.2) mg/dL Total Bilirubin 0.5 (0.2-1.3) mg/dL AST 21 (14-36) U/L ALT 37 (9-52) U/L Alkaline Phosphatase 59 (38-126) U/L Total Protein 6.9 (6.3-8.2) g/dL Albumin 4.0 (3.5-5.0) g/dL Amylase 39 (30-110) U/L Lipase 42 (23-300) U/L HCG, Qual Urine Color Urine Appearance (Clear) Urine pH (5.0-8.0) Ur Specific Callahan (1.001-1.035) Urine Protein (Negative) Urine Glucose (UA) (Negative) Urine Ketones (Negative) Urine Blood (Negative) Urine Nitrite (Negative) Urine Bilirubin (Negative) Urine Urobilinogen (<2.0) mg/dL Ur Leukocyte Esterase (Negative) Urine RBC (0-5) /hpf Urine WBC (0-5) /hpf Ur Squamous Epith Cells (0-4) /hpf Amorphous Sediment (None) /hpf Urine Bacteria (None) /hpf Urine Mucus (None) /hpf 08/10/19 08/10/19 Range/Units 16:41 18:30 WBC (3.8-10.6) k/uL RBC (3.80-5.40) m/uL Hgb (11.4-16.0) gm/dL Hct (34.0-46.0) % MCV (80.0-100.0) fL MCH (25.0-35.0) pg MCHC (31.0-37.0) g/dL RDW (11.5-15.5) % Plt Count (150-450) k/uL Neutrophils % % Lymphocytes % % Monocytes % % Eosinophils % % Basophils % % Neutrophils # (1.3-7.7) k/uL Lymphocytes # (1.0-4.8) k/uL Monocytes # (0-1.0) k/uL Eosinophils # (0-0.7) k/uL Basophils # (0-0.2) k/uL PT (9.0-12.0) sec INR (<1.2) APTT (22.0-30.0) sec Sodium (137-145) mmol/L Potassium (3.5-5.1) mmol/L Chloride (98-107) mmol/L Carbon Dioxide (22-30) mmol/L Anion Gap mmol/L BUN (7-17) mg/dL Creatinine (0.52-1.04) mg/dL Est GFR (CKD-EPI)AfAm (>60 ml/min/1.73 sqM) Est GFR (CKD-EPI)NonAf (>60 ml/min/1.73 sqM) Glucose (74-99) mg/dL Calcium (8.4-10.2) mg/dL Total Bilirubin (0.2-1.3) mg/dL AST (14-36) U/L ALT (9-52) U/L Alkaline Phosphatase (38-126) U/L Total Protein (6.3-8.2) g/dL Albumin (3.5-5.0) g/dL Amylase (30-110) U/L Lipase (23-300) U/L HCG, Qual Not Detected Urine Color Yellow Urine Appearance Clear (Clear) Urine pH 7.0 (5.0-8.0) Ur Specific [place]ahan >1.050 H (1.001-1.035) Urine Protein Trace H (Negative) Urine Glucose (UA) Negative (Negative) Urine Ketones Negative (Negative) Urine Blood Moderate H (Negative) Urine Nitrite Negative (Negative) Urine Bilirubin Negative (Negative) Urine Urobilinogen <2.0 (<2.0) mg/dL Ur Leukocyte Esterase Trace H (Negative) Urine RBC 63 H (0-5) /hpf Urine WBC 60 H (0-5) /hpf Ur Squamous Epith Cells 4 (0-4) /hpf Amorphous Sediment Rare H (None) /hpf Urine Bacteria Rare H (None) /hpf Urine Mucus Rare H (None) /hpf - Radiology Data On ipsilateral right there is mild right hydronephrosis with hydroureter down to the right UVJ there is findings consistent with a subtle 3 mm cast location. The right UVJ. Urinary bladder shows a few tiny nondependent gas bubbles anteriorly presumably secondary to recent mentation from urinary bladder. No left renal calcifications. Left upper and renal colic symptoms was unremarkable. The impression is right obstructive uropathy as discussed. (Ilene Villalobos) Disposition Is patient prescribed a controlled substance at d/c from ED?: No Time of Disposition: 20:12 <Ilene Villalobos - Last Filed: 08/10/19 20:09> <Lucy Toribio - Last Filed: 08/20/19 16:11> Clinical Impression: Nausea and vomiting, Right ureteral calculus, Intractable abdominal pain, UTI (urinary tract infection) Disposition: ADMITTED IP TO THIS HOSP Condition: Good
[2019-08-10 17:00] LABS: Basophils # (A) 0.1 k/uL (0-0.2); Basophils % (A) 1 %; Eosinophils # (A) 0.2 k/uL (0-0.7); Eosinophils % (A) 2 %; HCT 40.9 % (34.0-46.0); HGB 13.6 gm/dL (11.4-16.0); Lymphocytes # (A) 1.5 k/uL (1.0-4.8); Lymphocytes % (A) 14 %; MCHC 33.2 g/dL (31.0-37.0); MCV 90.5 fL (80.0-100.0); Mean Platelet Volume 7.1; Monocytes # (A) 0.6 k/uL (0-1.0); Monocytes % (A) 5 %; Neutrophils # (A) 8.5 k/uL (1.3-7.7); Neutrophils % (A) 77 %; Platelet Count 328 k/uL (150-450); RBC 4.53 m/uL (3.80-5.40); RDW 15.4 % (11.5-15.5)
[2019-08-10 17:05] LABS: INR 0.9 (<1.2); Partial Thromboplastin Time 22.4 sec (22.0-30.0); Prothrombin Time 9.4 sec (9.0-12.0)
[2019-08-10 17:14] LABS: ALT 37 U/L (9-52); AST 21 U/L (14-36); African American GFR (CKD) >90 (>60 ml/min/1.73 sqM); Alkaline Phosphatase 59 U/L (38-126); Amylase 39 U/L (30-110); Anion Gap 13 mmol/L; Blood Urea Nitrogen 7 mg/dL (7-17); Calcium 9.6 mg/dL (8.4-10.2); Carbon Dioxide 20 mmol/L (22-30); Chloride 104 mmol/L (98-107); Glucose 115 mg/dL (74-99); Potassium 4.2 mmol/L (3.5-5.1); Sodium 137 mmol/L (137-145); Total Bilirubin 0.5 mg/dL (0.2-1.3); Total Protein 6.9 g/dL (6.3-8.2)
[2019-08-10 18:46] LABS: Amorphous Sediment,Urine Rare /hpf; Appearance,Urine Clear (Clear); Bacteria,Urine Rare /hpf; Bilirubin,Urine Negative (Negative); Blood,Urine Moderate (Negative); Color,Urine Yellow; Glucose,Urine (UA) Negative (Negative); Ketones,Urine Negative (Negative); Leukocyte Esterase,Urine Trace (Negative); Mucus,Urine Rare /hpf; Nitrite,Urine Negative (Negative); Protein,Urine Trace (Negative); RBC,Urine 63 /hpf (0-5); Squamous Epithelial Cell,Urine 4 /hpf (0-4); Urobilinogen,Urine <2.0 mg/dL (<2.0)
[2019-08-10 18:47] LABS: Specific Gravity,Urine >1.050 (1.001-1.035)
--- NOTE | 2019-08-10 19:01 | CT ---
EXAMINATION TYPE: CT abdomen pelvis w con DATE OF EXAM: 08/10/2019 COMPARISON: 06/17/[address] HISTORY: Right sided pain with vomiting CT DLP: 1836.2 mGycm Automated exposure control for dose reduction was used. TECHNIQUE: Helical acquisition of images was performed from the lung bases through the pelvis. CONTRAST: Performed without Oral Contrast and with IV Contrast, patient injected with 100 mL of Isovu e 300. FINDINGS: LUNG BASES: No significant abnormality is appreciated. LIVER/GB: No significant abnormality is appreciated. PANCREAS: No significant abnormality is seen. SPLEEN: No significant abnormality is seen. ADRENALS: No significant abnormality is seen. KIDNEYS AND URETERS AND URINARY BLADDER: On the ipsilateral right there is mild hydronephrosis and mi [id number] hydroureter down to the right ureterovesical junction where there is a finding consist ent with subtle 3 mm calcification at the right UVJ. The urinary bladder shows a few tiny nondependen t gas bubbles anteriorly, presumably secondary to recent instrumentation of the urinary bladder. Ther e are a few scattered tiny nonobstructing right renal calcifications. No left renal calcifications. T he left upper and lower collecting system unremarkable. FREE AIR: No free air is visualized. RETROPERITONEAL ADENOPATHY: None visualized REPRODUCTIVE ORGANS: No significant abnormality is seen PELVIC ADENOPATHY: None visualized. OSSEOUS STRUCTURES: No significant abnormality is seen. BOWEL: No significant abnormality is seen. OTHER: No acute vascular findings. IMPRESSION: RIGHT OBSTRUCTIVE UROPATHY DISCUSSED.
[2019-08-10] MEDS ORDERED: cefTRIAXone IN SWFI 1,000 MG/10 ML SYRINGE IVP STA (19:06)
[2019-08-10] MEDS ORDERED: ACETAMINOPHEN TAB 325 MG TAB PO PRN (20:13)
[2019-08-10] MEDS ORDERED: traMADol 50 MG TAB PO PRN (20:13)
[2019-08-10] MEDS ORDERED: ONDANSETRON 4 MG/2 ML VIAL IVP PRN (20:13)
[2019-08-10] MEDS ORDERED: NALOXONE 0.4 MG/ML 1 ML VIAL IV PRN (20:13)
[2019-08-10] MEDS ORDERED: KETOROLAC 30 MG/ML 1 ML VIAL IVP PRN (20:13)
[2019-08-10] MEDS ORDERED: cefTRIAXone IN SWFI 1,000 MG/10 ML SYRINGE IVP SCH (20:30)
[2019-08-10] MEDS: HYDROmorphone 1 MG/ML 1 ML SYRINGE IVP PRN (21:43)
[2019-08-10] MEDS: IBUPROFEN 400 MG TAB PO PRN (21:49)
[2019-08-10 22:02] VITALS: BMI 32.6
[2019-08-11] MEDS: HYDROmorphone 1 MG/ML 1 ML SYRINGE IVP PRN ×8 (01:31→23:26)
[2019-08-11] MEDS: SODIUM CHLORIDE 0.9% 1,000 ML IV SCH ×3 (01:37→17:15)
[2019-08-11] MEDS: METOCLOPRAMIDE 5 MG/ML 2 ML VIAL IVP PRN ×4 (04:13→23:25)
[2019-08-11] MEDS ORDERED: PANTOPRAZOLE 40 MG/10 ML VIAL IV SCH (09:00)
--- NOTE | 2019-08-11 11:01 | P.GSHP ---
History of Present Illness H&P Date: 08/11/19 30-year-old female, patient of or kidney stones. He has recently done a ureteroscopic stone manipulation. She had a stent in which is removed yesterday. She presented to the emergency room with severe colic and nausea. She is admitted for pain control and nausea control. She had a computed tomography scan ordered by the ER physicians and was read as a 3 mm ureteral stone. She is feeling somewhat better today. I reviewed the computed tomography scan with Dr. Zamorano of radiology and we did not feel the stone at the renal vesicle junction on the right. Most likely this is just edema. - Constitutional Constitutional: Denies chills, Denies fever - EENT Eyes: denies blurred vision, denies pain Ears, nose, mouth and throat: Denies headache, Denies sore throat - Cardiovascular Cardiovascular: Denies chest pain, Denies shortness of breath - Respiratory Respiratory: Denies cough, Denies 7 - Gastrointestinal Gastrointestinal: Denies abdominal pain, Denies diarrhea, Denies nausea, Denies vomiting - Genitourinary (Female) Genitourinary: Denies dysuria, Denies hematuria - Genitourinary (Male) Genitourinary: Denies dysuria, Denies hematuria - Musculoskeletal Musculoskeletal: Denies myalgias - Integumentary Integumentary: Denies pruritus, Denies rash - Neurological Neurological: Denies numbness, Denies weakness - Psychiatric Psychiatric: Denies anxiety, Denies depression - Endocrine Endocrine: Denies fatigue, Denies weight change Past Medical History Past Medical History: Asthma, Pneumonia, Renal Disease Additional Past Medical History / Comment(s): Pt recently admitted to [facility] on 07/23/19 with r flank pain/possible acute pyelonephritis, intractable nausea/vomiting. Other Hx: Previous kidney stones, UTIs History of Any Multi-Drug Resistant Organisms: None Reported, C-DIFF Date of last positivie culture/infection: stool MDRO Source:: 2017 Past Surgical History: Cholecystectomy Additional Past Surgical History / Comment(s): Cystoscopies, L ureteroscopy with laser litho, colonoscopy Past Anesthesia/Blood Transfusion Reactions: No Reported Reaction Past Psychological History: Bipolar Additional Psychological History / Comment(s): Pt resides with her grandmother. She is independent. Smoking Status: Current every day smoker Past Alcohol Use History: None Reported Additional Past Alcohol Use History / Comment(s): Pt started smoking in 2001 and is a half a ppd smoker. Past Drug Use History: None Reported - Past Family History Father Family Medical History: Cancer Additional Family Medical History / Comment(s): colon cancer Mother Family Medical History: Hypertension Medications and Allergies Home Medications Medication Instructions Recorded Confirmed Type Tamsulosin [Flomax] 0.4 mg PO HS 07/30/19 08/10/19 History HYDROcodone/APAP 5-325MG [[place] 1 tab PO Q4HR PRN 08/10/19 08/10/19 History 5-325] Oxybutynin Chloride [Ditropan XL] 10 mg PO DAILY 08/10/19 08/10/19 History Allergies Allergy/AdvReac Type Severity Reaction Status Date / Time ketorolac [From Toradol] Allergy Rash/Hives Verified 08/10/19 16:25 latex Allergy Rash/Hives Verified 08/10/19 16:25 morphine Allergy Rash/Hives Verified 08/10/19 16:25 ondansetron [From Zofran] Allergy Rash/Hives Verified 08/10/19 16:25 Surgical - Exam Vital Signs Temp Pulse Resp BP Pulse Ox 98.1 F 122 H 20 131/92 99 08/10/19 16:17 08/10/19 16:17 08/10/19 16:17 08/10/19 16:17 08/10/19 16:17 - General well developed, well nourished, no pain - Eyes PERRL - ENT normal mucosa - Neck trachea midline - Respiratory normal expansion, normal respiratory effort - Cardiovascular Rhythm: regular - Abdomen Abdomen: soft, non tender - Musculoskeletal normal posture - Psychiatric oriented to time, oriented to person, oriented to place, speech is normal, memory intact Results - Labs 08/10/19 16:41 08/10/19 16:41 Abnormal Lab Results - Last 24 Hours (Table) 08/10/19 08/10/19 08/10/19 Range/Units 16:41 16:41 18:30 WBC 11.0 H (3.8-10.6) k/uL Neutrophils # 8.5 H (1.3-7.7) k/uL Carbon Dioxide 20 L (22-30) mmol/L Glucose 115 H (74-99) mg/dL Ur Specific [place] >1.050 H (1.001-1.035) Urine Protein Trace H (Negative) Urine Blood Moderate H (Negative) Ur Leukocyte Esterase Trace H (Negative) Urine RBC 63 H (0-5) /hpf Urine WBC 60 H (0-5) /hpf Amorphous Sediment Rare H (None) /hpf Urine Bacteria Rare H (None) /hpf Urine Mucus Rare H (None) /hpf Microbiology - Last 24 Hours (Table) 08/10/19 18:30 Urine Culture - Preliminary Urine,Voided Diabetes panel 08/10/19 Range/Units 16:41 Sodium 137 (137-145) mmol/L Potassium 4.2 (3.5-5.1) mmol/L Chloride 104 (98-107) mmol/L Carbon Dioxide 20 L (22-30) mmol/L BUN 7 (7-17) mg/dL Creatinine 0.67 (0.52-1.04) mg/dL Glucose 115 H (74-99) mg/dL Calcium 9.6 (8.4-10.2) mg/dL AST 21 (14-36) U/L ALT 37 (9-52) U/L Alkaline Phosphatase 59 (38-126) U/L Total Protein 6.9 (6.3-8.2) g/dL Albumin 4.0 (3.5-5.0) g/dL Calcium panel 08/10/19 Range/Units 16:41 Calcium 9.6 (8.4-10.2) mg/dL Albumin 4.0 (3.5-5.0) g/dL Pituitary panel 08/10/19 Range/Units 16:41 Sodium 137 (137-145) mmol/L Potassium 4.2 (3.5-5.1) mmol/L Chloride 104 (98-107) mmol/L Carbon Dioxide 20 L (22-30) mmol/L BUN 7 (7-17) mg/dL Creatinine 0.67 (0.52-1.04) mg/dL Glucose 115 H (74-99) mg/dL Calcium 9.6 (8.4-10.2) mg/dL Adrenal panel 08/10/19 Range/Units 16:41 Sodium 137 (137-145) mmol/L Potassium 4.2 (3.5-5.1) mmol/L Chloride 104 (98-107) mmol/L Carbon Dioxide 20 L (22-30) mmol/L BUN 7 (7-17) mg/dL Creatinine 0.67 (0.52-1.04) mg/dL Glucose 115 H (74-99) mg/dL Calcium 9.6 (8.4-10.2) mg/dL Total Bilirubin 0.5 (0.2-1.3) mg/dL AST 21 (14-36) U/L ALT 37 (9-52) U/L Alkaline Phosphatase 59 (38-126) U/L Total Protein 6.9 (6.3-8.2) g/dL Albumin 4.0 (3.5-5.0) g/dL - Imaging CT scan - abdomen: report reviewed, image reviewed CT scan - pelvis: report reviewed, image reviewed Assessment and Plan Assessment: Impression: Right ureteral colic with right hydronephrosis due to edema from previous stent placement. Possible urinary infection Recommendations: I do not recommend a stent at this point in time as a stent was probably contributing to her colic. She does not wish to have a stent. Most likely her pain and nausea will subside over the next 24 hours a. She can be discharged home later today or tomorrow.
[2019-08-11] MEDS: IBUPROFEN 400 MG TAB PO PRN (12:49)
[2019-08-12] MEDS: IBUPROFEN 400 MG TAB PO PRN (01:55)
[2019-08-12] MEDS: SODIUM CHLORIDE 0.9% 1,000 ML IV SCH (02:50)
[2019-08-12] MEDS: HYDROmorphone 1 MG/ML 1 ML SYRINGE IVP PRN ×2 (02:50→05:50)
[2019-08-12] MEDS: METOCLOPRAMIDE 5 MG/ML 2 ML VIAL IVP PRN (05:49)
[2019-08-12 06:11] VITALS: BP 106/73; PULSE 74; RESP 18; TEMP 98.6
--- NOTE | 2019-08-12 06:30 | P.DS ---
Providers Date of admission: 08/10/19 20:06 Attending physician: Joseph Alvarez Primary care physician: Physician Nonstaff Hospital Course: The patient was admitted to the hospital 08/10/2019 because of right sided flank pain nausea and vomiting. She is status post stone manipulation and eventual stent removal by in the emergency room and was thought that she had a 3 mm right ureterovesical junction stone. I reviewed the x-ray with radiology the following morning and there is no stone seen. She is felt better over the last 36 hours and ready for discharge home. She'll be discharged home on a regular diet limited normal activity. She'll be given a small prescription of [place] and Reglan for her pain and nausea if it returns. She's been instructed to follow-up with next week. Please contact us with any further problems. Condition is good. Patient Condition at Discharge: Good Plan - Discharge Summary Discharge Rx Participant: Yes New Discharge Prescriptions: New HYDROcodone/APAP 5-325MG [[place] 5-325] 1 tab PO Q4HR PRN #10 tab PRN Reason: Pain Metoclopramide HCl [Reglan] 10 mg PO Q6HR PRN #10 tablet PRN Reason: Nausea No Action Tamsulosin [Flomax] 0.4 mg PO HS HYDROcodone/APAP 5-325MG [[place] 5-325] 1 tab PO Q4HR PRN PRN Reason: pain Oxybutynin Chloride [Ditropan XL] 10 mg PO DAILY Discharge Medication List Tamsulosin [Flomax] 0.4 mg PO HS 07/30/19 [History] HYDROcodone/APAP 5-325MG [[place] 5-325] 1 tab PO Q4HR PRN 08/10/19 [History] Oxybutynin Chloride [Ditropan XL] 10 mg PO DAILY 08/10/19 [History] HYDROcodone/APAP 5-325MG [[place] 5-325] 1 tab PO Q4HR PRN #10 tab 08/12/19 [Rx] Metoclopramide HCl [Reglan] 10 mg PO Q6HR PRN #10 tablet 08/12/19 [Rx] Follow up Appointment(s)/Referral(s): Nonstaff,Physician [Primary Care Provider] - 1-2 days Juan Angel MD [STAFF PHYSICIAN] - 1 Week Discharge Disposition: HOME SELF-CARE
[2019-08-12] MEDS ORDERED: PANTOPRAZOLE 40 MG TABLET PO SCH (07:30)
--- NOTE | 2019-08-16 07:27 | CDI ---
Documentation Clarification Form Date: 08/16/19 From: Chana Muniz Phone: If questions call Kajal Bright @ [phone], Hours-8:30 am & 5 pm M- Elyssa Admit Date: 08/10/2019 8:06:00 PM Patient Name: Leny Navarrete Visit Number: [id number] Discharge Date: 08/12/2019 7:43:00 AM ATTENTION: The Clinical Documentation Specialists (CDI) and [facility] Coding Staff appreciate your assistance in clarifying documentation. Please respond to the clarification below the line at the bottom and electronically sign. The CDI & [facility] Coding staff will review the response and follow-up if needed. Please note: Queries are made part of the Legal Health Record. If you have any questions, please contact the author of this message via ITS. Dr. Joseph Alvarez Possible UTI was documented in the H&P. History/Risk Factors: s/p stent Clinical Indicators: Hx of kidney stones Vital Signs: T-98.1, P-122, R-20, BP-131/92 WBC: 11.0 Urinalysis: sp gr->1.0500, blood-mod, leukocyte Esterace-trace, WBC-60, urine bacteria-rare Urine Culture: 50,000-100,000 CFU/mL apparent skin and/or genital woody Antibiotics: IV Rocephin, not discharged on antibiotics Please document the condition that these clinical indicators signify, whether Present on Admission, and cause if known: UTI No UTI Pyelonephritis (acute, chronic) Contaminated specimen Other, please specify Unable to determine MTDD
--- NOTE | 2019-08-19 06:25 | CDI ---
Documentation Clarification Form Date: 08/16/2019 From: Chana Muniz Phone: If questions call Kajal Bright @ [phone], Hours-8:30 am & 5 pm M- F Admit Date: 08/10/2019 8:06:00 PM Patient Name: Leny Navarrete Visit Number: [id number] Discharge Date: 08/12/2019 7:43:00 AM ATTENTION: The Clinical Documentation Specialists (CDI) and [facility] Coding Staff appreciate your assistance in clarifying documentation. Please respond to the clarification below the line at the bottom and electronically sign. The CDI & [facility] Coding staff will review the response and follow-up if needed. Please note: Queries are made part of the Legal Health Record. If you have any questions, please contact the author of this message via ITS. Dr. Joseph Alvarez Possible UTI was documented in the H&P. History/Risk Factors: s/p stent Clinical Indicators: Hx of kidney stones Vital Signs: T-98.1, P-122, R-20, BP-131/92 WBC: 11.0 Urinalysis: sp gr->1.0500, blood-mod, leukocyte Esterase-trace, WBC-60, urine bacteria-rare Urine Culture: 50,000-100,000 CFU/mL apparent skin and/or genital woody Antibiotics: IV Rocephin, not discharged on antibiotics Please document the condition that these clinical indicators signify, whether Present on Admission, and cause if known: UTI No UTI Pyelonephritis (acute, chronic) Contaminated specimen Other, please specify Unable to determine no uti MTDD
== END 2019-08-12 07:43 | disposition home or self-care (01) | DRG 694 ==
LOC: EC 16:07 → 4MS4W 20:06
PROVIDERS: ADMIT Urology; ATTEND Urology
DX: N13.0 Hydronephrosis with ureteropelvic junction obstruction (principal); J45.909 Unspecified asthma, uncomplicated; F17.210 Nicotine dependence, cigarettes, uncomplicated; Z71.6 Tobacco abuse counseling; Z79.899 Other long term (current) drug therapy; Z87.442 Personal history of urinary calculi; Z87.01 Personal history of pneumonia (recurrent); Z86.19 Personal history of other infectious and parasitic diseases; Z90.49 Acquired absence of other specified parts of digestive tract; Z98.890 Other specified postprocedural states; Z86.59 Personal history of other mental and behavioral disorders; Z88.5 Allergy status to narcotic agent; Z88.8 Allergy status to other drugs, medicaments and biological substances; Z91.040 Latex allergy status; Z80.0 Family history of malignant neoplasm of digestive organs; Z82.49 Family history of ischemic heart disease and other diseases of the circulatory system
CPT/HCPCS: 36415; 74177; 80053; 81001; 82150; 83690; 84703; 85025; 85610; 85730; 87086; 96361; 96374; 96375; 96376; 99285

== ENCOUNTER 2019-08-17 10:29 | Emergency (ER) | payer BC ==
[2019-08-17 10:43] VITALS: TEMP 99
[2019-08-17] MEDS ORDERED: SODIUM CHLORIDE 0.9% 500 ML 500 ML IV STA (10:46)
[2019-08-17] MEDS ORDERED: METOCLOPRAMIDE 5 MG/ML 2 ML VIAL IVP STA ×2 (10:49→16:34)
--- NOTE | 2019-08-17 10:49 | ED ---
Abdominal Pain HPI - General Chief Complaint: Abdominal Pain Stated Complaint: Kidney pain/vomiting Time Seen by Provider: 08/17/19 10:46 Source: patient Mode of arrival: wheelchair Limitations: no limitations - History of Present Illness Initial Comments: 34-year-old female with history of kidney stones of previous urethral stent presenting for right flank pain. Patient states she has had right flank pain for the past 2 days. Patient states that she feels like she had a kidney stone. Patient has a chest pain shortness of breath patient denies any anterior abdominal pain patient states she has had nausea and uncontrolled vomiting. Patient states she is ALLERGY to Toradol morphine and Zofran. Patient states she is usually given Dilaudid and when she experiences this pain comes to emergency department. Patient denies any fever or flulike symptoms. Patient denies any dysuria urgency frequency she is unsure if she has had hematuria. Patient denies any diarrhea. Patient denies any known sick contacts. Remaining review of systems negative. Upon arrival patient appears uncomfortable. Vital signs within acceptable limits. - Related Data Home Medications Medication Instructions Recorded Confirmed Tamsulosin [Flomax] 0.4 mg PO HS 07/30/19 08/17/19 HYDROcodone/APAP 5-325MG [[place] 1 tab PO Q4HR PRN 08/10/19 08/17/19 5-325] Oxybutynin Chloride [Ditropan XL] 10 mg PO DAILY 08/10/19 08/17/19 Previous Rx's Medication Instructions Recorded Metoclopramide HCl [Reglan] 10 mg PO Q6HR PRN #10 tablet 08/12/19 Allergies Allergy/AdvReac Type Severity Reaction Status Date / Time ketorolac [From Toradol] Allergy Rash/Hives Verified 08/17/19 11:06 latex Allergy Rash/Hives Verified 08/17/19 11:06 morphine Allergy Rash/Hives Verified 08/17/19 11:06 ondansetron [From Zofran] Allergy Rash/Hives Verified 08/17/19 11:06 Review of Systems ROS Statement: Those systems with pertinent positive or pertinent negative responses have been documented in the HPI. ROS Other: All systems not noted in ROS Statement are negative. Past Medical History Past Medical History: Asthma, Pneumonia, Renal Disease Additional Past Medical History / Comment(s): Pt recently admitted to [facility] on 07/23/19 with r flank pain/possible acute pyelonephritis, intractable nausea/vomiting. Other Hx: Previous kidney stones, UTIs History of Any Multi-Drug Resistant Organisms: None Reported, C-DIFF Date of last positivie culture/infection: stool MDRO Source:: 2016 Past Surgical History: Cholecystectomy Additional Past Surgical History / Comment(s): Cystoscopies, L ureteroscopy with laser litho, colonoscopy Past Anesthesia/Blood Transfusion Reactions: No Reported Reaction Past Psychological History: Bipolar Smoking Status: Current every day smoker Past Alcohol Use History: None Reported Past Drug Use History: None Reported - Past Family History Father Family Medical History: Cancer Additional Family Medical History / Comment(s): colon cancer Mother Family Medical History: Hypertension General Exam - General Exam Comments Initial Comments: General: The patient is awake and alert, in no distress, and does not appear acutely ill. Eye: Pupils are equal, round and reactive to light, extra-ocular movements are intact. No nystagmus. There is normal conjunctiva bilaterally. No signs of icterus. Ears, nose, mouth and throat: There are moist mucous membranes and no oral lesions. Neck: The neck is supple, there is no tenderness or JVD. Cardiovascular: There is a regular rate and rhythm. No murmur, rub or gallop is appreciated. Respiratory: Lungs are clear to auscultation, respirations are non-labored, breath sounds are equal. No wheezes, stridor, rales, or rhonchi. Gastrointestinal: Soft, non-distended, non-tender abdomen without masses or organomegaly noted. There is no rebound or guarding present. No CVA tenderness Musculoskeletal: Normal ROM, no tenderness. Strength 5/5. Sensation intact. Pulses equal bilaterally 2+. Neurological: A&O x 3. CN II-XII intact, There are no obvious motor or sensory deficits. Coordination appears grossly intact. Speech is normal. Skin: Skin is warm and dry and no rashes or lesions are noted. Psychiatric: Cooperative, appropriate mood & affect, normal judgment. Limitations: no limitations Course Vital Signs 08/17/19 08/17/19 10:39 16:41 Temperature 99.0 F Pulse Rate 86 76 Respiratory 18 16 Rate Blood Pressure 137/76 134/92 O2 Sat by Pulse 97 99 Oximetry Medical Decision Making - Medical Decision Making 34-year-old female presenting for possible kidney stone. Patient has had multiple imaging studies for kidney stones within the past few months significant ionizing radiation. We discussed risk of ionizing radiation versus benefits today. Patient states she would not like another CT. She will decision is made to avoid CT today as patient does not have low blood cells concerning for septic stone in her urine nor significant hematuria. Patient states this is identical to when she's had a stone in the past every week was obtained revealing no overt signs of calcifications. On-call urologist was consulted, given concern there is non radiopaque stone he stated the last time patient did not have a kidney stone she was when she was admitted. Patient does not have signs of pyelonephritis no nitrates or significant leukocyte esterase and urine. Patient is afebrile with no leukocytosis. Patient continues to have discomfort and vomiting in the emergency department. She states she refuses to go home. Patient was evaluated on multiple occasions by my attending provider Dr. Toribio as well as myself. Patient was provided IV analgesics and Reglan. Patient was admitted to observation using for intractable vomiting nausea and pain. However after patient was admitted to the hospital patient states she is out of stay here she is not going to be given Dilaudid she ripped out her IV access and left the emergency department AMA - Lab Data Result diagrams: 08/17/19 11:30 08/17/19 11:30 Lab Results 08/17/19 08/17/19 08/17/19 Range/Units 11:30 11:30 11:56 WBC 10.6 (3.8-10.6) k/uL RBC 4.35 (3.80-5.40) m/uL Hgb 13.4 (11.4-16.0) gm/dL Hct 38.6 (34.0-46.0) % MCV 88.7 (80.0-100.0) fL MCH 30.8 (25.0-35.0) pg MCHC 34.7 (31.0-37.0) g/dL RDW 14.0 (11.5-15.5) % Plt Count 310 (150-450) k/uL Neutrophils % 85 % Lymphocytes % 9 % Monocytes % 4 % Eosinophils % 1 % Basophils % 1 % Neutrophils # 9.0 H (1.3-7.7) k/uL Lymphocytes # 0.9 L (1.0-4.8) k/uL Monocytes # 0.4 (0-1.0) k/uL Eosinophils # 0.1 (0-0.7) k/uL Basophils # 0.1 (0-0.2) k/uL Sodium 137 (137-145) mmol/L Potassium 3.8 (3.5-5.1) mmol/L Chloride 104 (98-107) mmol/L Carbon Dioxide 22 (22-30) mmol/L Anion Gap 11 mmol/L BUN 9 (7-17) mg/dL Creatinine 0.67 (0.52-1.04) mg/dL Est GFR (CKD-EPI)AfAm >90 (>60 ml/min/1.73 sqM) Est GFR (CKD-EPI)NonAf >90 (>60 ml/min/1.73 sqM) Glucose 114 H (74-99) mg/dL Calcium 9.6 (8.4-10.2) mg/dL Total Bilirubin 0.6 (0.2-1.3) mg/dL AST 32 (14-36) U/L ALT 44 (9-52) U/L Alkaline Phosphatase 54 (38-126) U/L Total Protein 7.1 (6.3-8.2) g/dL Albumin 4.1 (3.5-5.0) g/dL Amylase 44 (30-110) U/L Lipase 39 (23-300) U/L Urine Color Urine Appearance (Clear) Urine pH (5.0-8.0) Ur Specific [place] (1.001-1.035) Urine Protein (Negative) Urine Glucose (UA) (Negative) Urine Ketones (Negative) Urine Blood (Negative) Urine Nitrite (Negative) Urine Bilirubin (Negative) Urine Urobilinogen (<2.0) mg/dL Ur Leukocyte Esterase (Negative) Urine RBC (0-5) /hpf Urine WBC (0-5) /hpf Ur Squamous Epith Cells (0-4) /hpf Urine Mucus (None) /hpf Urine HCG, Qual Not Detected (Not Detectd) 08/17/19 Range/Units 11:56 WBC (3.8-10.6) k/uL RBC (3.80-5.40) m/uL Hgb (11.4-16.0) gm/dL Hct (34.0-46.0) % MCV (80.0-100.0) fL MCH (25.0-35.0) pg MCHC (31.0-37.0) g/dL RDW (11.5-15.5) % Plt Count (150-450) k/uL Neutrophils % % Lymphocytes % % Monocytes % % Eosinophils % % Basophils % % Neutrophils # (1.3-7.7) k/uL Lymphocytes # (1.0-4.8) k/uL Monocytes # (0-1.0) k/uL Eosinophils # (0-0.7) k/uL Basophils # (0-0.2) k/uL Sodium (137-145) mmol/L Potassium (3.5-5.1) mmol/L Chloride (98-107) mmol/L Carbon Dioxide (22-30) mmol/L Anion Gap mmol/L BUN (7-17) mg/dL Creatinine (0.52-1.04) mg/dL Est GFR (CKD-EPI)AfAm (>60 ml/min/1.73 sqM) Est GFR (CKD-EPI)NonAf (>60 ml/min/1.73 sqM) Glucose (74-99) mg/dL Calcium (8.4-10.2) mg/dL Total Bilirubin (0.2-1.3) mg/dL AST (14-36) U/L ALT (9-52) U/L Alkaline Phosphatase (38-126) U/L Total Protein (6.3-8.2) g/dL Albumin (3.5-5.0) g/dL Amylase (30-110) U/L Lipase (23-300) U/L Urine Color Yellow Urine Appearance Clear (Clear) Urine pH 8.5 H (5.0-8.0) Ur Specific [place] 1.020 (1.001-1.035) Urine Protein 3+ H (Negative) Urine Glucose (UA) Negative (Negative) Urine Ketones 1+ H (Negative) Urine Blood Negative (Negative) Urine Nitrite Negative (Negative) Urine Bilirubin Negative (Negative) Urine Urobilinogen 2.0 (<2.0) mg/dL Ur Leukocyte Esterase Trace H (Negative) Urine RBC 8 H (0-5) /hpf Urine WBC 6 H (0-5) /hpf Ur Squamous Epith Cells 1 (0-4) /hpf Urine Mucus Few H (None) /hpf Urine HCG, Qual (Not Detectd) Disposition Clinical Impression: Flank pain, Vomiting, Nausea, Intractable vomiting with nausea, Intractable pain Disposition: Left Against Medical Advice Condition: Undetermined Is patient prescribed a controlled substance at d/c from ED?: No Time of Disposition: 15:38
[2019-08-17] MEDS ORDERED: HYDROmorphone 0.5 MG/0.5 ML SYRINGE IVP STA ×2 (10:53→12:19)
[2019-08-17 11:43] LABS: Basophils # (A) 0.1 k/uL (0-0.2); Basophils % (A) 1 %; Eosinophils # (A) 0.1 k/uL (0-0.7); Eosinophils % (A) 1 %; HCT 38.6 % (34.0-46.0); HGB 13.4 gm/dL (11.4-16.0); Lymphocytes # (A) 0.9 k/uL (1.0-4.8); Lymphocytes % (A) 9 %; MCH 30.8 pg (25.0-35.0); MCHC 34.7 g/dL (31.0-37.0); MCV 88.7 fL (80.0-100.0); Mean Platelet Volume 6.8; Monocytes # (A) 0.4 k/uL (0-1.0); Monocytes % (A) 4 %; Neutrophils % (A) 85 %; Platelet Count 310 k/uL (150-450); RBC 4.35 m/uL (3.80-5.40); WBC 10.6 k/uL (3.8-10.6)
[2019-08-17 11:51] LABS: ALT 44 U/L (9-52); AST 32 U/L (14-36); African American GFR (CKD) >90 (>60 ml/min/1.73 sqM); Albumin 4.1 g/dL (3.5-5.0); Alkaline Phosphatase 54 U/L (38-126); Amylase 44 U/L (30-110); Anion Gap 11 mmol/L; Blood Urea Nitrogen 9 mg/dL (7-17); Calcium 9.6 mg/dL (8.4-10.2); Carbon Dioxide 22 mmol/L (22-30); Chloride 104 mmol/L (98-107); Glucose 114 mg/dL (74-99); Potassium 3.8 mmol/L (3.5-5.1); Sodium 137 mmol/L (137-145); Total Bilirubin 0.6 mg/dL (0.2-1.3); Total Protein 7.1 g/dL (6.3-8.2)
[2019-08-17] MEDS ORDERED: ACETAMINOPHEN TAB 325 MG TAB PO STA (11:56)
[2019-08-17 12:04] LABS: Appearance,Urine Clear (Clear); Bilirubin,Urine Negative (Negative); Blood,Urine Negative (Negative); Color,Urine Yellow; Glucose,Urine (UA) Negative (Negative); Ketones,Urine 1+ (Negative); Leukocyte Esterase,Urine Trace (Negative); Mucus,Urine Few /hpf; Nitrite,Urine Negative (Negative); PH, Urine 8.5 (5.0-8.0); Protein,Urine 3+ (Negative); RBC,Urine 8 /hpf (0-5); Squamous Epithelial Cell,Urine 1 /hpf (0-4); WBC,Urine 6 /hpf (0-5)
--- NOTE | 2019-08-17 12:12 | US ---
EXAMINATION TYPE: US renals and bladder DATE OF EXAM: 08/17/2019 COMPARISON: NONE CLINICAL HISTORY: 34-year-old female stones. Flank pain. Technique: Multiple sonographic images of the kidneys and bladder are obtained. FINDINGS: EXAM MEASUREMENTS: Right Kidney: 10.2 x 4.9 x 3.8 cm Left Kidney: 9.2 x 4.1 cm Right Kidney: Echogenic area upper pole could represent a 5 mm nonobstructive calculus. Left Kidney: Limited unable to finish exam due patient unable to tolerate pain. Acid Changer notes: Limited study patient unable to tolerate test not able to finish exam. No obvious hydronephrosis seen. Bladder not imaged. IMPRESSION: 1. Exam prematurely terminated due to patient pain and inability to continue. 2. No obvious hydronephrosis. 3. Possible 5 mm right upper pole renal calculus.
[2019-08-17] MEDS ORDERED: METOCLOPRAMIDE 5 MG/ML 2 ML VIAL IM STA (13:53)
--- NOTE | 2019-08-17 14:39 | XR ---
EXAMINATION TYPE: XR KUB DATE OF EXAM: 08/17/2019 CLINICAL DATA: 34-year-old female right flank pain with stones, [facility] COMPARISON: 07/30/2019 FINDINGS: Scattered small air-fluid levels. Mildly distended small bowel loop in the left paramedian mid abdome n measures 3.8 cm. No significant stool burden. Cholecystectomy clips. Previously seen midabdominal calcifications are no longer identified. IMPRESSION: 1. Scattered small air-fluid levels could represent a mild ileus or enteritis. 2. Previously seen mid abdominal calcifications no longer identified, possibly obscured by bowel cont ent.
[2019-08-17] MEDS ORDERED: ACETAMINOPHEN TAB 325 MG TAB PO PRN (16:30)
[2019-08-17] MEDS ORDERED: NALOXONE 0.4 MG/ML 1 ML VIAL IV PRN (16:30)
[2019-08-17] MEDS ORDERED: SODIUM CHLORIDE 0.9% 1,000 ML IV SCH (16:30)
[2019-08-17 16:43] VITALS: BP 134/92; PULSE 76; RESP 16
--- NOTE | 2019-08-17 22:41 | P.HPIM ---
History of Present Illness combine H&P and DC summary Dx: abd pain recurrent nausea and vomiting possible renal colic kid stone disease Hospital course pt was admitted to [facility] service for abd pain and n/v. however before we have a chance to meet the pt , she singed leaving AMA with the ED staff. please refer to ED physician/staff note for more details Past Medical History Past Medical History: Asthma, Pneumonia, Renal Disease Additional Past Medical History / Comment(s): Pt recently admitted to [facility] on 07/23/19 with r flank pain/possible acute pyelonephritis, intractable nausea/vomiting. Other Hx: Previous kidney stones, UTIs History of Any Multi-Drug Resistant Organisms: None Reported, C-DIFF Date of last positivie culture/infection: stool MDRO Source:: 2016 Past Surgical History: Cholecystectomy Additional Past Surgical History / Comment(s): Cystoscopies, L ureteroscopy with laser litho, colonoscopy Past Anesthesia/Blood Transfusion Reactions: No Reported Reaction Past Psychological History: Bipolar Smoking Status: Current every day smoker Past Alcohol Use History: None Reported Past Drug Use History: None Reported - Past Family History Father Family Medical History: Cancer Additional Family Medical History / Comment(s): colon cancer Mother Family Medical History: Hypertension Medications and Allergies Home Medications Medication Instructions Recorded Confirmed Type Tamsulosin [Flomax] 0.4 mg PO HS 07/30/19 08/17/19 History HYDROcodone/APAP 5-325MG [[place] 1 tab PO Q4HR PRN 08/10/19 08/17/19 History 5-325] Oxybutynin Chloride [Ditropan XL] 10 mg PO DAILY 08/10/19 08/17/19 History Metoclopramide HCl [Reglan] 10 mg PO Q6HR PRN #10 tablet 08/12/19 08/17/19 Rx Allergies Allergy/AdvReac Type Severity Reaction Status Date / Time ketorolac [From Toradol] Allergy Rash/Hives Verified 08/17/19 11:06 latex Allergy Rash/Hives Verified 08/17/19 11:06 morphine Allergy Rash/Hives Verified 08/17/19 11:06 ondansetron [From Zofran] Allergy Rash/Hives Verified 08/17/19 11:06 Physical Exam Vitals: Vital Signs Temp Pulse Resp BP Pulse Ox 08/17/19 16:41 76 16 134/92 99 08/17/19 10:39 99.0 F 86 18 137/76 97 Intake and Output 08/17/19 08/17/19 08/17/19 06:59 14:59 22:59 Other: Weight 111.13 kg Results CBC & Chem 7: 08/17/19 11:30 08/17/19 11:30 Labs: Abnormal Lab Results - Last 24 Hours (Table) 08/17/19 08/17/19 08/17/19 Range/Units 11:30 11:30 11:56 Neutrophils # 9.0 H (1.3-7.7) k/uL Lymphocytes # 0.9 L (1.0-4.8) k/uL Glucose 114 H (74-99) mg/dL Urine pH 8.5 H (5.0-8.0) Urine Protein 3+ H (Negative) Urine Ketones 1+ H (Negative) Ur Leukocyte Esterase Trace H (Negative) Urine RBC 8 H (0-5) /hpf Urine WBC 6 H (0-5) /hpf Urine Mucus Few H (None) /hpf
== END 2019-08-17 17:01 | disposition left against medical advice (07) ==
LOC: EC 10:29 → UNDOADMOB 16:28 → 3NMEDONC 16:28 → EC 17:01
DX: R11.2 Nausea with vomiting, unspecified (principal); R10.9 Unspecified abdominal pain; F17.200 Nicotine dependence, unspecified, uncomplicated; Z88.5 Allergy status to narcotic agent; Z88.6 Allergy status to analgesic agent; Z88.8 Allergy status to other drugs, medicaments and biological substances; Z91.040 Latex allergy status; Z79.899 Other long term (current) drug therapy; Z87.442 Personal history of urinary calculi; Z90.49 Acquired absence of other specified parts of digestive tract; Z98.890 Other specified postprocedural states; Z80.0 Family history of malignant neoplasm of digestive organs; Z53.20 Procedure and treatment not carried out because of patient's decision for unspecified reasons
CPT/HCPCS: 36415; 80053; 82150; 83690; 85025; 81001; 81025; 74018; 76770; 99284; 96374; 96375; 96376 ×2; 96361; 96372; J2765; J1170

== ENCOUNTER 2019-08-29 20:19 | Emergency (ER) | payer BC ==
[2019-08-29] MEDS ORDERED: SODIUM CHLORIDE 0.9% 1,000 ML IV STA (21:32)
[2019-08-29] MEDS ORDERED: HYDROmorphone 1 MG/ML 1 ML SYRINGE IVP STA (21:33)
[2019-08-29] MEDS ORDERED: ACETAMINOPHEN TAB 325 MG TAB PO STA (22:05)
[2019-08-29 22:18] LABS: Basophils # (A) 0.1 k/uL (0-0.2); Basophils % (A) 1 %; Eosinophils # (A) 0.1 k/uL (0-0.7); Eosinophils % (A) 1 %; HCT 37.7 % (34.0-46.0); HGB 12.9 gm/dL (11.4-16.0); Lymphocytes # (A) 1.6 k/uL (1.0-4.8); Lymphocytes % (A) 17 %; MCH 29.8 pg (25.0-35.0); MCHC 34.2 g/dL (31.0-37.0); Monocytes # (A) 0.6 k/uL (0-1.0); Monocytes % (A) 6 %; Neutrophils # (A) 7.1 k/uL (1.3-7.7); Neutrophils % (A) 74 %; Platelet Count 265 k/uL (150-450); RBC 4.34 m/uL (3.80-5.40); RDW 14.4 % (11.5-15.5); WBC 9.6 k/uL (3.8-10.6)
[2019-08-29] MEDS ORDERED: METOCLOPRAMIDE 5 MG/ML 2 ML VIAL IVP STA (22:25)
[2019-08-29 22:29] LABS: ALT 163 U/L (9-52); AST 58 U/L (14-36); African American GFR (CKD) >90 (>60 ml/min/1.73 sqM); Albumin 3.9 g/dL (3.5-5.0); Alkaline Phosphatase 44 U/L (38-126); Anion Gap 13 mmol/L; Blood Urea Nitrogen 4 mg/dL (7-17); Calcium 9.2 mg/dL (8.4-10.2); Carbon Dioxide 20 mmol/L (22-30); Chloride 102 mmol/L (98-107); Glucose 95 mg/dL (74-99); Potassium 3.5 mmol/L (3.5-5.1); Sodium 135 mmol/L (137-145); Total Bilirubin 0.8 mg/dL (0.2-1.3); Total Protein 6.7 g/dL (6.3-8.2)
--- NOTE | 2019-08-29 22:43 | XR ---
EXAMINATION TYPE: XR KUB DATE OF EXAM: 08/29/2019 COMPARISON: 08/17/2019 HISTORY: Pain TECHNIQUE: 2 views upright. FINDINGS: There is no sign of intestinal obstruction or pneumoperitoneum. There is no evidence of a mass. Ther e are no pathologic calcifications over the kidneys. Lung bases are clear. IMPRESSION: Nonacute abdomen. No change.
[2019-08-29 23:03] LABS: Appearance,Urine Clear (Clear); Bilirubin,Urine Negative (Negative); Blood,Urine Small (Negative); Color,Urine Yellow; Glucose,Urine (UA) Negative (Negative); Ketones,Urine 2+ (Negative); Leukocyte Esterase,Urine Negative (Negative); Mucus,Urine Rare /hpf; Nitrite,Urine Negative (Negative); Protein,Urine Negative (Negative); RBC,Urine 2 /hpf (0-5); Specific Gravity,Urine 1.009 (1.001-1.035); Squamous Epithelial Cell,Urine 3 /hpf (0-4); Urobilinogen,Urine <2.0 mg/dL (<2.0); WBC,Urine 2 /hpf (0-5)
[2019-08-29] MEDS ORDERED: HYDROmorphone 0.5 MG/0.5 ML SYRINGE IVP STA (23:17)
[2019-08-29 23:53] VITALS: BP 108/87; PULSE 83; RESP 16; TEMP 98.3
--- NOTE | 2019-08-30 00:48 | ED ---
General Adult HPI - General Chief complaint: Abdominal Pain Stated complaint: Diarrhea,abd pain Time Seen by Provider: 08/29/19 20:45 Source: patient, family, RN notes reviewed, old records reviewed Mode of arrival: ambulatory Limitations: no limitations - History of Present Illness Initial comments: 34-year-old male patient passed history cholecystectomy, renal calculi, ENT chief complaint of abdominal pain. Patient reports if the last 4 days she has h ad generalized abdominal pain as well as diarrhea. Patient believes that she may have Clostridium difficile again. Patient reports that she last had C. diff and 2017. Patient denies any other complaints at this time. Systemic: Pt denies fatigue, fever/chills, rash. Pt denies weakness, night swea ts, weight loss. Neuro: Pt denies headache, visual disturbances, syncope or pre-syncope. HEENT: Pt denies ocular discharge or irritation, otalgia, rhinorrhea, pharyngitis or notable lymphadenopathy. Cardiopulmonary: Pt denies chest pain, SOB, heart palpitations, dyspnea on exertion. : Pt denies dysuria, burning w/ urination, frequency/urgency. Denies new onset urinary or bowel incontinence. MSK: Pt denies myalgia, loss of strength or function in extremities. Neuro: Pt denies new onset weakness, paresthesias. - Related Data Home Medications Medication Instructions Recorded Confirmed Tamsulosin [Flomax] 0.4 mg PO HS 07/30/19 08/17/19 HYDROcodone/APAP 5-325MG [[place] 1 tab PO Q4HR PRN 08/10/19 08/17/19 5-325] Oxybutynin Chloride [Ditropan XL] 10 mg PO DAILY 08/10/19 08/17/19 Previous Rx's Medication Instructions Recorded Metoclopramide HCl [Reglan] 10 mg PO Q6HR PRN #10 tablet 08/12/19 Allergies Allergy/AdvReac Type Severity Reaction Status Date / Time ketorolac [From Toradol] Allergy Rash/Hives Verified 08/29/19 20:23 latex Allergy Rash/Hives Verified 08/29/19 20:23 morphine Allergy Rash/Hives Verified 08/29/19 20:23 ondansetron [From Zofran] Allergy Rash/Hives Verified 08/29/19 20:23 Review of Systems ROS Statement: Those systems with pertinent positive or pertinent negative responses have been documented in the HPI. ROS Other: All systems not noted in ROS Statement are negative. Past Medical History Past Medical History: Asthma, Pneumonia, Renal Disease Additional Past Medical History / Comment(s): Pt recently admitted to [facility] on 07/23/19 with r flank pain/possible acute pyelonephritis, intractable nausea/vomiting. Other Hx: Previous kidney stones, UTIs History of Any Multi-Drug Resistant Organisms: None Reported, C-DIFF Date of last positivie culture/infection: stool MDRO Source:: 2016 Past Surgical History: Cholecystectomy Additional Past Surgical History / Comment(s): Cystoscopies, L ureteroscopy with laser litho, colonoscopy Past Anesthesia/Blood Transfusion Reactions: No Reported Reaction Past Psychological History: Bipolar Smoking Status: Current every day smoker Past Alcohol Use History: None Reported Past Drug Use History: None Reported - Past Family History Father Family Medical History: Cancer Additional Family Medical History / Comment(s): colon cancer Mother Family Medical History: Hypertension General Exam - General Exam Comments Initial Comments: Constitutional: NAD, AOX3, Pt has pleasant affect. HEENT: NC/AT, trachea midline, neck supple, no lymphadenopathy. Posterior pharynx non erythematous, without exudates. External ears appear normal, without discharge. Mucous membranes moist. Eyes PERRLA, EOM intact. There is no scleral icterus. No pallor noted. Cardiopulmonary: RRR, no murmurs, rubs or gallops, no JVD noted. Lungs CTAB in anterior and posterior sanchez. No peripheral edema. Abdominal exam: Abdomen soft and non-distended. Abdomen displays generalized tenderness. No rebound tenderness or rigidity.. Bowel sounds active in LLQ. No hepatosplenomegaly. No ecchymosis Neuro: CN II-XII grossly intact. No nuchal rigidity. No raccon eyes, no feldman sign, no hemotympanum. No cervical spinal tenderness. MSK: No posterior calf tenderness bilaterally, homans sign negative bilaterally. Posterior tibialis and radial pulse +2 bilaterally. Sensation intact in upper and lower extremities. Full active ROM in upper and lower extremities, 5/5 stregnth. Limitations: no limitations Course Vital Signs 08/29/19 08/29/19 20:20 23:52 Temperature 99.8 F H 98.3 F Pulse Rate 105 H 83 Respiratory 20 16 Rate Blood Pressure 117/87 108/87 O2 Sat by Pulse 100 98 Oximetry Medical Decision Making - Medical Decision Making 34-year-old male patient passed history cholecystectomy, renal calculi, ENT chief complaint of abdominal pain. Patient reports if the last 4 days she has had generalized abdominal pain as well as diarrhea. Patient believes that she may have Clostridium difficile again. Patient reports that she last had C. diff and 2017. Patient denies any other complaints at this time. She will signs stable, afebrile. Physical exam displayed generalized abdominal tenderness. Investigations non-impressive. Mild elevation of AST ALT. CRP negative. UA noncompressive. KUB just acute process. Patient did not provide a stool sample for evaluation for C. diff. Patient to kind any further imaging. Patient discharged will follow up with primary care provider. Case discussed with Dr. Andrews. - Lab Data Result diagrams: 08/29/19 22:05 08/29/19 22:05 Lab Results 08/29/19 08/29/19 08/29/19 Range/Units 22:05 22:05 22:05 WBC 9.6 (3.8-10.6) k/uL RBC 4.34 (3.80-5.40) m/uL Hgb 12.9 (11.4-16.0) gm/dL Hct 37.7 (34.0-46.0) % MCV 87.0 (80.0-100.0) fL MCH 29.8 (25.0-35.0) pg MCHC 34.2 (31.0-37.0) g/dL RDW 14.4 (11.5-15.5) % Plt Count 265 (150-450) k/uL Neutrophils % 74 % Lymphocytes % 17 % Monocytes % 6 % Eosinophils % 1 % Basophils % 1 % Neutrophils # 7.1 (1.3-7.7) k/uL Lymphocytes # 1.6 (1.0-4.8) k/uL Monocytes # 0.6 (0-1.0) k/uL Eosinophils # 0.1 (0-0.7) k/uL Basophils # 0.1 (0-0.2) k/uL Sodium 135 L (137-145) mmol/L Potassium 3.5 (3.5-5.1) mmol/L Chloride 102 (98-107) mmol/L Carbon Dioxide 20 L (22-30) mmol/L Anion Gap 13 mmol/L BUN 4 L (7-17) mg/dL Creatinine 0.60 (0.52-1.04) mg/dL Est GFR (CKD-EPI)AfAm >90 (>60 ml/min/1.73 sqM) Est GFR (CKD-EPI)NonAf >90 (>60 ml/min/1.73 sqM) Glucose 95 (74-99) mg/dL Plasma Lactic Acid Alfredo 0.7 (0.7-2.0) mmol/L Calcium 9.2 (8.4-10.2) mg/dL Total Bilirubin 0.8 (0.2-1.3) mg/dL AST 58 H (14-36) U/L ALT 163 H (9-52) U/L Alkaline Phosphatase 44 (38-126) U/L C-Reactive Protein (<10.0) mg/L Total Protein 6.7 (6.3-8.2) g/dL Albumin 3.9 (3.5-5.0) g/dL Lipase 63 (23-300) U/L Urine Color Urine Appearance (Clear) Urine pH (5.0-8.0) Ur Specific [place] (1.001-1.035) Urine Protein (Negative) Urine Glucose (UA) (Negative) Urine Ketones (Negative) Urine Blood (Negative) Urine Nitrite (Negative) Urine Bilirubin (Negative) Urine Urobilinogen (<2.0) mg/dL Ur Leukocyte Esterase (Negative) Urine RBC (0-5) /hpf Urine WBC (0-5) /hpf Ur Squamous Epith Cells (0-4) /hpf Urine Mucus (None) /hpf Urine HCG, Qual (Not Detectd) 08/29/19 08/29/19 08/29/19 Range/Units 22:05 22:50 22:50 WBC (3.8-10.6) k/uL RBC (3.80-5.40) m/uL Hgb (11.4-16.0) gm/dL Hct (34.0-46.0) % MCV (80.0-100.0) fL MCH (25.0-35.0) pg MCHC (31.0-37.0) g/dL RDW (11.5-15.5) % Plt Count (150-450) k/uL Neutrophils % % Lymphocytes % % Monocytes % % Eosinophils % % Basophils % % Neutrophils # (1.3-7.7) k/uL Lymphocytes # (1.0-4.8) k/uL Monocytes # (0-1.0) k/uL Eosinophils # (0-0.7) k/uL Basophils # (0-0.2) k/uL Sodium (137-145) mmol/L Potassium (3.5-5.1) mmol/L Chloride (98-107) mmol/L Carbon Dioxide (22-30) mmol/L Anion Gap mmol/L BUN (7-17) mg/dL Creatinine (0.52-1.04) mg/dL Est GFR (CKD-EPI)AfAm (>60 ml/min/1.73 sqM) Est GFR (CKD-EPI)NonAf (>60 ml/min/1.73 sqM) Glucose (74-99) mg/dL Plasma Lactic Acid Alfredo (0.7-2.0) mmol/L Calcium (8.4-10.2) mg/dL Total Bilirubin (0.2-1.3) mg/dL AST (14-36) U/L ALT (9-52) U/L Alkaline Phosphatase (38-126) U/L C-Reactive Protein <5.0 (<10.0) mg/L Total Protein (6.3-8.2) g/dL Albumin (3.5-5.0) g/dL Lipase (23-300) U/L Urine Color Yellow Urine Appearance Clear (Clear) Urine pH 8.0 (5.0-8.0) Ur Specific [place] 1.009 (1.001-1.035) Urine Protein Negative (Negative) Urine Glucose (UA) Negative (Negative) Urine Ketones 2+ H (Negative) Urine Blood Small H (Negative) Urine Nitrite Negative (Negative) Urine Bilirubin Negative (Negative) Urine Urobilinogen <2.0 (<2.0) mg/dL Ur Leukocyte Esterase Negative (Negative) Urine RBC 2 (0-5) /hpf Urine WBC 2 (0-5) /hpf Ur Squamous Epith Cells 3 (0-4) /hpf Urine Mucus Rare H (None) /hpf Urine HCG, Qual Not Detected (Not Detectd) Disposition Clinical Impression: Abdominal pain, Diarrhea Disposition: HOME SELF-CARE Condition: Stable Instructions (If sedation given, give patient instructions): Abdominal Pain (ED) Additional Instructions: Patient to adhere to previously discussed treatment plan and will take medication(s) as directed. Patient to follow up with PCP in 1-2 days. Patient to return to ED if symptoms do not improve. Follow up with primary care provider tomorrow, return to ER if condition worsens. Is patient prescribed a controlled substance at d/c from ED?: No Referrals: Nonstaff,Physician [Primary Care Provider] - 1-2 days
== END 2019-08-30 01:06 | disposition home or self-care (01) ==
LOC: EC 20:19
DX: R10.84 Generalized abdominal pain (principal); R19.7 Diarrhea, unspecified; R10.817 Generalized abdominal tenderness; F17.200 Nicotine dependence, unspecified, uncomplicated; Z32.02 Encounter for pregnancy test, result negative; Z79.899 Other long term (current) drug therapy; Z88.5 Allergy status to narcotic agent; Z88.6 Allergy status to analgesic agent; Z91.040 Latex allergy status; Z88.8 Allergy status to other drugs, medicaments and biological substances; Z90.49 Acquired absence of other specified parts of digestive tract; Z87.442 Personal history of urinary calculi
CPT/HCPCS: 36415; 80053; 83605; 83690; 85025; 86140; 81001; 81025; 74018; 99284; 96374; 96375; 96376; 96361 ×3; J2765; J1170 ×2

== ENCOUNTER 2019-08-30 10:58 | Emergency (ER) | payer BC ==
[2019-08-30] MEDS ORDERED: SODIUM CHLORIDE 0.9% 1,000 ML IV STA (11:43)
[2019-08-30] MEDS ORDERED: METOCLOPRAMIDE 5 MG/ML 2 ML VIAL IVP STA (11:43)
[2019-08-30] MEDS ORDERED: HYDROmorphone 1 MG/ML 1 ML SYRINGE IVP STA (11:46)
--- NOTE | 2019-08-30 11:50 | ED ---
General Adult HPI - General Chief complaint: Abdominal Pain Stated complaint: poss C diff revisit Time Seen by Provider: 08/30/19 11:00 Source: patient, RN notes reviewed Mode of arrival: wheelchair Limitations: no limitations - History of Present Illness Initial comments: This is a 34-year-old female who presents emergency Department complaining of a weeklong history of diarrhea. Patient states she has a history of C. difficile and has been on antibiotics in the hospital on and off for the last couple of months. Patient states she's never gone home on antibiotics. Patient states she has not been on antibiotics for 2 weeks. Patient states she was receiving Rocephin in the hospital. Patient states she had a fever for 100 yesterday. Patient came to the emergency department yesterday and was told to follow-up with her primary medical care doctor. Patient's pain was diffuse throughout her abdomen and intermittent and she decided come back to the hospital. Patient also states yesterday started vomiting is unable to keep any fluids down. Patient denies any chest or back pain. Patient denies any difficulty breathing. Patient is mentioning she got Dilaudid yesterday. - Related Data Home Medications Medication Instructions Recorded Confirmed No Known Home Medications 08/30/19 08/30/19 Allergies Allergy/AdvReac Type Severity Reaction Status Date / Time ketorolac [From Toradol] Allergy Rash/Hives Verified 08/30/19 11:13 latex Allergy Rash/Hives Verified 08/30/19 11:13 morphine Allergy Rash/Hives Verified 08/30/19 11:13 ondansetron [From Zofran] Allergy Rash/Hives Verified 08/30/19 11:13 Review of Systems ROS Statement: Those systems with pertinent positive or pertinent negative responses have been documented in the HPI. ROS Other: All systems not noted in ROS Statement are negative. Past Medical History Past Medical History: Asthma, Pneumonia, Renal Disease Additional Past Medical History / Comment(s): Pt recently admitted to [facility] on 07/23/19 with r flank pain/possible acute pyelonephritis, intractable na usea/vomiting. Other Hx: Previous kidney stones, UTIs History of Any Multi-Drug Resistant Organisms: None Reported, C-DIFF Date of last positivie culture/infection: stool MDRO Source:: 2016 Past Surgical History: Cholecystectomy Additional Past Surgical History / Comment(s): Cystoscopies, L ureteroscopy with laser litho, colonoscopy Past Anesthesia/Blood Transfusion Reactions: No Reported Reaction Past Psychological History: Bipolar Smoking Status: Current every day smoker Past Alcohol Use History: None Reported Past Drug Use History: None Reported - Past Family History Father Family Medical History: Cancer Additional Family Medical History / Comment(s): colon cancer Mother Family Medical History: Hypertension General Exam - General Exam Comments Initial Comments: GENERAL: Patient is well-developed and well-nourished. Patient is nontoxic and well-hydrated and is in mild distress. ENT: Neck is soft and supple. No significant lymphadenopathy is noted. Oropharynx is clear. Moist mucous membranes. Neck has full range of motion without eliciting any pain. EYES: The sclera were anicteric and conjunctiva were pink and moist. Extraocular movements were intact and pupils were equal round and reactive to light. Eyelids were unremarkable. PULMONARY: Unlabored respirations. Good breath sounds bilaterally. No audible rales rhonchi or wheezing was noted. CARDIOVASCULAR: There is a regular rate and rhythm without any murmurs gallops or rubs. ABDOMEN: Patient has diffuse tenderness consistent abdominal pain on palpation. There is no area of rebound or guarding. SKIN: Skin is clear with no lesions or rashes and otherwise unremarkable. NEUROLOGIC: Patient is alert and oriented x3. Cranial nerves II through XII are grossly intact. Motor and sensory are also intact. Normal speech, volume and content. Symmetrical smile. MUSCULOSKELETAL: Normal extremities with adequate strength and full range of motion. LYMPHATICS: No significant lymphadenopathy is noted PSYCHIATRIC: Normal psychiatric evaluation. Limitations: no limitations Course Vital Signs 08/30/19 11:01 Temperature 98.8 F Pulse Rate 84 Respiratory 18 Rate Blood Pressure 109/80 O2 Sat by Pulse 100 Oximetry Medical Decision Making - Medical Decision Making I went back into the room to reevaluate the patient she was resting comfortably. Patient was however requesting more pain meds from the nurses but when I spoke with her she did not request any more pain medication. Patient states she was unable to give us a sample of her stool for C. diff testing and she will do that as an outpatient. - Lab Data Result diagrams: 08/30/19 13:00 08/30/19 11:43 Lab Results 08/30/19 08/30/19 08/30/19 Range/Units 11:43 11:43 11:50 WBC (3.8-10.6) k/uL RBC (3.80-5.40) m/uL Hgb (11.4-16.0) gm/dL Hct (34.0-46.0) % MCV (80.0-100.0) fL MCH (25.0-35.0) pg MCHC (31.0-37.0) g/dL RDW (11.5-15.5) % Plt Count (150-450) k/uL Neutrophils % % Lymphocytes % % Monocytes % % Eosinophils % % Basophils % % Neutrophils # (1.3-7.7) k/uL Lymphocytes # (1.0-4.8) k/uL Monocytes # (0-1.0) k/uL Eosinophils # (0-0.7) k/uL Basophils # (0-0.2) k/uL Sodium 136 L (137-145) mmol/L Potassium 3.3 L (3.5-5.1) mmol/L Chloride 101 (98-107) mmol/L Carbon Dioxide 27 (22-30) mmol/L Anion Gap 8 mmol/L BUN 6 L (7-17) mg/dL Creatinine 0.65 (0.52-1.04) mg/dL Est GFR (CKD-EPI)AfAm >90 (>60 ml/min/1.73 sqM) Est GFR (CKD-EPI)NonAf >90 (>60 ml/min/1.73 sqM) Glucose 103 H (74-99) mg/dL Plasma Lactic Acid Alfredo 0.9 (0.7-2.0) mmol/L Calcium 8.8 (8.4-10.2) mg/dL Total Bilirubin 0.6 (0.2-1.3) mg/dL AST 47 H (14-36) U/L ALT 154 H (9-52) U/L Alkaline Phosphatase 45 (38-126) U/L Total Protein 6.3 (6.3-8.2) g/dL Albumin 3.8 (3.5-5.0) g/dL Amylase 31 (30-110) U/L Lipase 62 (23-300) U/L Urine Color Yellow Urine Appearance Clear (Clear) Urine pH 7.5 (5.0-8.0) Ur Specific [place] 1.012 (1.001-1.035) Urine Protein Negative (Negative) Urine Glucose (UA) Negative (Negative) Urine Ketones 1+ H (Negative) Urine Blood Moderate H (Negative) Urine Nitrite Negative (Negative) Urine Bilirubin Negative (Negative) Urine Urobilinogen 4.0 (<2.0) mg/dL Ur Leukocyte Esterase Trace H (Negative) Urine RBC 9 H (0-5) /hpf Urine WBC 3 (0-5) /hpf Ur Squamous Epith Cells 5 H (0-4) /hpf Urine Bacteria Rare H (None) /hpf Urine Mucus Rare H (None) /hpf 08/30/19 Range/Units 13:00 WBC 7.8 (3.8-10.6) k/uL RBC 4.07 (3.80-5.40) m/uL Hgb 12.5 (11.4-16.0) gm/dL Hct 35.2 (34.0-46.0) % MCV 86.5 (80.0-100.0) fL MCH 30.8 (25.0-35.0) pg MCHC 35.6 (31.0-37.0) g/dL RDW 14.3 (11.5-15.5) % Plt Count 261 (150-450) k/uL Neutrophils % 76 % Lymphocytes % 16 % Monocytes % 6 % Eosinophils % 1 % Basophils % 1 % Neutrophils # 5.9 (1.3-7.7) k/uL Lymphocytes # 1.3 (1.0-4.8) k/uL Monocytes # 0.5 (0-1.0) k/uL Eosinophils # 0.1 (0-0.7) k/uL Basophils # 0.0 (0-0.2) k/uL Sodium (137-145) mmol/L Potassium (3.5-5.1) mmol/L Chloride (98-107) mmol/L Carbon Dioxide (22-30) mmol/L Anion Gap mmol/L BUN (7-17) mg/dL Creatinine (0.52-1.04) mg/dL Est GFR (CKD-EPI)AfAm (>60 ml/min/1.73 sqM) Est GFR (CKD-EPI)NonAf (>60 ml/min/1.73 sqM) Glucose (74-99) mg/dL Plasma Lactic Acid Alfredo (0.7-2.0) mmol/L Calcium (8.4-10.2) mg/dL Total Bilirubin (0.2-1.3) mg/dL AST (14-36) U/L ALT (9-52) U/L Alkaline Phosphatase (38-126) U/L Total Protein (6.3-8.2) g/dL Albumin (3.5-5.0) g/dL Amylase (30-110) U/L Lipase (23-300) U/L Urine Color Urine Appearance (Clear) Urine pH (5.0-8.0) Ur Specific [place] (1.001-1.035) Urine Protein (Negative) Urine Glucose (UA) (Negative) Urine Ketones (Negative) Urine Blood (Negative) Urine Nitrite (Negative) Urine Bilirubin (Negative) Urine Urobilinogen (<2.0) mg/dL Ur Leukocyte Esterase (Negative) Urine RBC (0-5) /hpf Urine WBC (0-5) /hpf Ur Squamous Epith Cells (0-4) /hpf Urine Bacteria (None) /hpf Urine Mucus (None) /hpf Disposition Clinical Impression: Diarrhea Disposition: HOME SELF-CARE Condition: Good Is patient prescribed a controlled substance at d/c from ED?: No Referrals: Nonstaff,Physician [Primary Care Provider] - 1-2 days Time of Disposition: 14:44
[2019-08-30 13:11] LABS: Appearance,Urine Clear (Clear); Bacteria,Urine Rare /hpf; Bilirubin,Urine Negative (Negative); Blood,Urine Moderate (Negative); Color,Urine Yellow; Glucose,Urine (UA) Negative (Negative); Ketones,Urine 1+ (Negative); Leukocyte Esterase,Urine Trace (Negative); Mucus,Urine Rare /hpf; Nitrite,Urine Negative (Negative); PH, Urine 7.5 (5.0-8.0); Protein,Urine Negative (Negative); RBC,Urine 9 /hpf (0-5); Specific Gravity,Urine 1.012 (1.001-1.035); Squamous Epithelial Cell,Urine 5 /hpf (0-4); WBC,Urine 3 /hpf (0-5)
[2019-08-30 13:12] LABS: ALT 154 U/L (9-52); AST 47 U/L (14-36); African American GFR (CKD) >90 (>60 ml/min/1.73 sqM); Albumin 3.8 g/dL (3.5-5.0); Alkaline Phosphatase 45 U/L (38-126); Amylase 31 U/L (30-110); Anion Gap 8 mmol/L; Blood Urea Nitrogen 6 mg/dL (7-17); Calcium 8.8 mg/dL (8.4-10.2); Carbon Dioxide 27 mmol/L (22-30); Chloride 101 mmol/L (98-107); Glucose 103 mg/dL (74-99); Potassium 3.3 mmol/L (3.5-5.1); Sodium 136 mmol/L (137-145); Total Bilirubin 0.6 mg/dL (0.2-1.3); Total Protein 6.3 g/dL (6.3-8.2)
[2019-08-30 13:28] LABS: Basophils % (A) 1 %; Eosinophils # (A) 0.1 k/uL (0-0.7); Eosinophils % (A) 1 %; HCT 35.2 % (34.0-46.0); HGB 12.5 gm/dL (11.4-16.0); Lymphocytes # (A) 1.3 k/uL (1.0-4.8); Lymphocytes % (A) 16 %; MCH 30.8 pg (25.0-35.0); MCHC 35.6 g/dL (31.0-37.0); MCV 86.5 fL (80.0-100.0); Mean Platelet Volume 6.1; Monocytes # (A) 0.5 k/uL (0-1.0); Monocytes % (A) 6 %; Neutrophils # (A) 5.9 k/uL (1.3-7.7); Neutrophils % (A) 76 %; Platelet Count 261 k/uL (150-450); RBC 4.07 m/uL (3.80-5.40); RDW 14.3 % (11.5-15.5); WBC 7.8 k/uL (3.8-10.6)
[2019-08-30 14:59] VITALS: PULSE 87; RESP 16
[2019-08-30 15:00] VITALS: BP 122/70; TEMP 98
== END 2019-08-30 14:59 | disposition home or self-care (01) ==
LOC: EC 10:58
DX: R19.7 Diarrhea, unspecified (principal); R50.9 Fever, unspecified; R10.84 Generalized abdominal pain; R11.10 Vomiting, unspecified; F17.200 Nicotine dependence, unspecified, uncomplicated; Z87.01 Personal history of pneumonia (recurrent); Z87.440 Personal history of urinary (tract) infections; Z87.442 Personal history of urinary calculi; Z90.49 Acquired absence of other specified parts of digestive tract; Z98.890 Other specified postprocedural states; Z88.5 Allergy status to narcotic agent; Z88.6 Allergy status to analgesic agent; Z88.8 Allergy status to other drugs, medicaments and biological substances; Z91.040 Latex allergy status; Z86.19 Personal history of other infectious and parasitic diseases
CPT/HCPCS: 99284 ×2; 96374 ×2; 96375 ×2; 96361 ×2; 36415; 36410; 76937; 80053; 82150; 83605; 83690; 85025; 81001; J2765; J1170

== ENCOUNTER 2019-09-02 16:19 | Observation (INO) | payer BC ==
[2019-09-02] MEDS ORDERED: SODIUM CHLORIDE 0.9% 1,000 ML IV STA (16:48)
[2019-09-02] MEDS ORDERED: METOCLOPRAMIDE 5 MG/ML 2 ML VIAL IVP STA (16:48)
[2019-09-02 17:14] LABS: Basophils # (A) 0.1 k/uL (0-0.2); Basophils % (A) 1 %; Eosinophils # (A) 0.1 k/uL (0-0.7); Eosinophils % (A) 1 %; HCT 40.6 % (34.0-46.0); HGB 13.3 gm/dL (11.4-16.0); Lymphocytes # (A) 1.4 k/uL (1.0-4.8); Lymphocytes % (A) 14 %; MCH 29.4 pg (25.0-35.0); MCHC 32.9 g/dL (31.0-37.0); MCV 89.3 fL (80.0-100.0); Mean Platelet Volume 7.2; Monocytes # (A) 0.7 k/uL (0-1.0); Monocytes % (A) 7 %; Neutrophils # (A) 7.6 k/uL (1.3-7.7); Neutrophils % (A) 76 %; Platelet Count 301 k/uL (150-450); RBC 4.54 m/uL (3.80-5.40); RDW 14.7 % (11.5-15.5)
[2019-09-02 17:24] LABS: ALT 96 U/L (9-52); AST 30 U/L (14-36); African American GFR (CKD) >90 (>60 ml/min/1.73 sqM); Albumin 4.2 g/dL (3.5-5.0); Alkaline Phosphatase 49 U/L (38-126); Amylase 52 U/L (30-110); Anion Gap 14 mmol/L; Blood Urea Nitrogen 6 mg/dL (7-17); Calcium 9.5 mg/dL (8.4-10.2); Carbon Dioxide 21 mmol/L (22-30); Chloride 99 mmol/L (98-107); Glucose 106 mg/dL (74-99); Potassium 3.3 mmol/L (3.5-5.1); Sodium 134 mmol/L (137-145); Total Bilirubin 0.7 mg/dL (0.2-1.3)
--- NOTE | 2019-09-02 17:28 | ED ---
General Adult HPI - General Source: family, RN notes reviewed Mode of arrival: ambulatory Limitations: no limitations <Jasen Coe - Last Filed: 09/02/19 19:57> <Lucy Toribio - Last Filed: 09/07/19 12:58> - General Chief complaint: Nausea/Vomiting/Diarrhea Stated complaint: CDIFF, KIDNEY PAIN Time Seen by Provider: 09/02/19 16:31 - History of Present Illness Initial comments: 34-year-old female presents to the emergency department for a chief complaint of diarrhea. Patient states she has had diarrhea for about a week. Patient is concerned she could've C. diff. Patient is also having abdominal pain. Sates it is a cramping pain in nature. Patient had an ultrasound of the kidneys and bladder that showed no obvious hydronephrosis. 2 KUBs were ordered that showed scattered small air-fluid levels. X-ray 4 days ago showed a nonacute abdomen. Patient previously was admitted for this and signed out AMA because she was not given Dilaudid. Patient has no other complaints at this time including shortness of breath, chest pain, headache, or visual changes. (Jasen Coe) - Related Data Previous Rx's Medication Instructions Recorded HYDROcodone/APAP 5-325MG [Harshaw 1 each PO Q6HR PRN #5 tab 09/03/19 5-325] Pantoprazole [Protonix] 40 mg PO DAILY #30 tablet. 09/03/19 Allergies Allergy/AdvReac Type Severity Reaction Status Date / Time ketorolac [From Toradol] Allergy Rash/Hives Verified 09/02/19 17:25 latex Allergy Rash/Hives Verified 09/02/19 17:25 morphine Allergy Rash/Hives Verified 09/02/19 17:25 ondansetron [From Zofran] Allergy Rash/Hives Verified 09/02/19 17:25 Review of Systems ROS Other: All systems not noted in ROS Statement are negative. <Jasen Coe - Last Filed: 09/02/19 19:57> ROS Other: All systems not noted in ROS Statement are negative. <Lucy Toribio - Last Filed: 09/07/19 12:58> ROS Statement: Those systems with pertinent positive or pertinent negative responses have been documented in the HPI. Past Medical History Past Medical History: Asthma, Pneumonia, Renal Disease Additional Past Medical History / Comment(s): Pt recently admitted to [facility] on 07/23/19 with r flank pain/possible acute pyelonephritis, intractable nausea/vomiting. Other Hx: Previous kidney stones, UTIs History of Any Multi-Drug Resistant Organisms: None Reported, C-DIFF Date of last positivie culture/infection: stool MDRO Source:: 2017 Past Surgical History: Cholecystectomy Additional Past Surgical History / Comment(s): Cystoscopies, L ureteroscopy with laser litho, colonoscopy Past Anesthesia/Blood Transfusion Reactions: No Reported Reaction Past Psychological History: Bipolar Smoking Status: Current every day smoker Past Alcohol Use History: None Reported Past Drug Use History: None Reported - Past Family History Father Family Medical History: Cancer Additional Family Medical History / Comment(s): colon cancer Mother Family Medical History: Hypertension <Jasen Coe P - Last Filed: 09/02/19 19:57> General Exam Limitations: no limitations General appearance: alert, in no apparent distress Head exam: Present: atraumatic, normocephalic, normal inspection Eye exam: Present: normal appearance, PERRL, EOMI. Absent: scleral icterus, conjunctival injection, periorbital swelling ENT exam: Present: normal exam, mucous membranes moist Neck exam: Present: normal inspection, full ROM. Absent: tenderness, meningismus, lymphadenopathy Respiratory exam: Present: normal lung sounds bilaterally. Absent: respiratory distress, wheezes, rales, rhonchi, stridor Cardiovascular Exam: Present: regular rate, normal rhythm, normal heart sounds. Absent: systolic murmur, diastolic murmur, rubs, gallop, clicks GI/Abdominal exam: Present: soft, tenderness (Generalized abdominal tenderness.), normal bowel sounds. Absent: distended, guarding, rebound, rigid Neurological exam: Present: alert <Jasen Coe P - Last Filed: 09/02/19 19:57> Course Vital Signs 09/02/19 09/02/19 09/02/19 16:27 19:08 21:32 Temperature 98.8 F 98.2 F 98.5 F Pulse Rate 94 93 78 Respiratory 20 18 18 Rate Blood Pressure 165/91 108/88 106/70 O2 Sat by Pulse 97 98 98 Oximetry Medical Decision Making - Lab Data Result diagrams: 09/02/19 17:02 10/03/19 17:02 <Jasen Coe - Last Filed: 09/02/19 19:57> - Lab Data Result diagrams: 09/02/19 17:02 09/02/19 17:02 <Lucy Toribio - Last Filed: 09/07/19 12:58> - Medical Decision Making 34-year-old female presents to the emergency department for a chief complaint of nausea vomiting diarrhea. This has been ongoing for about a week. Patient also having pain in her abdomen and back. States his history of kidney stones. He has been seen here several times and was admitted for kidney stone however this was found to be more edema presentation. She has been seen several times since then. Today patient has generalized abdominal tenderness. CBC Harshaw. Minimal hypokalemia noted on the chemistry. Urine however does show greater than 182 red blood cells. C. diff negative. Patient intractably nauseous and vomiting. Does have 2+ ketones in urine with evidence of dehydration. Patient requesting Dilaudid several times and is ALLERGIC to morphine and Toradol. Patient given tylenol and bentyl. Patient has been given Reglan as she is ALLERGIC to Zofran. Patient will be kept in the hospital for intractable nausea vomiting as well as hematuria. (Jasen Coe) I was available for consultation in the emergency department. The history and physical exam were done by the midlevel provider. I was consulted for this patients care. I reviewed the case with the midlevel provider and based on their presentation of the patient, I agree with the assessment, medical decision making and plan of care as documented. Chart was dictated using [employer] dictation software. Attempts were made to correct any dictation errors however some typographical errors may persist. (Lucy Toribio) - Lab Data Lab Results 09/02/19 09/02/19 09/02/19 Range/Units 17:02 17:02 17:12 WBC 10.0 (3.8-10.6) k/uL RBC 4.54 (3.80-5.40) m/uL Hgb 13.3 (11.4-16.0) gm/dL Hct 40.6 (34.0-46.0) % MCV 89.3 (80.0-100.0) fL MCH 29.4 (25.0-35.0) pg MCHC 32.9 (31.0-37.0) g/dL RDW 14.7 (11.5-15.5) % Plt Count 301 (150-450) k/uL Neutrophils % 76 % Lymphocytes % 14 % Monocytes % 7 % Eosinophils % 1 % Basophils % 1 % Neutrophils # 7.6 (1.3-7.7) k/uL Lymphocytes # 1.4 (1.0-4.8) k/uL Monocytes # 0.7 (0-1.0) k/uL Eosinophils # 0.1 (0-0.7) k/uL Basophils # 0.1 (0-0.2) k/uL Sodium 134 L (137-145) mmol/L Potassium 3.3 L (3.5-5.1) mmol/L Chloride 99 (98-107) mmol/L Carbon Dioxide 21 L (22-30) mmol/L Anion Gap 14 mmol/L BUN 6 L (7-17) mg/dL Creatinine 0.67 (0.52-1.04) mg/dL Est GFR (CKD-EPI)AfAm >90 (>60 ml/min/1.73 sqM) Est GFR (CKD-EPI)NonAf >90 (>60 ml/min/1.73 sqM) Glucose 106 H (74-99) mg/dL Calcium 9.5 (8.4-10.2) mg/dL Total Bilirubin 0.7 (0.2-1.3) mg/dL AST 30 (14-36) U/L ALT 96 H (9-52) U/L Alkaline Phosphatase 49 (38-126) U/L Total Protein 7.0 (6.3-8.2) g/dL Albumin 4.2 (3.5-5.0) g/dL Amylase 52 (30-110) U/L Lipase 56 (23-300) U/L Urine Color Urine Appearance (Clear) Urine pH (5.0-8.0) Ur Specific [place] (1.001-1.035) Urine Protein (Negative) Urine Glucose (UA) (Negative) Urine Ketones (Negative) Urine Blood (Negative) Urine Nitrite (Negative) Urine Bilirubin (Negative) Urine Urobilinogen (<2.0) mg/dL Ur Leukocyte Esterase (Negative) Urine RBC (0-5) /hpf Urine WBC (0-5) /hpf Ur Squamous Epith Cells (0-4) /hpf Amorphous Sediment (None) /hpf Hyaline Casts (0-2) /lpf Urine Mucus (None) /hpf Urine HCG, Qual (Not Detectd) C. difficile (EIA) Intrp Negative (Negative) 09/02/19 09/02/19 Range/Units 17:42 17:42 WBC (3.8-10.6) k/uL RBC (3.80-5.40) m/uL Hgb (11.4-16.0) gm/dL Hct (34.0-46.0) % MCV (80.0-100.0) fL MCH (25.0-35.0) pg MCHC (31.0-37.0) g/dL RDW (11.5-15.5) % Plt Count (150-450) k/uL Neutrophils % % Lymphocytes % % Monocytes % % Eosinophils % % Basophils % % Neutrophils # (1.3-7.7) k/uL Lymphocytes # (1.0-4.8) k/uL Monocytes # (0-1.0) k/uL Eosinophils # (0-0.7) k/uL Basophils # (0-0.2) k/uL Sodium (137-145) mmol/L Potassium (3.5-5.1) mmol/L Chloride (98-107) mmol/L Carbon Dioxide (22-30) mmol/L Anion Gap mmol/L BUN (7-17) mg/dL Creatinine (0.52-1.04) mg/dL Est GFR (CKD-EPI)AfAm (>60 ml/min/1.73 sqM) Est GFR (CKD-EPI)NonAf (>60 ml/min/1.73 sqM) Glucose (74-99) mg/dL Calcium (8.4-10.2) mg/dL Total Bilirubin (0.2-1.3) mg/dL AST (14-36) U/L ALT (9-52) U/L Alkaline Phosphatase (38-126) U/L Total Protein (6.3-8.2) g/dL Albumin (3.5-5.0) g/dL Amylase (30-110) U/L Lipase (23-300) U/L Urine Color Yellow Urine Appearance Cloudy H (Clear) Urine pH 8.5 H (5.0-8.0) Ur Specific [place] 1.015 (1.001-1.035) Urine Protein Trace H (Negative) Urine Glucose (UA) Negative (Negative) Urine Ketones 2+ H (Negative) Urine Blood Moderate H (Negative) Urine Nitrite Negative (Negative) Urine Bilirubin Negative (Negative) Urine Urobilinogen <2.0 (<2.0) mg/dL Ur Leukocyte Esterase Negative (Negative) Urine RBC >182 H (0-5) /hpf Urine WBC 4 (0-5) /hpf Ur Squamous Epith Cells 1 (0-4) /hpf Amorphous Sediment Occasional H (None) /hpf Hyaline Casts 2 (0-2) /lpf Urine Mucus Few H (None) /hpf Urine HCG, Qual Not Detected (Not Detectd) C. difficile (EIA) Intrp (Negative) Disposition Is patient prescribed a controlled substance at d/c from ED?: No Time of Disposition: 19:57 <Jasen Coe P - Last Filed: 09/02/19 19:57> Decision to Admit Reason: Admit from EC Decision Date: 09/02/19 Decision Time: 20:59 <Lucy Toribio - Last Filed: 09/07/19 12:58> Clinical Impression: Intractable nausea and vomiting, Dehydration Disposition: ADMITTED IP TO THIS HOSP Condition: Good
[2019-09-02 18:07] LABS: Amorphous Sediment,Urine Occasional /hpf; Appearance,Urine Cloudy (Clear); Bilirubin,Urine Negative (Negative); Blood,Urine Moderate (Negative); Color,Urine Yellow; Glucose,Urine (UA) Negative (Negative); Hyaline Casts,Urine 2 /lpf (0-2); Ketones,Urine 2+ (Negative); Leukocyte Esterase,Urine Negative (Negative); Mucus,Urine Few /hpf; Nitrite,Urine Negative (Negative); PH, Urine 8.5 (5.0-8.0); Protein,Urine Trace (Negative); RBC,Urine >182 /hpf (0-5); Specific Gravity,Urine 1.015 (1.001-1.035); Squamous Epithelial Cell,Urine 1 /hpf (0-4); Urobilinogen,Urine <2.0 mg/dL (<2.0); WBC,Urine 4 /hpf (0-5)
[2019-09-02] MEDS: ACETAMINOPHEN TAB 500 MG TAB PO STA ×2 (18:25→18:29)
[2019-09-02] MEDS ORDERED: DICYCLOMINE 10 MG/ML 2 ML AMP IM STA (19:36)
[2019-09-02] MEDS ORDERED: DICYCLOMINE 20 MG TAB PO STA (20:06)
[2019-09-02] MEDS ORDERED: ACETAMINOPHEN TAB 325 MG TAB PO PRN (21:00)
[2019-09-02] MEDS ORDERED: NALOXONE 0.4 MG/ML 1 ML VIAL IV PRN (21:00)
[2019-09-02] MEDS ORDERED: IBUPROFEN 400 MG TAB PO PRN (21:00)
[2019-09-02] MEDS: SODIUM CHLORIDE 0.9% 1,000 ML IV SCH (21:34)
[2019-09-02] MEDS ORDERED: PROMETHAZINE INJ 25 MG in SODIUM CHLORIDE 0.9% 50 ML IVPB ONE (21:45)
[2019-09-02 22:45] VITALS: BMI 34.2
[2019-09-02] MEDS ORDERED: SCOPOLAMINE 1.5MG/72HR PATCH TRANSDERM SCH (23:30)
--- NOTE | 2019-09-02 23:31 | P.HPIM ---
History of Present Illness H&P Date: 09/02/19 Chief Complaint: Nausea vomiting and diarrhea with flank pain The patient is a 34-year-old female with a past medical history of opioid dependence, ureteral colic with ureteral stone requiring ureteroscopic stone manipulation that presented to the ER via private vehicle with chief complaint of nausea vomiting flank pain and diarrhea. Apparently the patient reports that her symptoms began a week ago starting with diarrhea described as watery stools, she also has had intractable nausea and vomiting with multiple episodes of nonbloody bilious emesis and decreased ability to keep food or liquids down, she also complains of bilateral flank pain right greater than left. She denies any subjective fevers chills or night sweats, she does report lower abdomen pelvic pain, hematuria, and urgency. The patient reports recent antibiotic use. Patient presented here at the end of August with similar symptoms KUB done at that time showed no acute process, patient subsequently signed out AMA due to not being given Dilaudid for pain. In the ER today the patient had a comprehensive workup serum sodium 134 serum potassium 3.3 serum bicarb 21, urinalysis showing 2+ ketones with moderate blood and RBCs greater than 182 with occasional bacteria, C. diff negative, CBC normal. Patient was given Reglan and Bentyl and liter of fluids recommended for admission she was started on maintenance fluids as well. Review of Systems Pertinent positives per HPI all other review of system was was negative Past Medical History Past Medical History: Asthma, Pneumonia, Renal Disease Additional Past Medical History / Comment(s): Pt recently admitted to [facility] on 07/23/19 with r flank pain/possible acute pyelonephritis, intractable nausea/vomiting. Other Hx: Previous kidney stones, UTIs History of Any Multi-Drug Resistant Organisms: C-DIFF Date of last positivie culture/infection: stool MDRO Source:: 2016 Past Surgical History: Cholecystectomy Additional Past Surgical History / Comment(s): Cystoscopies, L ureteroscopy with laser litho, colonoscopy Past Anesthesia/Blood Transfusion Reactions: No Reported Reaction Past Psychological History: Bipolar Additional Psychological History / Comment(s): Pt resides with her grandmother. She is independent. Smoking Status: Current every day smoker Past Alcohol Use History: None Reported Additional Past Alcohol Use History / Comment(s): Pt started smoking in 2001 and is a half a ppd smoker. Past Drug Use History: None Reported - Past Family History Father Family Medical History: Cancer Additional Family Medical History / Comment(s): colon cancer Mother Family Medical History: Hypertension Medications and Allergies Home Medications Medication Instructions Recorded Confirmed Type No Known Home Medications 08/30/19 09/02/19 History Allergies Allergy/AdvReac Type Severity Reaction Status Date / Time ketorolac [From Toradol] Allergy Rash/Hives Verified 09/02/19 17:25 latex Allergy Rash/Hives Verified 09/02/19 17:25 morphine Allergy Rash/Hives Verified 09/02/19 17:25 ondansetron [From Zofran] Allergy Rash/Hives Verified 09/02/19 17:25 Physical Exam Vitals: Vital Signs Temp Pulse Resp BP Pulse Ox 09/02/19 21:32 98.5 F 78 18 106/70 98 09/02/19 19:08 98.2 F 93 18 108/88 98 09/02/19 16:27 98.8 F 94 20 165/91 97 Intake and Output 09/02/19 09/02/19 09/03/19 14:59 22:59 06:59 Other: Weight 102.058 kg Constitutional: No acute distress, conversant, pleasant Eyes: Anicteric sclerae, moist conjunctiva, no lid-lag, PERRLA ENMT: NC/AT,Oropharynx clear, no erythema, exudates Neck:Supple, FROM, no masses, or JVD, No carotid bruits; No thyromegaly Lungs: Clear to auscultation, Clear to percussion, Normal respiratory effort, no accessory muscle use Cardiovascular: Heart regular in rate and rhythm, No murmurs, gallops, or rubs no peripheral edema Abdominal: Soft Nontender, nom distended, no guarding, no rebound or rigidity, Normoactive bowel sounds No hepatomegaly, No splenomegaly, No palpable mass No abdominal wall hernia noted Skin: Normal temperature, tone, texture, turgor, No induration No subcutaneous nodules, No rash, lesions, No ulcers Extremities:No digital cyanosis No clubbing, Pedal pulses intact and symmetrical Radial pulses intact and symmetrical Normal gait and station, No calf tenderness Psychiatric: Alert and oriented to person, place and time, Appropriate affect Intact judgement Neuro: Muscles Strength 5/5 in all 4 extremities, Sensation to light touch grossly present throughout, Cranial nerves II-XII grossly intact. No focal sensory deficits Results CBC & Chem 7: 09/02/19 17:02 09/02/19 17:02 Labs: Abnormal Lab Results - Last 24 Hours (Table) 09/02/19 09/02/19 Range/Units 17:02 17:42 Sodium 134 L (137-145) mmol/L Potassium 3.3 L (3.5-5.1) mmol/L Carbon Dioxide 21 L (22-30) mmol/L BUN 6 L (7-17) mg/dL Glucose 106 H (74-99) mg/dL ALT 96 H (9-52) U/L Urine Appearance Cloudy H (Clear) Urine pH 8.5 H (5.0-8.0) Urine Protein Trace H (Negative) Urine Ketones 2+ H (Negative) Urine Blood Moderate H (Negative) Urine RBC >182 H (0-5) /hpf Amorphous Sediment Occasional H (None) /hpf Urine Mucus Few H (None) /hpf Thrombosis Risk Factor Assmnt - Choose All That Apply Any of the Below Risk Factors Present?: Yes Each Factor Represents 1 point: Obesity (BMI >25) Other Risk Factors: No Other congenital or acquired thrombophilia - If yes, enter type in comment: No Thrombosis Risk Factor Assessment Total Risk Factor Score: 1 Thrombosis Risk Factor Assessment Level: Low Risk Assessment and Plan (1) Intractable nausea and vomiting Current Visit: Yes Status: Acute Code(s): R11.2 - NAUSEA WITH VOMITING, UNSPECIFIED SNOMED Code(s): 499579606 (2) Bilateral flank pain Current Visit: Yes Status: Acute Code(s): R10.9 - UNSPECIFIED ABDOMINAL PAIN SNOMED Code(s): 177157587 (3) Hematuria Current Visit: Yes Status: Acute Code(s): R31.9 - HEMATURIA, UNSPECIFIED SNOMED Code(s): 64284453 (4) Hypokalemia Current Visit: Yes Status: Acute Code(s): E87.6 - HYPOKALEMIA SNOMED Code(s): 25571138 (5) Hyponatremia Current Visit: Yes Status: Acute Code(s): E87.1 - HYPO-OSMOLALITY AND HYPO NATREMIA SNOMED Code(s): 94211407 (6) Dehydration Current Visit: Yes Status: Acute Code(s): E86.0 - DEHYDRATION SNOMED Code(s): 21993402 (7) Diarrhea Current Visit: Yes Status: Acute Code(s): R19.7 - DIARRHEA, UNSPECIFIED SNOMED Code(s): 31818991 Plan: The patient observation anticipated less than 2 midnight stay with intractable nausea and vomiting with subsequent electrolyte abnormalities including hyponatremia mild and hypokalemia and dehydration. The patient has a history of ureterolithiasis requiring stone manipulation and removal of stent recently by urology Dr. Alvarez. The patient is managed supportively with antiemetics with Reglan, and scopolamine patch. She's given Tylenol and Bentyl for pain. Given patient's history of opioid dependence she is agreed to nonnarcotic therapies for her pain. We'll replace her potassium continue her on IV fluids and order CT abdomen and pelvis without contrast. We'll also consult urology for further recommendations. CODE STATUS: Full code Anticipated discharge: 1-[address] Prophylaxis: SCDs and heparin
--- NOTE | 2019-09-02 23:59 | CT ---
EXAM: CT Abdomen and Pelvis Without Intravenous Contrast CLINICAL HISTORY: Bilateral flank pain TECHNIQUE: Axial computed tomography images of the abdomen and pelvis without intravenous contrast. CTDI is 21.8 mGy and DLP is 1125.1 mGy-cm. This CT exam was performed using one or more of the following dose reduction techniques: automated exposure control, adjustment of the mA and/or kV according to patient size, and/or use of iterative reconstruction technique. COMPARISON: CT abdomen and pelvis dated 06/17/2019 FINDINGS: Lung bases: Unremarkable. No mass. No consolidation. ABDOMEN: Liver: Hepatic steatosis. Gallbladder and bile ducts: Gallbladder surgically absent. Pancreas: Unremarkable. Spleen: Unremarkable. Adrenals: Unremarkable. Kidneys and ureters: Nonobstructing calculi within the right kidney. Previously seen at this within left kidney is no longer visualized. No hydronephrosis. Stomach and bowel: Few scattered noninflamed colonic diverticula. PELVIS: Appendix: Appendix is unremarkable. Bladder: Unremarkable. Reproductive: Unremarkable as visualized. ABDOMEN and PELVIS: Intraperitoneal space: Unremarkable. Bones/joints: No acute fracture. No dislocation. Soft tissues: Unremarkable. Vasculature: Unremarkable. No abdominal aortic aneurysm. Lymph nodes: Unremarkable. IMPRESSION: Nonobstructing calculi within the right kidney. No hydronephrosis.
[2019-09-03 00:07] VITALS: RESP 16
[2019-09-03] MEDS: HEPARIN SODIUM,PORCINE 5,000 UNIT/ML 1 ML VIAL SQ SCH ×3 (00:08→15:33)
[2019-09-03] MEDS: POTASSIUM CHLORIDE 10 MEQ in WATER FOR INJECTION 1 100ML.BAG IVPB SCH ×4 (00:08→13:02)
[2019-09-03] MEDS ORDERED: METOCLOPRAMIDE 5 MG/ML 2 ML VIAL IVP PRN (04:11)
[2019-09-03] MEDS ORDERED: PANTOPRAZOLE 40 MG/10 ML VIAL IVP SCH ×2 (09:00→21:00)
[2019-09-03] MEDS: SODIUM CHLORIDE 0.9% 1,000 ML IV SCH ×2 (11:57→15:33)
--- NOTE | 2019-09-03 12:31 | XR ---
EXAMINATION TYPE: XR KUB DATE OF EXAM: 09/02/2019 COMPARISON: 08/29/2019 HISTORY: Pain TECHNIQUE: One view abdominal series FINDINGS: The osseous structures are intact. The bowel gas pattern is nonspecific. Lung bases are clear. Surg ical clips are seen in the gallbladder fossa. Suspect calcification overlying the right renal outline measuring 2 mm. IMPRESSION: 1. Findings suspicious for 2 mm right renal calculus.
[2019-09-03] MEDS ORDERED: SIMETHICONE 80 MG CHEWABLE PO PRN (12:35)
[2019-09-03] MEDS ORDERED: HYDROcodone/APAP 5-325MG 1 EACH TAB PO PRN (12:35)
[2019-09-03 13:12] VITALS: BP 110/73; PULSE 60; TEMP 98.1
--- NOTE | 2019-09-03 17:40 | P.DS ---
Providers Date of admission: 09/02/19 21:13 Expected date of discharge: 09/03/19 Attending physician: Julito Ruiz MD Consults: 09/02/19 21:12 Consult Physician Urgent Consulting Provider: Xiang Tan Consult Reason/Comments: intractable n/v/d Do you want consulting provider notified?: Yes, Notify in am Primary care physician: Physician Nonstaff Hospital Course: Discharge Diagnosis: Intractable nausea and vomiting Diarrhea Hypokalemia Clinical dehydration Hyponatremia Hospital Course: Patient is a 34-year-old female past medical history of opiate dependency, ureteric colic with ureteral stone requiring ureteroscopic stone manipulation by urology, asthma, and prior pneumonia who presented to the emergency department with complaints of nausea, vomiting, and diarrhea. In the ER she was found to have a sodium of 134, potassium 3.3, BUN 10, into plus ketones in her urine. She underwent a KUB which was suspicious for a 2 mm right renal calculus. She was admitted for her intractable nausea and vomiting. She was started on Bentyl, Reglan, and IV Protonix. By the morning after admission her nausea and vomiting had subsided and she was asking to eat. She continued to complain of abdominal pain. She reported continued diarrhea and she was given 1 dose of cholelithiasis thiamine. GI has been consulted myself on the evening of 09/03 she states she felt much better and was requesting discharge home with a prescription for [place]. Patient was given a prescription for 5 Oxford tablets. She'll follow up with Dr. Tan in outpatient clinic. She was discharged home in stable condition. Maps was reviewed. Patient seen and examined at bedside. On my initial evaluation was still complaining of crampy abdominal pain, nausea and vomiting had resolved, still had 2 bowel movements. Vital signs reviewed and stable. General: non toxic, no distress, appears at stated age Derm: warm, dry Head: atraumatic, normocephalic, symmetric Eyes: EOMI, no lid lag, anicteric sclera Mouth: no lip lesion, mucus membranes moist Cardiovascular: S1S2 reg, no murmur, positive posterior tibial pulse bilateral, Lungs: CTA bilateral, no rhonchi, no rales , no accessory muscle use Abdominal: soft, nontender to palpation, no guarding, no appreciable organomegaly Ext: no gross muscle atrophy, no edema, no contractures Neuro: CN II-XI grossly intact, no focal neuro deficits Psych: Alert, oriented, appropriate affect A total of 25 minutes of time were spent preparing this complex discharge summary . Pertinent Studies: CT abdomen and pelvis-nonobstructing calculi within the right kidney Patient Condition at Discharge: Fair Plan - Discharge Summary Discharge Rx Participant: Yes New Discharge Prescriptions: New HYDROcodone/APAP 5-325MG [[place] 5-325] 1 each PO Q6HR PRN #5 tab PRN Reason: Pain Pantoprazole [Protonix] 40 mg PO DAILY #30 tablet. Discharge Medication List HYDROcodone/APAP 5-325MG [[place] 5-325] 1 each PO Q6HR PRN #5 tab 09/03/19 [Rx] Pantoprazole [Protonix] 40 mg PO DAILY #30 tablet. 09/03/19 [Rx] Follow up Appointment(s)/Referral(s): Nonstaff,Physician [Primary Care Provider] - 1-2 days
[2019-09-03] MEDS ORDERED: CHOLESTYRAMINE (WITH SUGAR) 4 GM PACKET PO SCH (18:00)
--- NOTE | 2019-09-04 12:11 | P.CONS ---
History of Present Illness - Reason for Consult Consult date: 09/03/19 Nausea vomiting diarrhea Requesting physician: Julito Ruiz - Chief Complaint Nausea vomiting diarrhea - History of Present Illness 34-year-old female with a history of opioid dependence, ureteral colic, and prior admission for abdominal pain who presents to the hospital with complaints of nausea, vomiting and diarrhea. She reports over 1 week of nausea and vomiting occurring after eating and between meals. She reports intermittent diarrhea with frequent bowel movements occurring for 1-2 days and then improving for 1-2 days. She denies any blood per rectum. She also has associated abdominal pain described as cramping, uncontrollable diffusely across her abdomen and waxing and waning in intensity. She denies any sick contacts, travel, new medications or antibiotics prior to developing the symptoms. The patient had C. diff testing on presentation which was negative and laboratory findings of a WBC count of 10, hemoglobin 13.3, total bilirubin 0.7, alkaline phosphatase 49, AST 30 and ALTs 96. Patient is seen sitting bedside in her room. She is reporting that her abdominal pain is improved and she has tolerated a diet. She is asking for discharge at this time. Review of Systems REVIEW OF SYSTEMS: CONSTITUTIONAL: Denies any fevers, chills, weight change or fatigue. CARDIOVASCULAR: Denies any chest pain, palpitations high or low blood pressures RESPIRATORY: Denies any shortness of breath, hemoptysis or cough. GENITOURINARY: No dysuria or hematuria. MUSCULOSKELETAL: No weakness reported. SKIN: Denies any new rashes or lesions, jaundice or pallor. PSYCHIATRIC: Denies any depression or anxiety. NEUROLOGY: Denies headache, denies any new focal deficits. EARS/NOSE/THROAT: No recent hearing change, congestion, nasal discharge or sore throat. EYES: No pain in eyes, discharge or change in vision. GASTROINTESTINAL: As per HPI. Past Medical History Past Medical History: Asthma, Pneumonia, Renal Disease Additional Past Medical History / Comment(s): Pt recently admitted to [facility] on 07/23/19 with r flank pain/possible acute pyelonephritis, intractable nausea/vomiting. Other Hx: Previous kidney stones, UTIs History of Any Multi-Drug Resistant Organisms: C-DIFF Year Discovered:: stool MDRO Source:: 2016 Past Surgical History: Cholecystectomy Additional Past Surgical History / Comment(s): Cystoscopies, L ureteroscopy with laser litho, colonoscopy Past Anesthesia/Blood Transfusion Reactions: No Reported Reaction Past Psychological History: Bipolar Additional Psychological History / Comment(s): Pt resides with her grandmother. She is independent. Smoking Status: Current every day smoker Past Alcohol Use History: None Reported Additional Past Alcohol Use History / Comment(s): Pt started smoking in 2001 and is a half a ppd smoker. Past Drug Use History: None Reported - Past Family History Father Family Medical History: Cancer Additional Family Medical History / Comment(s): colon cancer Mother Family Medical History: Hypertension Medications and Allergies Home Medications Medication Instructions Recorded Confirmed Type HYDROcodone/APAP 5-325MG [[place] 1 each PO Q6HR PRN #5 tab 09/03/19 Rx 5-325] Pantoprazole [Protonix] 40 mg PO DAILY #30 tablet. 09/03/19 Rx Allergies Allergy/AdvReac Type Severity Reaction Status Date / Time ketorolac [From Toradol] Allergy Rash/Hives Verified 09/02/19 17:25 latex Allergy Rash/Hives Verified 09/02/19 17:25 morphine Allergy Rash/Hives Verified 09/02/19 17:25 ondansetron [From Zofran] Allergy Rash/Hives Verified 09/02/19 17:25 Physical Exam Vitals: Vital Signs Temp Pulse Resp BP Pulse Ox 09/03/19 13:57 16 09/03/19 13:00 98.1 F 60 16 110/73 99 On physical examination, patient appears comfortable in no apparent distress. HEAD: Normocephalic, atraumatic. EYES: No scleral icterus. No conjunctival injection. MOUTH: No lesions, tongue midline. NECK: Trachea midline, no gross abnormalities. CHEST: Clear to auscultation with no wheezing or rhonchi appreciated. HEART: Regular rate and rhythm. ABDOMEN: Soft, obese. Bowel sounds are positive. No organomegaly. No guarding or rigidity. EXTREMITIES: No pedal edema. SKIN: No rashes, no jaundice. NEUROLOGIC: Alert and oriented x3. No focal deficits. Results CBC & Chem 7: 09/02/19 17:02 09/02/19 17:02 Labs: Microbiology - Last 24 Hours (Table) 09/02/19 17:50 Urine Culture - Preliminary Urine,Voided Group D Enterococcus Assessment and Plan (1) Abdominal pain Narrative/Plan: 34-year-old female presenting with complaints of nausea, vomiting, diarrhea and abdominal pain. Symptoms occurred acutely over this past week. Suspect viral gastroenteritis. Currently the patient is seen sitting bedside reporting that pain and symptoms have improved. Status: Acute Code(s): R10.9 - UNSPECIFIED ABDOMINAL PAIN SNOMED Code(s): 05521519 (2) Diarrhea Status: Acute Code(s): R19.7 - DIARRHEA, UNSPECIFIED SNOMED Code(s): 02043348 Plan: Supportive care Okay for low lactose, low fiber diet over the next 10-14 days Was discharged on Protonix therapy Discussion with the patient about likely etiology of her symptoms, currently she is reporting she is feeling better and asking for discharge Okay for discharge from gastroenterology standpoint, this is been communicated to the nursing staff and medical team Thank you for allowing us to participate in the care of this patient
== END 2019-09-03 18:16 | disposition home or self-care (01) ==
LOC: EC 16:19 → 4MS4W 21:13
PROVIDERS: ADMIT Family Medicine; ATTEND Family Medicine
DX: R11.2 Nausea with vomiting, unspecified (principal); R19.7 Diarrhea, unspecified; E87.6 Hypokalemia; E86.0 Dehydration; E87.1 Hypo-osmolality and hyponatremia; J45.909 Unspecified asthma, uncomplicated; R10.9 Unspecified abdominal pain; R11.14 Bilious vomiting; F31.9 Bipolar disorder, unspecified; E66.9 Obesity, unspecified; Z68.34 Body mass index [BMI] 34.0-34.9, adult; F11.21 Opioid dependence, in remission; F17.210 Nicotine dependence, cigarettes, uncomplicated; Z79.899 Other long term (current) drug therapy; Z87.01 Personal history of pneumonia (recurrent); Z87.442 Personal history of urinary calculi; Z87.440 Personal history of urinary (tract) infections; Z16.24 Resistance to multiple antibiotics; Z90.49 Acquired absence of other specified parts of digestive tract; Z91.040 Latex allergy status; Z88.8 Allergy status to other drugs, medicaments and biological substances; Z88.5 Allergy status to narcotic agent; Z80.0 Family history of malignant neoplasm of digestive organs; Z82.49 Family history of ischemic heart disease and other diseases of the circulatory system; M54.9 Dorsalgia, unspecified
CPT/HCPCS: 96376; 96365; 96366; 96367; 96375 ×2; 96372; 96361; 99284; 36415; 36410; 76937; 80053; 82150; 83690; 85025; 81001; 81025; 87324; 87086; 87077; 87186; 74018; 74176; G0378 ×2; J1644; J2550; J2765 ×2; J3480; C9113

== ENCOUNTER 2019-10-04 10:37 | Emergency (ER) | payer BC ==
[2019-10-04] MEDS ORDERED: SODIUM CHLORIDE 0.9% 1,000 ML IV STA (11:07)
[2019-10-04] MEDS ORDERED: METOCLOPRAMIDE 5 MG/ML 2 ML VIAL IVP STA (11:07)
[2019-10-04] MEDS ORDERED: HYDROmorphone 0.5 MG/0.5 ML SYRINGE IVP STA (11:09)
[2019-10-04] MEDS ORDERED: KETOROLAC 30 MG/ML 1 ML VIAL IVP STA (11:25)
--- NOTE | 2019-10-04 11:42 | ED ---
Abdominal Pain HPI - General Chief Complaint: Abdominal Pain Stated Complaint: kidney pain Time Seen by Provider: 10/04/19 10:47 Source: patient Mode of arrival: ambulatory Limitations: no limitations - History of Present Illness Initial Comments: Patient is a 34-year-old female presenting to the emergency Department with complaints of right flank pain times one day. Patient has been in the ER previously for same complaint seeking pain medications and does have a history of kidney stones. Patient states her flank pain started yesterday and has been increasing severity. Patient states she's tried Motrin and Tylenol without relief of symptoms. Patient states she is also having burning with urination. Patient denies fever, chills, vomiting, diarrhea. Does admit to some nausea. Patient has no other complaints at this time. Upon arrival to the ER, vital signs are stable. - Related Data Home Medications Medication Instructions Recorded Confirmed Acetaminophen Tab [Tylenol] 975 mg PO DAILY PRN 10/04/19 10/04/19 Tamsulosin [Flomax] 0.4 mg PO DAILY 10/04/19 10/04/19 Previous Rx's Medication Instructions Recorded Metoclopramide [Reglan] 10 mg PO BID #10 tab 10/04/19 Allergies Allergy/AdvReac Type Severity Reaction Status Date / Time ketorolac [From Toradol] Allergy Rash/Hives Verified 10/04/19 11:21 latex Allergy Rash/Hives Verified 10/04/19 11:21 morphine Allergy Rash/Hives Verified 10/04/19 11:21 ondansetron [From Zofran] Allergy Rash/Hives Verified 10/04/19 11:21 Review of Systems ROS Statement: Those systems with pertinent positive or pertinent negative responses have been documented in the HPI. ROS Other: All systems not noted in ROS Statement are negative. Past Medical History Past Medical History: Asthma, Pneumonia, Renal Disease Additional Past Medical History / Comment(s): Pt recently admitted to [facility] on 07/23/19 with r flank pain/possible acute pyelonephritis, intractable nausea/vomiting. Other Hx: Previous kidney stones, UTIs History of Any Multi-Drug Resistant Organisms: C-DIFF Date of last positivie culture/infection: stool MDRO Source:: 2017 Past Surgical History: Cholecystectomy Additional Past Surgical History / Comment(s): Cystoscopies, L ureteroscopy with laser litho, colonoscopy Past Anesthesia/Blood Transfusion Reactions: No Reported Reaction Past Psychological History: Bipolar Smoking Status: Current every day smoker Past Alcohol Use History: None Reported Past Drug Use History: None Reported - Past Family History Father Family Medical History: Cancer Additional Family Medical History / Comment(s): colon cancer Mother Family Medical History: Hypertension General Exam - General Exam Comments Initial Comments: GENERAL: Well-appearing, well-nourished and in no acute distress, but appears uncomfortable holding her right side. HEAD: Atraumatic, normocephalic. EYES: Pupils equal round and reactive to light, extraocular movements intact, sclera anicteric, conjunctiva are normal. ENT: Nares patent, oropharynx clear without exudates. Moist mucous membranes. NECK: Normal range of motion, supple without lymphadenopathy or JVD. LUNGS: Breath sounds clear to auscultation bilaterally and equal. No wheezes rales or rhonchi. HEART: Regular rate and rhythm without murmurs, rubs or gallops. ABDOMEN: Tender to palpation of the right side as well as right flank area. No pain to palpation of the right upper or right lower quadrants. Mild suprapubic tender ness. Soft, normoactive bowel sounds. No guarding, no rebound. No masses appreciated. EXTREMITIES: Normal range of motion, no pitting or edema. No clubbing or cyanosis. PSYCH: Normal mood, normal affect. SKIN: Warm, Dry, normal turgor, no rashes or lesions noted. Limitations: no limitations Course Vital Signs 10/04/19 10/04/19 10:40 13:06 Temperature 98.4 F 98.2 F Pulse Rate 94 78 Respiratory 20 16 Rate Blood Pressure 113/68 113/74 O2 Sat by Pulse 100 98 Oximetry Medical Decision Making - Medical Decision Making Patient is a 34-year-old female well known to the ER presenting with right flank pain 2 days. Patient has history kidney stones. Vital signs are stable upon arrival. Lab work is unremarkable, UA shows a moderate amount of blood. KUB shows no acute changes, the previously questioned 2 mm right renal calculus is not well seen today. Patient was given fluids, morphine and Reglan with some improvement in symptoms. Discussed with patient this is most likely a stone that has recently passed. Patient is requesting to be discharged. Patient will be discharged with a Tylenol 3 starter pack and discussed continuing with her Flomax for the next few days. Patient was given prescription for Reglan. I recommended patient to follow up with her PCP. Patient is stable for discharge. Return parameters were discussed with the patient she verbalized understanding. Case discussed with Dr. Toribio. - Lab Data Result diagrams: 10/04/19 11:27 10/04/19 11: Lab Results 10/04/19 10/04/19 10/04/19 Range/Units 11: 11: 11: WBC 7.6 (3.8-10.6) k/uL RBC 4.26 (3.80-5.40) m/uL Hgb 13.0 (11.4-16.0) gm/dL Hct 39.0 (34.0-46.0) % MCV 91.6 (80.0-100.0) fL MCH 30.5 (25.0-35.0) pg MCHC 33.3 (31.0-37.0) g/dL RDW 14.1 (11.5-15.5) % Plt Count 284 (150-450) k/uL Neutrophils % 77 % Lymphocytes % 16 % Monocytes % 4 % Eosinophils % 1 % Basophils % 1 % Neutrophils # 5.9 (1.3-7.7) k/uL Lymphocytes # 1.2 (1.0-4.8) k/uL Monocytes # 0.3 (0-1.0) k/uL Eosinophils # 0.1 (0-0.7) k/uL Basophils # 0.1 (0-0.2) k/uL Sodium 139 (137-145) mmol/L Potassium 4.6 (3.5-5.1) mmol/L Chloride 106 (98-107) mmol/L Carbon Dioxide 26 (22-30) mmol/L Anion Gap 7 mmol/L BUN 6 L (7-17) mg/dL Creatinine 0.56 (0.52-1.04) mg/dL Est GFR (CKD-EPI)AfAm >90 (>60 ml/min/1.73 sqM) Est GFR (CKD-EPI)NonAf >90 (>60 ml/min/1.73 sqM) Glucose 101 H (74-99) mg/dL Calcium 9.1 (8.4-10.2) mg/dL Total Bilirubin 0.6 (0.2-1.3) mg/dL AST 34 (14-36) U/L ALT 34 (9-52) U/L Alkaline Phosphatase 29 L (38-126) U/L Total Protein 6.9 (6.3-8.2) g/dL Albumin 3.9 (3.5-5.0) g/dL Amylase 38 (30-110) U/L Lipase 60 (23-300) U/L Urine Color Urine Appearance (Clear) Urine pH (5.0-8.0) Ur Specific [place] (1.001-1.035) Urine Protein (Negative) Urine Glucose (UA) (Negative) Urine Ketones (Negative) Urine Blood (Negative) Urine Nitrite (Negative) Urine Bilirubin (Negative) Urine Urobilinogen (<2.0) mg/dL Ur Leukocyte Esterase (Negative) Urine RBC (0-5) /hpf Urine WBC (0-5) /hpf Ur Squamous Epith Cells (0-4) /hpf Urine Mucus (None) /hpf Urine HCG, Qual Not Detected (Not Detectd) 10/04/19 Range/Units 11:27 WBC (3.8-10.6) k/uL RBC (3.80-5.40) m/uL Hgb (11.4-16.0) gm/dL Hct (34.0-46.0) % MCV (80.0-100.0) fL MCH (25.0-35.0) pg MCHC (31.0-37.0) g/dL RDW (11.5-15.5) % Plt Count (150-450) k/uL Neutrophils % % Lymphocytes % % Monocytes % % Eosinophils % % Basophils % % Neutrophils # (1.3-7.7) k/uL Lymphocytes # (1.0-4.8) k/uL Monocytes # (0-1.0) k/uL Eosinophils # (0-0.7) k/uL Basophils # (0-0.2) k/uL Sodium (137-145) mmol/L Potassium (3.5-5.1) mmol/L Chloride (98-107) mmol/L Carbon Dioxide (22-30) mmol/L Anion Gap mmol/L BUN (7-17) mg/dL Creatinine (0.52-1.04) mg/dL Est GFR (CKD-EPI)AfAm (>60 ml/min/1.73 sqM) Est GFR (CKD-EPI)NonAf (>60 ml/min/1.73 sqM) Glucose (74-99) mg/dL Calcium (8.4-10.2) mg/dL Total Bilirubin (0.2-1.3) mg/dL AST (14-36) U/L ALT (9-52) U/L Alkaline Phosphatase (38-126) U/L Total Protein (6.3-8.2) g/dL Albumin (3.5-5.0) g/dL Amylase (30-110) U/L Lipase (23-300) U/L Urine Color Yellow Urine Appearance Clear (Clear) Urine pH 8.5 H (5.0-8.0) Ur Specific [place] 1.012 (1.001-1.035) Urine Protein Negative (Negative) Urine Glucose (UA) Negative (Negative) Urine Ketones Negative (Negative) Urine Blood Moderate H (Negative) Urine Nitrite Negative (Negative) Urine Bilirubin Negative (Negative) Urine Urobilinogen <2.0 (<2.0) mg/dL Ur Leukocyte Esterase Negative (Negative) Urine RBC 2 (0-5) /hpf Urine WBC 3 (0-5) /hpf Ur Squamous Epith Cells 6 H (0-4) /hpf Urine Mucus Rare H (None) /hpf Urine HCG, Qual (Not Detectd) Disposition Clinical Impression: Right ureteral calculus Disposition: HOME SELF-CARE Condition: Stable Instructions (If sedation given, give patient instructions): Kidney Stones (ED) Additional Instructions: Please return to the Emergency Department if symptoms worsen or any other concerns. Continue with Flomax at home as well as nausea medication and pain medication. Prescriptions: Metoclopramide [Reglan] 10 mg PO BID #10 tab Is patient prescribed a controlled substance at d/c from ED?: No Referrals: Nonstaff,Physician [Primary Care Provider] - 1-2 days
--- NOTE | 2019-10-04 11:45 | XR ---
EXAMINATION TYPE: XR KUB DATE OF EXAM: 10/04/2019 COMPARISON: 09/02/2019 HISTORY: Right-sided abdominal pain. History of nephrolithiasis. TECHNIQUE: Single view upright frontal abdominal radiograph FINDINGS: Mottled air is seen within the right hemicolon and pelvis. No dilated large or small bowel. Cholecystectomy clips are seen. The previously seen 2 mm right renal calculus is not well visualized . Lung bases are well aerated. Osseous structures appear intact. No suspicious calcifications in the abdomen or pelvis. IMPRESSION: The previously questioned 2 mm right renal calculus is not well seen. Ultrasound could as sess for hydronephrosis. Mottled air in the right hemicolon may be physiologic although can be seen i n colitis.
[2019-10-04] MEDS ORDERED: MORPHINE SULFATE 2 MG/ML SYRINGE IVP ONE (11:52)
[2019-10-04 11:59] LABS: Basophils # (A) 0.1 k/uL (0-0.2); Basophils % (A) 1 %; Eosinophils # (A) 0.1 k/uL (0-0.7); Eosinophils % (A) 1 %; Lymphocytes # (A) 1.2 k/uL (1.0-4.8); Lymphocytes % (A) 16 %; MCH 30.5 pg (25.0-35.0); MCHC 33.3 g/dL (31.0-37.0); MCV 91.6 fL (80.0-100.0); Mean Platelet Volume 7.1; Monocytes # (A) 0.3 k/uL (0-1.0); Monocytes % (A) 4 %; Neutrophils # (A) 5.9 k/uL (1.3-7.7); Neutrophils % (A) 77 %; Platelet Count 284 k/uL (150-450); RBC 4.26 m/uL (3.80-5.40); RDW 14.1 % (11.5-15.5); WBC 7.6 k/uL (3.8-10.6)
[2019-10-04 12:12] LABS: ALT 34 U/L (9-52); AST 34 U/L (14-36); African American GFR (CKD) >90 (>60 ml/min/1.73 sqM); Albumin 3.9 g/dL (3.5-5.0); Alkaline Phosphatase 29 U/L (38-126); Amylase 38 U/L (30-110); Anion Gap 7 mmol/L; Blood Urea Nitrogen 6 mg/dL (7-17); Calcium 9.1 mg/dL (8.4-10.2); Carbon Dioxide 26 mmol/L (22-30); Chloride 106 mmol/L (98-107); Glucose 101 mg/dL (74-99); Sodium 139 mmol/L (137-145); Total Bilirubin 0.6 mg/dL (0.2-1.3); Total Protein 6.9 g/dL (6.3-8.2)
[2019-10-04 12:14] LABS: Appearance,Urine Clear (Clear); Bilirubin,Urine Negative (Negative); Blood,Urine Moderate (Negative); Color,Urine Yellow; Glucose,Urine (UA) Negative (Negative); Ketones,Urine Negative (Negative); Leukocyte Esterase,Urine Negative (Negative); Mucus,Urine Rare /hpf; Nitrite,Urine Negative (Negative); PH, Urine 8.5 (5.0-8.0); Potassium 4.6 mmol/L (3.5-5.1); Protein,Urine Negative (Negative); RBC,Urine 2 /hpf (0-5); Specific Gravity,Urine 1.012 (1.001-1.035); Squamous Epithelial Cell,Urine 6 /hpf (0-4); Urobilinogen,Urine <2.0 mg/dL (<2.0)
[2019-10-04] MEDS ORDERED: ACET/COD 300 MG/30 MG STARTER PACK 6 TAB BTL PO STA (12:45)
[2019-10-04 13:08] VITALS: BP 113/74; PULSE 78; RESP 16; TEMP 98.2
== END 2019-10-04 13:07 | disposition home or self-care (01) ==
LOC: EC 10:37
DX: N20.1 Calculus of ureter (principal); F17.200 Nicotine dependence, unspecified, uncomplicated; Z88.6 Allergy status to analgesic agent; Z91.040 Latex allergy status; Z88.5 Allergy status to narcotic agent; Z88.8 Allergy status to other drugs, medicaments and biological substances; Z90.49 Acquired absence of other specified parts of digestive tract
CPT/HCPCS: 36415; 80053; 82150; 83690; 85025; 81001; 81025; 74018; 99284; 96374; 96375; 96361; J2765; J2270

== ENCOUNTER 2019-11-10 10:16 | Observation (INO) | payer BC ==
[2019-11-10] MEDS ORDERED: PANTOPRAZOLE 40 MG/10 ML VIAL IVP STA (10:27)
[2019-11-10] MEDS ORDERED: SODIUM CHLORIDE 0.9% 1,000 ML IV STA (10:27)
[2019-11-10] MEDS ORDERED: ACETAMINOPHEN TAB 500 MG TAB PO STA ×2 (10:31→10:49)
[2019-11-10] MEDS ORDERED: DICYCLOMINE 10 MG/ML 2 ML AMP IM STA (10:33)
[2019-11-10] MEDS ORDERED: METOCLOPRAMIDE 5 MG/ML 2 ML VIAL IVP STA (10:33)
[2019-11-10] MEDS ORDERED: diphenhydrAMINE 50 MG/ML 1 ML VIAL IVP STA (10:33)
--- NOTE | 2019-11-10 10:47 | ED ---
Abdominal Pain HPI - General Source: patient Mode of arrival: ambulatory Limitations: no limitations <Jalen Walls - Last Filed: 11/10/19 15:49> <Lucy Toribio - Last Filed: 11/15/19 13:33> - General Chief Complaint: Abdominal Pain Stated Complaint: kidney pain/poss CDIFF Time Seen by Provider: 11/10/19 10:22 - History of Present Illness Initial Comments: patient is a 34-year-old female with history of kidney stones and C. diff presenting to emergency Department with chief complaint of nausea vomiting bandar rrhea and abdominal pain. She reports ongoing, nonbloody diarrhea for the past 3 dayswith no improvement in symptoms. she states this feels like her last episode of C. diff. She reports the diarrhea is very mucousy and has a very strong odor. She also reports development of left flank pain during that time that radiates along to the left groin region. She reports this feels like her kidney stone. She reports nausea and nonbilious vomiting. She does report chills but no fevers. She denies urgency frequency or dysuria but does report some obstructive symptoms. Denies taking medication to alleviate his symptoms. (Jalen Walls) - Related Data Home Medications Medication Instructions Recorded Confirmed Buprenorphine HCl [Belbuca] 75 mcg SL BID 11/10/19 11/10/19 Previous Rx's Medication Instructions Recorded HYDROcodone/APAP 10-325MG [[place] 1 tab PO Q4HR PRN 3 Days #18 tab 11/12/19 10-325] Allergies Allergy/AdvReac Type Severity Reaction Status Date / Time ketorolac [From Toradol] Allergy Rash/Hives Verified 11/10/19 13:56 latex Allergy Rash/Hives Verified 11/10/19 13:56 morphine Allergy Rash/Hives Verified 11/10/19 13:56 ondansetron [From Zofran] Allergy Rash/Hives Verified 11/10/19 13:56 Review of Systems ROS Other: All systems not noted in ROS Statement are negative. <Jalen Walls - Last Filed: 11/10/19 15:49> ROS Other: All systems not noted in ROS Statement are negative. <Lucy Toribio - Last Filed: 11/15/19 13:33> ROS Statement: Those systems with pertinent positive or pertinent negative responses have been documented in the HPI. Past Medical History Past Medical History: Asthma, Pneumonia, Renal Disease Additional Past Medical History / Comment(s): Pt recently admitted to [facility] on 07/23/19 with r flank pain/possible acute pyelonephritis, intractable nausea/vomiting. Other Hx: Previous kidney stones, UTIs History of Any Multi-Drug Resistant Organisms: C-DIFF Date of last positivie culture/infection: stool MDRO Source:: 2017 Past Surgical History: Cholecystectomy Additional Past Surgical History / Comment(s): Cystoscopies, L ureteroscopy with laser litho, colonoscopy Past Anesthesia/Blood Transfusion Reactions: No Reported Reaction Past Psychological History: Anxiety, Bipolar Smoking Status: Current every day smoker Past Alcohol Use History: None Reported Past Drug Use History: None Reported - Past Family History Father Family Medical History: Cancer Additional Family Medical History / Comment(s): colon cancer Mother Family Medical History: Hypertension <Jalen Walls - Last Filed: 11/10/19 15:49> General Exam Limitations: no limitations General appearance: alert, in distress, obese Head exam: Present: atraumatic, normocephalic, normal inspection Eye exam: Present: normal appearance Pupils: Present: normal accommodation ENT exam: Present: normal exam, mucous membranes moist Neck exam: Present: normal inspection, full ROM Respiratory exam: Present: normal lung sounds bilaterally Cardiovascular Exam: Present: regular rate, normal rhythm, normal heart sounds GI/Abdominal exam: Present: soft, tenderness (diffuse abdominal tenderness. Left flank pain.), normal bowel sounds. Absent: distended, guarding, rebound, rigid, diminished bowel sounds, hyperactive bowel sounds, organomegaly, mass Extremities exam: Present: normal inspection Back exam: Present: normal inspection, full ROM, CVA tenderness (L) Neurological exam: Present: alert, oriented X3 Psychiatric exam: Present: normal affect, normal mood Skin exam: Present: warm, dry, intact, normal color <Jalen Walls - Last Filed: 11/10/19 15:49> Course Vital Signs 11/10/19 11/10/19 11/10/19 10:19 12:52 16:14 Temperature 98 F 98.0 F 98 F Pulse Rate 98 109 H 95 Respiratory 18 24 19 Rate Blood Pressure 121/82 121/94 115/71 O2 Sat by Pulse 98 94 L 97 Oximetry 12/11/19 12/11/19 12/11/19 17:00 17:03 17:20 Temperature 98.6 F Pulse Rate 96 Respiratory 15 17 18 Rate Blood Pressure 126/74 O2 Sat by Pulse 95 Oximetry Medical Decision Making - Lab Data Result diagrams: 11/10/19 11:45 11/10/19 11:45 <Jalen Walls - Last Filed: 11/10/19 15:49> - Lab Data Result diagrams: 11/10/19 11:45 11/10/19 11:45 <Lucy Toribio Yariel - Last Filed: 11/15/19 13:33> - Medical Decision Making Patient is a 34-year-old female who history kidney stones and C. diff presenting to the emergency department with a chief complaint of nausea vomiting diarrhea and abdominal pain. Patient appears to be in pain on initial evaluation. Patient has history of opiate addiction. On exam patient has left flank pain and CVA tenderness. Tenderness appears to be radiating along the left groin region. Patient states she is in a lot of pain and is requesting Dilaudid. He was difficult to establish IV access. Patient given fluids, Reglan and Benadryl initially. A reevaluation patient states the nausea is still there as she is continuing to vomit. Patient given IM Phenergan after IV access was lost. Symptoms are continuing to persist. No analgesia provided considering the patient has an opiate addiction. Acetaminophen provided. UA shows +2 ketones but no microscopic hematuria. At this point I have low suspicion for a renal stone. CBC does show mild leukocytosis which is most likely secondary to the continuous nausea or vomiting. C. diff negative. KUB shows a nonobstructive bowel pattern. Patient had a recent CT of abdomen and pelvis showing a right- sided renal calculus with no hydronephrosis. No further imaging was warranted a t this time. Patient will be admitted for intractable nausea vomiting. Case discussed with Dr. Sidhu. Admitting physician is Dr. Murillo. (Jalen Walls) I was available for consultation in the emergency department. The history and physical exam were done by the midlevel provider. I was consulted for this patients care. I reviewed the case with the midlevel provider and based on their presentation of the patient, I agree with the assessment, medical decision making and plan of care as documented. Chart was dictated using [facility] dictation software. Attempts were made to correct any dictation errors however some typographical errors may persist. (Lucy Toribio) - Lab Data Lab Results 11/10/19 11/10/19 11/10/19 Range/Units 11:45 11:45 12:00 WBC 11.4 H (3.8-10.6) k/uL RBC 4.58 (3.80-5.40) m/uL Hgb 14.6 (11.4-16.0) gm/dL Hct 41.2 (34.0-46.0) % MCV 90.0 (80.0-100.0) fL MCH 31.8 (25.0-35.0) pg MCHC 35.3 (31.0-37.0) g/dL RDW 13.7 (11.5-15.5) % Plt Count 329 (150-450) k/uL Neutrophils % 82 % Lymphocytes % 10 % Monocytes % 5 % Eosinophils % 1 % Basophils % 0 % Neutrophils # 9.3 H (1.3-7.7) k/uL Lymphocytes # 1.2 (1.0-4.8) k/uL Monocytes # 0.6 (0-1.0) k/uL Eosinophils # 0.1 (0-0.7) k/uL Basophils # 0.1 (0-0.2) k/uL Sodium 137 (137-145) mmol/L Potassium 3.6 (3.5-5.1) mmol/L Chloride 102 (98-107) mmol/L Carbon Dioxide 24 (22-30) mmol/L Anion Gap 11 mmol/L BUN 6 L (7-17) mg/dL Creatinine 0.72 (0.52-1.04) mg/dL Est GFR (CKD-EPI)AfAm >90 (>60 ml/min/1.73 sqM) Est GFR (CKD-EPI)NonAf >90 (>60 ml/min/1.73 sqM) Glucose 95 (74-99) mg/dL Calcium 9.8 (8.4-10.2) mg/dL Total Bilirubin 1.0 (0.2-1.3) mg/dL AST 29 (14-36) U/L ALT 47 (9-52) U/L Alkaline Phosphatase 63 (38-126) U/L Total Protein 7.6 (6.3-8.2) g/dL Albumin 4.6 (3.5-5.0) g/dL Amylase 53 (30-110) U/L Lipase 56 (23-300) U/L Urine Color Urine Appearance (Clear) Urine pH (5.0-8.0) Ur Specific [place] (1.001-1.035) Urine Protein (Negative) Urine Glucose (UA) (Negative) Urine Ketones (Negative) Urine Blood (Negative) Urine Nitrite (Negative) Urine Bilirubin (Negative) Urine Urobilinogen (<2.0) mg/dL Ur Leukocyte Esterase (Negative) Urine WBC (0-5) /hpf Ur Squamous Epith Cells (0-4) /hpf Urine Bacteria (None) /hpf Urine Mucus (None) /hpf Urine HCG, Qual (Not Detectd) Urine Opiates Screen (NotDetected) Ur Oxycodone Screen (NotDetected) Urine Methadone Screen (NotDetected) Ur Propoxyphene Screen (NotDetected) Ur Barbiturates Screen (NotDetected) U Tricyclic Antidepress (NotDetected) Ur Phencyclidine Scrn (NotDetected) Ur Amphetamines Screen (NotDetected) U Methamphetamines Scrn (NotDetected) U Benzodiazepines Scrn (NotDetected) Urine Cocaine Screen (NotDetected) U Marijuana (THC) Screen (NotDetected) C. difficile (EIA) Intrp Negative (Negative) 11/10/19 11/10/19 11/10/19 Range/Units 13:16 13:16 13:16 WBC (3.8-10.6) k/uL RBC (3.80-5.40) m/uL Hgb (11.4-16.0) gm/dL Hct (34.0-46.0) % MCV (80.0-100.0) fL MCH (25.0-35.0) pg MCHC (31.0-37.0) g/dL RDW (11.5-15.5) % Plt Count (150-450) k/uL Neutrophils % % Lymphocytes % % Monocytes % % Eosinophils % % Basophils % % Neutrophils # (1.3-7.7) k/uL Lymphocytes # (1.0-4.8) k/uL Monocytes # (0-1.0) k/uL Eosinophils # (0-0.7) k/uL Basophils # (0-0.2) k/uL Sodium (137-145) mmol/L Potassium (3.5-5.1) mmol/L Chloride (98-107) mmol/L Carbon Dioxide (22-30) mmol/L Anion Gap mmol/L BUN (7-17) mg/dL Creatinine (0.52-1.04) mg/dL Est GFR (CKD-EPI)AfAm (>60 ml/min/1.73 sqM) Est GFR (CKD-EPI)NonAf (>60 ml/min/1.73 sqM) Glucose (74-99) mg/dL Calcium (8.4-10.2) mg/dL Total Bilirubin (0.2-1.3) mg/dL AST (14-36) U/L ALT (9-52) U/L Alkaline Phosphatase (38-126) U/L Total Protein (6.3-8.2) g/dL Albumin (3.5-5.0) g/dL Amylase (30-110) U/L Lipase (23-300) U/L Urine Color Yellow Urine Appearance Cloudy H (Clear) Urine pH 8.5 H (5.0-8.0) Ur Specific [place] 1.015 (1.001-1.035) Urine Protein 1+ H (Negative) Urine Glucose (UA) Negative (Negative) Urine Ketones 2+ H (Negative) Urine Blood Negative (Negative) Urine Nitrite Negative (Negative) Urine Bilirubin Negative (Negative) Urine Urobilinogen 2.0 (<2.0) mg/dL Ur Leukocyte Esterase Negative (Negative) Urine WBC 6 H (0-5) /hpf Ur Squamous Epith Cells 48 H (0-4) /hpf Urine Bacteria Moderate H (None) /hpf Urine Mucus Many H (None) /hpf Urine HCG, Qual Not Detected (Not Detectd) Urine Opiates Screen Not Detected (NotDetected) Ur Oxycodone Screen Not Detected (NotDetected) Urine Methadone Screen Not Detected (NotDetected) Ur Propoxyphene Screen Not Detected (NotDetected) Ur Barbiturates Screen Not Detected (NotDetected) U Tricyclic Antidepress Not Detected (NotDetected) Ur Phencyclidine Scrn Not Detected (NotDetected) Ur Amphetamines Screen Not Detected (NotDetected) U Methamphetamines Scrn Not Detected (NotDetected) U Benzodiazepines Scrn Detected H (NotDetected) Urine Cocaine Screen Not Detected (NotDetected) U Marijuana (THC) Screen Not Detected (NotDetected) C. difficile (EIA) Intrp (Negative) Disposition Is patient prescribed a controlled substance at d/c from ED?: No Time of Disposition: 15:54 <Jalen Walls - Last Filed: 11/10/19 15:49> <Lucy Toribio - Last Filed: 11/15/19 13:33> Clinical Impression: Nausea vomiting and diarrhea, Left flank pain Disposition: ADMITTED IP TO THIS HOSP Condition: Stable
[2019-11-10 12:08] LABS: Basophils # (A) 0.1 k/uL (0-0.2); Basophils % (A) 0 %; Eosinophils # (A) 0.1 k/uL (0-0.7); Eosinophils % (A) 1 %; HCT 41.2 % (34.0-46.0); HGB 14.6 gm/dL (11.4-16.0); Lymphocytes # (A) 1.2 k/uL (1.0-4.8); Lymphocytes % (A) 10 %; MCH 31.8 pg (25.0-35.0); MCHC 35.3 g/dL (31.0-37.0); Mean Platelet Volume 7.9; Monocytes # (A) 0.6 k/uL (0-1.0); Monocytes % (A) 5 %; Neutrophils # (A) 9.3 k/uL (1.3-7.7); Neutrophils % (A) 82 %; Platelet Count 329 k/uL (150-450); RBC 4.58 m/uL (3.80-5.40); RDW 13.7 % (11.5-15.5); WBC 11.4 k/uL (3.8-10.6)
[2019-11-10 12:54] LABS: ALT 47 U/L (9-52); AST 29 U/L (14-36); African American GFR (CKD) >90 (>60 ml/min/1.73 sqM); Albumin 4.6 g/dL (3.5-5.0); Alkaline Phosphatase 63 U/L (38-126); Amylase 53 U/L (30-110); Anion Gap 11 mmol/L; Blood Urea Nitrogen 6 mg/dL (7-17); Calcium 9.8 mg/dL (8.4-10.2); Carbon Dioxide 24 mmol/L (22-30); Chloride 102 mmol/L (98-107); Glucose 95 mg/dL (74-99); Non-African American GFR(CKD) >90 (>60 ml/min/1.73 sqM); Potassium 3.6 mmol/L (3.5-5.1); Sodium 137 mmol/L (137-145); Total Protein 7.6 g/dL (6.3-8.2)
[2019-11-10] MEDS ORDERED: DIAZEPAM 5 MG/ML 2 ML INJ IVP STA (13:00)
[2019-11-10 13:36] LABS: Appearance,Urine Cloudy (Clear); Bacteria,Urine Moderate /hpf; Bilirubin,Urine Negative (Negative); Blood,Urine Negative (Negative); Color,Urine Yellow; Glucose,Urine (UA) Negative (Negative); Ketones,Urine 2+ (Negative); Leukocyte Esterase,Urine Negative (Negative); Mucus,Urine Many /hpf; Nitrite,Urine Negative (Negative); PH, Urine 8.5 (5.0-8.0); Protein,Urine 1+ (Negative); Specific Gravity,Urine 1.015 (1.001-1.035); Squamous Epithelial Cell,Urine 48 /hpf (0-4); WBC,Urine 6 /hpf (0-5)
--- NOTE | 2019-11-10 13:42 | XR ---
EXAMINATION TYPE: XR KUB DATE OF EXAM: 11/10/2019 COMPARISON: NONE HISTORY: Pain TECHNIQUE: Single supine KUB image of the abdomen is obtained FINDINGS: Small bowel demonstrates no evidence for dilatation or air fluid levels. Gas and fecal material is seen in non-distended colon. No convincing evidence for pneumoperitoneum. No unusual calcifications. The lung bases are clear. The osseous structures are intact. IMPRESSION: 1. Overall nonobstructive bowel gas pattern.
[2019-11-10] MEDS: PROMETHAZINE INJ 25 MG in SODIUM CHLORIDE 0.9% 50 ML IVPB STA ×2 (13:47→14:10)
[2019-11-10] MEDS ORDERED: PROMETHAZINE INJ 25 MG/ML 1 ML VIAL IM STA ×2 (14:07→17:01)
[2019-11-10] MEDS ORDERED: PROCHLORPERAZINE SUPPOSITORY 25 MG SUPP RECTAL PRN (15:46)
[2019-11-10] MEDS ORDERED: Acetaminophen-Codeine 300-30mg TAB PO PRN (15:46)
[2019-11-10] MEDS ORDERED: HYDROmorphone 1 MG/ML 1 ML SYRINGE IVP PRN (15:46)
[2019-11-10] MEDS ORDERED: ACETAMINOPHEN TAB 325 MG TAB PO PRN (15:46)
[2019-11-10] MEDS ORDERED: NALOXONE 0.4 MG/ML 1 ML VIAL IV PRN (15:46)
[2019-11-10] MEDS ORDERED: PROMETHAZINE 25 MG TAB PO PRN (15:46)
[2019-11-10] MEDS: HYDROmorphone 0.5 MG/0.5 ML SYRINGE IVP PRN ×2 (16:52→22:41)
--- NOTE | 2019-11-10 17:04 | P.HPIM ---
History of Present Illness Chief Complaint: Left flank pain with intractable nausea This is a 34-year-old female with past medical history of opiate addiction and urolithiasis who is coming in with complaint of severe left flank pain colicky in nature started 3 days ago without any particular provoking or alleviating factors accompanied by CPR intractable nausea in the form of dry heaving no particular vomitus material patient denies any krista abdominal pain. She may have had some diarrhea or loose bowel movement. She denies any hematuria, dysuria. She denies any fever, chills or malaise. Chart review showing multiple episodes of the similar presentation necessitating visits to emergency department and occasional admissions. In August of this year she was diagnosed with obstructive urolithiasis and underwent cystoscopy with stone removal. After that she had another visit with a similar presentation a month later. At that time computed tomography scan showed some nonobstructive renal lithiasis. Her symptoms subsided within 24 hours and she was discharged home years she was evaluated by gastroenterology services well on that visit. About a month ago in October she had another episode like mention above she can't emergency department KUB was done was a without any acute findings. She was discharged home. Today KUB showed normal gas pattern no any acute findings. Urine showing some hematuria. Creatinine is normal she had viable cell count of 10.4. She is afebrile with stable vital signs. Patient is currently in lots of distress due to the left flank pain and not able to provide accurate then reasonable history. Review of Systems Review of system was performed and is negative except mentioned in HPI Past Medical History Past Medical History: Asthma, Pneumonia, Renal Disease Additional Past Medical History / Comment(s): Pt recently admitted to [facility] on 07/23/19 with r flank pain/possible acute pyelonephritis, intractable nausea/vomiting. Other Hx: Previous kidney stones, UTIs History of Any Multi-Drug Resistant Organisms: C-DIFF Date of last positivie culture/infection: stool MDRO Source:: 2017 Past Surgical History: Cholecystectomy Additional Past Surgical History / Comment(s): Cystoscopies, L ureteroscopy with laser litho, colonoscopy Past Anesthesia/Blood Transfusion Reactions: No Reported Reaction Past Psychological History: Anxiety, Bipolar Smoking Status: Current every day smoker Past Alcohol Use History: None Reported Past Drug Use History: None Reported - Past Family History Father Family Medical History: Cancer Additional Family Medical History / Comment(s): colon cancer Mother Family Medical History: Hypertension Medications and Allergies Home Medications Medication Instructions Recorded Confirmed Type Buprenorphine HCl [Belbuca] 75 mcg SL BID 11/10/19 11/10/19 History Allergies Allergy/AdvReac Type Severity Reaction Status Date / Time ketorolac [From Toradol] Allergy Rash/Hives Verified 11/10/19 13:56 latex Allergy Rash/Hives Verified 11/10/19 13:56 morphine Allergy Rash/Hives Verified 11/10/19 13:56 ondansetron [From Zofran] Allergy Rash/Hives Verified 11/10/19 13:56 Physical Exam Vitals: Vital Signs Temp Pulse Resp BP Pulse Ox 11/10/19 16:14 98 F 95 19 115/71 97 11/10/19 12:52 98.0 F 109 H 24 121/94 94 L 11/10/19 10:19 98 F 98 18 121/82 98 Intake and Output 11/10/19 11/10/19 11/10/19 06:59 14:59 22:59 Other: Weight 99.79 kg - Constitutional General appearance: severe distress - EENT Eyes: PERRLA ENT: normal oropharynx - Neck Neck: no lymphadenopathy, normal ROM - Respiratory Respiratory: bilateral: CTA - Cardiovascular Rhythm: regular Heart sounds: normal: S1, S2 - Gastrointestinal She has some left-sided CVA tenderness. No guarding or rebounding over her abdomen no tenderness to superficial or deep palpation General gastrointestinal: no distended, normal bowel sounds, organomegaly, soft - Neurologic Neurologic: CNII-XII intact - Musculoskeletal No peripheral edema cyanosis or clubbing Musculoskeletal: no generalized weakness - Psychiatric Psychiatric: A&O x's 3 Results CBC & Chem 7: 11/10/19 11:45 11/10/19 11:45 Labs: Abnormal Lab Results - Last 24 Hours (Table) 11/10/19 11/10/19 11/10/19 Range/Units 11:45 11:45 13:16 WBC 11.4 H (3.8-10.6) k/uL Neutrophils # 9.3 H (1.3-7.7) k/uL BUN 6 L (7-17) mg/dL Urine Appearance Cloudy H (Clear) Urine pH 8.5 H (5.0-8.0) Urine Protein 1+ H (Negative) Urine Ketones 2+ H (Negative) Urine WBC 6 H (0-5) /hpf Ur Squamous Epith Cells 48 H (0-4) /hpf Urine Bacteria Moderate H (None) /hpf Urine Mucus Many H (None) /hpf Thrombosis Risk Factor Assmnt - DVT/VTE Prophylaxis DVT/VTE Prophylaxis: Mechanical Prophylaxis ordered Assessment and Plan Assessment: This is a 34-year-old female presenting with episodes of colicky left flank pain and severe nausea and dry heaving. She has previous history of renal colic was a similar presentation. She is quite a bit of distress right now. We will order CT of abdomen and pelvis for stone protocol. Antiemetics and analgesics ordered. We review her maps, she does not have any unusual or frequent opiate prescriptions. We will check urine drug screen. Once we obtain these results further recommendations to follow Continue IV fluids repeat labs in the morning. 2 or more midnights might be needed depending on the results of CAT scan and developed her symptoms Patient is a full code Her significant other is listed as a surrogate decision maker
[2019-11-10] MEDS: ALPRAZolam 0.25 MG TAB PO PRN ×2 (17:09→22:42)
[2019-11-10 17:29] LABS: Amphetamine Screen,Urine Not Detected (NotDetected); Barbiturate Screen,Urine Not Detected (NotDetected); Benzodiazepines Screen,Urine Detected (NotDetected); Cocaine Screen,Urine Not Detected (NotDetected); Methadone Screen, Urine Not Detected (NotDetected); Opiate Screen,Urine Not Detected (NotDetected); Oxycodone Screen, Urine Not Detected (NotDetected); Phencyclidine Screen,Urine Not Detected (NotDetected); Tricyclic Antidepressant,Urine Not Detected (NotDetected); Urn Cannabinoid Scrn Not Detected (NotDetected)
[2019-11-10] MEDS: SODIUM CHLORIDE 0.9% 1,000 ML IV SCH ×2 (18:01→19:39)
--- NOTE | 2019-11-10 18:48 | CT ---
EXAMINATION TYPE: CT abdomen pelvis wo con DATE OF EXAM: 11/10/2019 COMPARISON: 09/02/2019 HISTORY: Left sided flank pain. CT DLP: 977.8 mGycm Automated exposure control for dose reduction was used. TECHNIQUE: Helical acquisition of images was performed from the lung bases through the pelvis. FINDINGS: Exam significantly limited due to motion artifact. LUNG BASES: No significant abnormality is appreciated. LIVER/GB: Postcholecystectomy changes are seen. PANCREAS: No significant abnormality is seen. SPLEEN: No significant abnormality is seen. ADRENALS: No significant abnormality is seen. KIDNEYS: There is a nonobstructing cortical based 2 mm right renal calculus stable from the prior exa m. No hydronephrosis ADENOPATHY: None visualized. OSSEOUS STRUCTURES: No significant abnormality is seen. BOWEL: Bowel gas pattern nonspecific. Assessment for inflammatory changes nondiagnostic due to motio n artifact appendix normal. Changes of diverticulosis. Wall thickening involving the sigmoid colon OTHER: Aorta of normal caliber. No free fluid. Osteitis pubis condensans noted. Small fat-containing periumbilical hernia. IMPRESSION: 1. Markedly Limited exam demonstrates a nonobstructing right renal calculus. Assessment for inflammat ory changes severely limited due to motion artifact. Wall thickening involving small bowel loops and sigmoid colon loop within the left abdomen most likely is related to incomplete distention but should be correlated clinically given the severe limitation exam for enterocolitis. If there is concern for mesenteric edema or bowel abnormality recommend repeat exam with oral and IV contrast.
[2019-11-10] MEDS ORDERED: HYDROmorphone 1 MG/ML 1 ML SYRINGE IVP STA (19:24)
[2019-11-10] MEDS: FAMOTIDINE 20 MG TAB PO SCH (20:34)
[2019-11-10] MEDS: PROCHLORPERAZINE 5 MG TAB PO PRN (21:48)
[2019-11-11] MEDS: HYDROmorphone 0.5 MG/0.5 ML SYRINGE IVP PRN ×7 (04:14→23:54)
[2019-11-11] MEDS: FAMOTIDINE 20 MG TAB PO SCH ×2 (07:32→20:38)
[2019-11-11] MEDS ORDERED: PROMETHAZINE INJ 25 MG in SODIUM CHLORIDE 0.9% 50 ML IVPB PRN (09:09)
[2019-11-11] MEDS: SODIUM CHLORIDE 0.9% 1,000 ML IV SCH ×2 (09:27→23:57)
--- NOTE | 2019-11-11 10:51 | P.PN ---
Subjective Progress Note Date: 11/11/19 Principal diagnosis: Flank pain Patient was seen and examined. No acute events overnight. Patient reports excruciating flank pain bilaterally, left greater than right along with groin discomfort bilaterally left greater than right. Pain is 10 out of 10 in severity currently. Also complains of intense nausea and inability to tolerate oral liquid. She complains of nausea and multiple episodes of vomiting overnight. She denies any chest pain, shortness of breath or palpitations. Objective - Vital Signs Vital signs: Vital Signs Temp 97.9 F 11/11/19 03:30 Pulse 91 11/11/19 03:30 Resp 20 11/11/19 03:30 BP 103/64 11/11/19 03:30 Pulse Ox 97 11/11/19 03:30 Intake & Output 11/10/19 11/11/19 11/11/19 18:59 06:59 18:59 Intake Total 20 Output Total 500 Balance 20 -500 Weight 99.79 kg Intake: IV 20 Invasive Line 1 20 Output: Emesis 500 Other: Voiding Method Toilet Toilet # Voids 1 - Exam General: [non toxic], [no distress], [appears at stated age] Derm: [warm], [dry] Head: [atraumatic], [normocephalic], [symmetric] Eyes: [EOMI], [no lid lag], [anicteric sclera] Mouth: [no lip lesion], [mucus membranes moist] Cardiovascular: [S1S2 reg], [no murmur], [positive DP pulse bilateral] Lungs: [CTA bilateral], [no rhonchi, no rales] , [no accessory muscle use] Abdominal: [soft], [ nontender to palpation], [left and right CVA tenderness], [no appreciable organomegaly] Ext: [no gross muscle atrophy], [no edema], [no contractures] Psych: [Alert], [oriented], [appropriate affect] - Labs CBC & Chem 7: 11/10/19 11:45 11/10/19 11:45 Labs: Abnormal Lab Results - Last 24 Hours (Table) 11/10/19 11/10/19 11/10/19 Range/Units 11:45 11:45 13:16 WBC 11.4 H (3.8-10.6) k/uL Neutrophils # 9.3 H (1.3-7.7) k/uL BUN 6 L (7-17) mg/dL Urine Appearance Cloudy H (Clear) Urine pH 8.5 H (5.0-8.0) Urine Protein 1+ H (Negative) Urine Ketones 2+ H (Negative) Urine WBC 6 H (0-5) /hpf Ur Squamous Epith Cells 48 H (0-4) /hpf Urine Bacteria Moderate H (None) /hpf Urine Mucus Many H (None) /hpf U Benzodiazepines Scrn (NotDetected) 11/10/19 Range/Units 13:16 WBC (3.8-10.6) k/uL Neutrophils # (1.3-7.7) k/uL BUN (7-17) mg/dL Urine Appearance (Clear) Urine pH (5.0-8.0) Urine Protein (Negative) Urine Ketones (Negative) Urine WBC (0-5) /hpf Ur Squamous Epith Cells (0-4) /hpf Urine Bacteria (None) /hpf Urine Mucus (None) /hpf U Benzodiazepines Scrn Detected H (NotDetected) Assessment and Plan Assessment: Assessment and plan Nephrolithiasis causing flank pain/groin. Leukocytosis CT abdomen and pelvis shows nonobstructing right renal calculus. UA negative for leukocyte esterase or nitrites. Plans: Pain management with T3 or Tylenol. Increase Dilaudid. Promethazine as needed for nausea or vomiting. Follow urology consultation. Leukocytosis with WBC count of 11.4 with neutrophilia. Likely reactive. No signs of infection. Afebrile. Plans: Continue to monitor. [Patient admitted for bilateral flank and groin pain. CT shows similar findings to previous admission. Patient sees Dr. Angel in clinic, we will consult for further recommendations. She is pending clinical improvement. Likely DC in 1-2 days if pain is better controlled and able to tolerate by mouth.]
[2019-11-11] MEDS: PROCHLORPERAZINE 5 MG TAB PO PRN (17:51)
[2019-11-11 22:08] VITALS: RESP 15
[2019-11-12] MEDS: HYDROmorphone 0.5 MG/0.5 ML SYRINGE IVP PRN ×4 (03:29→12:57)
[2019-11-12 05:18] VITALS: BP 97/66; PULSE 67; TEMP 97.8
[2019-11-12] MEDS: FAMOTIDINE 20 MG TAB PO SCH (07:06)
[2019-11-12] MEDS: SODIUM CHLORIDE 0.9% 1,000 ML IV SCH (07:07)
--- NOTE | 2019-11-12 10:58 | P.DS ---
Providers Date of admission: 11/10/19 15:10 Expected date of discharge: 11/12/19 Attending physician: Devon Murillo MD Consults: 11/11/19 09:12 Consult Physician Stat Consulting Provider: Juan Angel Consult Reason/Comments: nephrolithiasis Do you want consulting provider notified?: Yes Primary care physician: [facility] Course: 34-year-old female with PMH of nephrolithiasis initially presented to the ED for severe left-sided flank pain, colicky nature which started 3 days ago. She also complained of intractable nausea and dry heaving. Patient has had multiple admissions for similar complaints. In August she was diagnosed with obstructive urolithiasis and underwent cystoscopy with stone removal. She did present to the hospital month later with similar symptoms, computed tomography scan at that time showed nonobstructive renal lithiasis. She is admitted for symptom management and further evaluation. Patient continued to report excruciating bilateral flank pain, left greater than right with episodes of nausea. She also reported pain radiating into the groin bilaterally. CT abdomen and pelvis was performed which demonstrated a nonobstr ucting right renal calculus. Patient was seen and examined prior to discharge. No acute events overnight. Patient continues to report bilateral flank pain left greater than right that is unchanged since admission. She denies any chest pain, shortness of breath or palpitations. Requesting Dilaudid [id number], eating all meals without difficulties. General: [non toxic], [no distress], [appears at stated age] Derm: [warm], [dry] Head: [atraumatic], [normocephalic], [symmetric] Eyes: [EOMI], [no lid lag], [anicteric sclera] Mouth: [no lip lesion], [mucus membranes moist] Cardiovascular: [S1S2 reg], [no murmur], [positive DP pulse bilateral] Lungs: [CTA bilateral], [no rhonchi, no rales] , [no accessory muscle use] Abdominal: [soft], [ nontender to palpation], [left and right CVA tenderness], [no appreciable organomegaly] Ext: [no gross muscle atrophy], [no edema], [no contractures] Psych: [Alert], [oriented], [appropriate affect] Assessment and plan Nephrolithiasis causing flank pain/groin. Leukocytosis CT abdomen and pelvis shows nonobstructing right renal calculus. UA negative for leukocyte esterase or nitrites. Plans: Pain management with T3 or Tylenol. Continue Dilaudid 0.5 mg IV every 3 hours. Promethazine as needed for nausea or vomiting. Follow urology consultation. Leukocytosis with WBC count of 11.4 with neutrophilia. Likely reactive. No signs of infection. Afebrile. Plans: Continue to monitor. [Patient admitted for bilateral flank and groin pain. CT shows similar findings to previous admission. Patient sees Dr. Angel in clinic, we will consult for further recommendations. Plans on DC home today with Urology clearance if no procedures will be planned.] Pertinent Studies: KUB, CT abdomen and pelvis Patient Condition at Discharge: Stable Plan - Discharge Summary Discharge Rx Participant: No New Discharge Prescriptions: New HYDROcodone/APAP 10-325MG [[place] 10-325] 1 tab PO Q4HR PRN 3 Days #18 tab PRN Reason: Pain Continue Buprenorphine HCl [Belbuca] 75 mcg SL BID Discharge Medication List Buprenorphine HCl [Belbuca] 75 mcg SL BID 11/10/19 [History] HYDROcodone/APAP 10-325MG [[place] 10-325] 1 tab PO Q4HR PRN 3 Days #18 tab 11/12/19 [Rx] Follow up Appointment(s)/Referral(s): Christian Ball MD [Primary Care Provider] - 1-2 days Juan Angel MD [STAFF PHYSICIAN] - 1 Week Patient Instructions/Handouts: Abdominal Pain (ED) Activity/Diet/Wound Care/Special Instructions: Patient will be admitted Follow-up PCP within 3 days of discharge. Follow-up urology within 1 week of discharge. Discharge Disposition: HOME SELF-CARE
== END 2019-11-12 13:20 | disposition home or self-care (01) ==
LOC: EC 10:16 → 4MS4W 15:10
PROVIDERS: ADMIT Hospitalist; ATTEND Hospitalist
DX: N20.0 Calculus of kidney (principal); D72.829 Elevated white blood cell count, unspecified; R11.2 Nausea with vomiting, unspecified; R19.7 Diarrhea, unspecified; R93.3 Abnormal findings on diagnostic imaging of other parts of digestive tract; F41.9 Anxiety disorder, unspecified; F31.9 Bipolar disorder, unspecified; J45.909 Unspecified asthma, uncomplicated; E66.9 Obesity, unspecified; Z68.33 Body mass index [BMI] 33.0-33.9, adult; Z86.19 Personal history of other infectious and parasitic diseases; Z87.01 Personal history of pneumonia (recurrent); Z87.440 Personal history of urinary (tract) infections; Z90.49 Acquired absence of other specified parts of digestive tract; Z98.890 Other specified postprocedural states; F17.200 Nicotine dependence, unspecified, uncomplicated; Z79.899 Other long term (current) drug therapy; Z88.6 Allergy status to analgesic agent; Z91.040 Latex allergy status; Z88.5 Allergy status to narcotic agent; Z88.8 Allergy status to other drugs, medicaments and biological substances; Z80.0 Family history of malignant neoplasm of digestive organs; Z82.49 Family history of ischemic heart disease and other diseases of the circulatory system
CPT/HCPCS: 96376 ×4; 96361 ×2; 96375 ×3; 96372; 96374; 99285; 36415; 80053; 82150; 83690; 85025; 81001; 81025; 87324; 80306; 74018; 74176; G0378 ×3; S0183 ×2; J1200; J0500; J2550 ×2; J2765; J3360; J1170 ×4; C9113

== ENCOUNTER 2019-11-21 09:30 | Emergency (ER) | payer BC ==
[2019-11-21 10:05] VITALS: BP 130/67; PULSE 69; RESP 18; TEMP 99
[2019-11-21] MEDS ORDERED: METOCLOPRAMIDE 5 MG/ML 2 ML VIAL IVP STA (10:47)
[2019-11-21] MEDS ORDERED: SODIUM CHLORIDE 0.9% 1,000 ML IV STA (10:47)
[2019-11-21] MEDS ORDERED: diphenhydrAMINE 50 MG/ML 1 ML VIAL IVP STA (10:49)
--- NOTE | 2019-11-21 10:56 | ED ---
General Adult HPI - General Chief complaint: Abdominal Pain Stated complaint: Kidney pain Time Seen by Provider: 11/21/19 10:23 Source: patient, RN notes reviewed, old records reviewed Mode of arrival: wheelchair Limitations: no limitations - History of Present Illness Initial comments: 34-year-old female patient well known to this emergency department due to repeat presentations of flank pain presents ED for chief complaint approximately 3 days of flank pain. Patient reports that she has history of kidney stone she's having pain in her right flank with associated nausea and vomiting. Denies any chance of being due to abstenence. Denies any other complaints at this time. Systemic: Pt denies fatigue, fever/chills, rash. Pt denies weakness, night sweats, weight loss. Neuro: Pt denies headache, visual disturbances, syncope or pre-syncope. HEENT: Pt denies ocular discharge or irritation, otalgia, rhinorrhea, pharyngitis or notable lymphadenopathy. Cardiopulmonary: Pt denies chest pain, SOB, heart palpitations, dyspnea on exertion. Abdominal/GI: Pt denies abdominal pain, diarrhea. : Pt denies dysuria, burning w/ urination, frequency/urgency. Denies new onset urinary or bowel incontinence. MSK: Pt denies myalgia, loss of strength or function in extremities. Neuro: Pt denies new onset weakness, paresthesias. - Related Data Home Medications Medication Instructions Recorded Confirmed Buprenorphine HCl [Belbuca] 75 mcg SL BID 11/10/19 11/10/19 Previous Rx's Medication Instructions Recorded HYDROcodone/APAP 10-325MG [[place] 1 tab PO Q4HR PRN 3 Days #18 tab 11/12/19 10-325] Allergies Allergy/AdvReac Type Severity Reaction Status Date / Time ketorolac [From Toradol] Allergy Rash/Hives Verified 11/21/19 10:05 latex Allergy Rash/Hives Verified 11/21/19 10:05 morphine Allergy Rash/Hives Verified 11/21/19 10:05 ondansetron [From Zofran] Allergy Rash/Hives Verified 11/21/19 10:05 Review of Systems ROS Statement: Those systems with pertinent positive or pertinent negative responses have been documented in the HPI. ROS Other: All systems not noted in ROS Statement are negative. Past Medical History Past Medical History: Asthma, Pneumonia, Renal Disease Additional Past Medical History / Comment(s): Pt recently admitted to [facility] on 07/23/19 with r flank pain/possible acute pyelonephritis, intractable nausea/vomiting. Other Hx: Previous kidney stones, UTIs History of Any Multi-Drug Resistant Organisms: C-DIFF Date of last positivie culture/infection: stool MDRO Source:: 2016 Past Surgical History: Cholecystectomy Additional Past Surgical History / Comment(s): Cystoscopies, L ureteroscopy with laser litho, colonoscopy Past Anesthesia/Blood Transfusion Reactions: No Reported Reaction Past Psychological History: Anxiety, Bipolar Smoking Status: Current every day smoker Past Alcohol Use History: None Reported Past Drug Use History: None Reported - Past Family History Father Family Medical History: Cancer Additional Family Medical History / Comment(s): colon cancer Mother Family Medical History: Hypertension General Exam - General Exam Comments Initial Comments: Constitutional: NAD, AOX3, Pt has pleasant affect. HEENT: NC/AT, trachea midline, neck supple, no lymphadenopathy. Posterior pharynx non erythematous, without exudates. External ears appear normal, without discharge. Mucous membranes moist. Eyes PERRLA, EOM intact. There is no scleral icterus. No pallor noted. Cardiopulmonary: RRR, no murmurs, rubs or gallops, no JVD noted. Lungs CTAB in anterior and posterior sanchez. No peripheral edema. Abdominal exam: Abdomen soft and non-distended. Abdomen non-tender to palpation in all 4 quadrants. Bowel sounds active in LLQ. No hepatosplenomegaly. No ecchymosis. Right flank mild tenderness to palpation. No skin changes. Neuro: CN II-XII grossly intact. No nuchal rigidity. No raccon eyes, no feldman sign, no hemotympanum. No cervical spinal tenderness. MSK: No posterior calf tenderness bilaterally, homans sign negative bilaterally. Posterior tibialis and radial pulse +2 bilaterally. Sensation intact in upper and lower extremities. Full active ROM in upper and lower extremities, 5/5 stregnth. Limitations: no limitations Course Vital Signs 11/21/19 10:01 Temperature 99.0 F Pulse Rate 69 Respiratory 18 Rate Blood Pressure 130/67 O2 Sat by Pulse 99 Oximetry Medical Decision Making - Medical Decision Making 44-year-old female patient presents to ED for chief complaint 3 days of right flank pain, nausea and vomiting. Patient vital signs stable, afebrile. Physical exam displayed amount of right flank tenderness. Imaging and laboratory investigations were initiated. Prior to these being completed patient reportedly had a family emergency and left AGAINST MEDICAL ADVICE. I did not see this patient prior to her departure. Disposition Clinical Impression: Flank pain Disposition: Left Against Medical Advice Condition: Undetermined Is patient prescribed a controlled substance at d/c from ED?: No Referrals: Christian Ball MD [Primary Care Provider] - 1-2 days
[2019-11-21] MEDS: ACETAMINOPHEN TAB 325 MG TAB PO STA ×2 (12:08→12:11)
== END 2019-11-21 12:24 | disposition left against medical advice (07) ==
LOC: EC 09:30
DX: R10.9 Unspecified abdominal pain (principal); R11.2 Nausea with vomiting, unspecified; F17.200 Nicotine dependence, unspecified, uncomplicated; Z88.5 Allergy status to narcotic agent; Z88.6 Allergy status to analgesic agent; Z88.8 Allergy status to other drugs, medicaments and biological substances; Z91.040 Latex allergy status; Z87.442 Personal history of urinary calculi; Z90.49 Acquired absence of other specified parts of digestive tract; Z98.890 Other specified postprocedural states; Z80.0 Family history of malignant neoplasm of digestive organs; Z53.29 Procedure and treatment not carried out because of patient's decision for other reasons
CPT/HCPCS: 99284; 96374; 96375; J1200; J2765

== ENCOUNTER 2025-03-29 10:46 | Emergency (ER) | payer BC, OTHER ==
[2025-03-29] MEDS: SODIUM CHLORIDE 0.9% 1,000 ML IV ONE ×2 (11:11→12:37)
[2025-03-29] MEDS: HYDROmorphone 2 MG/ML 1 ML SYRINGE IVP STA ×2 (11:11→11:38)
[2025-03-29 11:29] LABS: Basophils # (A) 0.05 10*3/uL (0.00-0.10); Basophils % (A) 0.5 %; Eosinophils # (A) 0.02 10*3/uL (0.04-0.35); Eosinophils % (A) 0.2 %; HCT 36.7 % (37.2-46.3); HGB 12.9 g/dL (12.0-15.0); Lymphocytes # (A) 1.03 10*3/uL (0.90-5.00); Lymphocytes % (A) 10.3 %; MCH 31.1 pg (27.0-32.0); MCHC 35.1 g/dL (32.0-37.0); MCV 88.4 fL (80.0-97.0); Mean Platelet Volume 9.8 fL (9.5-12.2); Monocytes # (A) 0.75 10*3/uL (0.20-1.00); Monocytes % (A) 7.5 %; Neutrophils # (A) 8.09 10*3/uL (1.80-7.70); Neutrophils % (A) 81.2 %; Platelet Count 293 10*3/uL (140-440); RBC 4.15 10*6/uL (4.10-5.20); RDW 15.1 % (11.5-14.5); WBC 9.97 10*3/uL (4.50-10.00)
[2025-03-29 11:42] LABS: ALT 25 U/L (4-34); AST 23 U/L (14-36); African American GFR (CKD) >90 (>60 ml/min/1.73 sqM); Alkaline Phosphatase 47 U/L (38-126); Anion Gap 9 mmol/L; Blood Urea Nitrogen 9 mg/dL (7-17); Calcium 9.9 mg/dL (8.4-10.2); Carbon Dioxide 16 mmol/L (22-30); Chloride 101 mmol/L (98-107); Glucose 76 mg/dL (74-99); Non-African American GFR(CKD) >90 (>60 ml/min/1.73 sqM); Sodium 126 mmol/L (137-145); Total Bilirubin 0.9 mg/dL (0.2-1.3); Total Protein 6.4 g/dL (6.3-8.2)
--- NOTE | 2025-03-29 12:26 | CT ---
EXAMINATION TYPE: CT brain wo con DATE OF EXAM: 03/29/2025 12:21 PM COMPARISON: None. CLINICAL INDICATION: Female, 39 years old with history of pseudoseizure/convulsions, Pseudoseizure/co nvulsions, TECHNIQUE: Examination was done in axial plane without intravenous contrast. Coronal and sagittal r econstructions performed. CT DLP: 1186.4 mGycm, Automated exposure control for dose reduction was used. FINDINGS: There is no evidence of acute intracranial hemorrhage, acute ischemic changes, mass, mass-effect, or extra-axial fluid collection. There is no effacement of cerebral sulci or basal subarachnoid cister ns. There is no hydrocephalus. There is no midline shift. Acevedo-white matter distinction is preserv ed. Paranasal sinuses and mastoid air cells are well pneumatized. Orbits and globes are intact. IMPRESSION: No acute intracranial abnormality seen. [facility], Workstation: [email or web address], 03/29/2025 12:24 PM
--- NOTE | 2025-03-29 12:32 | CT ---
EXAMINATION TYPE: CT thoracic spine wo con DATE OF EXAM: 03/29/2025 12:24 PM COMPARISON: None. CLINICAL INDICATION: Female, 39 years old with history of pain; PHH, Back pain TECHNIQUE: CT of the thoracic spine without contrast. Coronal and sagittal reconstructions performed. CT DLP: 1204.3 mGycm, Automated exposure control for dose reduction was used. FINDINGS: Incidental small cervical ribs. Moderate degenerative disc disease C5-C6 with disc osteophyte complex causing at least mild spinal ca nal stenosis. At the mid thoracic spine, there is mild anterior endplate spondylosis in the lower third thoracic sp ine. Vertebral body heights are preserved and alignment is maintained. No acute fracture seen. Minimal facet arthropathy scattered throughout. There is mild left neural foraminal stenosis at T8-T9 and on the right at T1/T2. Moderate on the right C7/T1 IMPRESSION: 1. Minimal to mild scattered degenerative change in the thoracic spine. No focal disc herniation or s ignificant spinal canal or foraminal stenosis is seen in the thoracic spine. 2. Moderate change partially visualized in the cervical spine at C5-C6 there is at least mild spinal canal stenosis or moderate right neural foraminal stenosis C7/T1. 3. Incidental small bilateral cervical ribs. [facility], Workstation: [email or web address], 03/29/2025 12:30 PM
[2025-03-29 12:35] VITALS: RESP 20
--- NOTE | 2025-03-29 12:38 | ED ---
General Adult HPI - General Chief complaint: Seizure Stated complaint: Seizure Time Seen by Provider: 03/29/25 10:50 Source: patient, EMS, RN notes reviewed, old records reviewed Limitations: altered mental status - History of Present Illness Initial comments: Patient is a 39-year-old female presents emergency department complaining of possible seizure. Appears to be a pseudoseizure as she is not having typical epileptic activity. She was moving all 4 extremities voluntarily and is responding to verbal as well as with sternal rub. We are able to tell her she is not going to receive pain medications and she stops having her jerking motions and will speak with me. Does not appear epileptic in nature. Does have no recent visits here but does have a history of chronic pain. Was given IM Versed by EMS but states that they have seen her previously and usually take her to [facility]. They state that she does have a history of pseudoseizures. Presents for further evaluation. Patient's only complaint is thoracic spine pain which she states has been there for months to years and states "this is not chronic." Presents for further evaluation at this time. Is asking for IV pain medications. Follows up with a pain specialist. - Related Data Home Medications Medication Instructions Recorded Confirmed Venlafaxine HCl [Effexor XR] 75 mg PO DAILY 03/29/25 03/29/25 Venlafaxine HCl [Effexor XR] 150 mg PO DAILY 03/29/25 03/29/25 clonazePAM [KlonoPIN] 0.5 mg PO TID PRN 03/29/25 03/29/25 lamoTRIgine [LaMICtal] 300 mg PO DAILY 03/29/25 03/29/25 traZODone HCL [Desyrel] 100 mg PO HS PRN 03/29/25 03/29/25 Previous Rx's Medication Instructions Recorded Cyclobenzaprine [Flexeril] 5 mg PO TID PRN 5 Days #15 tablet 03/29/25 Lidocaine 5% Patch [Lidoderm 5% 1 patch TOPICAL DAILY PRN 14 Days 03/29/25 Patch] #14 patch Allergies Allergy/AdvReac Type Severity Reaction Status Date / Time fentanyl Allergy Anaphylaxis Verified 03/29/25 11:48 ketorolac [From Toradol] Allergy Rash/Hives Verified 03/29/25 11:48 latex Allergy Rash/Hives Verified 03/29/25 11:48 morphine Allergy Rash/Hives Verified 03/29/25 11:48 ondansetron [From Zofran] Allergy Rash/Hives Verified 03/29/25 11:48 Review of Systems ROS Statement: Those systems with pertinent positive or pertinent negative responses have been documented in the HPI. Review of Systems: CONST: Denies fever EYES: Denies blurry vision ENT: Denies nasal congestion C/V: Denies Chest pain RESP: Denies shortness of breath GI: Denies abdominal pain : Denies dysuria SKIN: Denies rash. MSK: Endorses back pain NEURO: Denies headache ROS Other: All systems not noted in ROS Statement are negative. Past Medical History Past Medical History: Asthma, Pneumonia, Renal Disease Additional Past Medical History / Comment(s): Pt recently admitted to [facility] on 07/23/19 with r flank pain/possible acute pyelonephritis, intractable nausea/vomiting. Other Hx: Previous kidney stones, UTIs History of Any Multi-Drug Resistant Organisms: C-DIFF Date of last positivie culture/infection: stool MDRO Source:: 2016 Past Surgical History: Cholecystectomy Additional Past Surgical History / Comment(s): Cystoscopies, L ureteroscopy with laser litho, colonoscopy Past Anesthesia/Blood Transfusion Reactions: No Reported Reaction Past Psychological History: Anxiety, Bipolar Smoking Status: Unknown if ever smoked Past Alcohol Use History: None Reported Past Drug Use History: None Reported - Past Family History Father Family Medical History: Cancer Additional Family Medical History / Comment(s): colon cancer Mother Family Medical History: Hypertension General Exam - General Exam Comments Initial Comments: General: Presented with pseudoseizure activity. HEAD: Normal with no signs of head trauma. EYES: PERRLA, EOMI, conjunctiva normal, no discharge. Pupils are 3 mm and equal bilaterally. ENT: Hearing grossly intact, normal oropharynx. RESPIRATORY: Clear breath sounds bilaterally. No wheezes, rales, or rhonchi. C/V: Regular rate and rhythm. S1 and S2 auscultated, no edema, peripheral pulses 2+ and intact throughout ABD: Abd is soft, nontender, nondistended EXT: Normal range of motion, no obvious deformity. Mild tenderness palpation of the thoracic spine. No midline cervical, lumbar spine tenderness to palpation. SKIN: No rashes or lesions observed on exposed skin. NEURO: Alert and oriented x 4. Cranial nerves II-XII intact. No focal sensory or strength deficits. GCS of 15. Pseudoseizure activity present as stated above we were able to verbally direct her out of her seizure. She has a known history of this per EMS. Limitations: altered mental status Course Vital Signs 03/29/25 03/29/25 03/29/25 10:48 11:22 12:33 Temperature 97.4 F L Pulse Rate 130 H 102 H 93 Respiratory 26 H 22 20 Rate Blood Pressure 144/68 113/75 O2 Sat by Pulse 95 98 Oximetry 03/29/25 14:10 Temperature 99.1 F Pulse Rate 89 Respiratory 20 Rate Blood Pressure 102/72 O2 Sat by Pulse 100 Oximetry Medical Decision Making - Medical Decision Making Was pt. sent in by a medical professional or institution (SIMON Bateman, COATING SUPERVISOR, urgent care, hospital, or longterm...) When possible be specific @ -No Did you speak to anyone other than the patient for history (EMS, parent, family, police, friend...)? What history was obtained from this source @ -EMS provided history of patient's pseudoseizures as well as the fact that when they walked in, patient was on the phone with the dispatch and as soon as she saw them began having a pseudoseizure type activity. Did you review nursing and triage notes (agree or disagree)? Why? @ -I reviewed and agree with nursing and triage notes Were old charts reviewed (outside hosp., previous admission, EMS record, old EKG, old radiological studies, urgent care reports/EKG's, longterm records)? Report findings @ -Reviewed chart from [facility] which does show patient has an extensive psychiatric history as well as chronic pain history. History of somatic symptom disorder as well as nonepileptic seizures and chronic pain. Recently seen at [facility] for similar complaints earlier this month. Obtained the paperwork for this patient which was scanned into the system which does document the psychiatric evaluation as well as diagnoses of somatic symptom disorder, nonepileptic seizures, as well as the chronic thoracic spine pain. Differential Diagnosis (chest pain, altered mental status, abdominal pain women, abdominal pain men, vaginal bleeding, weakness, fever, dyspnea, syncope, headache, dizziness, GI bleed, back pain, seizure, CVA, palpatations, mental health, musculoskeletal)? @ -Pseudoseizure, chronic pain, somatic symptom disorder. This list is not all-inclusive. EKG interpreted by me (3pts min.). @ -As above X-rays interpreted by me (1pt min.). @ -None done CT interpreted by me (1pt min.). @ -CT thoracic spine negative for any obvious acute injury or process. CT brain shows no obvious acute intracranial process U/S interpreted by me (1pt. min.). @ -None done What testing was considered but not performed or refused? (CT, X-rays, U/S, labs)? Why? @ -None What meds were considered but not given or refused? Why? @ -None Did you discuss the management of the patient with other professionals (professionals i.e. , PA, COATING SUPERVISOR, lab, RT, psych nurse, social worker aide, atomic fuel assembler, teacher, chief security officer, business case analyst)? Give summary @ -No Was smoking cessation discussed for >3mins.? @ -No Was critical care preformed (if so, how long)? @ -No Were there social determinants of health that impacted care today? How? ( Homelessness, low income, unemployed, alcoholism, drug addiction, transportation, low edu. Level, literacy, decrease access to med. care, intermediate, rehab)? @ -No Was there de-escalation of care discussed even if they declined (Discuss DNR or withdrawal of care, Hospice)? DNR status @ -No What co-morbidities impacted this encounter? (DM, HTN, Smoking, COPD, CAD, Cancer, CVA, ARF, Chemo, Hep., AIDS, mental health diagnosis, sleep apnea, morbid obesity)? @ -None Was patient admitted / discharged? Hospital course, mention meds given and route, prescriptions, significant lab abnormalities, going to OR and other pertinent info. @ -Patient presents emergency department for what appears to be pseudoseizures as well as chronic pain. She is actively pseudo seizing but comes out of it when I tell her she will not receive any pain medications. Vitals are within acceptable limits. Patient will be administered IV pain meds and fluids. We will obtain records from [facility] where she was recently seen. EMS does tell me she has an extensive history of the pseudoseizures. Patient was in agr eement this plan. Labs are remarkable for mild hyponatremia but otherwise unremarkable. CT imaging negative for any obvious acute traumatic injury of the thoracic spine and CT brain unremarkable. On reevaluation, after numerous time this morning the patient to start having pseudoseizures as I will be unable to provide her with pain meds, she is resting comfortably at this time and interactive. No further pseudoseizures. I did discuss with her that I did review all of her recent paperwork from [facility]. She needs to follow-up with her pain specialist for further pain control. She expressed understanding and would like to go home and I believe this is reasonable. She is not a threat to herself or others at this time. Patient is cooperative. She be discharged home with lidocaine patches and Flexeril. Undiagnosed new problem with uncertain prognosis? @ -No Drug Therapy requiring intensive monitoring for toxicity (Heparin, Nitro, Insulin, Cardizem)? @ -No Were any procedures done? @ -No Diagnosis/symptom? @ -Psychogenic nonepileptic seizure, chronic pain, somatic symptom disorder Acute, or Chronic, or Acute on Chronic? @ -Chronic Uncomplicated (without systemic symptoms) or Complicated (systemic symptoms)? @ -Uncomplicated Side effects of treatment? @ -No Exacerbation, Progression, or Severe Exacerbation? @ -No Poses a threat to life or bodily function? How? (Chest pain, USA, VT, pneumonia, PE, COPD, DKA, ARF, appy, cholecystitis, CVA, Diverticulitis, Homicidal, Suicidal, threat to staff... and all critical care pts) @ -Unlikely at this time - Lab Data Result diagrams: 03/29/25 11:08 03/29/25 11:08 Lab Results 03/29/25 03/29/25 03/29/25 Range/Units 11:08 11:08 12:00 WBC 9.97 (4.50-10.00) 10*3/uL RBC 4.15 (4.10-5.20) 10*6/uL Hgb 12.9 (12.0-15.0) g/dL Hct 36.7 L (37.2-46.3) % MCV 88.4 (80.0-97.0) fL MCH 31.1 (27.0-32.0) pg MCHC 35.1 (32.0-37.0) g/dL Plt Count 293 (140-440) 10*3/uL MPV 9.8 (9.5-12.2) fL Immature Gran % (Auto) 0.3 % Neutrophils % 81.2 % Lymphocytes % 10.3 % Monocytes % 7.5 % Eosinophils % 0.2 % Basophils % 0.5 % Immature Gran # 0.03 (0.00-0.04) 10*3/uL Neutrophils # 8.09 H (1.80-7.70) 10*3/uL Lymphocytes # 1.03 (0.90-5.00) 10*3/uL Monocytes # 0.75 (0.20-1.00) 10*3/uL Eosinophils # 0.02 L (0.04-0.35) 10*3/uL Basophils # 0.05 (0.00-0.10) 10*3/uL Sodium 126 L (137-145) mmol/L Potassium 4.0 (3.5-5.1) mmol/L Chloride 101 (98-107) mmol/L Carbon Dioxide 16 L (22-30) mmol/L Anion Gap 9 mmol/L BUN 9 (7-17) mg/dL Creatinine 0.66 (0.52-1.04) mg/dL Est GFR (CKD-EPI)AfAm >90 (>60 ml/min/1.73 sqM) Est GFR (CKD-EPI)NonAf >90 (>60 ml/min/1.73 sqM) Glucose 76 (74-99) mg/dL Calcium 9.9 (8.4-10.2) mg/dL Total Bilirubin 0.9 (0.2-1.3) mg/dL AST 23 (14-36) U/L ALT 25 (4-34) U/L Alkaline Phosphatase 47 (38-126) U/L Total Protein 6.4 (6.3-8.2) g/dL Albumin 4.0 (3.5-5.0) g/dL Urine Color Light Yellow Urine Appearance Clear (Clear) Urine pH 7.0 (5.0-8.0) Ur Specific [place] 1.014 (1.001-1.035) Urine Protein Negative (Negative) Urine Glucose (UA) Negative (Negative) Urine Ketones 2+ H (Negative) Urine Blood Moderate H (Negative) Urine Nitrite Negative (Negative) Urine Bilirubin Negative (Negative) Urine Urobilinogen <2.0 (<2.0) mg/dL Ur Leukocyte Esterase Negative (Negative) Urine RBC 5 (0-5) /hpf Urine WBC 1 (0-5) /hpf Ur Squamous Epith Cells 2 (0-4) /hpf Urine Mucus Occasional H (None) /hpf Urine Opiates Screen Detected H (NotDetected) Ur Oxycodone Screen Not Detected (NotDetected) Urine Methadone Screen Not Detected (NotDetected) Ur Barbiturates Screen Not Detected (NotDetected) U Tricyclic Antidepress Not Detected (NotDetected) Ur Phencyclidine Scrn Not Detected (NotDetected) Ur Amphetamines Screen Not Detected (NotDetected) U Methamphetamines Scrn Not Detected (NotDetected) U Benzodiazepines Scrn Not Detected (NotDetected) Urine Cocaine Screen Not Detected (NotDetected) U Marijuana (THC) Screen Detected H (NotDetected) - EKG Data -: EKG Interpreted by Me EKG Comments: 12-lead Electrocardiogram Interpretation Note EKG was reviewed and interpreted by myself. 12-lead ECG performed at 1101 is interpreted by me as revealing sinus tachycardia at a rate of 117 beats per minute. [place] is normal. FL interval is 124 ms, QRS duration is 74 ms, QTc is 376 ms.. There were no ST or T wave abnormalities to suggest myocardial ischemia or injury. R wave progression across the precordium was satisfactory. By my interpretation this EKG is non-diagnostic for acute ischemia. Disposition Clinical Impression: Somatic symptom disorder, Psychogenic nonepileptic seizure, Chronic pain Disposition: HOME SELF-CARE Condition: Good Instructions (If sedation given, give patient instructions): Nonepileptic Seizures (ED), Chronic Back Pain (DC) Additional Instructions: Follow up with your pain specialist and neurologist. Prescriptions: Cyclobenzaprine [Flexeril] 5 mg PO TID PRN 5 Days #15 tablet PRN Reason: Pain Lidocaine 5% Patch [Lidoderm 5% Patch] 1 patch TOPICAL DAILY PRN 14 Days #14 patch PRN Reason: Pain Is patient prescribed a controlled substance at d/c from ED?: No Referrals: Nonstaff,Physician [Primary Care Provider] - 1-2 days Berto Chang MD [Medical Doctor] - 1-2 days Forms: PH Area PCPs Time of Disposition: 12:37
[2025-03-29 12:42] LABS: Appearance,Urine Clear (Clear); Bilirubin,Urine Negative (Negative); Blood,Urine Moderate (Negative); Color,Urine Light Yellow; Glucose,Urine (UA) Negative (Negative); Ketones,Urine 2+ (Negative); Leukocyte Esterase,Urine Negative (Negative); Mucus,Urine Occasional /hpf; Nitrite,Urine Negative (Negative); Protein,Urine Negative (Negative); RBC,Urine 5 /hpf (0-5); Specific Gravity,Urine 1.014 (1.001-1.035); Squamous Epithelial Cell,Urine 2 /hpf (0-4); Urobilinogen,Urine <2.0 mg/dL (<2.0); WBC,Urine 1 /hpf (0-5)
[2025-03-29 12:53] LABS: Amphetamine Screen,Urine Not Detected (NotDetected); Barbiturate Screen,Urine Not Detected (NotDetected); Benzodiazepines Screen,Urine Not Detected (NotDetected); Cocaine Screen,Urine Not Detected (NotDetected); Methadone Screen, Urine Not Detected (NotDetected); Opiate Screen,Urine Detected (NotDetected); Oxycodone Screen, Urine Not Detected (NotDetected); Phencyclidine Screen,Urine Not Detected (NotDetected); Tricyclic Antidepressant,Urine Not Detected (NotDetected); Urn Cannabinoid Scrn Detected (NotDetected)
[2025-03-29] MEDS: LIDOCAINE 4% PATCH TOPICAL ONE (12:57)
[2025-03-29 14:12] VITALS: BP 102/72; PULSE 89; TEMP 99.1
== END 2025-03-29 14:10 | disposition home or self-care (01) ==
LOC: EC 10:46
DX: G89.29 Other chronic pain (principal); F45.9 Somatoform disorder, unspecified; F44.5 Conversion disorder with seizures or convulsions; Z88.5 Allergy status to narcotic agent; Z88.6 Allergy status to analgesic agent; Z91.040 Latex allergy status; Z88.8 Allergy status to other drugs, medicaments and biological substances
CPT/HCPCS: 36415; 93005; 80053; 85025; 81001; 80306; 72128; 70450; 99285; 96374; 96361 ×2; J1171